=== PATIENT | male | born 1960 | race Caucasian/White ===

== ENCOUNTER → 2017-04-09 | Outpatient (CLI) | payer OTHER ==
[~2017-04-09] MED LIST: ALBU6.7H INH; ALBU8I INH; BUSP5TAB3 PO; LITH300 PO; LOMO PO; NEUR300C PO; PRED20 PO; VIST25CA PO; ZITH250T PO; ZOFR4TAB3 SL
[2017-04-09 10:02] LABS: BLOOD GAS BASE EXCESS -2.2 mmol/L (-2-2); BLOOD GAS CARBOXYHEMOGLOBIN 4.9 % (0-4); BLOOD GAS HCO3 22 mmol/L (22-26); BLOOD GAS METHEMOGLOBIN 1.2 % (0-2); BLOOD GAS O2 HGB SATURATION 93 % (90-100); BLOOD GAS OXYGEN CONTENT 15.2 Vol % (12.0-20.0); BLOOD GAS PCO2 37 mmHG (38-42); BLOOD GAS PO2 101 mmHG (61-120); BLOOD GAS TOTAL HGB 11.5 G/DL (12.0-16.0); CRITICAL VALUE NO; DRAW SITE RT RADIAL; FIO2 21 %; NUMBER OF ARTERIAL PUNCTURES 1; OXYGEN DEVICE ROOM AIR; STAT NO; TEMP CORR TO 98.6; ULNAR PULSE PRESENT
--- NOTE | 2017-04-10 08:35 | RSPPFT ---
DATE OF PROCEDURE: 04/09/17 COMMENTS: VOLUMES DYNAMIC: FVC and FEV1 normal. STATIC: FRC, RV and TLC normal. FLOWS: FEV1% normal; FEF 25-75 mildly reduced. DIFFUSION: Normal. FLOW VOLUME LOOP: Terminal airflow obstruction. IMPRESSION: Mild obstructive ventilatory defect with normal diffusion and no significant hyperinflation. Airways resistance is normal. There is minimal change post-bronchodilator.
== END ==
LOC: PHRSP 09:00
PROVIDERS: ATTEND Internal Medicine
DX: J44.9 Chronic obstructive pulmonary disease, unspecified (principal)
CPT/HCPCS: 36600; 82805; 94060; 94620; 94726; 94729

== ENCOUNTER 2018-01-11 18:49 | Inpatient (IN) | payer OTHER, MEDICARE ==
[~2018-01-11] VITALS: Ht 182.9 cm; Wt 77.0 kg
[2018-01-11 18:51] VITALS: BP 171/100; PULSE 61; RESP 20; TEMP 100; O2SAT 99
[2018-01-11] MEDS ORDERED: KETOROLAC TROMETHAMINE 30 MG/ML (IVP) VIAL IV PUSH ONE (19:30)
[2018-01-11] MEDS ORDERED: CLINDAMYCIN 600 MG/NS PREMIX 50 ML IV ONE (19:30)
[2018-01-11] MEDS ORDERED: SODIUM CHLOR 0.9% 1000 ML INJ 1,000 ML IV ONE ×2 (19:30→21:15)
[2018-01-11] MEDS ORDERED: PIPERACIL-TAZO 3.375 GM PREMIX 50 ML IV ONE (19:30)
[2018-01-11 19:44] LABS: AUTOMATED NEUTROPHIL # 16.8 TH/MM3 (1.8-7.7); BASOPHIL # 0.2 TH/MM3 (0-0.2); BASOPHIL % 0.8 % (0.0-2.0); EOSINOPHIL % 0.1 % (0.0-4.0); HEMATOCRIT 40.9 % (39.0-51.0); HEMOGLOBIN 13.8 GM/DL (13.0-17.0); LYMPH % 9.7 % (9.0-44.0); LYMPHOCYTE # 1.9 TH/MM3 (1.0-4.8); MEAN CELL VOLUME 103.3 FL (80.0-100.0); MEAN CORPUSCULAR HEMOGLOBIN 34.8 PG (27.0-34.0); MEAN CORPUSCULAR HGB CONC 33.7 % (32.0-36.0); MEAN PLATELET VOLUME 7.8 FL (7.0-11.0); MONO % 4.5 % (0.0-8.0); MONOCYTE # 0.9 TH/MM3 (0-0.9); NEUT % 84.9 % (16.0-70.0); PLATELET COUNT 197 TH/MM3 (150-450); RED BLOOD COUNT 3.96 MIL/MM3 (4.50-5.90); WHITE BLOOD COUNT 19.8 TH/MM3 (4.0-11.0)
[2018-01-11 19:52] LABS: CHLORIDE 103 MEQ/L (98-107); SODIUM (NA) 138 MEQ/L (136-145)
[2018-01-11 19:56] LABS: ALBUMIN 4.2 GM/DL (3.4-5.0); BICARBONATE 26.2 MEQ/L (21.0-32.0); BLOOD UREA NITROGEN 17 MG/DL (7-18); GLUCOSE,RANDOM 142 MG/DL (74-106)
[2018-01-11 19:59] LABS: ALT (GPT) 30 U/L (12-78); AST (GOT) 36 U/L (15-37); GLOMERULAR FILTRATION RATE 48 ML/MIN (>89)
[2018-01-11 20:00] LABS: TOTAL BILIRUBIN ADULT 2.4 MG/DL (0.2-1.0)
[2018-01-11 20:01] LABS: TOTAL PROTEIN 9.6 GM/DL (6.4-8.2)
[2018-01-11 20:02] LABS: ALKALINE PHOSPHATASE 174 U/L (45-117)
[2018-01-11 20:04] LABS: TROPONIN I LESS THAN 0.02 NG/ML (0.02-0.05)
[2018-01-11 20:10] VITALS: BP 160/88; PULSE 66; RESP 16; O2SAT 98
[2018-01-11 20:13] LABS: OVALOCYTES 1+ (NORMAL); TEARDROP RBCS 1+ (NORMAL)
--- NOTE | 2018-01-11 20:16 | RADRPT ---
EXAM DATE/TIME: 01/11/2018 19:41 [facility] COMPARISON: CHEST SINGLE AP, December 31, 2015, 12:25. INDICATIONS : Fever. MEDICAL HISTORY : Chronic obstructive pulmonary disease. SURGICAL HISTORY : None. ENCOUNTER: Initial ACUITY: 2 days PAIN SCORE: 9/10 LOCATION: Bilateral chest FINDINGS: A single view of the chest demonstrates the lungs to be symmetrically aerated without evidence of mas s, infiltrate or effusion. The cardiomediastinal contours are unremarkable. Osseous structures are intact. CONCLUSION: No evidence of acute cardiopulmonary disease. Edinson Esquivel MD on January 11, 2018 at 20:14 Board Certified Radiologist. This report was verified electronically.
--- NOTE | 2018-01-11 20:33 | RADRPT ---
EXAM DATE/TIME: 01/11/2018 19:50 [facility] COMPARISON: No previous studies available for comparison. INDICATIONS : Altered mental status. Nausea. Vomiting. RADIATION DOSE: 42.98 CTDIvol (mGy) MEDICAL HISTORY : Chronic obstructive pulmonary disease. Hypertension. Calcified brain bleed. SURGICAL HISTORY : None. ENCOUNTER: Initial ACUITY: 1 day PAIN SCALE: 3/10 LOCATION: cranial TECHNIQUE: Multiple contiguous axial images were obtained of the head. Using automated exposure control and adj ustment of the mA and/or kV according to patient size, radiation dose was kept as low as reasonably a chievable to obtain optimal diagnostic quality images. DICOM format image data is available electro nically for review and comparison. FINDINGS: CEREBRUM: The ventricles are normal for age. No evidence of midline shift, mass lesion, hemorrhage or acute in farction. No extra-axial fluid collections are seen. Atrophy again noted. POSTERIOR FOSSA: The cerebellum and brainstem are intact. 23 mm chronic calcification right cerebellar hemisphere unc hanged. The 4th ventricle is midline. The cerebellopontine angle is unremarkable. EXTRACRANIAL: The visualized portion of the orbits is intact. SKULL: The calvaria is intact. No evidence of skull fracture. CONCLUSION: No acute intracranial abnormality demonstrated. Atrophy and chronic cerebellar calcification. Edinson Esquivel MD on January 11, 2018 at 20:29 Board Certified Radiologist. This report was verified electronically.
[2018-01-11] MEDS ORDERED: ESCI10TA PO (21:04)
[2018-01-11] MEDS ORDERED: MIRT30TA PO (21:04)
[2018-01-11] MEDS ORDERED: BUSP15TA PO (21:04)
[2018-01-11] MEDS ORDERED: HYDR50CA PO (21:04)
[2018-01-11] MEDS ORDERED: TAMS0.4C4 PO (21:04)
[2018-01-11] MEDS ORDERED: FLUT1INH INH (21:04)
[2018-01-11] MEDS ORDERED: LEVO25TA4 PO (21:04)
[2018-01-11] MEDS ORDERED: LITH300C2 PO (21:04)
[2018-01-11] MEDS ORDERED: GABA600T PO (21:04)
[2018-01-11 21:45] VITALS: BP 154/87; PULSE 60; RESP 16; O2SAT 99
[2018-01-11 23:00] LABS: BILIRUBIN, URINE NEG (NEG); BLOOD, URINE NEG (NEG); GLUCOSE,URINE NEG (NEG); KETONE, URINE TRACE mg/dL (NEG); NITRITE,URINE NEG (NEG); PH, URINE 8.5 (5.0-8.5); URINE COLOR YELLOW (YELLW/STRAW); URINE LEUKOCYTE ESTERASE NEG (NEG)
[2018-01-11 23:03] LABS: RBC, URINE 0-3 /hpf (0-3)
[2018-01-11] MEDS ORDERED: LORazepam 2 MG/ML VIAL IV PUSH ONE (23:15)
[2018-01-11] MEDS ORDERED: MORPHINE SULFATE 2 MG/ML SYRINGE IV PUSH ONE (23:15)
[2018-01-11 23:55] VITALS: PULSE 51; RESP 16; O2SAT 96
[2018-01-12] VITALS (11 sets, daily range): BP systolic 143–178; BP diastolic 73–96; PULSE 51–80; RESP 14–38; TEMP 98.1–100.2; O2SAT 95–99
--- NOTE | 2018-01-12 00:38 | PD ---
HPI Chief Complaint: Altered Mental Status Time Seen by Provider: 19:15 Travel History International Travel<30 days: No Contact w/Intl Traveler<30days: No Traveled to known affect area: No History of Present Illness HPI Patient is a 57-year-old male who had 10 of his lower teeth extracted 2 days ago. Patient has a recent and sudden onset of confusion and altered mental status apparently his called him from work he started talking nonsense and then she arrived home and he was altered shaking lying in the bed confused low- grade temp. In the ER he is not making much sense he is not redirectable she has to consciously stay above him to keep him lying in the bed there is no obvious swelling in his throat airway but it is difficult to get a full exam because he is altered and not cooperating. says that once upon a time couple years back he had a bad flu and acted similar but not as altered PFSH Past Medical History Arthritis: Yes Anxiety: Yes Depression: Yes Cancer: No Cardiovascular Problems: Yes High Cholesterol: Yes COPD: Yes (diagnosed (2004)) Diminished Hearing: No Endocrine: No Gastrointestinal Disorders: Yes (ingunal hernia) Genitourinary: No Hypertension: Yes Immune Disorder: No Musculoskeletal: Yes (spinal stenosis) Neurologic: Yes (CALCIFIED BRAIN BLEED PER PT) Psychiatric: Yes Respiratory: Yes (copd) Immunizations Current: No Thyroid Disease: Yes (hypothyroidism) Tetanus Vaccination: Unknown Influenza Vaccination: Yes PNEUMOCCOCAL Vaccine (Year): 2 Past Surgical History AICD: No Appendectomy: Yes Oral Surgery: Yes (lower teeth pulled) Other Surgery: Yes (left hand sx (1999) appendectomy ()) Social History Alcohol Use: No (QUIT JUN, 2011) Tobacco Use: Yes (3.5 PPD) Substance Use: Yes (marijuana current use) Allergies-Medications (Allergen,Severity, Reaction): Coded Allergies: chlorpheniramine (Unverified Allergy, Severe, ANTIHISTAMINE???, 01/11/18) pseudoephedrine (Unverified Allergy, Severe, DECONGESTANTS???, 01/11/18) Reported Meds & Prescriptions Reported Meds & Active Scripts Active Reported Levothyroxine (Levothyroxine Sodium) 25 Mcg Tab 25 Mcg PO DAILY Buspirone (Buspirone HCl) 15 Mg Tab 15 Mg PO HS Breo Ellipta Inh (Fluticasone/Vilanterol) 100-25 Mcg/Act Inh 1 Puff INH DAILY Use daily at the same time. Escitalopram (Escitalopram Oxalate) 10 Mg Tab 10 Mg PO HS Tamsulosin (Tamsulosin HCl) 0.4 Mg Cap 0.4 Mg PO HS Hydroxyzine Pamoate 50 Mg Cap 150 Mg PO HS Mirtazapine 30 Mg Tab 30 Mg PO HS Gabapentin 600 Mg Tab 4 Tab PO HS [place] Carbonate 300 Mg Cap 900 Mg PO BID Review of Systems ROS Limitations: Altered Mental Status Physical Exam Narrative GENERAL: Patient is altered and somewhat delirious presentation SKIN: Warm and dry. face skin reddened HEAD: Atraumatic. Normocephalic. EYES: Pupils equal and round. No scleral icterus. No injection or drainage. ENT: No nasal bleeding or discharge. Mucous membranes pink and moist. all bottom teeth are out, no smell of abscess nor infection , top teeth normal , no sign of swelling to tongue no drooling no resp distress no crepitus to neck NECK: Trachea midline. No JVD. no erythema no signs of sub Q AIR NO CREPITUS C[place]di[place] slightly tachycardic sinus rhythm. RESPIRATORY: No accessory muscle use. Clear to auscultation. Breath sounds equal bilaterally. No RESP distress GASTROINTESTINAL: Abdomen soft, non-tender, nondistended. Hepatic and splenic margins not palpable. MUSCULOSKELETAL: Extremities without clubbing, cyanosis, or edema. No obvious deformities. NEUROLOGICAL: no focal deficit that is obvious but global confusion and dilirium like appearance to behavior PSYCH: ALTERED DELIRIUM PRESENTATION FLUCTUATING LEVEL OF CONSCIOUSNESS Data Data Last Documented VS Vital Signs Date Time Temp Pulse Resp B/P (MAP) Pulse Ox O2 Delivery O2 Flow Rate FiO2 01/12/18 01:00 16 98 Room Air 01/12/18 01:00 57 143/87 (105) 01/11/18 18:51 100.0 Orders Orders Complete Blood Count With Diff (01/11/18 19:) Comprehensive Metabolic Panel (01/11/18:) Ckmb (Isoenzyme) Profile (01/11/18:) Troponin I (01/11/18:) Lipase (01/11/18:) Urinalysis - C+S If Indicated (01/11/18:) Chest, Single Ap (01/11/18 19:27) Ct Brain W/O Iv Contrast(Rout) (01/11/18 19:27) Clindamycin 600 Mg/Ns Premix (Cleocin 60 (01/11/18 19:30) Piperacil-Tazo 3.375 Gm Premix (Zosyn 3. (01/11/18 19:30) Lactic Acid (01/11/18 19:29) Blood Culture (01/11/18 19:29) Sodium Chlor 0.9% 1000 Ml Inj (Ns 1000 M (01/11/18 19:30) Ketorolac Inj (Toradol Inj) (01/11/18 19:30) CKMB (01/11/18 19:05) CKMB% (01/11/18 19:05) Sodium Chlor 0.9% 1000 Ml Inj (Ns 1000 M (01/11/18 21:15) Lorazepam Inj (Ativan Inj) (01/11/18 23:15) Morphine Inj (Morphine Inj) (01/11/18 23:15) Soft Tissue Neck (01/12/18 ) Place In Observation (01/12/18 ) Vital Signs (Adult) Q4H (01/12/18 00:36) Activity Oob With Assistance (01/12/18 00:36) Diet Npo (01/12/18 Breakfast) Sodium Chlor 0.9% 1000 Ml Inj (Ns 1000 M (01/12/18 00:36) Sodium Chloride 0.9% Flush (Ns Flush) (01/12/18 00:45) Sodium Chloride 0.9% Flush (Ns Flush) (01/12/18 09:00) Acetaminophen (Tylenol) (01/12/18 00:45) Ondansetron Inj (Zofran Inj) (01/12/18 00:45) Basic Metabolic Panel (Bmp) (01/13/18 06:00) Complete Blood Count With Diff (01/13/18 06:00) Case Management Consult (01/12/18 00:36) Scd Bilateral/Knee High ROSALIE.BID (01/12/18 00:36) Naloxone Inj (Narcan Inj) (01/12/18 00:45) Docusate Sodium-Senna (Shari-Colace) (01/12/18 09:00) Magnesium Hydroxide Liq (Milk Of Magnesi (01/12/18 00:45) Sennosides (Senokot) (01/12/18 00:45) Bisacodyl Supp (Dulcolax Supp) (01/12/18 00:45) Lactulose Liq (Lactulose Liq) (01/12/18 00:45) Clindamycin 600 Mg/Ns Premix (Cleocin 60 (01/12/18 02:00) Admit Order (Ed Use Only) (01/12/18 01:11) Labs Laboratory Tests Test 01/11/18 19:05 01/11/18 20:15 01/11/18 22:40 White Blood Count 19.8 TH/MM3 Red Blood Count 3.96 MIL/MM3 Hemoglobin 13.8 GM/DL Hematocrit 40.9 % Mean Corpuscular Volume 103.3 FL Mean Corpuscular Hemoglobin 34.8 PG Mean Corpuscular Hemoglobin Concent 33.7 % Red Cell Distribution Width 14.0 % Platelet Count 197 TH/MM3 Mean Platelet Volume 7.8 FL Neutrophils (%) (Auto) 84.9 % Lymphocytes (%) (Auto) 9.7 % Monocytes (%) (Auto) 4.5 % Eosinophils (%) (Auto) 0.1 % Basophils (%) (Auto) 0.8 % Neutrophils # (Auto) 16.8 TH/MM3 Lymphocytes # (Auto) 1.9 TH/MM3 Monocytes # (Auto) 0.9 TH/MM3 Eosinophils # (Auto) 0.0 TH/MM3 Basophils # (Auto) 0.2 TH/MM3 CBC Comment AUTO DIFF Differential Comment AUTO DIFF CONFIRMED Tear Drop Cells 1+ Ovalocytes 1+ Blood Urea Nitrogen 17 MG/DL Creatinine 1.50 MG/DL Random Glucose 142 MG/DL Total Protein 9.6 GM/DL Albumin 4.2 GM/DL Calcium Level 10.0 MG/DL Alkaline Phosphatase 174 U/L Aspartate Amino Transf (AST/SGOT) 36 U/L Alanine Aminotransferase (ALT/SGPT) 30 U/L Total Bilirubin 2.4 MG/DL Sodium Level 138 MEQ/L Potassium Level 3.2 MEQ/L Chloride Level 103 MEQ/L Carbon Dioxide Level 26.2 MEQ/L Anion Gap 9 MEQ/L Estimat Glomerular Filtration Rate 48 ML/MIN Total Creatine Kinase 410 U/L Creatine Kinase MB 4.9 NG/ML Creatine Kinase MB % 1.2 % Troponin I LESS THAN 0.02 NG/ML Lipase 137 U/L Lactic Acid Level 3.9 mmol/L Urine Color YELLOW Urine Turbidity CLEAR Urine pH 8.5 Urine Specific [place] 1.015 Urine Protein 30 mg/dL Urine Glucose (UA) NEG mg/dL Urine Ketones TRACE mg/dL Urine Occult Blood NEG Urine Nitrite NEG Urine Bilirubin NEG Urine Urobilinogen 2.0 MG/DL Urine Leukocyte Esterase NEG Urine RBC 0-3 /hpf Urine WBC 6-8 /hpf Urine Squamous Epithelial Cells 6-8 /hpf Urine Bacteria NONE /hpf Microscopic Urinalysis Comment CULT NOT INDICATED MDM Medical Decision Making Medical Screen Exam Complete: Yes Emergency Medical Condition: Yes Differential Diagnosis pt may have AMS from sepsis , pt may have Airway compromise from [place] or trench mouth or abscess, of recent extractions teeth, drug overdose or etoh withdrawal . other cuases of AMS Hypoglycemia encepholopathy liver failure, other Narrative Course I immediately treat pt with Antibiotics emprically from WBC of 19 on serum and assume post extraction oral infection to sepsis , Zosyn clinda immediately in and NS Heaad CT ordered , but cervical soft tissue unable to do as per electrical and radio aircraft mechanic due to patient unable to lay still and repeatedly gets of table, Pt returns to Exam remove . after 1 and half Liters NS Pt seems more alert but still has to stand at foot of bed to keep him from getting up . He is alert eyes open but still not talking. All labs are within normal limits except WBC 19 with Lactic acid 3.9 and creatine 1.5 mildly elevated showing dehydration. I admit to inpatient service and pt was given Ativan 1 mg ivp to calm as well as reduce any etoh withdrawal that this could be presenting as. No definitive diagnosis for his AMS in ER , admitted in stable condition for further inpt eval. CT head negative . Treated for sepsis and dehydration in ER Uzair Guido MD Jan 12, 2018 00:38
[2018-01-12] MEDS ORDERED: MAGNESIUM HYDROXIDE SUSP 30 ML CUP PO PRN (00:45)
[2018-01-12] MEDS ORDERED: NALOXONE HCL 0.4 MG/ML AMP IV PUSH PRN (00:45)
[2018-01-12] MEDS ORDERED: LACTULOSE SYRUP 20 GM/30 ML CUP PO PRN (00:45)
[2018-01-12] MEDS ORDERED: BISACODYL 10 MG SUPP RECTAL PRN (00:45)
[2018-01-12] MEDS ORDERED: SODIUM CHLORIDE 0.9% FLUSH 10 ML FLUSH IV FLUSH PRN (00:45)
[2018-01-12] MEDS ORDERED: SENNOSIDES 8.6 MG TAB PO PRN (00:45)
--- NOTE | 2018-01-12 01:13 | RADRPT ---
EXAM DATE/TIME: 01/12/2018 00:21 [facility] COMPARISON: No previous studies available for comparison. INDICATIONS : Vomiting and pain. MEDICAL HISTORY : Chronic obstructive pulmonary disease. Hypertension. Calcified brain bleed SURGICAL HISTORY : None. ENCOUNTER: Initial ACUITY: 1 day PAIN SCORE: 8/10 LOCATION: Bilateral neck FINDINGS: Two view examination of the soft tissues of the neck demonstrates the hypopharyngeal airway to have a grossly normal configuration. The trachea is midline. No radiopaque foreign bodies are seen. Degen erative changes with uncovertebral ridging of the mid and lower cervical spine CONCLUSION: 1. Degenerative changes of the mid and lower cervical spine. 2. Otherwise negative. No radiopaque foreign body. Gulshan Lieberman MD on January 12, 2018 at 1:11 Board Certified Radiologist. This report was verified electronically.
[2018-01-12] MEDS: CLINDAMYCIN 600 MG/NS PREMIX 50 ML IV SCH ×2 (02:11→09:20)
[2018-01-12] MEDS: SODIUM CHLOR 0.9% 1000 ML INJ 1,000 ML IV SCH ×3 (02:11→23:29)
[2018-01-12 02:16] LABS: AUTOMATED NEUTROPHIL # 13.5 TH/MM3 (1.8-7.7); BASOPHIL # 0.1 TH/MM3 (0-0.2); BASOPHIL % 0.6 % (0.0-2.0); EOSINOPHIL % 0.1 % (0.0-4.0); HEMATOCRIT 36.4 % (39.0-51.0); HEMOGLOBIN 12.3 GM/DL (13.0-17.0); LYMPH % 10.1 % (9.0-44.0); LYMPHOCYTE # 1.6 TH/MM3 (1.0-4.8); MEAN CELL VOLUME 103.1 FL (80.0-100.0); MEAN CORPUSCULAR HEMOGLOBIN 34.8 PG (27.0-34.0); MEAN CORPUSCULAR HGB CONC 33.8 % (32.0-36.0); MEAN PLATELET VOLUME 7.6 FL (7.0-11.0); MONO % 4.8 % (0.0-8.0); MONOCYTE # 0.8 TH/MM3 (0-0.9); NEUT % 84.4 % (16.0-70.0); PLATELET COUNT 141 TH/MM3 (150-450); RED BLOOD COUNT 3.53 MIL/MM3 (4.50-5.90); RED CELL DISTRIBUTION WIDTH 14.3 % (11.6-17.2)
[2018-01-12] MEDS: ONDANSETRON HCL 4 MG/2 ML VIAL IVP PRN (02:51)
[2018-01-12] MEDS ORDERED: HALOPERIDOL LACTATE 5 MG/ML AMP IM ONE (04:00)
--- NOTE | 2018-01-12 08:40 | HHI.HP ---
HPI Service [facility] Primary Care Physician No Primary Care Physician Admission Diagnosis AMS and post operative dilirium Diagnoses: Chief Complaint: Altered mental status Travel History International Travel<30 Days: No Contact w/Intl Traveler <30 Da: No Traveled to Known Affected Are: No History of Present Illness This is a pleasant 57 y/o Male who had 10 of his lower teeth extracted 2 days before coming to ER, Patient has a recent and sudden onset of confusion and altered mental status apparently his called him from work he started talking nonsense and then she arrived home and he was altered shaking lying in the bed confused low-grade temp. as we know he has TA, Anxiety disorder, Depression, Hyperlipidemia, COPD, Hypertension, Spinal stenosis, Hypothyroidism, BPH He is been seen in his bedroom, discussed with his Mrs. Lechuga Layenrike the patient started with confusion on 01/10/18 and then yesterday 01/11/18 was brought in to ER, as per his he does not drink alcohol but continue abusing marijuana and tobacco dependence at lest 3.5 Packs daily. Review of Systems Constitutional: DENIES: Fever, Chills, Change in appetite Endocrine: DENIES: Heat/cold intolerance Eyes: DENIES: Blurred vision, Eye pain Psychiatric: COMPLAINS OF: Confusion Except as stated in HPI: all other systems reviewed are Neg Past Family Social History Past Medical History OA Anxiety disorder Depression Hyperlipidemia COPD Hypertension Spinal stenosis Hypothyroidism BPH Past Surgical History Appendectomy 1970 Oral surgery recently left hand surgery 1999 Reported Medications Reported Meds & Active Scripts Active Reported Levothyroxine (Levothyroxine Sodium) 25 Mcg Tab 25 Mcg PO DAILY Buspirone (Buspirone HCl) 15 Mg Tab 15 Mg PO HS Breo Ellipta Inh (Fluticasone/Vilanterol) 100-25 Mcg/Act Inh 1 Puff INH DAILY Use daily at the same time. Escitalopram (Escitalopram Oxalate) 10 Mg Tab 10 Mg PO HS Tamsulosin (Tamsulosin HCl) 0.4 Mg Cap 0.4 Mg PO HS Hydroxyzine Pamoate 50 Mg Cap 150 Mg PO HS Mirtazapine 30 Mg Tab 30 Mg PO HS Gabapentin 600 Mg Tab 4 Tab PO HS [place] Carbonate 300 Mg Cap 900 Mg PO HS Allergies: Coded Allergies: chlorpheniramine (Unverified Allergy, Severe, ANTIHISTAMINE???, 01/11/18) pseudoephedrine (Unverified Allergy, Severe, DECONGESTANTS???, 01/11/18) Active Ordered Medications Current Medications Medications (Trade) Dose Ordered Sig/[place] Route Start Time Stop Time Status Last Admin Sodium Chloride 1,000 ml @ 100 mls/hr Q10H IV 01/12/18 00:36 01/12/18 02:11 (NS Flush) 2 ml UNSCH PRN IV FLUSH 01/12/18 00:45 (NS Flush) 2 ml BID IV FLUSH 01/12/18 09:00 (Tylenol) 650 mg Q4H PRN PO 01/12/18 00:45 (Zofran Inj) 4 mg Q6H PRN IVP 01/12/18 00:45 01/12/18 02:51 (Narcan Inj) 0.4 mg UNSCH PRN IV PUSH 01/12/18 00:45 (Shari-Colace) 1 tab BID PO 01/12/18 09:00 (Milk Of Magnesia Liq) 30 ml Q12H PRN PO 01/12/18 00:45 (Senokot) 17.2 mg Q12H PRN PO 01/12/18 00:45 (Dulcolax Supp) 10 mg DAILY PRN RECTAL 01/12/18 00:45 (Lactulose Liq) 30 ml DAILY PRN PO 01/12/18 00:45 Clindamycin/ Sodium Chloride 50 ml @ 100 mls/hr Q6H IV 01/12/18 02:00 01/12/18 02:11 Family History Brother with Small cell cancer Mother with Lung cancer. Social History Tobacco dependence Marijuana abuse denies other toxic habits. Physical Exam Vital Signs Vital Signs Date Time Temp Pulse Resp B/P (MAP) Pulse Ox O2 Delivery O2 Flow Rate FiO2 01/12/18 02:45 99.5 51 20 159/96 (117) 97 01/12/18 02:17 100.2 53 20 154/91 (112) 95 01/12/18 01:00 16 98 Room Air 01/12/18 01:00 57 16 143/87 (105) 98 Room Air 3/16/18 23:55 51 16 96 Room Air 01/11/18 21:45 60 16 154/87 (109) 99 Room Air 01/11/18 21:40 16 01/11/18 20:10 66 16 160/88 (112) 98 Room Air 01/11/18 19:24 18 100 Room Air 01/11/18 18:51 100.0 61 20 171/100 (123) 99 Physical Exam GENERAL: Confused, Psychotic. SKIN: Warm and dry. HEAD: Atraumatic. Normocephalic. EYES: Pupils equal and round. No scleral icterus. No injection or drainage. ENT: No nasal bleeding or discharge. dry mucous membranes. NECK: Trachea midline. No JVD. CARDIOVASCULAR: Regular rate and rhythm. RESPIRATORY: No accessory muscle use. Clear to auscultation. Breath sounds equal bilaterally. GASTROINTESTINAL: Abdomen soft, non-tender, nondistended. Hepatic and splenic margins not palpable. MUSCULOSKELETAL: Extremities without clubbing, cyanosis, or edema. No obvious deformities. NEUROLOGICAL: Confused, Psychotic. wants to leave his bed. PSYCHIATRIC: Difficult to evaluate. Laboratory Laboratory Tests Test 01/11/18 19:05 01/11/18 20:15 01/11/18 22:40 01/12/18 02:05 White Blood Count 19.8 16.0 Red Blood Count 3.96 3.53 Hemoglobin 13.8 12.3 Hematocrit 40.9 36.4 Mean Corpuscular Volume 103.3 103.1 Mean Corpuscular Hemoglobin 34.8 34.8 Mean Corpuscular Hemoglobin Concent 33.7 33.8 Red Cell Distribution Width 14.0 14.3 Platelet Count 197 141 Mean Platelet Volume 7.8 7.6 Neutrophils (%) (Auto) 84.9 84.4 Lymphocytes (%) (Auto) 9.7 10.1 Monocytes (%) (Auto) 4.5 4.8 Eosinophils (%) (Auto) 0.1 0.1 Basophils (%) (Auto) 0.8 0.6 Neutrophils # (Auto) 16.8 13.5 Lymphocytes # (Auto) 1.9 1.6 Monocytes # (Auto) 0.9 0.8 Eosinophils # (Auto) 0.0 0.0 Basophils # (Auto) 0.2 0.1 CBC Comment AUTO DIFF DIFF FINAL Differential Comment AUTO DIFF CONFIRMED Tear Drop Cells 1+ Ovalocytes 1+ Blood Urea Nitrogen 17 Creatinine 1.50 Random Glucose 142 Total Protein 9.6 Albumin 4.2 Calcium Level 10.0 Alkaline Phosphatase 174 Aspartate Amino Transf (AST/SGOT) 36 Alanine Aminotransferase (ALT/SGPT) 30 Total Bilirubin 2.4 Sodium Level 138 Potassium Level 3.2 Chloride Level 103 Carbon Dioxide Level 26.2 Anion Gap 9 Estimat Glomerular Filtration Rate 48 Total Creatine Kinase 410 Creatine Kinase MB 4.9 Creatine Kinase MB % 1.2 Troponin I LESS THAN 0.02 Lipase 137 Lactic Acid Level 3.9 2.2 Urine Color YELLOW Urine Turbidity CLEAR Urine pH 8.5 Urine Specific [place] 1.015 Urine Protein 30 Urine Glucose (UA) NEG Urine Ketones TRACE Urine Occult Blood NEG Urine Nitrite NEG Urine Bilirubin NEG Urine Urobilinogen 2.0 Urine Leukocyte Esterase NEG Urine RBC 0-3 Urine WBC 6-8 Urine Squamous Epithelial Cells 6-8 Urine Bacteria NONE Microscopic Urinalysis Comment CULT NOT INDICATED Date/Time Source Procedure Growth Status 01/11/18 19:11 Blood Peripheral Aerobic Blood Culture Pending Received 01/11/18 19:11 Blood Peripheral Anaerobic Blood Culture Pending Received Result Diagram: 01/12/18 0205 01/11/18 1905 Imaging Last Impressions Soft Tissue Neck X-Ray 01/12/18 0000 Signed Impressions: Service Date/Time: Friday, January 12, 2018 00:21 - CONCLUSION: 1. Degenerative changes of the mid and lower cervical spine. 2. Otherwise negative. No radiopaque foreign body. Gulshan Lieberman MD Head CT [id number]/11/[id number] Signed Impressions: Service Date/Time: Thursday, January 11, 2018 19:50 - CONCLUSION: No acute intracranial abnormality demonstrated. Atrophy and chronic cerebellar calcification. Edinson Esquivel MD Chest X-Ray [id number]/11/[id number] Signed Impressions: Service Date/Time: Thursday, January 11, 2018 19:41 - CONCLUSION: No evidence of acute cardiopulmonary disease. Edinson Esquivel MD Capmichaeli VTE Risk Assessment [place] VTE Risk Assessment: Mod/High Risk (score >= 2) Caprini Risk Assessment Model Point Value = 1 Point Value = 2 Point Value = 3 Point Value = 5 Age 41-60 Minor surgery BMI > 25 kg/m2 Swollen legs Varicose veins or History of unexplained or recurrent spontaneous Oral contraceptives or hormone replacement Sepsis (< 1 month) Serious lung disease, including pneumonia (< 1 month) Abnormal pulmonary function Acute myocardial infarction Congestive heart failure (< 1 month) History of inflammatory bowel disease Medical patient at bed rest Age 61-74 Arthroscopic surgery Major open surgery (> 45 min) Laparoscopic surgery (> 45 min) Malignancy Confined to bed (> 72 hours) Immobilizing plaster cast Central venous access Age >= 75 History of VTE Family history of VTE Factor V Leiden Prothrombin [id number] Lupus anticoagulant Anticardiolipin antibodies Elevated serum homocysteine Heparin-induced thrombocytopenia Other congenital or acquired thrombophilia Stroke (< 1 month) Elective arthroplasty Hip, pelvis, or leg fracture Acute spinal cord injury (< 1 month) Prophylaxis Regimen Total Risk Factor Score Risk Level Prophylaxis Regimen 0-1 Low Early ambulation 2 Moderate Order ONE of the following: *Sequential Compression Device (SCD) *Heparin 5000 units SQ BID 3-4 Higher Order ONE of the following medications: *Heparin 5000 units SQ TID *Enoxaparin/Lovenox 40 mg SQ daily (WT < 150 kg, CrCl > 30 mL/min) *Enoxaparin/Lovenox 30 mg SQ daily (WT < 150 kg, CrCl > 10-29 mL/min) *Enoxaparin/Lovenox 30 mg SQ BID (WT < 150 kg, CrCl > 30 mL/min) AND/OR *Sequential Compression Device (SCD) 5 or more Highest Order ONE of the following medications: *Heparin 5000 units SQ TID (Preferred with Epidurals) *Enoxaparin/Lovenox 40 mg SQ daily (WT < 150 kg, CrCl > 30 mL/min) *Enoxaparin/Lovenox 30 mg SQ daily (WT < 150 kg, CrCl > 10-29 mL/min) *Enoxaparin/Lovenox 30 mg SQ BID (WT < 150 kg, CrCl > 30 mL/min) AND *Sequential Compression Device (SCD) Assessment and Plan Assessment and Plan 1. Acute Toxic metabolic encephalopathy not clear his condition, but has multiple factors like drug intoxication, Tobacco dependence Sepsis. unfortunately drug screen was not performed. No clear alcohol dependence as per his not drinking any more was started on CIWA Protocol and following. 2. Dehydration giving IV Normal Saline Bolus 1000 ml and will continue 125 ml per hour 3. Acute Kidney Injury receiving IV fluids, will need Graham cath at this time to better evaluate Is and Os at least for now. and following 4. Sepsis the patient came with low grade fever, Bradycardia, Leukocytosis, Hypertensive, Acute kidney Injury given Zosyn in Emergency room, following blood cultures, will switch antibiotics to Vancomycin and Zosyn, de Escalate depend of blood cultures. Lactic acid 3.9 came down to 2.2 5. Suspected also Drug withdrawal no clear which, will perform Drug screen, alcohol level, CIWA protocol, Ammonia level, complete laboratory Lipid panel, TSH, Free T4, Vitamin B12, Thiamine, Folate , Hemoglobin A1C, CT brain performed. atrophy and chronic Cerebellar calcification. lactulose will give one dose rectal at this time patient is NPO 6. Anxiety disorder/Depression. at this time unable to take his home medicines will follow 7. COPD secondary to severe Tobacco dependence on Bronchodilator, Mucolytic and Incentive spirometry. 8. Hypothyroidism to continue Hormonal replacement once is able to take by mouth 9. Tobacco dependence he uses 3.5 packs daily as per his , not able to debt and budget counselor the patient in this state. 10. marijuana abuse. DVT prophylaxis with Heparin 5000 units every 12 hours due to renal function Discussed with His Mrs. Lechuga and with nurse Miss Freire Code Status Full code. Discussed Condition With Mrs. Alexandrea Quijano and nurse Miss Freire Physician Certification 2 Midnight Certification Type: Admission for Inpatient Services Order for Inpatient Services The services are ordered in accordance with Medicare regulations or non- Medicare payer requirements, as applicable. In the case of services not specified as inpatient-only, they are appropriately provided as inpatient services in accordance with the 2-midnight benchmark. Estimated LOS (days): 3 days is the estimated time the patient will need to remain in the hospital, assuming treatment plan goals are met and no additional complications. Post-Hospital Plan: Not yet determined Nasir Caruso MD Jan 12, 2018 08:40
[2018-01-12] MEDS: DOCUSATE SODIUM 50 MG/SENNA 8.6 MG TAB PO SCH ×2 (09:00→19:53)
[2018-01-12] MEDS: SODIUM CHLORIDE 0.9% FLUSH 10 ML FLUSH IV FLUSH SCH ×2 (09:20→19:53)
[2018-01-12] MEDS ORDERED: SODIUM CHLOR 0.9% 1000 ML INJ 1,000 ML IV ONE (09:45)
[2018-01-12] MEDS ORDERED: FLUMAZENIL 0.5 MG/5 ML VIAL IV PUSH PRN (10:00)
[2018-01-12] MEDS ORDERED: cloNIDine HCL 0.1 MG TAB PO PRN (10:00)
[2018-01-12] MEDS ORDERED: LORazepam 1 MG TAB PO PRN (10:00)
[2018-01-12] MEDS ORDERED: LORazepam 2 MG TAB PO PRN (10:00)
[2018-01-12] MEDS ORDERED: LORazepam 2 MG/ML VIAL IV PUSH PRN ×3 (10:00)
[2018-01-12] MEDS ORDERED: Vancomycin Consult Pharmacy 1 EA OTHER SCH (10:15)
[2018-01-12 11:19] LABS: PHOSPHORUS 2.6 MG/DL (2.5-4.9)
[2018-01-12] MEDS: RESP: ALBUTEROL 2.5 MG/IPRATROPIUM 0.5 MG NEB (SCH) NEB ×4 (11:59→23:17)
[2018-01-12] MEDS ORDERED: LACTULOSE LIQ 300 ML in WATER STERILE FOR IRR BTL 700 ML RECTAL ONE (12:00)
[2018-01-12] MEDS: FAMOTIDINE 20 MG/2 ML VIAL IV PUSH SCH ×2 (12:44→22:19)
[2018-01-12] MEDS: POTASSIUM CHLOR 20 MEQ PREMIX 100 ML IV SCH ×2 (12:55→15:32)
[2018-01-12] MEDS: HEPARIN SODIUM - SQ 10,000 UNITS/ML VIAL SQ SCH ×2 (14:02→19:53)
[2018-01-12] MEDS: PIPERACIL-TAZO 3.375 GM PREMIX 50 ML IV SCH ×3 (14:03→23:27)
[2018-01-12 14:51] LABS: FOLATE 17.2 NG/ML (3.1-17.5); FREE T4 1.05 NG/DL (0.76-1.46)
[2018-01-12] MEDS: ZIPRASIDONE MESYLATE 20 MG VIAL IM PRN (15:11)
[2018-01-12] MEDS: MULTIVITAMIN INJ 10 ML, FOLIC ACID INJ 1 MG in SODIUM CHLORID 0.9% 500 ML INJ 500 ML IV SCH (15:46)
[2018-01-12] MEDS: VANCOMYCIN INJ 1,250 MG in SODIUM CHLOR 0.9% 250 ML INJ 250 ML IV SCH (15:46)
[2018-01-12] MEDS: THIAMINE INJ 100 MG in SODIUM CHLORIDE 0.9% INJ 100 ML IV SCH (17:25)
[2018-01-12] MEDS: guaiFENesin E.R. 600 MG TAB PO SCH (19:53)
[2018-01-12] MEDS: LORazepam 2 MG/ML VIAL IV PUSH PRN ×2 (19:59→22:19)
[2018-01-13] VITALS (16 sets, daily range): BP systolic 146–174; BP diastolic 81–99; PULSE 58–84; RESP 21–33; TEMP 98.4–99.6; O2SAT 95–98
[2018-01-13] MEDS: RESP: ALBUTEROL 2.5 MG/IPRATROPIUM 0.5 MG NEB (SCH) NEB ×3 (03:02→11:32)
[2018-01-13] MEDS: ZIPRASIDONE MESYLATE 20 MG VIAL IM PRN (03:25)
[2018-01-13] MEDS: PIPERACIL-TAZO 3.375 GM PREMIX 50 ML IV SCH ×3 (04:56→17:31)
[2018-01-13 05:27] LABS: AUTOMATED NEUTROPHIL # 8.4 TH/MM3 (1.8-7.7); BASOPHIL % 0.1 % (0.0-2.0); EOSINOPHIL % 0.1 % (0.0-4.0); HEMATOCRIT 36.3 % (39.0-51.0); HEMOGLOBIN 12.1 GM/DL (13.0-17.0); LYMPH % 14.5 % (9.0-44.0); LYMPHOCYTE # 1.5 TH/MM3 (1.0-4.8); MEAN CELL VOLUME 104.7 FL (80.0-100.0); MEAN CORPUSCULAR HGB CONC 33.4 % (32.0-36.0); MEAN PLATELET VOLUME 7.3 FL (7.0-11.0); MONO % 6.9 % (0.0-8.0); MONOCYTE # 0.7 TH/MM3 (0-0.9); NEUT % 78.4 % (16.0-70.0); PLATELET COUNT 96 TH/MM3 (150-450); RED BLOOD COUNT 3.47 MIL/MM3 (4.50-5.90); WHITE BLOOD COUNT 10.6 TH/MM3 (4.0-11.0)
[2018-01-13 05:41] LABS: BICARBONATE 24.4 MEQ/L (21.0-32.0); CALCIUM 8.8 MG/DL (8.5-10.1)
[2018-01-13 05:44] LABS: CREATININE 1.6 MG/DL (0.60-1.30)
[2018-01-13] MEDS: LORazepam 2 MG/ML VIAL IV PUSH PRN (05:56)
[2018-01-13] MEDS: VANCOMYCIN INJ 1,250 MG in SODIUM CHLOR 0.9% 250 ML INJ 250 ML IV SCH (05:58)
[2018-01-13] MEDS: DOCUSATE SODIUM 50 MG/SENNA 8.6 MG TAB PO SCH ×2 (09:00→19:48)
[2018-01-13] MEDS: guaiFENesin E.R. 600 MG TAB PO SCH (09:00)
[2018-01-13] MEDS: SODIUM CHLORIDE 0.9% FLUSH 10 ML FLUSH IV FLUSH SCH ×2 (09:24→19:49)
[2018-01-13] MEDS: HEPARIN SODIUM - SQ 10,000 UNITS/ML VIAL SQ SCH ×2 (09:24→19:48)
[2018-01-13 09:48] LABS: CALCIUM 9.2 MG/DL (8.5-10.1)
[2018-01-13 09:49] LABS: BICARBONATE 25.5 MEQ/L (21.0-32.0)
[2018-01-13 09:52] LABS: CREATININE 1.7 MG/DL (0.60-1.30)
[2018-01-13] MEDS ORDERED: SODIUM CHLOR 0.45% 1000 ML INJ 1,000 ML IV SCH (10:30)
[2018-01-13] MEDS ORDERED: LACT10SO PO (10:51)
[2018-01-13] MEDS: FAMOTIDINE 20 MG/2 ML VIAL IV PUSH SCH ×2 (11:03→21:08)
[2018-01-13] MEDS: THIAMINE INJ 100 MG in SODIUM CHLORIDE 0.9% INJ 100 ML IV SCH (12:02)
--- NOTE | 2018-01-13 12:56 | HHI.PR ---
Subjective Remarks Patient seen and examined today for follow-up on altered mental status, delirium. Patient still with significant altered mentation. Yesterday patient had be put in 4 Point restraints due to agitation, aggression. Appears to have some form of delirium. This morning patient was found to have significant hypernatremia with worsening renal functions which could be related to dehydration. Initial workup did not indicate any acute etiology for patient's altered mentation. Objective Vitals Vital Signs Date Time Temp Pulse Resp B/P (MAP) Pulse Ox O2 Delivery O2 Flow Rate FiO2 01/13/18 09:00 70 25 97 01/13/18 08:00 99.6 76 27 147/85 (105) 97 01/13/18 08:00 58 01/13/18 07:00 62 21 97 01/13/18 04:00 98.4 62 24 152/81 (104) 97 01/13/18 04:00 62 01/13/18 00:00 78 01/13/18 00:00 99.3 78 33 146/94 (111) 95 01/12/18 20:00 99.2 80 32 148/88 (108) 95 01/12/18 20:00 80 01/12/18 16:30 62 26 97 01/12/18 16:02 74 36 146/73 (97) 99 01/12/18 16:00 74 01/12/18 15:09 98.1 68 38 144/80 (101) 97 01/12/18 14:08 99.4 63 16 178/87 (117) 96 I/O 01/12/18 01/12/18 01/12/18 01/13/18 01/13/18 01/13/18 07:00 15:00 23:00 07:00 15:00 23:00 Intake Total 1000 ml 1223 ml 2350 ml Output Total 300 ml 1400 ml 3000 ml Balance 700 ml -177 ml -650 ml Intake Oral 0 ml 0 ml IV Total 1000 ml 1223 ml 2350 ml Output Urine Total 300 ml 1400 ml 3000 ml # Voids 1 # Bowel Movements 0 2 Result Diagram: 01/13/18 0505 01/13/18 1045 Objective Remarks GENERAL: Well-developed, well-nourished, in no acute distress. Altered mentation, lethargic difficult to arouse HEENT: Head is normocephalic without any lesions or masses noted. Facial features are symmetric. Eyes: Extraocular muscles are intact. Conjunctivae were clear. NECK: Supple without any masses. Trachea midline no deviation. No JVD, CARDIAC: Regular rhythm, regular rate. S1/S2 are heard. No murmurs gallops or rubs. LUNGS: Clear to auscultation bilaterally. No wheeze, rhonchi or rales. No use of accessory muscles on inspiration or expiration. ABDOMEN: Soft, nontender. Nondistended. Bowel sounds heard in all 4 quadrants. No organomegaly or masses. Negative rebound, negative guarding EXTREMITIES: No edema, pulses are equal bilaterally. No cyanosis or clubbing NEUROLOGY: Patient with altered mentation, deep tendon reflexes are intact. Patient is moving all extremities Urinary Catheter: Yes Assessment to: Continue Graham insert reason: Measure Accurate Output Vascular Central Line Catheter: No A/P Assessment and Plan Acute toxic metabolic encephalopathy Initial etiology unclear this time. Possibilities could be from drug intoxication, tobacco dependency, suspecting drugs/alcohol withdrawal CT of brain did not indicate any acute abnormality Alcohol level was less than 3 Urine drug screen was positive for cannabinoids Mild hyperbilirubinemia, however no elevation in liver enzymes, ammonia level was normal TSH, B12, folate were normal Continue thiamine and folic acid daily Continue CIWA monitoring Continue Geodon for agitation Obtaining MRI, EEG Neurology consultation Patient is maintaining airway at this time, however episodes of tachypnea Consulted mandrel cleaner assume medical management. Discussed the case with them personally. Hypernatremia Sodium has gone from 138-->160 overnight Unknown etiology at this time. Patient was on IV fluids. Possible dehydration, diabetes insipidus (central versus nephrogenic) Patient did have a 3000 mL's of urine output overnight Obtain osmolality studies, urine sodium, obtain antidiuretic hormone evaluation Start one half normal saline at 100 mL's an hour Monitor sodium every 6 hours Obtain MRI of the brain to evaluate for any abnormality secondary to acute hypernatremia Nephrology consult Systemic inflammatory response syndrome Patient originally presented with leukocytosis, lactic acidosis. No infectious source was identified Patient was started on vancomycin and Zosyn empirically Patient just had stenting of his lower teeth extracted 2 days prior to come in to the hospital Chest x-ray, urinalysis were unremarkable for any infection Blood cultures are negative for 2 days Acute renal failure superimposed on chronic kidney disease stage II Continue IV fluids Continue monitor renal function Chronic obstructive pulmonary disease continue O2 someone takes maintain O2 sats greater than 92% Duo nebs every 6 hours as needed Hypothyroidism TSH is normal Replacement therapy has been continued Anxiety/depression/questionable bipolar Unfortunately patient is unable to take his medications [place] level 0.3 resume medication when patient more alert DVT prevention Sequential compression devices Jr Guajardo Jan 13, 2018 12:56
[2018-01-13] MEDS ORDERED: RESP: ALBUTEROL 2.5 MG/IPRATROPIUM 0.5 MG NEB (PRN) NEB (13:00)
[2018-01-13] MEDS: MULTIVITAMIN INJ 10 ML, FOLIC ACID INJ 1 MG in SODIUM CHLORID 0.9% 500 ML INJ 500 ML IV SCH (13:12)
[2018-01-13 14:23] LABS: ALBUMIN 3.6 GM/DL (3.4-5.0)
[2018-01-13 14:51] LABS: DIRECT BILIRUBIN ADULT 0.5 MG/DL (0.0-0.2); INDIRECT BILIRUBIN 1.3 MG/DL (0.0-0.8); TOTAL BILIRUBIN ADULT 1.8 MG/DL (0.2-1.0); TOTAL PROTEIN 8.2 GM/DL (6.4-8.2)
[2018-01-13 15:56] LABS: SODIUM,RANDOM URINE 80 MEQ/L
[2018-01-13] MEDS ORDERED: ENALAPRILAT 1.25 MG/ML VIAL IV PUSH PRN (16:00)
[2018-01-13] MEDS ORDERED: hydrALAZINE HCL 20 MG/ML VIAL IV PUSH PRN (16:00)
--- NOTE | 2018-01-13 16:16 | HHI.HP ---
HPI Service Critical Care Medicine Primary Care Physician No Primary Care Physician Admission Diagnosis AMS and post operative dilirium Diagnosis: (1) Altered mental status Diagnosis: Principal (2) Toxic metabolic encephalopathy Diagnosis: Principal (3) Hypernatremia Diagnosis: Principal (4) Acute renal failure superimposed on stage 2 chronic kidney disease Diagnosis: Principal (5) Systemic inflammatory response syndrome Diagnosis: Principal (6) Chronic obstructive pulmonary disease Diagnosis: Principal (7) Hypothyroidism Diagnosis: Principal (8) Leukocytosis Diagnosis: Principal (9) Thrombocytopenia Diagnosis: Principal (10) Transaminitis Diagnosis: Principal (11) Hyperbilirubinemia Diagnosis: Principal (12) Macrocytic anemia Diagnosis: Principal (13) Hyperglycemia Diagnosis: Principal Chief Complaint: Altered mental status Travel History International Travel<30 Days: No Contact w/Intl Traveler <30 Da: No Traveled to Known Affected Are: No History of Present Illness Is a 57-year-old male with known history of hypertension, hyperlipidemia, COPD, tobacco abuse, marijuana abuse, spinal stenosis, hypothyroidism, benign prostatic hypertrophy, anxiety, depression,? Bipolar disorder who originally presented to hospital because of altered mentation, confusion. Patient did recently undergo extraction of 10 of his lower teeth 2 days prior to coming to the ER. Records indicate that his stated that the day before coming the patient started talking and nonsense and laying in bed confused with a low- grade fever. Patient was brought to emergency department and had workup performed which did not indicate any acute abnormality for the patient's encephalopathy. Patient did have CT scan done of the brain which did not indicate any acute abnormality. Further studies with alcohol level which was normal, urine drug screen did show positive cannabinoids, TSH was normal, ammonia level was normal. In light of the patient having hyper bilirubin, transaminitis, macrocytic anemia, thrombocytopenia one could consider the patient does have chronic alcohol related issues. Patient was started on thiamine and folic acid. Patient was started on CIWA protocol. Patient was admitted to the hospital for further management patient had signs of systemic inflammatory response syndrome without any sign of infection. He was started on empirical antibiotics to include vancomycin and Zosyn. Patient had workup done with chest x-ray which did not indicate any acute abnormality, urinalysis which is clear, blood cultures are negative for 2 days. No signs of infection at this time, however patient did just recently had 10 teeth extracted. Could have some underlying endocarditis. Patient did have signs of acute renal failure superimposed on chronic kidney disease stage II. Patient was started on IV fluids. Laboratory were followed and this morning patient found to have severe hypernatremia. Workup had been initiated with osmolality studies, urine sodium, ADH, MRI of brain which still awaiting results at this time. Patient was originally started on half-normal saline without any significant improvement. Subsequently changed to D5W at 75 ml/hr. Continue to monitor sodium level every 4 hours. Patient still with considerable altered mental status. Toxic metabolic encephalopathy. Presently the patient is maintaining his airway with good O2 saturations of 96% on room air, however there are episodes of tachypnea going upward 33 breaths per minute. Because of his intermittent respiratory distress and altered mental status is very concerning that the patient may require intubation for continued management and care if his symptoms does not improve. Hospitalist did discuss the case with critical care, because of the critical nature the patient and possible respiratory collapse is recommended patient be transferred to the main IMC under critical care management. Hence critical care was consulted. Review of Systems ROS Limitations: Clinical Condition, Altered Mental Status Past Family Social History Allergies: Coded Allergies: chlorpheniramine (Unverified Allergy, Severe, ANTIHISTAMINE???, 01/11/18) pseudoephedrine (Unverified Allergy, Severe, DECONGESTANTS???, 01/11/18) Past Medical History Unable to obtain information from the patient, information taken from medical records Hypertension Hyperlipidemia Chronic obstructive pulmonary disease Hypothyroidism Benign prostatic hypertrophy Anxiety disorder Depression History of spinal stenosis Osteoarthritis Past Surgical History Unable to obtain information patient, information taken from medical records Appendectomy Oral surgery Left hand surgery Reported Medications Reported Meds & Active Scripts Active Reported Lactulose Liq (Lactulose) 10 Gm/15 Ml Soln 30 Ml PO TID Levothyroxine (Levothyroxine Sodium) 25 Mcg Tab 25 Mcg PO DAILY Buspirone (Buspirone HCl) 15 Mg Tab 15 Mg PO HS Breo Ellipta Inh (Fluticasone/Vilanterol) 100-25 Mcg/Act Inh 1 Puff INH DAILY Use daily at the same time. Escitalopram (Escitalopram Oxalate) 10 Mg Tab 10 Mg PO HS Tamsulosin (Tamsulosin HCl) 0.4 Mg Cap 0.4 Mg PO HS Hydroxyzine Pamoate 50 Mg Cap 150 Mg PO HS Mirtazapine 30 Mg Tab 30 Mg PO HS Gabapentin 600 Mg Tab 4 Tab PO HS [place] Carbonate 300 Mg Cap 900 Mg PO BID Family History Information taken from medical records, Reviewed is significant for brother with small cell carcinoma, mother with lung cancer Social History Information taken from medical records Records indicate patient does smoke approximately 3-1/2 pack a cigarettes a day , records indicate that patient does not drink alcohol but does continue to abuse using marijuana Physical Exam Vital Signs Vital Signs Date Time Temp Pulse Resp B/P (MAP) Pulse Ox O2 Delivery O2 Flow Rate FiO2 01/13/18 12:00 84 01/13/18 12:00 99.4 84 30 165/99 (121) 96 01/13/18 09:00 70 25 97 01/13/18 08:00 99.6 76 27 147/85 (105) 97 01/13/18 08:00 58 01/13/18 07:00 62 21 97 01/13/18 04:00 98.4 62 24 152/81 (104) 97 01/13/18 04:00 62 01/13/18 00:00 78 01/13/18 00:00 99.3 78 33 146/94 (111) 95 01/12/18 20:00 99.2 80 32 148/88 (108) 95 01/12/18 20:00 80 01/12/18 16:30 62 26 97 01/12/18 16:02 74 36 146/73 (97) 99 01/12/18 16:00 74 Physical Exam GENERAL: Well-developed, well-nourished, in no acute distress. Patient does moan in response. Does withdrawal to painful stimuli. HEENT: Head is normocephalic without any lesions or masses noted. Facial features are symmetric. Eyes: Pupils equal round reactive to light. Extraocular muscles are intact. Conjunctivae were clear. NECK: Supple without any masses. Trachea midline no deviation. No JVD, no bruits are appreciated CARDIAC: Regular rhythm, regular rate. S1/S2 are heard. No murmurs gallops or rubs. LUNGS: Clear to auscultation bilaterally. No wheeze, rhonchi or rales. No use of accessory muscles on inspiration or expiration. ABDOMEN: Soft, nontender. Nondistended. Bowel sounds heard in all 4 quadrants. No organomegaly or masses. Negative rebound, negative guarding EXTREMITIES: No edema, pulses are equal bilaterally. No cyanosis or clubbing NEUROLOGY: Patient with diminished mental status. Deep tendon reflexes are 2+ in upper and lower chest x-ray bilaterally. Patient is moving all extremities Laboratory Laboratory Tests Test 01/12/18 19:40 01/13/18 05:05 01/13/18 08:40 01/13/18 10:45 Potassium Level 3.6 3.8 4.1 [place] Level 0.3 Ethyl Alcohol Level LESS THAN 3 White Blood Count 10.6 Red Blood Count 3.47 Hemoglobin 12.1 Hematocrit 36.3 Mean Corpuscular Volume 104.7 Mean Corpuscular Hemoglobin 35.0 Mean Corpuscular Hemoglobin Concent 33.4 Red Cell Distribution Width 15.0 Platelet Count 96 Mean Platelet Volume 7.3 Neutrophils (%) (Auto) 78.4 Lymphocytes (%) (Auto) 14.5 Monocytes (%) (Auto) 6.9 Eosinophils (%) (Auto) 0.1 Basophils (%) (Auto) 0.1 Neutrophils # (Auto) 8.4 Lymphocytes # (Auto) 1.5 Monocytes # (Auto) 0.7 Eosinophils # (Auto) 0.0 Basophils # (Auto) 0.0 CBC Comment DIFF FINAL Differential Comment Blood Urea Nitrogen 16 16 Creatinine 1.60 1.70 Random Glucose 131 133 Calcium Level 8.8 9.2 Sodium Level 160 164 165 Chloride Level 130 134 Carbon Dioxide Level 24.4 25.5 Anion Gap 6 5 Estimat Glomerular Filtration Rate 44 41 Test 01/13/18 13:15 01/13/18 13:50 Sodium Level 166 Lactic Acid Level 1.6 Total Bilirubin 1.8 Direct Bilirubin 0.5 Indirect Bilirubin 1.3 Aspartate Amino Transf (AST/SGOT) 72 Alanine Aminotransferase (ALT/SGPT) 46 Alkaline Phosphatase 125 Total Protein 8.2 Albumin 3.6 Date/Time Source Procedure Growth Status 01/11/18 19:11 Blood Peripheral Aerobic Blood Culture - Preliminary NO GROWTH IN 2 DAYS Resulted 01/11/18 19:11 Blood Peripheral Anaerobic Blood Culture - Preliminary NO GROWTH IN 2 DAYS Resulted Result Diagram: 01/13/18 0505 01/13/18 1350 Imaging Last Impressions Soft Tissue Neck X-Ray 01/12/18 0000 Signed Impressions: Service Date/Time: Friday, January 12, 2018 00:21 - CONCLUSION: 1. Degenerative changes of the mid and lower cervical spine. 2. Otherwise negative. No radiopaque foreign body. Gulshan Lieberman MD Head CT [id number]/11/[id number] Signed Impressions: Service Date/Time: Thursday, January 11, 2018 19:50 - CONCLUSION: No acute intracranial abnormality demonstrated. Atrophy and chronic cerebellar calcification. Edinson Esquivel MD Chest X-Ray [id number]/11/[id number] Signed Impressions: Service Date/Time: Thursday, January 11, 2018 19:41 - CONCLUSION: No evidence of acute cardiopulmonary disease. Edinson Esquivel MD Septic Shock Reassessment Septic shock perfusion: reassessment completed Caprini VTE Risk Assessment Caprini VTE Risk Assessment: Mod/High Risk (score >= 2) Caprini Risk Assessment Model Point Value = 1 Point Value = 2 Point Value = 3 Point Value = 5 Age 41-60 Minor surgery BMI > 25 kg/m2 Swollen legs Varicose veins or History of unexplained or recurrent spontaneous Oral contraceptives or hormone replacement Sepsis (< 1 month) Serious lung disease, including pneumonia (< 1 month) Abnormal pulmonary function Acute myocardial infarction Congestive heart failure (< 1 month) History of inflammatory bowel disease Medical patient at bed rest Age 61-74 Arthroscopic surgery Major open surgery (> 45 min) Laparoscopic surgery (> 45 min) Malignancy Confined to bed (> 72 hours) Immobilizing plaster cast Central venous access Age >= 75 History of VTE Family history of VTE Factor V Leiden Prothrombin [id number] Lupus anticoagulant Anticardiolipin antibodies Elevated serum homocysteine Heparin-induced thrombocytopenia Other congenital or acquired thrombophilia Stroke (< 1 month) Elective arthroplasty Hip, pelvis, or leg fracture Acute spinal cord injury (< 1 month) Prophylaxis Regimen Total Risk Factor Score Risk Level Prophylaxis Regimen 0-1 Low Early ambulation 2 Moderate Order ONE of the following: *Sequential Compression Device (SCD) *Heparin 5000 units SQ BID 3-4 Higher Order ONE of the following medications: *Heparin 5000 units SQ TID *Enoxaparin/Lovenox 40 mg SQ daily (WT < 150 kg, CrCl > 30 mL/min) *Enoxaparin/Lovenox 30 mg SQ daily (WT < 150 kg, CrCl > 10-29 mL/min) *Enoxaparin/Lovenox 30 mg SQ BID (WT < 150 kg, CrCl > 30 mL/min) AND/OR *Sequential Compression Device (SCD) 5 or more Highest Order ONE of the following medications: *Heparin 5000 units SQ TID (Preferred with Epidurals) *Enoxaparin/Lovenox 40 mg SQ daily (WT < 150 kg, CrCl > 30 mL/min) *Enoxaparin/Lovenox 30 mg SQ daily (WT < 150 kg, CrCl > 10-29 mL/min) *Enoxaparin/Lovenox 30 mg SQ BID (WT < 150 kg, CrCl > 30 mL/min) AND *Sequential Compression Device (SCD) Assessment and Plan Problem List: (1) Toxic metabolic encephalopathy ICD Code: G92 - Toxic encephalopathy (2) Altered mental status ICD Code: R41.82 - Altered mental status, unspecified (3) Hypernatremia ICD Code: E87.0 - Hyperosmolality and hypernatremia (4) Systemic inflammatory response syndrome ICD Code: R65.10 - Systemic inflammatory response syndrome (SIRS) of non- infectious origin without acute organ dysfunction (5) Acute renal failure superimposed on stage 2 chronic kidney disease ICD Code: N17.9 - Acute kidney failure, unspecified; N18.2 - Chronic kidney disease, stage 2 (mild) (6) Chronic obstructive pulmonary disease ICD Code: J44.9 - Chronic obstructive pulmonary disease, unspecified (7) Hypothyroidism ICD Code: E03.9 - Hypothyroidism, unspecified (8) Leukocytosis ICD Code: D72.829 - Elevated white blood cell count, unspecified (9) Macrocytic anemia ICD Code: D53.9 - Nutritional anemia, unspecified (10) Thrombocytopenia ICD Code: D69.6 - Thrombocytopenia, unspecified (11) Hyperbilirubinemia ICD Code: E80.6 - Other disorders of bilirubin metabolism (12) Transaminitis ICD Code: R74.0 - Nonspecific elevation of levels of transaminase and lactic acid dehydrogenase [LDH] (13) Hyperglycemia ICD Code: R73.9 - Hyperglycemia, unspecified Assessment and Plan NEUROLOGY Altered mental status Toxic metabolic encephalopathy Anxiety/depression,? Bipolar disorder Could be secondary to medication effect, post anesthesia delirium, hypernatremia , sepsis abuse CT scan of brain does not indicate any acute abnormality Urine drug screen was positive for cannabinoids Alcohol level was less than 3, TSH, B12, folate were normal [place] level 0.3 Continue neuro checks every one hour Continue thiamine and folic acid Continue CIWA monitoring Continue Geodon for agitation Resume psychotropic medications when the patient is more alert Obtain MRI, EEG Neurology consultation PULMONOLOGY Chronic obstructive pulmonary disease Chronic tobacco abuse Patient maintaining airway at this time Patient with good O2 saturations, continue O2 supplementation as needed Duo nebs every 6 hours as needed for shortness of breath or dyspnea CARDIOLOGY Hypertension Hyperlipidemia Vasotec, Apresoline as needed Continue monitor and maintain map greater than 65 GASTROENTEROLOGY Hyperbilirubinemia Transaminitis Obtain CT scan of the abdomen and pelvis Obtain viral hepatitis profile GI protection with Pepcid IV twice daily Patient not alert enough in order to receive oral nutrition Anticipate placing NG tube if patient does not improve to start tube feeding RENAL Acute renal failure superimposed on chronic kidney disease stage II Hypernatremia Sodium has gone from 138-->160 since 01/11/18 Unknown etiology at this time. Patient was on IV fluids. Possible dehydration , diabetes insipidus (central versus nephrogenic) Patient did have a 3000 mL's of urine output overnight Awaiting osmolality studies, urine sodium, antidiuretic hormone evaluation Started one half normal saline at 100 ml/hr, without any significant improvement , changed to D5W at 75 ml/hr Monitor sodium every 4 hours Obtain MRI of the brain to evaluate for any abnormality secondary to acute hypernatremia Nephrology consult INFECTIOUS DISEASE Systemic inflammatory response syndrome Leukocytosis Low-grade fever on presentation, afebrile now Patient has been started on empirical vancomycin and Zosyn Thus far no infectious source has been identified, chest x-rays clear, urinalysis was unremarkable Patient did just have removal of 10 of his lower teeth 2 days prior to coming the hospital Blood cultures negative for 2 days Obtain influenza testing Obtain echocardiogram to rule out possible endocarditis secondary to clinical symptoms, recent teeth extractions ENDOCRINOLOGY Hypothyroidism Hyperglycemia TSH 2.86 Will need to resume patient's replacement therapy once he is more alert, consider starting IV levothyroxine Monitor glucoses start sliding scale insulin if needed Obtain hemoglobin A1c HEMATOLOGY Macrocytic anemia Thrombocytopenia With patient's elevated liver enzymes, macrocytic anemia, thrombocytopenia one could consider that he does use alcohol on a regular basis or history of alcoholism Continue monitor hemoglobin and transfuse if hemoglobin below 7.0 Obtain hit antibody, continue monitor platelet count, transfuse if needed If continues to worsen may need to consult hematology PROPHYLAXIS DVT prevention with subcutaneous heparin, may need to discontinue due to thrombocytopenia GI protection with Pepcid IV LINES Peripheral IVs I have seen and examined the patient. I agree with assessment and plan as above. Critical Care: The total critical care time was 60 minutes. Time to perform other separately billable procedures was not included in the critical care time. Jr Guajardo Jan 13, 2018 4:16 pm Osmany Price MD Jan 14, 2018 5:57 am
[2018-01-13 16:23] LABS: OSMOLALITY,URINE 301 MOSM/KG (300-1300)
[2018-01-13] MEDS: DEXTROSE 5% IN WATE 1000ML INJ 1,000 ML IV SCH (17:34)
[2018-01-13] MEDS: DESMOPRESSIN ACETATE 4 MCG/ML VIAL IV PUSH SCH (21:08)
[2018-01-13] MEDS: aMILoride HCL 5 MG TAB PO SCH (21:26)
[2018-01-14] VITALS (7 sets, daily range): BP systolic 105–166; BP diastolic 63–83; PULSE 57–82; RESP 24–28; TEMP 98.2–98.6; O2SAT 97–100
[2018-01-14] MEDS ORDERED: DEXMEDETOMIDINE INJ 200 MCG in SODIUM CHLORIDE 0.9% INJ 50 ML IV PRN ×2
[2018-01-14] MEDS: VANCOMYCIN INJ 1,250 MG in SODIUM CHLOR 0.9% 250 ML INJ 250 ML IV SCH (00:29)
[2018-01-14] MEDS ORDERED: PHARMACY ORDERED LAB ONE (00:45)
[2018-01-14] MEDS ORDERED: DEXMEDETOMIDINE INJ 1,000 MCG in SODIUM CHLOR 0.9% 250 ML INJ 240 ML IV PRN (02:00)
[2018-01-14] MEDS ORDERED: CHLORHEXIDINE GLUCONATE 2 % 1 PACK (2 CLOTHS)(extra cloths) TOPICAL PRN (02:45)
[2018-01-14] MEDS: CHLORHEXIDINE GLUCONATE 2 % 1 PACK (2 CLOTHS)(taper/protocol) TOPICAL SCH (04:00)
[2018-01-14] MEDS: DEXTROSE 5% IN WATE 1000ML INJ 1,000 ML IV SCH ×3 (05:37→18:16)
[2018-01-14] MEDS: PIPERACIL-TAZO 3.375 GM PREMIX 50 ML IV SCH ×4 (05:37→23:57)
[2018-01-14 08:01] LABS: AUTOMATED NEUTROPHIL # 4.9 TH/MM3 (1.8-7.7); BASOPHIL % 0.5 % (0.0-2.0); EOSINOPHIL # 0.3 TH/MM3 (0-0.4); EOSINOPHIL % 3.5 % (0.0-4.0); HEMATOCRIT 33.3 % (39.0-51.0); HEMOGLOBIN 11.4 GM/DL (13.0-17.0); LYMPH % 24.5 % (9.0-44.0); LYMPHOCYTE # 1.8 TH/MM3 (1.0-4.8); MEAN CELL VOLUME 106.1 FL (80.0-100.0); MEAN CORPUSCULAR HEMOGLOBIN 36.2 PG (27.0-34.0); MEAN CORPUSCULAR HGB CONC 34.1 % (32.0-36.0); MEAN PLATELET VOLUME 7.9 FL (7.0-11.0); MONO % 5.7 % (0.0-8.0); MONOCYTE # 0.4 TH/MM3 (0-0.9); NEUT % 65.8 % (16.0-70.0); PLATELET COUNT 95 TH/MM3 (150-450); RED BLOOD COUNT 3.14 MIL/MM3 (4.50-5.90); RED CELL DISTRIBUTION WIDTH 15.8 % (11.6-17.2); WHITE BLOOD COUNT 7.4 TH/MM3 (4.0-11.0)
--- NOTE | 2018-01-14 08:13 | PD.CONS ---
History of Present Illness Service Neurology Consult Requested By [facility] Reason for Consult confusion Primary Care Physician No Primary Care Physician History of Present Illness 57 y/o m with hx of bipolar d/o admitted for confusion at [facility] [place] and tx'd to [facility] [place] evaluation. confusion after recent dental surgery. has developed arf , hypernatremia. initial ct brain negative. had fever at [facility] [place]. uds +mj. lithium level low. developed thrombocytopenia but plt count stabilized. limited hx from pt 2/2 mental status. medical chart reviewed. Review of Systems limited 2/2 pts mental status Past Family Social History Past Medical History OA Anxiety disorder Depression Hyperlipidemia COPD Hypertension Spinal stenosis Hypothyroidism BPH Past Surgical History Oral surgery recently Reported Medications Reported Meds & Active Scripts Active Reported Levothyroxine (Levothyroxine Sodium) 25 Mcg Tab 25 Mcg PO DAILY Buspirone (Buspirone HCl) 15 Mg Tab 15 Mg PO HS Breo Ellipta Inh (Fluticasone/Vilanterol) 100-25 Mcg/Act Inh 1 Puff INH DAILY Use daily at the same time. Escitalopram (Escitalopram Oxalate) 10 Mg Tab 10 Mg PO HS Tamsulosin (Tamsulosin HCl) 0.4 Mg Cap 0.4 Mg PO HS Hydroxyzine Pamoate 50 Mg Cap 150 Mg PO HS Mirtazapine 30 Mg Tab 30 Mg PO HS Gabapentin 600 Mg Tab 4 Tab PO HS [place] Carbonate 300 Mg Cap 900 Mg PO HS Allergies: Coded Allergies: chlorpheniramine (Unverified Allergy, Severe, ANTIHISTAMINE???, 01/11/18) pseudoephedrine (Unverified Allergy, Severe, DECONGESTANTS???, 01/11/18) Family History lung ca Social History Tobacco dependence Marijuana abuse denies other toxic habits. Review of Systems All other ROS: Unable to obtain Past Family Social History Allergies: Coded Allergies: chlorpheniramine (Unverified Allergy, Severe, ANTIHISTAMINE???, 01/11/18) pseudoephedrine (Unverified Allergy, Severe, DECONGESTANTS???, 01/11/18) Active Ordered Medications Current Medications Medications (Trade) Dose Ordered Sig/[place] Route Start Time Stop Time Status Last Admin (NS Flush) 2 ml UNSCH PRN IV FLUSH 01/12/18 00:45 (NS Flush) 2 ml BID IV FLUSH 01/12/18 09:00 01/13/18 19:49 (Tylenol) 650 mg Q4H PRN PO 01/12/18 00:45 (Zofran Inj) 4 mg Q6H PRN IVP 01/12/18 00:45 01/12/18 02:51 (Narcan Inj) 0.4 mg UNSCH PRN IV PUSH 01/12/18 00:45 (Shari-Colace) 1 tab BID PO 01/12/18 09:00 (Milk Of Magnesia Liq) 30 ml Q12H PRN PO 01/12/18 00:45 (Senokot) 17.2 mg Q12H PRN PO 01/12/18 00:45 (Dulcolax Supp) 10 mg DAILY PRN RECTAL 01/12/18 00:45 (Lactulose Liq) 30 ml DAILY PRN PO 01/12/18 00:45 Multivitamins 10 ml/Folic Acid 1 mg/Sodium Chloride 510.2 ml @ 125 mls/hr Q24H IV 01/12/18 12:00 01/17/18 11:59 01/13/18 13:12 Thiamine HCl 100 mg/Sodium Chloride 101 ml @ 100 mls/hr Q24H IV 01/12/18 12:00 01/15/18 11:59 01/13/18 12:02 (Catapres) 0.1 mg Q6H PRN PO 01/12/18 10:00 (Romazicon Inj) 0.2 mg Q1M PRN IV PUSH 01/12/18 10:00 (Ativan) 1 mg Q4H PRN PO 01/12/18 10:00 (Ativan Inj) 1 mg Q4H PRN IV PUSH 01/12/18 10:00 01/13/18 05:56 (Ativan) 2 mg Q2H PRN PO 01/12/18 10:00 Vancomycin HCl 1250 mg/Sodium Chloride 262.5 ml @ 262.5 mls/ hr Q18H IV 01/12/18 13:00 01/14/18 00:29 Pharmacy Profile Note 0 ml @ 0 mls/hr UNSCH OTHER 01/12/18 10:15 Piperacillin Sod/ Tazobactam Sod 50 ml @ 100 mls/hr Q6H IV 01/12/18 12:00 01/14/18 05:37 (Pepcid Inj) 20 mg Q12H IV PUSH 01/12/18 11:00 01/13/18 21:08 (Geodon Inj) 10 mg Q12H PRN IM 01/12/18 15:00 01/13/18 03:25 (Duoneb Neb) 1 ampule Q4HR NEB PRN NEB 01/13/18 13:00 Dextrose 1,000 ml @ 125 mls/hr Q8H IV 01/13/18 15:00 01/14/18 05:37 (Vasotec Inj) 1.25 mg Q6H PRN IV PUSH 01/13/18 16:00 (Apresoline Inj) 20 mg Q4H PRN IV PUSH 01/13/18 16:00 (Ddavp Inj) 2 mcg Q12HR IV PUSH 01/13/18 21:00 01/13/18 21:08 (Midamor) 10 mg DAILY PO 01/13/18 20:45 01/13/18 21:26 Dexmedetomidine HCl 1000 mcg/ Sodium Chloride 250 ml @ 3.98 mls/hr TITRATE PRN IV 01/14/18 02:00 01/14/18 02:17 Miscellaneous Information Patient in critical care unit? Ass... [id number] .XX 01/14/18 02:45 (Chlorhexidine 2% Cloth) 3 pack DAILY@04 TOPICAL 01/14/18 04:00 01/18/18 04:01 (Chlorhexidine 2% Cloth) 3 pack UNSCH PRN TOPICAL 01/14/18 02:45 01/19/18 02:43 Exam I&O / VS Vital Signs Date Time Temp Pulse Resp B/P (MAP) Pulse Ox O2 Delivery O2 Flow Rate FiO2 01/14/18 06:00 57 01/14/18 04:00 98.6 58 28 105/63 (77) 100 01/14/18 04:00 58 01/14/18 02:00 66 01/14/18 00:00 82 01/14/18 00:00 98.2 82 24 166/83 (110) 97 01/13/18 22:02 74 22 166/94 (118) 97 01/13/18 22:00 68 01/13/18 21:00 58 23 159/96 (117) 97 01/13/18 20:00 98.6 60 26 159/95 (116) 96 01/13/18 20:00 60 01/13/18 19:00 64 24 173/92 (119) 97 01/13/18 18:00 74 01/13/18 18:00 74 28 148/96 (113) 98 01/13/18 17:32 82 24 174/98 (123) 96 01/13/18 16:24 99.1 58 23 149/95 (113) 97 01/13/18 16:00 70 169/97 (121) 97 01/13/18 16:00 70 01/13/18 15:05 66 25 162/92 (115) 97 01/13/18 12:00 84 01/13/18 12:00 99.4 84 30 165/99 (121) 96 01/13/18 09:00 70 25 97 Exam Comments lethargic, not following, moans at times, grimaces, voluntary closes eyes on pupillary exam, no gross eye deviation, ue in restraints, reduced l>rt leg movement, 1-2 beat clonus Review/Management Diagnosis/Plan: (1) Toxic metabolic encephalopathy ICD Codes: G92 - Toxic encephalopathy Status: Acute Plan: etiology: hypernatremia, however had some symptoms prior r/o digital marketing associate infection/lesion, stroke, ttp? on iv thiamine recs eeg mri/mra brain iv acyclovir renal dosing, iv rocephin consider lp after imaging complete f/u labs follow exam (2) Acute renal failure superimposed on stage 2 chronic kidney disease ICD Codes: N17.9 - Acute kidney failure, unspecified; N18.2 - Chronic kidney disease, stage 2 (mild) Status: Acute Plan: seen by renal (3) Hypernatremia ICD Codes: E87.0 - Hyperosmolality and hypernatremia Status: Acute Plan: renal following (4) Thrombocytopenia ICD Codes: D69.6 - Thrombocytopenia, unspecified Status: Acute Plan: hep Wing Reyes MD Jan 14, 2018 08:13
[2018-01-14 08:46] LABS: ALBUMIN 3.2 GM/DL (3.4-5.0); ALKALINE PHOSPHATASE 110 U/L (45-117); ALT (GPT) 44 U/L (12-78); AST (GOT) 59 U/L (15-37); BICARBONATE 22.9 MEQ/L (21.0-32.0); BLOOD UREA NITROGEN 20 MG/DL (7-18); CALCIUM 8.7 MG/DL (8.5-10.1); CHLORIDE 135 MEQ/L (98-107); CREATININE 1.91 MG/DL (0.60-1.30); GLOMERULAR FILTRATION RATE 36 ML/MIN (>89); GLUCOSE,RANDOM 146 MG/DL (74-106); MAGNESIUM 2.9 MG/DL (1.5-2.5); PHOSPHORUS 1.5 MG/DL (2.5-4.9); TOTAL BILIRUBIN ADULT 1.2 MG/DL (0.2-1.0); TOTAL PROTEIN 7.4 GM/DL (6.4-8.2)
[2018-01-14 08:50] LABS: KERATOCYTES OCC (NORMAL); OVALOCYTES 2+ (NORMAL); SODIUM (NA) 166 MEQ/L (136-145)
[2018-01-14] MEDS: DOCUSATE SODIUM 50 MG/SENNA 8.6 MG TAB PO SCH ×2 (09:00→20:31)
--- NOTE | 2018-01-14 09:29 | MB ---
cc: Hang Millan MD DATE OF CONSULT: 01/13/2018 REASON FOR CONSULTATION: Hyponatremia. HISTORY OF PRESENT ILLNESS: This is a 57-year-old male with a history of apparent bipolar disorder. The patient has been on lithium in the past. It is unclear how long he has been on lithium. The patient was admitted on 01/12/2018, after he had a recent extensive dental extraction. The patient had apparent sudden acute onset of confusion and altered mental status. The patient was found at home lying shaking with confusion and a low-grade temperature. Here, the patient was seen in the emergency room. He was further evaluated and brought to the ICU when he had ongoing confusion and altered mental status. Drug screen showed positive cannabinoids. He was initially started on IV fluids with normal saline. He has subsequently developed acute significant hypernatremia. He had a serum sodium of 133 on presentation. He was started initially on normal saline and his sodium jumped up to a level of 160. Throughout the course of today, the patient's sodium has continued to rise from 160 up to 166 and then 165. He initially was on normal saline and then was given half normal saline and is now on D5W. The patient had ongoing confusion and altered mental status and was intubated after he had significant tachycardia and tachypnea. At this point, the patient is intubated and sedated and is receiving D5W for hypernatremia. Nephrology was consulted for further evaluation. REVIEW OF SYSTEMS: Unobtainable, as the patient is intubated and sedated. ALLERGIES: INCLUDE PSEUDOEPHEDRINE. PAST MEDICAL HISTORY: Reviewed from records includes hypertension, dyslipidemia, COPD, hypothyroidism, BPH, anxiety disorder, depression, spinal stenosis and osteoarthritis. PAST SURGICAL HISTORY: Includes oral surgery and left hand surgery, also apparent history of bipolar disorder. MEDICATIONS AT HOME INCLUDE: Lactulose, Synthroid, buspirone, escitalopram, tamsulosin, hydroxyzine, mirtazapine, gabapentin and lithium. FAMILY HISTORY: A parent, brother with small cell carcinoma. Mother with lung cancer. SOCIAL HISTORY: The patient is a smoker and smokes 3-1/2 packs of cigarettes per day. No alcohol use, however, does have cannabinoid use. PHYSICAL EXAMINATION: VITAL SIGNS: At the time of evaluation, temperature 98.6, pulse 60, respiratory rate 26, blood pressure 159/95, pulse oximetry 96%. GENERAL: Intubated. No apparent distress. Some ongoing confusion. NECK: Soft, supple. CARDIAC: Regular rate and rhythm. PULMONARY: Lungs are clear to auscultation. Decreased breath sounds at bases. ABDOMEN: Soft, nontender, nondistended. EXTREMITIES: No edema. LABORATORY DATA: Sodium 165, potassium 4.1, chloride 134, bicarbonate 25.5, BUN 16, creatinine 1.7, with glucose 133. The patient has a urinalysis with a pH of 8.5, urine protein 30, trace ketones, 60 WBCs 68 epithelial cells. Urine osmolality 301. Urine random sodium was 80, serum osmolality was 351. Antidiuretic hormone level is pending. ASSESSMENT AND PLAN: 1. Acute hypernatremia. The patient has presentation of significant acute hypernatremia, with apparent diabetes insipidus. CT of the brain was done with significant findings of chronic calcifications of the cerebellum. The patient does have a history of a previous cerebellar bleed. It is possible that there may be a central component for this diabetes insipidus secondary to this chronic calcifications of the cerebellum. There is also a possible nephrogenic component for diabetes insipidus given that the patient has had ongoing lithium use. It is unclear how long this has been going on as far as his lithium toxicity. At this point, the patient is having significant urine output with over 3 liters during the last nursing shift and 3 liters last night. His presentation here was an initial sodium of 138, just 2 days ago, and this rapidly increased to a level in the 160s. At this point, I suspect the patient may have some ongoing chronic diabetes insipidus which may be central or nephrogenic in etiology. He was administered normal saline and this excess solute load may have contributed to an increased urinary output and instigated some of this hypernatremia. He had initially been on normal saline and then half normal saline and now continues with D5W. At this point, an antidiuretic hormone level is pending. This will help us to further ascertain whether this is a central diabetes insipidus versus a nephrogenic diabetes insipidus, depending on the ADH level. Given presentation with apparent high volume urine output and hypernatremia, we will go ahead and treat with DDAVP. I will start with 2 milligrams intravenous every 12 hours and we will continue to follow up. Of note, followup the patient's serum and urine osmolarity levels, as well as ADH levels on repeat after DDAVP is given and this may to help us ascertain whether this is central versus nephrogenic DI. In addition, we will give amiloride as well. Amiloride can be helpful as it will compete with lithium at the tubules and help prevent further lithium toxicity. His serum sodium level was 133 in December 2015. Again, it is unclear how chronic this has been. At this point, continue with the D5W as ordered and will start with DDAVP and amiloride. Continue to follow serum and urine osmolarity levels. 2. Altered mental status. The patient presented with significant altered mental status with significant hypernatremia. Of note, these symptoms began prior to the acute rise in serum sodium. He does have a history of bipolar disorder. He did have a rapid change in his serum sodium level. CT imaging was otherwise negative. Continue to monitor at this point. The patient is intubated at this time. 3. Acute kidney injury. The patient had a creatinine of 1.5 initially at his admission here. This mu slightly to a level of 1.7. He has high volume urine output. Continue with D5W and continue to monitor closely. 4. History of chronic obstructive pulmonary disease. The patient is intubated at this time, has an active smoking history. Continue to monitor closely. 5. Hypothyroidism. The patient is on Synthroid. Continue to monitor. MD STEFANI Irwin/JACINTA , 08:34 PM , 09:53 PM SUSHILA
[2018-01-14] MEDS: SODIUM CHLORIDE 0.9% FLUSH 10 ML FLUSH IV FLUSH SCH ×2 (10:49→20:30)
[2018-01-14] MEDS: FAMOTIDINE 20 MG/2 ML VIAL IV PUSH SCH ×2 (11:00→23:48)
[2018-01-14] MEDS: MULTIVITAMIN INJ 10 ML, FOLIC ACID INJ 1 MG in SODIUM CHLORID 0.9% 500 ML INJ 500 ML IV SCH (12:00)
[2018-01-14] MEDS: THIAMINE INJ 100 MG in SODIUM CHLORIDE 0.9% INJ 100 ML IV SCH (12:00)
[2018-01-14] MEDS: DESMOPRESSIN ACETATE 4 MCG/ML VIAL IV PUSH SCH ×2 (12:28→20:31)
[2018-01-14] MEDS: aMILoride HCL 5 MG TAB PO SCH (12:29)
[2018-01-14] MEDS: cefTRIAXone INJ 1,000 MG in SODIUM CHLORIDE 0.9% INJ 100 ML IV SCH ×2 (13:00→23:47)
[2018-01-14 13:55] LABS: HEMOGLOBIN A1C 4.9 % (4.3-6.0)
--- NOTE | 2018-01-14 15:34 | HHI.NPPN ---
Subjective Complaints: Confused History of Present Illness This is a 57-year-old male with a history of apparent bipolar disorder. The patient has been on lithium in the past. It is unclear how long he has been on lithium. The patient was admitted on 01/12/2018, after he had a recent extensive dental extraction. The patient had apparent sudden acute onset of confusion and altered mental status. The patient was found at home lying shaking with confusion and a low-grade temperature. Here, the patient was seen in the emergency room. He was further evaluated and brought to the ICU when he had ongoing confusion and altered mental status. Drug screen showed positive cannabinoids. He was initially started on IV fluids with normal saline. He has subsequently developed acute significant hypernatremia. He had a serum sodium of 133 on presentation. He was started initially on normal saline and his sodium jumped up to a level of 160. Throughout the course of today, the patient 's sodium has continued to rise from 160 up to 166 and then 165. He initially was on normal saline and then was given half normal saline and is now on D5W. The patient had ongoing confusion and altered mental status and was intubated after he had significant tachycardia and tachypnea. At this point, the patient is intubated and sedated and is receiving D5W for hypernatremia. Nephrology was consulted for further evaluation. Additional Remarks Patient is sedated on the way to MRI of brain. (Zamzam Valentino) Review of Systems General General Remarks sedated unable to do ROS (Zamzam Valentino) Objective Data Data Vital Signs Date Time Temp Pulse Resp B/P (MAP) Pulse Ox O2 Delivery O2 Flow Rate FiO2 01/14/18 06:00 57 01/14/18 04:00 98.6 58 28 105/63 (77) 100 01/14/18 04:00 58 01/14/18 02:00 66 01/14/18 00:00 82 01/14/18 00:00 98.2 82 24 166/83 (110) 97 01/13/18 22:02 74 22 166/94 (118) 97 01/13/18 22:00 68 01/13/18 21:00 58 23 159/96 (117) 97 01/13/18 20:00 98.6 60 26 159/95 (116) 96 01/13/18 20:00 60 01/13/18 19:00 64 24 173/92 (119) 97 01/13/18 18:00 74 01/13/18 18:00 74 28 148/96 (113) 98 01/13/18 17:32 82 24 174/98 (123) 96 01/13/18 16:24 99.1 58 23 149/95 (113) 97 01/13/18 16:00 70 169/97 (121) 97 01/13/18 16:00 70 (Zamzam Valentino) -: 01/14/18 0619 01/14/18 1334 Microbiology 01/13/18 Influenza Types A,B Antigen (DIMITRIS) - Final, Complete NEGATIVE FOR FLU A AND B ANTIGEN.... Imaging Last Impressions Soft Tissue Neck X-Ray 01/12/18 0000 Signed Impressions: Service Date/Time: Friday, January 12, 2018 00:21 - CONCLUSION: 1. Degenerative changes of the mid and lower cervical spine. 2. Otherwise negative. No radiopaque foreign body. Gulshan Lieberman MD Head CT 01/11/181926 Signed Impressions: Service Date/Time: Thursday, January 11, 2018 19:50 - CONCLUSION: No acute intracranial abnormality demonstrated. Atrophy and chronic cerebellar calcification. Edinson Esquivel MD Chest X-Ray 01/11/181926 Signed Impressions: Service Date/Time: Thursday, January 11, 2018 19:41 - CONCLUSION: No evidence of acute cardiopulmonary disease. Edinson Esquivel MD (Zamzam Valentino) Physical Exam General Appearance: No Acute Distress, Comfortable (Zamzam Valentino) Pulmonary Resp Exam: Clear Bilaterally, Breath Sounds Equal, No Distress (Zamzam Valentino) Cardiology CV Exam: Regular (Zamzam Valentino) Gastrointestinal/Abdomen GI Exam: Soft, Non-Tender, Bowel Sounds Present (Zamzam Valentino) Genitourinary Exam: Flank Non-Tender (Zamzam Valentino) Integumentary Skin Exam: Clear, Warm, Dry (Zamzam Valentino) Extremeties Extremities Exam: No Edema (Zamzam Valentino) Neurologic Neuro Exam: Sedated (Zamzam Valentino) Assessment/Plan Electrolyte Assessment: Hypernatremia Problem List: (1) Hypernatremia ICD Codes: E87.0 - Hyperosmolality and hypernatremia Status: Acute Plan: Acute hypernatremia sodium level on admission at 138 to now at 164. Possible diabetes insipidus possible secondary to chronic calcifications. Also possible nephrogenic component for diabetes insipidus given that the patient has had ongoing lithium use on as far as his lithium toxicity. Plan Continue D5W at 125 ml/hr Continue to monitor sodium levels every 6 hours. Sodium levels starting to lower at 164 from 166 Continue amiloride Continue DDAVP ADH level is pending. Continue to follow serum and urine osmolarity levels. (2) Acute renal failure superimposed on stage 2 chronic kidney disease ICD Codes: N17.9 - Acute kidney failure, unspecified; N18.2 - Chronic kidney disease, stage 2 (mild) Status: Acute Plan: Acute kidney injury possible related to high volume UOP. Creatinine at 1.91 today from 1.70 Continue D5W Will monitor UOP and BMP Renal US ordered Avoid nephrotoxins. (Zamzam Valentino) Problem List: (1) Hypernatremia ICD Codes: E87.0 - Hyperosmolality and hypernatremia Status: Acute Plan: Acute hypernatremia sodium level on admission at 138 to now at 164. Possible diabetes insipidus possible secondary to chronic calcifications. Also possible nephrogenic component for diabetes insipidus given that the patient has had ongoing lithium use on as far as his lithium toxicity. Plan Continue D5W at 125 ml/hr Continue to monitor sodium levels every 6 hours. Sodium levels starting to lower at 164 from 166 Continue amiloride Continue DDAVP ADH level is pending. Continue to follow serum and urine osmolarity levels. (2) Acute renal failure superimposed on stage 2 chronic kidney disease ICD Codes: N17.9 - Acute kidney failure, unspecified; N18.2 - Chronic kidney disease, stage 2 (mild) Status: Acute Plan: Acute kidney injury possible related to high volume UOP. Creatinine at 1.91 today from 1.70 Continue D5W Will monitor UOP and BMP Renal US ordered Avoid nephrotoxins. Patient seen and examined, agree with above. Urine osmolality is above 300, unlikely DI. Continue Hypotonic fluid. (John Gutierrez MD) Zamzam Valentino Jan 14, 2018 15:34 John Gutierrez MD Jan 14, 2018 19:12
--- NOTE | 2018-01-14 15:49 | HHI.CCPN ---
Subjective Remarks/Hospital Course Is a 57-year-old male with known history of hypertension, hyperlipidemia, COPD, tobacco abuse, marijuana abuse, spinal stenosis, hypothyroidism, benign prostatic hypertrophy, anxiety, depression,? Bipolar disorder who originally presented to hospital because of altered mentation, confusion. Patient did recently undergo extraction of 10 of his lower teeth 2 days prior to coming to the ER. Records indicate that his stated that the day before coming the patient started talking and nonsense and laying in bed confused with a low- grade fever. Patient was brought to emergency department and had workup performed which did not indicate any acute abnormality for the patient's encephalopathy. Patient did have CT scan done of the brain which did not indicate any acute abnormality. Further studies with alcohol level which was normal, urine drug screen did show positive cannabinoids, TSH was normal, ammonia level was normal. In light of the patient having hyper bilirubin, transaminitis, macrocytic anemia, thrombocytopenia one could consider the patient does have chronic alcohol related issues. Patient was started on thiamine and folic acid. Patient was started on CIWA protocol. Patient was admitted to the hospital for further management patient had signs of systemic inflammatory response syndrome without any sign of infection. He was started on empirical antibiotics to include vancomycin and Zosyn. Patient had workup done with chest x-ray which did not indicate any acute abnormality, urinalysis which is clear, blood cultures are negative for 2 days. No signs of infection at this time, however patient did just recently had 10 teeth extracted. Could have some underlying endocarditis. Patient did have signs of acute renal failure superimposed on chronic kidney disease stage II. Patient was started on IV fluids. Laboratory were followed and this morning patient found to have severe hypernatremia. Workup had been initiated with osmolality studies, urine sodium, ADH, MRI of brain which still awaiting results at this time. Patient was originally started on half-normal saline without any significant improvement. Subsequently changed to D5W at 75 ml/hr. Continue to monitor sodium level every 4 hours. Patient still with considerable altered mental status. Toxic metabolic encephalopathy. Presently the patient is maintaining his airway with good O2 saturations of 96% on room air, however there are episodes of tachypnea going upward 33 breaths per minute. Because of his intermittent respiratory distress and altered mental status is very concerning that the patient may require intubation for continued management and care if his symptoms does not improve. Hospitalist did discuss the case with critical care, because of the critical nature the patient and possible respiratory collapse is recommended patient be transferred to the main IMC under critical care management. Hence critical care was consulted. Subjective: 01/14: Afebrile. Patient easily arousable, and continues to be confused. MRI pending. Patient was maintained on Precedex infusion during the night Precedex infusion off. Patient protecting airway, dyspnea noted at this time. Continued serum sodium level monitoring. Initial ADH level pending. Patient continues on DDAVP, and Amilioride. Objective Vital Signs Date Time Temp Pulse Resp B/P (MAP) Pulse Ox O2 Delivery O2 Flow Rate FiO2 01/14/18 06:00 57 01/14/18 04:00 98.6 28 105/63 (77) 100 01/12/18 01:00 Room Air Intake and Output 01/14/18 01/14/18 01/15/18 08:00 16:00 00:00 Intake Total 350 ml Output Total 550 ml Balance -200 ml Result Diagram: 01/14/18 0619 01/14/18 1334 Other Results Microbiology Date/Time Source Procedure Growth Status 01/13/18 17:40 Nasal Aspirate Influenza Types A,B Antigen (DIMITRIS) - Final NEGATIVE FOR FLU A AND B ANTIGEN.... Complete Imaging Last Impressions Soft Tissue Neck X-Ray 01/12/18 0000 Signed Impressions: Service Date/Time: Friday, January 12, 2018 00:21 - CONCLUSION: 1. Degenerative changes of the mid and lower cervical spine. 2. Otherwise negative. No radiopaque foreign body. Gulshan Lieberman MD Head CT 01/11/181926 Signed Impressions: Service Date/Time: Thursday, January 11, 2018 19:50 - CONCLUSION: No acute intracranial abnormality demonstrated. Atrophy and chronic cerebellar calcification. Edinson Esquivel MD Chest X-Ray 01/11/181926 Signed Impressions: Service Date/Time: Thursday, January 11, 2018 19:41 - CONCLUSION: No evidence of acute cardiopulmonary disease. Edinson Esquivel MD Objective Remarks GENERAL: Well-developed, well-nourished, in no acute distress. Arousable to touch and sound, incomprehensible wording HEENT: Head is normocephalic without any lesions or masses noted. Facial features are symmetric. Eyes: Pupils equal round reactive to light. Extraocular muscles are intact. Conjunctivae were clear. NECK: Supple without any masses. Trachea midline no deviation. No JVD, no bruits are appreciated CARDIAC: Regular rhythm, regular rate. S1/S2 are heard. No murmurs gallops or rubs. LUNGS: Clear to auscultation bilaterally. No wheeze, rhonchi or rales. No use of accessory muscles on inspiration or expiration. ABDOMEN: Soft, nontender. Nondistended. Bowel sounds heard in all 4 quadrants. No organomegaly or masses. Negative rebound, negative guarding EXTREMITIES: No edema, pulses are equal bilaterally. No cyanosis or clubbing NEUROLOGY: RASS -1. Deep tendon reflexes are 2+ in upper and lower chest x-ray bilaterally. Patient is moving all extremities A/P Problem List: (1) Toxic metabolic encephalopathy ICD Code: G92 - Toxic encephalopathy Status: Acute (2) Altered mental status ICD Code: R41.82 - Altered mental status, unspecified (3) Hypernatremia ICD Code: E87.0 - Hyperosmolality and hypernatremia Status: Acute (4) Systemic inflammatory response syndrome ICD Code: R65.10 - Systemic inflammatory response syndrome (SIRS) of non- infectious origin without acute organ dysfunction (5) Acute renal failure superimposed on stage 2 chronic kidney disease ICD Code: N17.9 - Acute kidney failure, unspecified; N18.2 - Chronic kidney disease, stage 2 (mild) Status: Acute (6) Chronic obstructive pulmonary disease ICD Code: J44.9 - Chronic obstructive pulmonary disease, unspecified (7) Hypothyroidism ICD Code: E03.9 - Hypothyroidism, unspecified (8) Leukocytosis ICD Code: D72.829 - Elevated white blood cell count, unspecified (9) Macrocytic anemia ICD Code: D53.9 - Nutritional anemia, unspecified (10) Thrombocytopenia ICD Code: D69.6 - Thrombocytopenia, unspecified Status: Acute (11) Hyperbilirubinemia ICD Code: E80.6 - Other disorders of bilirubin metabolism (12) Transaminitis ICD Code: R74.0 - Nonspecific elevation of levels of transaminase and lactic acid dehydrogenase [LDH] (13) Hyperglycemia ICD Code: R73.9 - Hyperglycemia, unspecified Assessment and Plan NEUROLOGY Altered mental status Toxic metabolic encephalopathy Anxiety/depression,? Bipolar disorder THC use Possible central diabetes insipidus Could be secondary to medication effect, post anesthesia delirium, hypernatremia , sepsis abuse 01/12 CT scan of brain does not indicate any acute abnormality Urine drug screen was positive for cannabinoids Alcohol level was less than 3, TSH, B12, folate were normal [place]ink level 0.3 Continue DDAVP q 12 hrs 01/13 Obtain ADH level follow-up results 01/15 Repeat ADH level- post DDAVP dosing Continue neuro checks every one hour Continue thiamine and folic acid/ daily Continue CIWA monitoring Seizure precaution Discontinue Geodon for agitation Precedex infusion Resume psychotropic medications when the patient is more alert F/U MRI, EEG Neurology following - F/U MRI Empiric antibiotics-acyclovir, and Rocephin PULMONOLOGY Chronic obstructive pulmonary disease Chronic tobacco abuse Patient maintaining airway at this time Obtain head of bed 30 Maintain O2 saturation greater than 92%, On room air, O2 sat 98% Duo nebs every 6 hours as needed for shortness of breath or dyspnea CARDIOLOGY Hypertension Hyperlipidemia Vasotec, Apresoline as needed Continue monitor and maintain MAP greater than 65 GASTROENTEROLOGY Hyperbilirubinemia Transaminitis Hepatitis C Obtain CT scan of the abdomen and pelvis Hep C viral hepatitis antibody positive GI prophylaxis Pepcid IV twice daily Patient not alert enough in order to receive oral nutrition Anticipate placing NG tube if patient does not improve to start tube feeding RENAL Acute renal failure superimposed on chronic kidney disease stage II Hypernatremia 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 Patient was on IV fluids. Possible dehydration , diabetes insipidus (central versus nephrogenic) Patient did have a 3000 mL's of urine output overnight Awaiting osmolality studies, urine sodium, antidiuretic hormone evaluation D5W at 125 ml/hr Monitor sodium every 4 hours Obtain MRI of the brain to evaluate for any abnormality secondary to acute hypernatremia Nephrology consult INFECTIOUS DISEASE Systemic inflammatory response syndrome Leukocytosis Low-grade fever on presentation, afebrile now Patient has been started on empirical vancomycin and Zosyn Thus far no infectious source has been identified, chest x-rays clear, urinalysis was unremarkable Patient did just have removal of 10 of his lower teeth 2 days prior to coming the hospital Blood cultures negative for 2 days Obtain influenza testing Obtain echocardiogram to rule out possible endocarditis secondary to clinical symptoms, recent teeth extractions ENDOCRINOLOGY Hypothyroidism Hyperglycemia TSH 2.86 Will need to resume patient's replacement therapy once he is more alert, consider starting IV levothyroxine Monitor glucoses start sliding scale insulin if needed Obtain hemoglobin A1c HEMATOLOGY Macrocytic anemia Thrombocytopenia With patient's elevated liver enzymes, macrocytic anemia, thrombocytopenia one could consider that he does use alcohol on a regular basis or history of alcoholism Continue monitor hemoglobin and transfuse if hemoglobin below 7.0 Obtain hit antibody, continue monitor platelet count, transfuse if needed If continues to worsen may need to consult hematology PROPHYLAXIS DVT prevention with subcutaneous heparin, may need to discontinue due to thrombocytopenia GI protection with Pepcid IV LINES Peripheral IVs my billing statement This patient remains critically ill with one or more organ systems which are or may become a threat to life. I have spent in excess of 30 minutes discontinuously in the care and management of this patient. This time is exclusive of procedures, and includes, but is not limited to, evaluation of the patient, review of the medical record, discussions with family, consultants, nursing staff, or respiratory therapy, and documentation in the medical record. Physician Heidy Gary MD Jan 14, 2018 15:49
--- NOTE | 2018-01-14 16:27 | RADRPT ---
EXAM DATE/TIME: 01/14/2018 15:24 [facility] COMPARISON: SOFT TISSUE NECK, January 12, 2018, 0:21. CT BRAIN W/O CONTRAST, January 11 8, 19:50. MRI BRAIN W & W/O CONTRAST, November 28, 2011, 19:37. MRI BRAIN W/O CONTRAST, January 14 018, 15:24. INDICATIONS : CVA. MEDICAL HISTORY : Chronic obstructive pulmonary disease. SURGICAL HISTORY : Knee sx, Hand sx. ENCOUNTER: Initial ACUITY: 4-6 days PAIN SCORE: Nonresponsive. LOCATION: Bilateral cranial Please note a normal MRA of the brain does not entirely exclude the possibility of a small aneurysm, nor the possibility of distal intracranial vessel disease. TECHNIQUE: 3D time of flight MRA was performed. Source images, multiplanar STS MIP, and 3D volum e MIP reconstructions were reviewed. FINDINGS: Anterior circulation: Distal intracranial internal carotid arteries are patent with flow extending to the middle and anterior cerebral arteries. There is no evidence for aneurysm, vessel truncation or s tenosis, and no evidence for vascular malformation. Posterior circulation: The left vertebral is suboptimally visualized due to motion artifact particula rly near the vertebrobasilar junction. Right vertebral artery appears patent with flow extending into the basilar artery. origin of the right [employer]. There is no evidence for aneurysm, vessel truncat ion or stenosis, and no evidence for vascular malformation. CONCLUSION: 1. Suboptimal visualization of the left vertebral artery due to motion artifact particularly at the v ertebrobasilar junction. Can not exclude a focal flow-limiting stenosis at this level. 2. Otherwise, unremarkable MRA examination of the [place]. No aneurysm or large vessel cereb ral artery occlusion Dyllan Luque MD on January 14, 2018 at 16:17 Board Certified Radiologist. This report was verified electronically.
--- NOTE | 2018-01-14 16:31 | RADRPT ---
EXAM DATE/TIME: 01/14/2018 15:24 [facility] COMPARISON: MRI BRAIN W & W/O CONTRAST, November 28, 2011, 19:37. CT BRAIN W/O CONTRAST, January 11, 2018, 19:50. INDICATIONS : CVA. MEDICAL HISTORY : Chronic obstructive pulmonary disease. SURGICAL HISTORY : Knee sx, Hand sx. ENCOUNTER: Initial ACUITY: 4-6 days PAIN SCORE: Nonresponsive. LOCATION: Bilateral cranial TECHNIQUE: Multiplanar, multisequence MRI of the brain was performed without contrast. FINDINGS: CEREBRUM: Mild to moderate diffuse cerebral atrophy. The ventricles are normal for degree of atrophy. No evide nce of midline shift, mass lesion, hemorrhage or acute infarction. No extraaxial fluid collections a re seen. The pituitary gland and suprasellar cistern are normal in configuration. WHITE MATTER: No significant signal abnormalities are seen in the white matter. POSTERIOR FOSSA: Redemonstration of signal abnormality corresponding to chronic calcifications in the right cerebellum and cerebellar peduncle similar to previous exams. The cerebellum and brainstem are otherwise intact . The 4th ventricle is midline. The cerebellopontine angle is unremarkable. The cerebellar tonsils are normal in position. DIFFUSION IMAGING: No focal areas of restricted diffusion are seen. No evidence of acute infarction. EXTRACRANIAL: The visualized portions of the orbits and paranasal sinuses are unremarkable. CONCLUSION: 1. Redemonstration of chronic cerebellar calcifications. 2. Senescent changes without acute abnormality. Specifically, no evidence for acute infarction. Dyllan Luque MD on January 14, 2018 at 16:25 Board Certified Radiologist. This report was verified electronically.
--- NOTE | 2018-01-14 16:33 | RADRPT ---
EXAM DATE/TIME: 01/14/2018 16:12 [facility] COMPARISON: No previous studies available for comparison. INDICATIONS : Elevated liver enzymes. ORAL CONTRAST: No oral contrast ingested. RADIATION DOSE: 15.19 CTDIvol (mGy) MEDICAL HISTORY : Chronic obstructive pulmonary disease. Hernia, inguinal. Hypothyroidism.Hypertension. SURGICAL HISTORY : Appendectomy. ENCOUNTER: Initial ACUITY: 2 days PAIN SCALE: 0/10 LOCATION: pelvis abdomen TECHNIQUE: Volumetric scanning of the abdomen and pelvis was performed. Using automated exposure control and ad justment of the mA and/or kV according to patient size, radiation dose was kept as low as reasonably achievable to obtain optimal diagnostic quality images. DICOM format image data is available electro nically for review and comparison. FINDINGS: LOWER LUNGS: Mild lung base atelectasis LIVER: Markedly cirrhotic liver appearance with right lobe atrophy, prominent nodularity of surface contours and prominent enlargement of the left lobe and caudate. No evidence of discrete mass or biliary duct al dilatation SPLEEN: Enlarged without focal mass. Small splenule in the inferior splenic hilum PANCREAS: Within normal limits. KIDNEYS: Normal in size and shape. There is no mass, stone, or hydronephrosis. ADRENAL GLANDS: Within normal limits. VASCULAR: There is no aortic aneurysm. BOWEL/MESENTERY: The stomach, small bowel, and colon demonstrate no acute abnormality. There is no free intraperitone al air or fluid. ABDOMINAL WALL: Tiny umbilical hernia. RETROPERITONEUM: There is no lymphadenopathy. BLADDER: Decompressed with Graham catheter REPRODUCTIVE: Within normal limits. INGUINAL: There is no lymphadenopathy or hernia. MUSCULOSKELETAL: Within normal limits for patient age. CONCLUSION: Markedly cirrhotic liver appearance. Splenomegaly. Edinson Urbano MD on January 14, 2018 at 16:26 Board Certified Radiologist. This report was verified electronically.
[2018-01-14] MEDS: SODIUM CHLORIDE 0.9% IV SCH ×2 (18:19→23:57)
[2018-01-14] MEDS: ACYCLOVIR IV SCH ×2 (18:19→23:57)
--- NOTE | 2018-01-14 18:32 | MG ---
cc: Martina Woodward MD DATE OF STUDY: 01/14/2018. REQUESTING PHYSICIAN: Dr. Knutson INDICATION: An EEG was obtained on this 57-year-old patient being evaluated for confusion. MEDICATIONS: Precedex, Midamor, Geodon, etc. DESCRIPTION: The patient is described as sedated. Initially, there are sleep features including beta rhythms, some theta and delta activity, which appeard to be fairly symmetrical. There is a sleep recording persisting for most of the recording. Later on, there is photic stimulation, which shows some minor background reactivity and some artifact. INTERPRETATION: Abnormal EEG because of some slowing bilaterally, mostly representing sleep, but even when there is some awakening towards the end of the study, there continues to be some theta and delta activity and a lack of alpha rhythms. The findings suggest a mild to moderate diffuse disturbance of cerebral function. No epileptiform features are present. Martina Woodward MD [facility]/ , 05:08 PM , 05:50 PM
--- NOTE | 2018-01-14 19:38 | ECHRPT ---
Indication: ALTERED MENTAL STATUS CONCLUSIONS The left ventricular systolic function is normal with an estimated ejection fraction in the range of 55-60%. Normal left ventricular size. Wall thickness is normal. No regional wall motion abnormalities are present. There is trace tricuspid valve regurgitation. The estimated pulmonary arterial pressure is 28 mmHg. BP: 105 / 63 HR: 58 Rhythm: MEASUREMENTS (Male / Female) Normal Values Technical Quality:Fair 2D ECHO LV Diastolic Diameter PLAX 4.8 cm 4.2 - 5.9 / 3.9 - 5.3 cm LV Systolic Diameter PLAX 3.6 cm IVS Diastolic Thickness 1.1 cm 0.6 - 1.0 / 0.6 - 0.9 cm LVPW Diastolic Thickness 1.1 cm 0.6 - 1.0 / 0.6 - 0.9 cm LV Relative Wall Thickness 0.4 RV Internal Dim ED PLAX 2.4 cm LVOT Diameter 1.9 cm LV Ejection Fraction MOD 4C 61.0 % LV Cardiac Index MOD 4C 1905.4 cm/minm LV Ejection Fraction 4C AL 62.5 % LV Cardiac Index 4C AL 2021.8 cm/minm M-MODE Aortic Root Diameter MM 2.8 cm AV Cusp Separation MM 2.0 cm DOPPLER AV Peak Velocity 125.5 cm/s AV Peak Gradient 6.3 mmHg LVOT Peak Velocity 101.8 cm/s LVOT Peak Gradient 4.1 mmHg AV Area Cont Eq pk 2.3 cm MV Area PHT 4.4 cm Mitral E Point Velocity 72.6 cm/s Mitral A Point Velocity 56.3 cm/s Mitral E to A Ratio 1.3 LV E' Lateral Velocity 6.1 cm/s Mitral E to LV E' Lateral Ratio 11.8 LV E' Septal Velocity 7.1 cm/s Mitral E to LV E' Septal Ratio 10.2 TR Peak Velocity 212.0 cm/s TR Peak Gradient 18.0 mmHg Right Atrial Pressure 10.0 mmHg Pulmonary Artery Systolic Pressu 28.0 mmHg Right Ventricular Systolic Press 28.0 mmHg PV Peak Velocity 81.4 cm/s PV Peak Gradient 2.7 mmHg FINDINGS LEFT VENTRICLE The left ventricular systolic function is normal with an estimated ejection fraction in the range of 55-60%. Normal left ventricular size. Wall thickness is normal. No regional wall motion abnormalities are present. RIGHT VENTRICLE Normal right ventricular size and systolic function. LEFT ATRIUM The left atrial size is normal. RIGHT ATRIUM The right atrial size is normal. ATRIAL SEPTUM Normal atrial septal thickness without atrial level shunting by limited color doppler interrogation. AORTA The aortic root and proximal ascending aorta are normal in size on limited imaging. MITRAL VALVE Structurally normal mitral valve. No mitral valve stenosis or regurgitation. AORTIC VALVE Trileaflet aortic valve. No aortic valve stenosis or regurgitation. TRICUSPID VALVE Structurally normal tricuspid valve. There is trace tricuspid valve regurgitation. The estimated pulmonary arterial pressure is 28 mmHg. PULMONARY VALVE No pulmonary valve regurgitation or stenosis. VESSELS The inferior vena cava is normal in size. PERICARDIUM No pericardial effusion. Evelyn Trammell MD, FACC (Electronically Signed) Final Date:14 January 2018 19:37
[2018-01-14] MEDS: LORazepam 2 MG/ML VIAL IV PUSH PRN (20:35)
--- NOTE | 2018-01-14 21:04 | RADRPT ---
EXAM DATE/TIME: 01/14/2018 17:02 [facility] COMPARISON: No previous studies available for comparison. INDICATIONS : Elevated labs. MEDICAL HISTORY : Hypothyroidism. Hypercholesterolemia. Hypertension. COPD. Arthritis. Inguinal hernia. Bipolar disorde r. SURGICAL HISTORY : Appendectomy. Left hand. Left knee. ENCOUNTER: Initial ACUITY: 1 day PAIN SCORE: Nonresponsive. LOCATION: Bilateral flank MEASUREMENTS: RIGHT KIDNEY: 10.2 x 4.9 x 5.9 cm LEFT KIDNEY: 11.2 x 4.8 x 5.3 cm FINDINGS: Possible right renal calculus measuring up to 5 mm in diameter. No hydronephrosis. Kidneys mildly ech ogenic. Bladder decompressed by Graham. CONCLUSION: 1. Mild medical renal disease. Probable nonobstructing right renal calculus. Graham catheter in [facility] r. Jonny Arciniega MD on January 14, 2018 at 21:01 Board Certified Radiologist. This report was verified electronically.
[2018-01-15] VITALS (19 sets, daily range): BP systolic 107–136; BP diastolic 66–86; PULSE 46–77; RESP 11–26; TEMP 97.5–99.5; O2SAT 95–100
[2018-01-15] MEDS: LORazepam 2 MG/ML VIAL IV PUSH PRN ×4 (01:28→20:15)
[2018-01-15] MEDS: chlordiazePOXIDE 25 MG CAP PO SCH ×4 (01:47→15:15)
[2018-01-15] MEDS: DEXTROSE 5% IN WATE 1000ML INJ 1,000 ML IV SCH ×2 (01:49→13:31)
[2018-01-15] MEDS: DEXMEDETOMIDINE INJ 200 MCG in SODIUM CHLORIDE 0.9% INJ 50 ML IV PRN ×4 (02:10→13:30)
[2018-01-15] MEDS: CHLORHEXIDINE GLUCONATE 2 % 1 PACK (2 CLOTHS)(taper/protocol) TOPICAL SCH (03:50)
[2018-01-15 04:50] LABS: AUTOMATED NEUTROPHIL # 4.3 TH/MM3 (1.8-7.7); BASOPHIL % 0.4 % (0.0-2.0); EOSINOPHIL # 0.4 TH/MM3 (0-0.4); HEMATOCRIT 26.7 % (39.0-51.0); HEMOGLOBIN 9.1 GM/DL (13.0-17.0); LYMPH % 24.8 % (9.0-44.0); LYMPHOCYTE # 1.7 TH/MM3 (1.0-4.8); MEAN CELL VOLUME 107.5 FL (80.0-100.0); MEAN CORPUSCULAR HEMOGLOBIN 36.7 PG (27.0-34.0); MEAN CORPUSCULAR HGB CONC 34.2 % (32.0-36.0); MEAN PLATELET VOLUME 8.7 FL (7.0-11.0); MONOCYTE # 0.3 TH/MM3 (0-0.9); NEUT % 63.8 % (16.0-70.0); PLATELET COUNT 65 TH/MM3 (150-450); RED BLOOD COUNT 2.48 MIL/MM3 (4.50-5.90); RED CELL DISTRIBUTION WIDTH 15.6 % (11.6-17.2); WHITE BLOOD COUNT 6.7 TH/MM3 (4.0-11.0)
[2018-01-15 05:15] LABS: ALBUMIN 2.9 GM/DL (3.4-5.0); ALKALINE PHOSPHATASE 104 U/L (45-117); ALT (GPT) 54 U/L (12-78); AST (GOT) 71 U/L (15-37); BICARBONATE 21.8 MEQ/L (21.0-32.0); BLOOD UREA NITROGEN 30 MG/DL (7-18); CALCIUM 8.1 MG/DL (8.5-10.1); CHLORIDE 127 MEQ/L (98-107); CREATININE 2.77 MG/DL (0.60-1.30); GLOMERULAR FILTRATION RATE 24 ML/MIN (>89); GLUCOSE,RANDOM 126 MG/DL (74-106); RANDOM VANCOMYCIN 13.1 COMMENT; TOTAL BILIRUBIN ADULT 0.9 MG/DL (0.2-1.0); TOTAL PROTEIN 6.8 GM/DL (6.4-8.2)
[2018-01-15 05:32] LABS: SODIUM (NA) 158 MEQ/L (136-145)
[2018-01-15 05:44] LABS: OVALOCYTES 1+ (NORMAL)
[2018-01-15] MEDS: PIPERACIL-TAZO 3.375 GM PREMIX 50 ML IV SCH ×2 (06:03→10:45)
[2018-01-15] MEDS ORDERED: THIAMINE HCL 100 MG TAB PO SCH (09:00)
[2018-01-15] MEDS: FAMOTIDINE 20 MG/2 ML VIAL IV PUSH SCH ×2 (10:43→23:57)
[2018-01-15] MEDS: cefTRIAXone INJ 1,000 MG in SODIUM CHLORIDE 0.9% INJ 100 ML IV SCH ×2 (10:44→23:57)
[2018-01-15] MEDS: DESMOPRESSIN ACETATE 4 MCG/ML VIAL IV PUSH SCH ×2 (10:45→20:15)
[2018-01-15] MEDS: aMILoride HCL 5 MG TAB PO SCH (10:45)
[2018-01-15] MEDS: DOCUSATE SODIUM 50 MG/SENNA 8.6 MG TAB PO SCH ×2 (10:45→20:15)
[2018-01-15] MEDS: SODIUM CHLORIDE 0.9% FLUSH 10 ML FLUSH IV FLUSH SCH ×2 (10:46→20:15)
[2018-01-15] MEDS ORDERED: VANCOMYCIN INJ 1,250 MG in SODIUM CHLOR 0.9% 250 ML INJ 250 ML IV ONE (12:00)
[2018-01-15] MEDS: ACYCLOVIR IV SCH (13:31)
[2018-01-15] MEDS: SODIUM CHLORIDE 0.9% IV SCH (13:31)
--- NOTE | 2018-01-15 14:43 | HHI.NPPN ---
Subjective Complaints: Confused History of Present Illness This is a 57-year-old male with a history of apparent bipolar disorder. The patient has been on lithium in the past. It is unclear how long he has been on lithium. The patient was admitted on 01/12/2018, after he had a recent extensive dental extraction. The patient had apparent sudden acute onset of confusion and altered mental status. The patient was found at home lying shaking with confusion and a low-grade temperature. Here, the patient was seen in the emergency room. He was further evaluated and brought to the ICU when he had ongoing confusion and altered mental status. Drug screen showed positive cannabinoids. He was initially started on IV fluids with normal saline. He has subsequently developed acute significant hypernatremia. He had a serum sodium of 133 on presentation. He was started initially on normal saline and his sodium jumped up to a level of 160. Throughout the course of today, the patient 's sodium has continued to rise from 160 up to 166 and then 165. He initially was on normal saline and then was given half normal saline and is now on D5W. The patient had ongoing confusion and altered mental status and was intubated after he had significant tachycardia and tachypnea. At this point, the patient is intubated and sedated and is receiving D5W for hypernatremia. Nephrology was consulted for further evaluation. Additional Remarks Patient is lethargic minimally responding. (Zamzam Valentino) Objective Data Data Vital Signs Date Time Temp Pulse Resp B/P (MAP) Pulse Ox O2 Delivery O2 Flow Rate FiO2 01/15/18 07:36 97.5 01/15/18 07:00 54 12 107/70 (82) 96 01/15/18 06:00 46 01/15/18 04:00 51 01/15/18 04:00 98.8 51 24 108/66 (80) 96 01/15/18 02:00 76 01/15/18 00:00 68 01/15/18 00:00 98.9 68 18 126/86 (99) 100 01/14/18 22:00 65 01/14/18 20:00 98.4 57 27 109/67 (81) 97 01/14/18 20:00 57 01/14/18 18:41 98.5 (Zamzam Valentino) -: 01/15/18 0430 01/15/18 0430 Imaging Last Impressions Renal Ultrasound 01/14/18 0000 Signed Impressions: Service Date/Time: Sunday, January 14, 2018 17:02 - CONCLUSION: 1. Mild medical renal disease. Probable nonobstructing right renal calculus. Grhaam catheter in bladder. Jonny Arciniega MD Head Magnetic Resonance Angiography 01/14/18 0000 Signed Impressions: Service Date/Time: Sunday, January 14, 2018 15:24 - CONCLUSION: 1. Suboptimal visualization of the left vertebral artery due to motion artifact particularly at the vertebrobasilar junction. Can not exclude a focal flow-limiting stenosis at this level. 2. Otherwise, unremarkable MRA examination of the [place]. No aneurysm or large vessel cerebral artery occlusion Dyllan Luque MD Brain MRI 01/14/18 0000 Signed Impressions: Service Date/Time: Sunday, January 14, 2018 15:24 - CONCLUSION: 1. Redemonstration of chronic cerebellar calcifications. 2. Senescent changes without acute abnormality. Specifically, no evidence for acute infarction. Dyllan Luque MD Abdomen/Pelvis CT 01/13/18 0000 Signed Impressions: Service Date/Time: Sunday, January 14, 2018 16:12 - CONCLUSION: Markedly cirrhotic liver appearance. Splenomegaly. Edinson Urbano MD Soft Tissue Neck X-Ray 01/12/18 0000 Signed Impressions: Service Date/Time: Friday, January 12, 2018 00:21 - CONCLUSION: 1. Degenerative changes of the mid and lower cervical spine. 2. Otherwise negative. No radiopaque foreign body. Gulshan Lieberman MD Head CT 01/11/181926 Signed Impressions: Service Date/Time: Thursday, January 11, 2018 19:50 - CONCLUSION: No acute intracranial abnormality demonstrated. Atrophy and chronic cerebellar calcification. Edinson Esquivel MD Chest X-Ray 01/11/181926 Signed Impressions: Service Date/Time: Thursday, January 11, 2018 19:41 - CONCLUSION: No evidence of acute cardiopulmonary disease. Edinson Esquivel MD (Zamzam Valentino) Physical Exam General Appearance: No Acute Distress, Comfortable (Zamzam Valentino) Pulmonary Resp Exam: Clear Bilaterally, Breath Sounds Equal, No Distress (Zamzam Valentino) Cardiology CV Exam: Regular (Zamzam Valentino) Gastrointestinal/Abdomen GI Exam: Soft, Non-Tender, Bowel Sounds Present (Zamzam Valentino) Genitourinary Exam: Flank Non-Tender (Zamzam Valentino) Integumentary Skin Exam: Clear, Warm, Dry (Zamzam Valentino) Extremeties Extremities Exam: No Edema (Zamzam Valentino) Neurologic Neuro Exam: Sedated (Zamzam Valentino) Assessment/Plan Electrolyte Assessment: Hypernatremia Problem List: (1) Hypernatremia ICD Codes: E87.0 - Hyperosmolality and hypernatremia Status: Acute Plan: Acute hypernatremia sodium level on admission at 138 to now at 164. Possible diabetes insipidus possible secondary to chronic calcifications. Also possible nephrogenic component for diabetes insipidus given that the patient has had ongoing lithium use on as far as his lithium toxicity. Plan Continue D5W at 125 ml/hr Continue to monitor sodium levels Sodium levels starting to lower at 158 from 164 Continue amiloride Continue DDAVP ADH level is pending. Continue to follow serum and urine osmolarity levels. Urine osmolality is above 300, unlikely DI. (2) Acute renal failure superimposed on stage 2 chronic kidney disease ICD Codes: N17.9 - Acute kidney failure, unspecified; N18.2 - Chronic kidney disease, stage 2 (mild) Status: Acute Plan: Acute kidney injury possible related to high volume UOP. Creatinine rising 2.77 from 1.91 Renal US: . Mild medical renal disease. Probable nonobstructing right renal calculus. Graham catheter in bladder Continue IVF Will monitor UOP and BMP Avoid nephrotoxins. . (Zamzam Valentino) Problem List: (1) Hypernatremia ICD Codes: E87.0 - Hyperosmolality and hypernatremia Status: Acute Plan: Acute hypernatremia sodium level on admission at 138 to now at 164. Possible diabetes insipidus possible secondary to chronic calcifications. Also possible nephrogenic component for diabetes insipidus given that the patient has had ongoing lithium use on as far as his lithium toxicity. Plan Continue D5W at 125 ml/hr Continue to monitor sodium levels Sodium levels starting to lower at 158 from 164 Continue amiloride Continue DDAVP ADH level is pending. Continue to follow serum and urine osmolarity levels. Urine osmolality is above 300, unlikely DI. Patient seen and examined, agree with above. Sodium is improving. (2) Acute renal failure superimposed on stage 2 chronic kidney disease ICD Codes: N17.9 - Acute kidney failure, unspecified; N18.2 - Chronic kidney disease, stage 2 (mild) Status: Acute Plan: Acute kidney injury possible related to high volume UOP. Creatinine rising 2.77 from 1.91 Renal US: . Mild medical renal disease. Probable nonobstructing right renal calculus. Graham catheter in bladder Continue IVF Will monitor UOP and BMP Avoid nephrotoxins. . (John Gutierrez MD) Zamzam Valentino Jan 15, 2018 14:43 John Gutierrez MD Jan 15, 2018 18:18
[2018-01-15 15:38] LABS: HEPARIN INDUCED PLATELET AB NEGATIVE (NEGATIVE)
--- NOTE | 2018-01-15 17:19 | HHI.CCPN ---
Subjective Remarks/Hospital Course Is a 57-year-old male with known history of hypertension, hyperlipidemia, COPD, tobacco abuse, marijuana abuse, spinal stenosis, hypothyroidism, benign prostatic hypertrophy, anxiety, depression,? Bipolar disorder who originally presented to hospital because of altered mentation, confusion. Patient did recently undergo extraction of 10 of his lower teeth 2 days prior to coming to the ER. Records indicate that his stated that the day before coming the patient started talking and nonsense and laying in bed confused with a low- grade fever. Patient was brought to emergency department and had workup performed which did not indicate any acute abnormality for the patient's encephalopathy. Patient did have CT scan done of the brain which did not indicate any acute abnormality. Further studies with alcohol level which was normal, urine drug screen did show positive cannabinoids, TSH was normal, ammonia level was normal. In light of the patient having hyper bilirubin, transaminitis, macrocytic anemia, thrombocytopenia one could consider the patient does have chronic alcohol related issues. Patient was started on thiamine and folic acid. Patient was started on CIWA protocol. Patient was admitted to the hospital for further management patient had signs of systemic inflammatory response syndrome without any sign of infection. He was started on empirical antibiotics to include vancomycin and Zosyn. Patient had workup done with chest x-ray which did not indicate any acute abnormality, urinalysis which is clear, blood cultures are negative for 2 days. No signs of infection at this time, however patient did just recently had 10 teeth extracted. Could have some underlying endocarditis. Patient did have signs of acute renal failure superimposed on chronic kidney disease stage II. Patient was started on IV fluids. Laboratory were followed and this morning patient found to have severe hypernatremia. Workup had been initiated with osmolality studies, urine sodium, ADH, MRI of brain which still awaiting results at this time. Patient was originally started on half-normal saline without any significant improvement. Subsequently changed to D5W at 75 ml/hr. Continue to monitor sodium level every 4 hours. Patient still with considerable altered mental status. Toxic metabolic encephalopathy. Presently the patient is maintaining his airway with good O2 saturations of 96% on room air, however there are episodes of tachypnea going upward 33 breaths per minute. Because of his intermittent respiratory distress and altered mental status is very concerning that the patient may require intubation for continued management and care if his symptoms does not improve. Hospitalist did discuss the case with critical care, because of the critical nature the patient and possible respiratory collapse is recommended patient be transferred to the main IMC under critical care management. Hence critical care was consulted. Subjective: 01/14: Afebrile. Patient easily arousable, and continues to be confused. MRI pending. Patient was maintained on Precedex infusion during the night Precedex infusion off. Patient protecting airway, dyspnea noted at this time. Continued serum sodium level monitoring. Initial ADH level pending. Patient continues on DDAVP, and Amilioride. 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 Upon my evaluation patient was on Precedex per report the patient became agitated during the night and Precedex infusion was increased, patient was placed in 4point restraints for patient safety. Brain imaging studies negative. EEG shows slowing but under the influence of Precedex infusion. Objective Vital Signs Date Time Temp Pulse Resp B/P (MAP) Pulse Ox O2 Delivery O2 Flow Rate FiO2 01/15/18 07:36 97.5 01/15/18 07:00 54 12 107/70 (82) 96 01/12/18 01:00 Room Air Intake and Output 01/15/18 01/15/18 01/16/18 08:00 16:00 00:00 Intake Total 1404 ml 132 ml Output Total 450 ml 700 ml Balance 954 ml -568 ml Result Diagram: 01/15/18 0430 01/15/18 0430 Other Results Microbiology Date/Time Source Procedure Growth Status 01/13/18 17:40 Nasal Aspirate Influenza Types A,B Antigen (DIMITRIS) - Final NEGATIVE FOR FLU A AND B ANTIGEN.... Complete Imaging Last Impressions Soft Tissue Neck X-Ray 01/12/18 0000 Signed Impressions: Service Date/Time: Friday, January 12, 2018 00:21 - CONCLUSION: 1. Degenerative changes of the mid and lower cervical spine. 2. Otherwise negative. No radiopaque foreign body. Gulshan Lieberman MD Head CT 01/11/181926 Signed Impressions: Service Date/Time: Thursday, January 11, 2018 19:50 - CONCLUSION: No acute intracranial abnormality demonstrated. Atrophy and chronic cerebellar calcification. Edinson Esquivel MD Chest X-Ray 01/11/181926 Signed Impressions: Service Date/Time: Thursday, January 11, 2018 19:41 - CONCLUSION: No evidence of acute cardiopulmonary disease. Edinson Esquivel MD Objective Remarks GENERAL: Well-developed, well-nourished, in no acute distress. More alert, ineffective communication but articulation of words improved HEENT: Head is normocephalic without any lesions or masses noted. Facial features are symmetric. Eyes: Pupils equal round reactive to light. Extraocular muscles are intact. Conjunctivae were clear. NECK: Supple without any masses. Trachea midline no deviation. No JVD, no bruits are appreciated CARDIAC: Regular rhythm, regular rate. S1/S2 are heard. No murmurs gallops or rubs. LUNGS: Clear to auscultation bilaterally. No wheeze, rhonchi or rales. No use of accessory muscles on inspiration or expiration. ABDOMEN: Soft, nontender. Nondistended. Bowel sounds heard in all 4 quadrants. No organomegaly or masses. Negative rebound, negative guarding EXTREMITIES: No edema, pulses are equal bilaterally. No cyanosis or clubbing NEUROLOGY: RASS -1. Deep tendon reflexes are 2+ in upper and lower extremities bilaterally. Patient is moving all extremities A/P Problem List: (1) Toxic metabolic encephalopathy ICD Code: G92 - Toxic encephalopathy Status: Acute (2) Altered mental status ICD Code: R41.82 - Altered mental status, unspecified (3) Hypernatremia ICD Code: E87.0 - Hyperosmolality and hypernatremia Status: Acute (4) Systemic inflammatory response syndrome ICD Code: R65.10 - Systemic inflammatory response syndrome (SIRS) of non- infectious origin without acute organ dysfunction (5) Acute renal failure superimposed on stage 2 chronic kidney disease ICD Code: N17.9 - Acute kidney failure, unspecified; N18.2 - Chronic kidney disease, stage 2 (mild) Status: Acute (6) Chronic obstructive pulmonary disease ICD Code: J44.9 - Chronic obstructive pulmonary disease, unspecified (7) Hypothyroidism ICD Code: E03.9 - Hypothyroidism, unspecified (8) Leukocytosis ICD Code: D72.829 - Elevated white blood cell count, unspecified (9) Macrocytic anemia ICD Code: D53.9 - Nutritional anemia, unspecified (10) Thrombocytopenia ICD Code: D69.6 - Thrombocytopenia, unspecified Status: Acute (11) Hyperbilirubinemia ICD Code: E80.6 - Other disorders of bilirubin metabolism (12) Transaminitis ICD Code: R74.0 - Nonspecific elevation of levels of transaminase and lactic acid dehydrogenase [LDH] (13) Hyperglycemia ICD Code: R73.9 - Hyperglycemia, unspecified Assessment and Plan NEUROLOGY Altered mental status Toxic metabolic encephalopathy Anxiety/depression,? Bipolar disorder THC use Possible central diabetes insipidus Could be secondary to medication effect, post anesthesia delirium, hypernatremia , sepsis abuse 01/12 CT scan of brain does not indicate any acute abnormality Urine drug screen was positive for cannabinoids Alcohol level was less than 3, TSH, B12, folate were normal [place] level 0.3 Continue DDAVP q 12 hrs 01/13 Obtain ADH level follow-up results 01/15 Repeat ADH level- post DDAVP dosing Continue neuro checks every one hour Continue thiamine and folic acid/ daily Continue CIWA monitoring Seizure precaution Discontinue Geodon for agitation Precedex infusion Resume psychotropic medications when the patient is more alert 01/14 EEG-no epileptiform features mild to moderate diffuse disturbance in cerebral function Neurology following 01/14- MRI-no acute infarction 01/14- MRA- unremarkable exam of the [place] Empiric antibiotics-acyclovir, and Rocephin PULMONOLOGY Chronic obstructive pulmonary disease Chronic tobacco abuse Patient maintaining airway at this time Obtain head of bed 30 Maintain O2 saturation greater than 92%, On room air, O2 sat 98% Duo nebs every 6 hours as needed for shortness of breath or dyspnea CARDIOLOGY Hypertension Hyperlipidemia Vasotec, Apresoline as needed Continue monitor and maintain MAP greater than 65 ECHO - no vegetation GASTROENTEROLOGY Hyperbilirubinemia Transaminitis Hepatitis C Obtain CT scan of the abdomen and pelvis Hep C viral hepatitis antibody positive GI prophylaxis Pepcid IV twice daily Patient not alert enough in order to receive oral nutrition Anticipate placing NG tube if patient does not improve to start tube feeding RENAL Acute renal failure superimposed on chronic kidney disease stage II Hypernatremia Evaluate Na Levels every 12 hours downtrending Continue Amilioride Unknown etiology at this time. Patient was on IV fluids. Possible dehydration , diabetes insipidus (central versus nephrogenic) Patient did have a 3000 mL's of urine output overnight Awaiting ADH level, DI not likely secondary to initial urine osmole D5W at 125 ml/hr Nephrology consult INFECTIOUS DISEASE Systemic inflammatory response syndrome Leukocytosis Low-grade fever on presentation, afebrile now Patient has been started on empirical vancomycin and Zosyn Thus far no infectious source has been identified, chest x-rays clear, urinalysis was unremarkable Patient did just have removal of 10 of his lower teeth 2 days prior to coming the hospital Blood cultures negative for 2 days Obtain influenza testing Obtain echocardiogram to rule out possible endocarditis secondary to clinical symptoms, recent teeth extractions ENDOCRINOLOGY Hypothyroidism Hyperglycemia TSH 2.86 Will need to resume patient's replacement therapy once he is more alert, consider starting IV levothyroxine Monitor glucoses start sliding scale insulin if needed Obtain hemoglobin A1c HEMATOLOGY Macrocytic anemia Thrombocytopenia With patient's elevated liver enzymes, macrocytic anemia, thrombocytopenia one could consider that he does use alcohol on a regular basis or history of alcoholism Continue monitor hemoglobin and transfuse if hemoglobin below 7.0 Obtain hit antibody, continue monitor platelet count, transfuse if needed If continues to worsen may need to consult hematology PROPHYLAXIS DVT prevention with subcutaneous heparin, may need to discontinue due to thrombocytopenia GI protection with Pepcid IV LINES Peripheral IVs Level 3 follow up Physician Heidy Gary MD Jan 15, 2018 17:19
[2018-01-15] MEDS: MULTIVITAMIN IV SCH ×3 (17:21)
[2018-01-15] MEDS: FOLIC ACID IV SCH ×3 (17:21)
[2018-01-15] MEDS: WATE IV SCH ×3 (17:21)
[2018-01-15] MEDS: DEXTROSE 5% IV SCH ×3 (17:21)
[2018-01-15] MEDS: PIPERACIL-TAZO 2.25 GM PREMIX 50 ML IV SCH (18:14)
[2018-01-16] VITALS (19 sets, daily range): BP systolic 129–167; BP diastolic 80–110; PULSE 76–100; RESP 20–32; TEMP 97.9–98.7; O2SAT 95–99
[2018-01-16] MEDS: PIPERACIL-TAZO 2.25 GM PREMIX 50 ML IV SCH ×4 (00:34→17:33)
[2018-01-16] MEDS: LORazepam 2 MG/ML VIAL IV PUSH PRN ×2 (00:34→04:55)
[2018-01-16] MEDS: SODIUM CHLORIDE 0.9% IV SCH ×2 (01:49→10:54)
[2018-01-16] MEDS: chlordiazePOXIDE 25 MG CAP PO SCH (01:49)
[2018-01-16] MEDS: ACYCLOVIR IV SCH ×2 (01:49→10:54)
[2018-01-16] MEDS: CHLORHEXIDINE GLUCONATE 2 % 1 PACK (2 CLOTHS)(taper/protocol) TOPICAL SCH (03:27)
[2018-01-16] MEDS: DEXTROSE 5% IN WATE 1000ML INJ 1,000 ML IV SCH ×3 (04:55→16:53)
--- NOTE | 2018-01-16 07:16 | HHI.PR ---
Review/Management Diagnosis/Plan: (1) Toxic metabolic encephalopathy ICD Codes: G92 - Toxic encephalopathy Status: Acute Plan: etiology: hypernatremia, however had some symptoms prior r/o equipment manager infection/lesion, stroke, ttp? on iv thiamine recs lethargic; on scheduled ativan and librium. consider dc'ing, changing to prn. limited mental status exam consider lp if plt count high enough add dvt anticoagulant after lp eeg- slowing mri/mra brain- no acute infarct plts low iv acyclovir renal dosing, iv rocephin d/w rn (2) Acute renal failure superimposed on stage 2 chronic kidney disease ICD Codes: N17.9 - Acute kidney failure, unspecified; N18.2 - Chronic kidney disease, stage 2 (mild) Status: Acute Plan: seen by renal (3) Hypernatremia ICD Codes: E87.0 - Hyperosmolality and hypernatremia Status: Acute Plan: renal following (4) Thrombocytopenia ICD Codes: D69.6 - Thrombocytopenia, unspecified Status: Acute Plan: hep held Subjective Subjective Comments No acute events reported Active Medications Current Medications Medications (Trade) Dose Ordered Sig/[place] Route Start Time Stop Time Status Last Admin (NS Flush) 2 ml UNSCH PRN IV FLUSH 01/12/18 00:45 (NS Flush) 2 ml BID IV FLUSH 01/12/18 09:00 01/15/18 20:15 (Tylenol) 650 mg Q4H PRN PO 01/12/18 00:45 (Zofran Inj) 4 mg Q6H PRN IVP 01/12/18 00:45 01/12/18 02:51 (Narcan Inj) 0.4 mg UNSCH PRN IV PUSH 01/12/18 00:45 (Shari-Colace) 1 tab BID PO 01/12/18 09:00 01/15/18 20:15 (Milk Of Magnesia Liq) 30 ml Q12H PRN PO 01/12/18 00:45 (Senokot) 17.2 mg Q12H PRN PO 01/12/18 00:45 (Dulcolax Supp) 10 mg DAILY PRN RECTAL 01/12/18 00:45 (Lactulose Liq) 30 ml DAILY PRN PO 01/12/18 00:45 (Catapres) 0.1 mg Q6H PRN PO 01/12/18 10:00 (Romazicon Inj) 0.2 mg Q1M PRN IV PUSH 01/12/18 10:00 (Ativan) 1 mg Q4H PRN PO 01/12/18 10:00 (Ativan Inj) 1 mg Q4H PRN IV PUSH 01/12/18 10:00 01/16/18 04:55 (Ativan) 2 mg Q2H PRN PO 01/12/18 10:00 Pharmacy Profile Note 0 ml @ 0 mls/hr UNSCH OTHER 01/12/18 10:15 (Pepcid Inj) 20 mg Q12H IV PUSH 01/12/18 11:00 01/15/18 23:57 (Duoneb Neb) 1 ampule Q4HR NEB PRN NEB 01/13/18 13:00 Dextrose 1,000 ml @ 125 mls/hr Q8H IV 01/13/18 15:00 01/16/18 04:55 (Vasotec Inj) 1.25 mg Q6H PRN IV PUSH 01/13/18 16:00 (Apresoline Inj) 20 mg Q4H PRN IV PUSH 01/13/18 16:00 (Ddavp Inj) 2 mcg Q12HR IV PUSH 01/13/18 21:00 01/15/18 20:15 (Midamor) 10 mg DAILY PO 01/13/18 20:45 01/15/18 10:45 Miscellaneous Information Patient in critical care unit? Ass... [id number] .XX 01/14/18 02:45 (Chlorhexidine 2% Cloth) 3 pack DAILY@04 TOPICAL 01/14/18 04:00 01/18/18 04:01 01/16/18 03:27 (Chlorhexidine 2% Cloth) 3 pack UNSCH PRN TOPICAL 01/14/18 02:45 01/19/18 02:43 Acyclovir Sodium 750 mg/Sodium Chloride 100 ml @ 100 mls/hr Q12H IV 01/14/18 12:00 01/16/18 01:49 Ceftriaxone Sodium 1000 mg/ Sodium Chloride 100 ml @ 200 mls/hr Q12H IV 01/14/18 11:00 01/15/18 23:57 (Librium) 50 mg Taper Q6H PO 3/20/18 02:00 01/23/18 01:59 01/16/18 01:49 Piperacillin Sod/ Tazobactam Sod 50 ml @ 100 mls/hr Q6H IV 01/15/18 18:00 01/16/18 04:55 Multivitamins 10 ml/Folic Acid 1 mg/Dextrose 510.2 ml @ 125 mls/hr Q24H IV 01/15/18 14:00 01/17/18 13:59 01/15/18 17:21 Allergies Allergies Coded Allergies chlorpheniramine (Unverified Allergy, Severe, ANTIHISTAMINE???, 01/11/18) pseudoephedrine (Unverified Allergy, Severe, DECONGESTANTS???, 01/11/18) Review of Systems All other ROS: Unable to obtain Exam I&O / VS Vital Signs Date Time Temp Pulse Resp B/P (MAP) Pulse Ox O2 Delivery O2 Flow Rate FiO2 01/16/18 06:00 86 01/16/18 04:00 90 01/16/18 04:00 98.7 90 27 138/87 (104) 97 01/16/18 02:00 88 01/16/18 00:00 98.1 76 24 129/80 (96) 97 01/16/18 00:00 76 01/15/18 22:00 75 01/15/18 20:00 72 01/15/18 20:00 99.5 72 20 126/80 (95) 98 01/15/18 18:00 77 01/15/18 17:00 76 26 136/82 (100) 99 01/15/18 16:00 71 01/15/18 16:00 98.2 71 24 121/76 (91) 98 01/15/18 15:00 65 26 117/77 (90) 98 01/15/18 14:00 60 25 111/76 (88) 96 01/15/18 14:00 60 01/15/18 13:00 56 21 126/79 (95) 97 01/15/18 12:00 98.1 50 23 116/70 (85) 96 01/15/18 12:00 50 01/15/18 11:00 51 11 121/73 (89) 95 01/15/18 10:00 52 19 125/75 (92) 97 01/15/18 10:00 52 01/15/18 09:00 51 13 112/71 (85) 97 01/15/18 08:00 51 15 118/75 (89) 97 01/15/18 08:00 51 01/15/18 07:36 97.5 Exam Comments lethargic, not following, moans at times, grimaces, voluntary closes eyes on pupillary exam, no gross eye deviation, ue in restraints, reduced l>rt leg movement, Objective Micro and Labs Date/Time Source Procedure Growth Status 01/11/18 19:11 Blood Peripheral Aerobic Blood Culture - Preliminary NO GROWTH IN 4 DAYS Resulted 01/11/18 19:11 Blood Peripheral Anaerobic Blood Culture - Preliminary NO GROWTH IN 4 DAYS Resulted 01/13/18 17:40 Nasal Aspirate Influenza Types A,B Antigen (DIMITRIS) - Final NEGATIVE FOR FLU A AND B ANTIGEN.... Complete Wing Nur MD Jan 16, 2018 07:16
--- NOTE | 2018-01-16 08:58 | HHI.CCPN ---
Subjective Remarks/Hospital Course Is a 57-year-old male with known history of hypertension, hyperlipidemia, COPD, tobacco abuse, marijuana abuse, spinal stenosis, hypothyroidism, benign prostatic hypertrophy, anxiety, depression,? Bipolar disorder who originally presented to hospital because of altered mentation, confusion. Patient did recently undergo extraction of 10 of his lower teeth 2 days prior to coming to the ER. Records indicate that his stated that the day before coming the patient started talking and nonsense and laying in bed confused with a low- grade fever. Patient was brought to emergency department and had workup performed which did not indicate any acute abnormality for the patient's encephalopathy. Patient did have CT scan done of the brain which did not indicate any acute abnormality. Further studies with alcohol level which was normal, urine drug screen did show positive cannabinoids, TSH was normal, ammonia level was normal. In light of the patient having hyper bilirubin, transaminitis, macrocytic anemia, thrombocytopenia one could consider the patient does have chronic alcohol related issues. Patient was started on thiamine and folic acid. Patient was started on CIWA protocol. Patient was admitted to the hospital for further management patient had signs of systemic inflammatory response syndrome without any sign of infection. He was started on empirical antibiotics to include vancomycin and Zosyn. Patient had workup done with chest x-ray which did not indicate any acute abnormality, urinalysis which is clear, blood cultures are negative for 2 days. No signs of infection at this time, however patient did just recently had 10 teeth extracted. Could have some underlying endocarditis. Patient did have signs of acute renal failure superimposed on chronic kidney disease stage II. Patient was started on IV fluids. Laboratory were followed and this morning patient found to have severe hypernatremia. Workup had been initiated with osmolality studies, urine sodium, ADH, MRI of brain which still awaiting results at this time. Patient was originally started on half-normal saline without any significant improvement. Subsequently changed to D5W at 75 ml/hr. Continue to monitor sodium level every 4 hours. Patient still with considerable altered mental status. Toxic metabolic encephalopathy. Presently the patient is maintaining his airway with good O2 saturations of 96% on room air, however there are episodes of tachypnea going upward 33 breaths per minute. Because of his intermittent respiratory distress and altered mental status is very concerning that the patient may require intubation for continued management and care if his symptoms does not improve. Hospitalist did discuss the case with critical care, because of the critical nature the patient and possible respiratory collapse is recommended patient be transferred to the main [facility]MC under critical care management. Hence critical care was consulted. Subjective: 01/14: Afebrile. Patient easily arousable, and continues to be confused. MRI pending. Patient was maintained on Precedex infusion during the night Precedex infusion off. Patient protecting airway, dyspnea noted at this time. Continued serum sodium level monitoring. Initial ADH level pending. Patient continues on DDAVP, and Amilioride. 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 Upon my evaluation patient was on Precedex per report the patient became agitated during the night and Precedex infusion was increased, patient was placed in 4point restraints for patient safety. Brain imaging studies negative. EEG shows slowing but under the influence of Precedex infusion. 01/16: Overnight the patient received multiple doses of Ativan, and continued on Librium. This a.m. patient more confused than yesterday. Ativan and Librium discontinued, Precedex was discontinued yesterday. Platelet count noted to be low, HIT panel ordered . In anticipation of lumbar puncture, repeat platelet count this afternoon possible transfusion of platelets. INR pending. Discussed plan with Dr. Nur. Objective Vital Signs Date Time Temp Pulse Resp B/P (MAP) Pulse Ox O2 Delivery O2 Flow Rate FiO2 01/16/18 06:00 86 01/16/18 04:00 98.7 27 138/87 (104) 97 Intake and Output 01/16/18 01/16/18 01/17/18 08:00 16:00 00:00 Intake Total 300 ml Output Total 2025 ml Balance -1725 ml Result Diagram: 01/15/18 0430 01/16/18 0628 Other Results Microbiology Date/Time Source Procedure Growth Status 01/13/18 17:40 Nasal Aspirate Influenza Types A,B Antigen (DIMITRIS) - Final NEGATIVE FOR FLU A AND B ANTIGEN.... Complete Imaging Last Impressions Soft Tissue Neck X-Ray 01/12/18 0000 Signed Impressions: Service Date/Time: Friday, January 12, 2018 00:21 - CONCLUSION: 1. Degenerative changes of the mid and lower cervical spine. 2. Otherwise negative. No radiopaque foreign body. Gulshan Lieberman MD Head CT 01/11/181926 Signed Impressions: Service Date/Time: Thursday, January 11, 2018 19:50 - CONCLUSION: No acute intracranial abnormality demonstrated. Atrophy and chronic cerebellar calcification. Edinson Esquivel MD Chest X-Ray 01/11/181926 Signed Impressions: Service Date/Time: Thursday, January 11, 2018 19:41 - CONCLUSION: No evidence of acute cardiopulmonary disease. Edinson Esquivel MD Objective Remarks GENERAL: Well-developed, well-nourished, in no acute distress. Very lethargic this a.m. ( patient received multiple doses of Ativan overnight) HEENT: Head is normocephalic without any lesions or masses noted. Facial features are symmetric. Eyes: Pupils equal round reactive to light. Extraocular muscles are intact. Conjunctivae were clear. NECK: Supple without any masses. Trachea midline no deviation. No JVD, no bruits are appreciated CARDIAC: Regular rhythm, regular rate. S1/S2 are heard. No murmurs gallops or rubs. LUNGS: Clear to auscultation bilaterally. No wheeze, rhonchi or rales. No use of accessory muscles on inspiration or expiration. ABDOMEN: Soft, nontender. Nondistended. Bowel sounds heard in all 4 quadrants. No organomegaly or masses. Negative rebound, negative guarding EXTREMITIES: No edema, pulses are equal bilaterally. No cyanosis or clubbing NEUROLOGY:Confused. RASS -1. Deep tendon reflexes are 2+ in upper and lower extremities bilaterally. Patient is moving all extremities A/P Problem List: (1) Toxic metabolic encephalopathy ICD Code: G92 - Toxic encephalopathy Status: Acute (2) Altered mental status ICD Code: R41.82 - Altered mental status, unspecified (3) Hypernatremia ICD Code: E87.0 - Hyperosmolality and hypernatremia Status: Acute (4) Systemic inflammatory response syndrome ICD Code: R65.10 - Systemic inflammatory response syndrome (SIRS) of non- infectious origin without acute organ dysfunction (5) Acute renal failure superimposed on stage 2 chronic kidney disease ICD Code: N17.9 - Acute kidney failure, unspecified; N18.2 - Chronic kidney disease, stage 2 (mild) Status: Acute (6) Chronic obstructive pulmonary disease ICD Code: J44.9 - Chronic obstructive pulmonary disease, unspecified (7) Hypothyroidism ICD Code: E03.9 - Hypothyroidism, unspecified (8) Leukocytosis ICD Code: D72.829 - Elevated white blood cell count, unspecified (9) Macrocytic anemia ICD Code: D53.9 - Nutritional anemia, unspecified (10) Thrombocytopenia ICD Code: D69.6 - Thrombocytopenia, unspecified Status: Acute (11) Hyperbilirubinemia ICD Code: E80.6 - Other disorders of bilirubin metabolism (12) Transaminitis ICD Code: R74.0 - Nonspecific elevation of levels of transaminase and lactic acid dehydrogenase [LDH] (13) Hyperglycemia ICD Code: R73.9 - Hyperglycemia, unspecified Assessment and Plan NEUROLOGY Altered mental status Toxic metabolic encephalopathy Anxiety/depression,? Bipolar disorder THC use Possible central diabetes insipidus Could be secondary to medication effect, post anesthesia delirium, hypernatremia , sepsis abuse 01/12 CT scan of brain does not indicate any acute abnormality Urine drug screen was positive for cannabinoids Alcohol level was less than 3, TSH, B12, folate were normal [place] level 0.3 Continue DDAVP q 12 hrs 01/13 Obtain ADH level follow-up results 01/15 Repeat ADH level- post DDAVP dosing Continue neuro checks every one hour Continue thiamine and folic acid/ daily Continue CIWA monitoring Seizure precaution Discontinue Geodon for agitation-01/14 Precedex infusion discontinued 01/15 Resume psychotropic medications when the patient is more alert 01/14 EEG-no epileptiform features mild to moderate diffuse disturbance in cerebral function Neurology following 01/14- MRI-no acute infarction 01/14- MRA- unremarkable exam of the [place] Empiric antibiotics-acyclovir, and Rocephin Librium discontinued 01/15 Avoid all sedative type medications Plan for lumbar puncture in a.m. PULMONOLOGY Chronic obstructive pulmonary disease Chronic tobacco abuse Patient maintaining airway at this time Obtain head of bed 30 Maintain O2 saturation greater than 92%, On room air, O2 sat 98% Duo nebs every 6 hours as needed for shortness of breath or dyspnea CARDIOLOGY Hypertension Hyperlipidemia Vasotec, Apresoline as needed Continue monitor and maintain MAP greater than 65 ECHO - no vegetation GASTROENTEROLOGY Hyperbilirubinemia Transaminitis Hepatitis C Obtain CT scan of the abdomen and pelvis Hep C viral hepatitis antibody positive GI prophylaxis Pepcid IV twice daily Patient not alert enough in order to receive oral nutrition Anticipate placing NG tube if patient does not improve to start tube feeding RENAL Acute renal failure superimposed on chronic kidney disease stage II Hypernatremia Evaluate Na Levels every 12 hours downtrending Continue Amilioride Unknown etiology at this time. Patient was on IV fluids. Possible dehydration , diabetes insipidus (central versus nephrogenic) Patient did have a 3000 mL's of urine output overnight Awaiting ADH level, DI not likely secondary to initial urine osmole D5W at 125 ml/hr Nephrology followed INFECTIOUS DISEASE Systemic inflammatory response syndrome Leukocytosis Low-grade fever on presentation, afebrile now Patient has been started on empirical vancomycin and Zosyn Thus far no infectious source has been identified, chest x-rays clear, urinalysis was unremarkable Patient did just have removal of 10 of his lower teeth 2 days prior to coming the hospital Blood cultures negative for 2 days Obtain influenza testing Obtain echocardiogram to rule out possible endocarditis secondary to clinical symptoms, recent teeth extractions ENDOCRINOLOGY Hypothyroidism Hyperglycemia TSH 2.86 Will need to resume patient's replacement therapy once he is more alert, consider starting IV levothyroxine Monitor glucoses start sliding scale insulin if needed Hemoglobin A1c- 4.7 HEMATOLOGY Macrocytic anemia Thrombocytopenia With patient's elevated liver enzymes, macrocytic anemia, thrombocytopenia one could consider that he does use alcohol on a regular basis or history of alcoholism Continue monitor hemoglobin and transfuse if hemoglobin below 7.0 Obtain hit antibody, continue monitor platelet count, transfuse if needed If continues to worsen may need to consult hematology Plt 65 F/U plt count PROPHYLAXIS DVT- SCD's No chemical DVT prophylaxis due to thrombocytopenia GI protection with Pepcid IV LINES Peripheral IVs Level 3 follow up Discussed with Dr. Nur , plan for correction of thrombocytopenia, and LP plan for a.m.. Discussed with COMMERCIAL REAL ESTATE ASSISTANT at bedside. Physician Heidy Gary MD Jan 16, 2018 08:58
[2018-01-16] MEDS: SODIUM CHLORIDE 0.9% FLUSH 10 ML FLUSH IV FLUSH SCH ×2 (09:00→22:43)
[2018-01-16] MEDS: aMILoride HCL 5 MG TAB PO SCH (09:07)
[2018-01-16] MEDS: DOCUSATE SODIUM 50 MG/SENNA 8.6 MG TAB PO SCH ×2 (09:07→21:00)
[2018-01-16] MEDS: DESMOPRESSIN ACETATE 4 MCG/ML VIAL IV PUSH SCH ×2 (09:08→21:00)
--- NOTE | 2018-01-16 09:13 | HHI.NPPN ---
Subjective Complaints: Confused History of Present Illness This is a 57-year-old male with a history of apparent bipolar disorder. The patient has been on lithium in the past. It is unclear how long he has been on lithium. The patient was admitted on 01/12/2018, after he had a recent extensive dental extraction. The patient had apparent sudden acute onset of confusion and altered mental status. The patient was found at home lying shaking with confusion and a low-grade temperature. Here, the patient was seen in the emergency room. He was further evaluated and brought to the ICU when he had ongoing confusion and altered mental status. Drug screen showed positive cannabinoids. He was initially started on IV fluids with normal saline. He has subsequently developed acute significant hypernatremia. He had a serum sodium of 133 on presentation. He was started initially on normal saline and his sodium jumped up to a level of 160. Throughout the course of today, the patient 's sodium has continued to rise from 160 up to 166 and then 165. He initially was on normal saline and then was given half normal saline and is now on D5W. The patient had ongoing confusion and altered mental status and was intubated after he had significant tachycardia and tachypnea. At this point, the patient is intubated and sedated and is receiving D5W for hypernatremia. Nephrology was consulted for further evaluation. Additional Remarks Patient continues to be lethargic minimally responding. Sedation has been discontinued. Sodium level remains elevated at 158 today. Lumbar puncture planned. (Zamzam Valentino) Review of Systems General General Remarks Unable to do ROS (Zamzam Valentino) Objective Data Data Vital Signs Date Time Temp Pulse Resp B/P (MAP) Pulse Ox O2 Delivery O2 Flow Rate FiO2 01/16/18 06:00 86 01/16/18 04:00 90 01/16/18 04:00 98.7 90 27 138/87 (104) 97 01/16/18 02:00 88 01/16/18 00:00 98.1 76 24 129/80 (96) 97 01/16/18 00:00 76 01/15/18 22:00 75 01/15/18 20:00 72 01/15/18 20:00 99.5 72 20 126/80 (95) 98 01/15/18 18:00 77 01/15/18 17:00 76 26 136/82 (100) 99 01/15/18 16:00 71 01/15/18 16:00 98.2 71 24 121/76 (91) 98 01/15/18 15:00 65 26 117/77 (90) 98 01/15/18 14:00 60 25 111/76 (88) 96 01/15/18 14:00 60 01/15/18 13:00 56 21 126/79 (95) 97 01/15/18 12:00 98.1 50 23 116/70 (85) 96 01/15/18 12:00 50 01/15/18 11:00 51 11 121/73 (89) 95 01/15/18 10:00 52 19 125/75 (92) 97 01/15/18 10:00 52 (Zamzam Valentino) -: 01/15/18 0430 01/16/18 0628 Physical Exam General Appearance: No Acute Distress, Sleeping (Zamzam Valentino) Pulmonary Resp Exam: Clear Bilaterally, Breath Sounds Equal, No Distress (Zamzam Valentino) Cardiology CV Exam: Regular (Zamzam Valentino) Gastrointestinal/Abdomen GI Exam: Soft, Non-Tender, Bowel Sounds Present (Zamzam Valentino) Genitourinary Exam: Flank Non-Tender (Zamzam Valentino) Integumentary Skin Exam: Clear, Warm, Dry (Zamzam Valentino) Extremeties Extremities Exam: No Edema (Zamzam Valentino) Neurologic Neuro Exam: Sedated Neuro Remarks minimally responsive (Zamzam Valentino) Assessment/Plan Electrolyte Assessment: Hypernatremia Problem List: (1) Hypernatremia ICD Codes: E87.0 - Hyperosmolality and hypernatremia Status: Acute Plan: Acute hypernatremia sodium level on admission at 138 to now at 164. Possible diabetes insipidus possible secondary to chronic calcifications. Also possible nephrogenic component for diabetes insipidus given that the patient has had ongoing lithium use on as far as his lithium toxicity. Plan Increase D5W at 150 ml/hr Continue to monitor sodium levels Sodium level unchanged at 158 this morning. ADH level is pending. Continue to follow serum levels. Urine osmolality is above 300, unlikely DI. (2) Acute renal failure superimposed on stage 2 chronic kidney disease ICD Codes: N17.9 - Acute kidney failure, unspecified; N18.2 - Chronic kidney disease, stage 2 (mild) Status: Acute Plan: Acute kidney injury possible related to high volume UOP. Creatinine rising 2.77 from 1.91 Renal US: . Mild medical renal disease. Probable nonobstructing right renal calculus. Graham catheter in bladder Continue IVF Will monitor UOP and BMP Avoid nephrotoxins. Labs pending this morning. . (3) Toxic metabolic encephalopathy ICD Codes: G92 - Toxic encephalopathy Status: Acute Plan: Continue antibiotics renal dosing. Lumbar puncture planned for am (Zamzam Valentino) Problem List: (1) Hypernatremia ICD Codes: E87.0 - Hyperosmolality and hypernatremia Status: Acute Plan: Acute hypernatremia sodium level on admission at 138 to now at 164. Possible diabetes insipidus possible secondary to chronic calcifications. Also possible nephrogenic component for diabetes insipidus given that the patient has had ongoing lithium use on as far as his lithium toxicity. Plan Increase D5W at 150 ml/hr Continue to monitor sodium levels Sodium level unchanged at 158 this morning. ADH level is pending. Continue to follow serum levels. Urine osmolality is above 300, unlikely DI. Patient seen and examined, agree with above. IVF increased, if Na. is not better, will add Diuril. (2) Acute renal failure superimposed on stage 2 chronic kidney disease ICD Codes: N17.9 - Acute kidney failure, unspecified; N18.2 - Chronic kidney disease, stage 2 (mild) Status: Acute Plan: Acute kidney injury possible related to high volume UOP. Creatinine rising 2.77 from 1.91 Renal US: . Mild medical renal disease. Probable nonobstructing right renal calculus. Graham catheter in bladder Continue IVF Will monitor UOP and BMP Avoid nephrotoxins. Labs pending this morning. . (3) Toxic metabolic encephalopathy ICD Codes: G92 - Toxic encephalopathy Status: Acute Plan: Continue antibiotics renal dosing. Lumbar puncture planned for am (John Gutierrez MD) Zamzam Valentino Jan 16, 2018 09:13 John Gutierrez MD Jan 16, 2018 22:47
[2018-01-16] MEDS: FAMOTIDINE 20 MG/2 ML VIAL IV PUSH SCH ×2 (10:54→22:44)
[2018-01-16] MEDS: cefTRIAXone INJ 1,000 MG in SODIUM CHLORIDE 0.9% INJ 100 ML IV SCH ×2 (10:54→22:43)
[2018-01-16 12:10] LABS: AUTOMATED NEUTROPHIL # 6.3 TH/MM3 (1.8-7.7); BASOPHIL % 0.3 % (0.0-2.0); EOSINOPHIL # 0.6 TH/MM3 (0-0.4); EOSINOPHIL % 6.6 % (0.0-4.0); HEMATOCRIT 30.2 % (39.0-51.0); HEMOGLOBIN 10.4 GM/DL (13.0-17.0); LYMPH % 17.4 % (9.0-44.0); LYMPHOCYTE # 1.6 TH/MM3 (1.0-4.8); MEAN CELL VOLUME 105.1 FL (80.0-100.0); MEAN CORPUSCULAR HEMOGLOBIN 36.2 PG (27.0-34.0); MEAN CORPUSCULAR HGB CONC 34.4 % (32.0-36.0); MEAN PLATELET VOLUME 8.3 FL (7.0-11.0); MONO % 6.3 % (0.0-8.0); MONOCYTE # 0.6 TH/MM3 (0-0.9); NEUT % 69.4 % (16.0-70.0); PLATELET COUNT 92 TH/MM3 (150-450); RED BLOOD COUNT 2.88 MIL/MM3 (4.50-5.90); RED CELL DISTRIBUTION WIDTH 15.3 % (11.6-17.2); WHITE BLOOD COUNT 9.1 TH/MM3 (4.0-11.0)
[2018-01-16 12:58] LABS: KERATOCYTES OCC (NORMAL)
[2018-01-16 12:59] LABS: OVALOCYTES 1+ (NORMAL)
[2018-01-16] MEDS: FOLIC ACID IV SCH ×3 (14:39)
[2018-01-16] MEDS: WATE IV SCH ×3 (14:39)
[2018-01-16] MEDS: MULTIVITAMIN IV SCH ×3 (14:39)
[2018-01-16] MEDS: DEXTROSE 5% IV SCH ×3 (14:39)
[2018-01-16 20:13] LABS: BICARBONATE 19.3 MEQ/L (21.0-32.0); CALCIUM 8.6 MG/DL (8.5-10.1); CREATININE 3.48 MG/DL (0.60-1.30)
[2018-01-17] VITALS (22 sets, daily range): BP systolic 124–198; BP diastolic 79–108; PULSE 78–102; RESP 10–36; TEMP 98–99.4; O2SAT 83–100
[2018-01-17] MEDS: PIPERACIL-TAZO 2.25 GM PREMIX 50 ML IV SCH ×2 (00:45→06:29)
[2018-01-17] MEDS: ACYCLOVIR IV SCH ×2 (02:05→12:00)
[2018-01-17] MEDS: SODIUM CHLORIDE 0.9% IV SCH ×2 (02:05→12:00)
[2018-01-17] MEDS: CHLORHEXIDINE GLUCONATE 2 % 1 PACK (2 CLOTHS)(taper/protocol) TOPICAL SCH (04:00)
[2018-01-17 05:12] LABS: AUTOMATED NEUTROPHIL # 6.9 TH/MM3 (1.8-7.7); BASOPHIL # 0.1 TH/MM3 (0-0.2); BASOPHIL % 0.5 % (0.0-2.0); EOSINOPHIL # 0.6 TH/MM3 (0-0.4); EOSINOPHIL % 6.1 % (0.0-4.0); HEMATOCRIT 31.3 % (39.0-51.0); HEMOGLOBIN 10.8 GM/DL (13.0-17.0); LYMPH % 15.9 % (9.0-44.0); LYMPHOCYTE # 1.5 TH/MM3 (1.0-4.8); MEAN CELL VOLUME 104.3 FL (80.0-100.0); MEAN CORPUSCULAR HGB CONC 34.6 % (32.0-36.0); MEAN PLATELET VOLUME 8.7 FL (7.0-11.0); MONO % 5.8 % (0.0-8.0); MONOCYTE # 0.6 TH/MM3 (0-0.9); NEUT % 71.7 % (16.0-70.0); PLATELET COUNT 91 TH/MM3 (150-450); RED CELL DISTRIBUTION WIDTH 14.8 % (11.6-17.2); WHITE BLOOD COUNT 9.7 TH/MM3 (4.0-11.0)
[2018-01-17 05:40] LABS: BICARBONATE 20.9 MEQ/L (21.0-32.0); CALCIUM 8.9 MG/DL (8.5-10.1); CREATININE 3.49 MG/DL (0.60-1.30); MAGNESIUM 2.7 MG/DL (1.5-2.5); PHOSPHORUS 3.9 MG/DL (2.5-4.9); RANDOM VANCOMYCIN 12.6 COMMENT
[2018-01-17] MEDS: DEXTROSE 5% IN WATE 1000ML INJ 1,000 ML IV SCH ×4 (05:59→21:00)
[2018-01-17] MEDS: DOCUSATE SODIUM 50 MG/SENNA 8.6 MG TAB PO SCH ×2 (09:00→20:01)
[2018-01-17] MEDS: DESMOPRESSIN ACETATE 4 MCG/ML VIAL IV PUSH SCH ×2 (09:00→20:08)
[2018-01-17 09:27] LABS: OVALOCYTES 1+ (NORMAL)
[2018-01-17] MEDS: FAMOTIDINE 20 MG/2 ML VIAL IV PUSH SCH ×2 (10:01→23:21)
[2018-01-17] MEDS: SODIUM CHLORIDE 0.9% FLUSH 10 ML FLUSH IV FLUSH SCH ×2 (10:02→20:10)
[2018-01-17] MEDS: aMILoride HCL 5 MG TAB PO SCH (10:02)
--- NOTE | 2018-01-17 10:56 | HHI.CCPN ---
Subjective Remarks/Hospital Course Is a 57-year-old male with known history of hypertension, hyperlipidemia, COPD, tobacco abuse, marijuana abuse, spinal stenosis, hypothyroidism, benign prostatic hypertrophy, anxiety, depression,? Bipolar disorder who originally presented to hospital because of altered mentation, confusion. Patient did recently undergo extraction of 10 of his lower teeth 2 days prior to coming to the ER. Records indicate that his stated that the day before coming the patient started talking and nonsense and laying in bed confused with a low- grade fever. Patient was brought to emergency department and had workup performed which did not indicate any acute abnormality for the patient's encephalopathy. Patient did have CT scan done of the brain which did not indicate any acute abnormality. Further studies with alcohol level which was normal, urine drug screen did show positive cannabinoids, TSH was normal, ammonia level was normal. In light of the patient having hyper bilirubin, transaminitis, macrocytic anemia, thrombocytopenia one could consider the patient does have chronic alcohol related issues. Patient was started on thiamine and folic acid. Patient was started on CIWA protocol. Patient was admitted to the hospital for further management patient had signs of systemic inflammatory response syndrome without any sign of infection. He was started on empirical antibiotics to include vancomycin and Zosyn. Patient had workup done with chest x-ray which did not indicate any acute abnormality, urinalysis which is clear, blood cultures are negative for 2 days. No signs of infection at this time, however patient did just recently had 10 teeth extracted. Could have some underlying endocarditis. Patient did have signs of acute renal failure superimposed on chronic kidney disease stage II. Patient was started on IV fluids. Laboratory were followed and this morning patient found to have severe hypernatremia. Workup had been initiated with osmolality studies, urine sodium, ADH, MRI of brain which still awaiting results at this time. Patient was originally started on half-normal saline without any significant improvement. Subsequently changed to D5W at 75 ml/hr. Continue to monitor sodium level every 4 hours. Patient still with considerable altered mental status. Toxic metabolic encephalopathy. Presently the patient is maintaining his airway with good O2 saturations of 96% on room air, however there are episodes of tachypnea going upward 33 breaths per minute. Because of his intermittent respiratory distress and altered mental status is very concerning that the patient may require intubation for continued management and care if his symptoms does not improve. Hospitalist did discuss the case with critical care, because of the critical nature the patient and possible respiratory collapse is recommended patient be transferred to the main IMC under critical care management. Hence critical care was consulted. Subjective: 01/14: Afebrile. Patient easily arousable, and continues to be confused. MRI pending. Patient was maintained on Precedex infusion during the night Precedex infusion off. Patient protecting airway, dyspnea noted at this time. Continued serum sodium level monitoring. Initial ADH level pending. Patient continues on DDAVP, and Amilioride. 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 Upon my evaluation patient was on Precedex per report the patient became agitated during the night and Precedex infusion was increased, patient was placed in 4point restraints for patient safety. Brain imaging studies negative. EEG shows slowing but under the influence of Precedex infusion. 01/16: Overnight the patient received multiple doses of Ativan, and continued on Librium. This a.m. patient more confused than yesterday. Ativan and Librium discontinued, Precedex was discontinued yesterday. Platelet count noted to be low, HIT panel ordered . In anticipation of lumbar puncture, repeat platelet count this afternoon possible transfusion of platelets. INR pending. Discussed plan with Dr. Nur. 01/17 Patient is lying in bed in NAD. Afebrile. remains confused. For possible LP today Objective Vital Signs Date Time Temp Pulse Resp B/P (MAP) Pulse Ox O2 Delivery O2 Flow Rate FiO2 01/17/18 06:00 98 01/17/18 04:00 98.0 18 142/85 (104) 98 Intake and Output 01/17/18 01/17/18 01/17/18 07:59 15:59 23:59 Intake Total 1150 ml Output Total 1900 ml Balance -750 ml Result Diagram: 01/17/18 0400 01/17/18 0400 Other Results Laboratory Tests Test 01/16/18 11:45 01/16/18 19:33 01/17/18 04:00 White Blood Count 9.1 TH/MM3 9.7 TH/MM3 Red Blood Count 2.88 MIL/MM3 3.00 MIL/MM3 Hemoglobin 10.4 GM/DL 10.8 GM/DL Hematocrit 30.2 % 31.3 % Mean Corpuscular Volume 105.1 FL 104.3 FL Mean Corpuscular Hemoglobin 36.2 PG 36.0 PG Mean Corpuscular Hemoglobin Concent 34.4 % 34.6 % Red Cell Distribution Width 15.3 % 14.8 % Platelet Count 92 TH/MM3 91 TH/MM3 Mean Platelet Volume 8.3 FL 8.7 FL Neutrophils (%) (Auto) 69.4 % 71.7 % Lymphocytes (%) (Auto) 17.4 % 15.9 % Monocytes (%) (Auto) 6.3 % 5.8 % Eosinophils (%) (Auto) 6.6 % 6.1 % Basophils (%) (Auto) 0.3 % 0.5 % Neutrophils # (Auto) 6.3 TH/MM3 6.9 TH/MM3 Lymphocytes # (Auto) 1.6 TH/MM3 1.5 TH/MM3 Monocytes # (Auto) 0.6 TH/MM3 0.6 TH/MM3 Eosinophils # (Auto) 0.6 TH/MM3 0.6 TH/MM3 Basophils # (Auto) 0.0 TH/MM3 0.1 TH/MM3 CBC Comment AUTO DIFF AUTO DIFF Differential Comment AUTO DIFF CONFIRMED AUTO DIFF CONFIRMED Platelet Estimate LOW LOW Platelet Morphology Comment NORMAL NORMAL Ovalocytes 1+ 1+ Keratocytes OCC Blood Urea Nitrogen 30 MG/DL 28 MG/DL Creatinine 3.48 MG/DL 3.49 MG/DL Random Glucose 145 MG/DL 122 MG/DL Calcium Level 8.6 MG/DL 8.9 MG/DL Sodium Level 155 MEQ/L 156 MEQ/L Potassium Level 3.0 MEQ/L 3.1 MEQ/L Chloride Level 126 MEQ/L 126 MEQ/L Carbon Dioxide Level 19.3 MEQ/L 20.9 MEQ/L Anion Gap 10 MEQ/L 9 MEQ/L Estimat Glomerular Filtration Rate 18 ML/MIN 18 ML/MIN Phosphorus Level 3.9 MG/DL Magnesium Level 2.7 MG/DL Random Vancomycin Level 12.6 COMMENT Imaging Last Impressions Renal Ultrasound 01/14/18 0000 Signed Impressions: Service Date/Time: Sunday, January 14, 2018 17:02 - CONCLUSION: 1. Mild medical renal disease. Probable nonobstructing right renal calculus. Graham catheter in bladder. Jonny Arciniega MD Head Magnetic Resonance Angiography 01/14/18 0000 Signed Impressions: Service Date/Time: Sunday, January 14, 2018 15:24 - CONCLUSION: 1. Suboptimal visualization of the left vertebral artery due to motion artifact particularly at the vertebrobasilar junction. Can not exclude a focal flow-limiting stenosis at this level. 2. Otherwise, unremarkable MRA examination of the [place]. No aneurysm or large vessel cerebral artery occlusion Dyllan Luque MD Brain MRI 01/14/18 0000 Signed Impressions: Service Date/Time: Sunday, January 14, 2018 15:24 - CONCLUSION: 1. Redemonstration of chronic cerebellar calcifications. 2. Senescent changes without acute abnormality. Specifically, no evidence for acute infarction. Dyllan Luque MD Abdomen/Pelvis CT 01/13/18 0000 Signed Impressions: Service Date/Time: Sunday, January 14, 2018 16:12 - CONCLUSION: Markedly cirrhotic liver appearance. Splenomegaly. Edinson Urbano MD Soft Tissue Neck X-Ray 01/12/18 0000 Signed Impressions: Service Date/Time: Friday, January 12, 2018 00:21 - CONCLUSION: 1. Degenerative changes of the mid and lower cervical spine. 2. Otherwise negative. No radiopaque foreign body. Gulshan Lieberman MD Head CT [id number] Signed Impressions: Service Date/Time: Thursday, January 11, 2018 19:50 - CONCLUSION: No acute intracranial abnormality demonstrated. Atrophy and chronic cerebellar calcification. Edinson Esquivel MD Chest X-Ray [id number] Signed Impressions: Service Date/Time: Thursday, January 11, 2018 19:41 - CONCLUSION: No evidence of acute cardiopulmonary disease. Edinson Esquivel MD Objective Remarks GENERAL: Well-developed, well-nourished, in no acute distress. Confused HEENT: Head is normocephalic without any lesions or masses noted. Facial features are symmetric. Eyes: Pupils equal round reactive to light. Extraocular muscles are intact. Conjunctivae were clear. NECK: Supple without any masses. Trachea midline no deviation. No JVD, no bruits are appreciated CARDIAC: Regular rhythm, regular rate. S1/S2 are heard. No murmurs gallops or rubs. LUNGS: Clear to auscultation bilaterally. No wheeze, rhonchi or rales. No use of accessory muscles on inspiration or expiration. ABDOMEN: Soft, nontender. Nondistended. Bowel sounds heard in all 4 quadrants. No organomegaly or masses. Negative rebound, negative guarding EXTREMITIES: No edema, pulses are equal bilaterally. No cyanosis or clubbing NEUROLOGY:Confused. RASS -1. Deep tendon reflexes are 2+ in upper and lower extremities bilaterally. Patient is moving all extremities A/P Problem List: (1) Toxic metabolic encephalopathy ICD Code: G92 - Toxic encephalopathy Status: Acute (2) Altered mental status ICD Code: R41.82 - Altered mental status, unspecified (3) Hypernatremia ICD Code: E87.0 - Hyperosmolality and hypernatremia Status: Acute (4) Systemic inflammatory response syndrome ICD Code: R65.10 - Systemic inflammatory response syndrome (SIRS) of non- infectious origin without acute organ dysfunction (5) Acute renal failure superimposed on stage 2 chronic kidney disease ICD Code: N17.9 - Acute kidney failure, unspecified; N18.2 - Chronic kidney disease, stage 2 (mild) Status: Acute (6) Chronic obstructive pulmonary disease ICD Code: J44.9 - Chronic obstructive pulmonary disease, unspecified (7) Hypothyroidism ICD Code: E03.9 - Hypothyroidism, unspecified (8) Leukocytosis ICD Code: D72.829 - Elevated white blood cell count, unspecified (9) Macrocytic anemia ICD Code: D53.9 - Nutritional anemia, unspecified (10) Thrombocytopenia ICD Code: D69.6 - Thrombocytopenia, unspecified Status: Acute (11) Hyperbilirubinemia ICD Code: E80.6 - Other disorders of bilirubin metabolism (12) Transaminitis ICD Code: R74.0 - Nonspecific elevation of levels of transaminase and lactic acid dehydrogenase [LDH] (13) Hyperglycemia ICD Code: R73.9 - Hyperglycemia, unspecified Assessment and Plan NEUROLOGY Altered mental status Toxic metabolic encephalopathy Anxiety/depression,? Bipolar disorder THC use Possible central diabetes insipidus 01/12 CT scan of brain does not indicate any acute abnormality Urine drug screen was positive for cannabinoids Alcohol level was less than 3, TSH, B12, folate were normal [place] level 0.3 Continue neuro checks every one hour Add thiamine, continue folic acid/ MVI daily Continue CIWA monitoring Seizure precaution 01/14 EEG-no epileptiform features mild to moderate diffuse disturbance in cerebral function Neurology following 01/14- MRI-no acute infarction 01/14- MRA- unremarkable exam of the [place] Empiric antibiotics-acyclovir, and Rocephin Plan for lumbar puncture today PULMONOLOGY Chronic obstructive pulmonary disease Chronic tobacco abuse Oxygen PRN keep sats >92% head of bed 30 Maintain O2 saturation greater than 92%, On room air, O2 sat 98% Duo nebs every 6 hours as needed for shortness of breath or dyspnea CARDIOLOGY Hypertension Hyperlipidemia Place on Lopressor 50mg [id number] and maintain MAP greater than 65 ECHO showed EF 55-60% GASTROENTEROLOGY Hyperbilirubinemia Transaminitis Hepatitis C CT abd/pelvis: Markedly cirrhotic liver appearance. Splenomegaly. Hep C viral hepatitis antibody positive GI prophylaxis Pepcid IV twice daily Place NGT and start tube feeds- Nepro with goal rate 40ml/hr RENAL Acute renal failure superimposed on chronic kidney disease stage II Hypernatremia: Possible dehydration, diabetes insipidus (central versus nephrogenic) Evaluate Na Levels every 12 hours downtrending Continue Amiloride 10mg daily D5W at 150 ml/hr, start free water 250ml Q8, monitor sodium level. On DDAVP 2mcg Q12 Nephrology is following Cr: 3.48, UOP:4500ml in 24 hrs INFECTIOUS DISEASE Continue with abx ( Vanco, Rocephin, Acyclovir) monitor for signs of infections ( Fever, WBC) d/c Zosyn BC 01/11 NGTD, influenza screening negative 01/13 ENDOCRINOLOGY Hypothyroidism Hyperglycemia TSH 2.86 SSI for glycemic control HEMATOLOGY Macrocytic anemia Thrombocytopenia- could be related to liver disease Monitor CBC, Hep PLT ab is negative Monitor coags, PROPHYLAXIS DVT- SCD's No chemical DVT prophylaxis due to thrombocytopenia GI protection with Pepcid IV LINES Peripheral IVs Level 2 follow up Mariella Ware MD Jan 17, 2018 10:56
[2018-01-17] MEDS ORDERED: DEXTROSE 50% IN WATER 50 ML VIAL(D50) IV PUSH PRN (11:00)
[2018-01-17] MEDS: cefTRIAXone INJ 1,000 MG in SODIUM CHLORIDE 0.9% INJ 100 ML IV SCH ×2 (11:00→23:21)
[2018-01-17] MEDS ORDERED: GLUCAGON 1 MG/ML VIAL OTHER PRN (11:00)
[2018-01-17] MEDS ORDERED: INSULIN NovoLIN REGULAR SUPPLEMENTAL SCALE SQ SCH (11:00)
[2018-01-17] MEDS: INSULIN NovoLIN REGULAR SUPPLEMENTAL SCALE SQ SCH ×3 (12:00→23:28)
[2018-01-17] MEDS: FREE WATER G-TUBE SCH ×3 (12:00→23:22)
[2018-01-17] MEDS: FOLIC ACID 1 MG TAB PO SCH (12:20)
[2018-01-17] MEDS: MULTIVITAMIN TAB PO SCH (12:20)
[2018-01-17] MEDS: THIAMINE HCL 100 MG TAB PO SCH (12:20)
[2018-01-17] MEDS ORDERED: VANCOMYCIN INJ 1,250 MG in SODIUM CHLOR 0.9% 250 ML INJ 250 ML IV ONE (13:00)
[2018-01-17] MEDS ORDERED: HALOPERIDOL LACTATE 5 MG/ML AMP IV PUSH ONE (14:00)
--- NOTE | 2018-01-17 14:04 | HHI.NPPN ---
Subjective Complaints: Confused History of Present Illness This is a 57-year-old male with a history of apparent bipolar disorder. The patient has been on lithium in the past. It is unclear how long he has been on lithium. The patient was admitted on 01/12/2018, after he had a recent extensive dental extraction. The patient had apparent sudden acute onset of confusion and altered mental status. The patient was found at home lying shaking with confusion and a low-grade temperature. Here, the patient was seen in the emergency room. He was further evaluated and brought to the ICU when he had ongoing confusion and altered mental status. Drug screen showed positive cannabinoids. He was initially started on IV fluids with normal saline. He has subsequently developed acute significant hypernatremia. He had a serum sodium of 133 on presentation. He was started initially on normal saline and his sodium jumped up to a level of 160. Throughout the course of today, the patient 's sodium has continued to rise from 160 up to 166 and then 165. He initially was on normal saline and then was given half normal saline and is now on D5W. The patient had ongoing confusion and altered mental status and was intubated after he had significant tachycardia and tachypnea. At this point, the patient is intubated and sedated and is receiving D5W for hypernatremia. Nephrology was consulted for further evaluation. Additional Remarks Seen in AM. Patient is agitated in restraints. (Zamzam Valentino) Review of Systems General General Remarks Unable to do ROS (Zamzam Valentino) Objective Data Data Vital Signs Date Time Temp Pulse Resp B/P (MAP) Pulse Ox O2 Delivery O2 Flow Rate FiO2 01/17/18 06:00 98 01/17/18 04:00 98.0 93 18 142/85 (104) 98 01/17/18 04:00 93 01/17/18 02:00 78 01/17/18 00:00 99.0 88 13 198/87 (124) 100 01/17/18 00:00 88 01/16/18 22:00 79 01/16/18 20:00 82 01/16/18 20:00 97.9 82 29 153/89 (110) 98 01/16/18 18:00 79 01/16/18 16:00 83 29 150/85 (106) 97 01/16/18 16:00 83 01/16/18 15:00 84 01/16/18 14:00 87 (Zamzam Valentino) -: 01/17/18 0400 01/17/18 0400 Physical Exam General Appearance: No Acute Distress, Anxious (Zamzam Valentino) Pulmonary Resp Exam: Clear Bilaterally, Breath Sounds Equal, No Distress (Zamzam Valentino) Cardiology CV Exam: Regular (Zamzam Valentino) Gastrointestinal/Abdomen GI Exam: Soft, Non-Tender, Bowel Sounds Present (Zamzam Valentino) Genitourinary Exam: Flank Non-Tender (Zamzam Valentino) Integumentary Skin Exam: Clear, Warm, Dry (Zamzam Valentino) Extremeties Extremities Exam: No Edema (Zamzam Valentino) Neurologic Neuro Exam: Combative (Zamzam Valentino) Assessment/Plan Electrolyte Assessment: Hypernatremia Problem List: (1) Hypernatremia ICD Codes: E87.0 - Hyperosmolality and hypernatremia Status: Acute Plan: Acute hypernatremia sodium level on admission at 138 to now at 164. Possible diabetes insipidus possible secondary to chronic calcifications. Also possible nephrogenic component for diabetes insipidus given that the patient has had ongoing lithium use on as far as his lithium toxicity. 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 On DDAVP 2mcg Q12 Continue to monitor sodium levels Sodium level at 156 this morning. ADH level is pending. Continue to follow serum levels. (2) Acute renal failure superimposed on stage 2 chronic kidney disease ICD Codes: N17.9 - Acute kidney failure, unspecified; N18.2 - Chronic kidney disease, stage 2 (mild) Status: Acute Plan: Acute kidney injury possible prerenal or ATN Creatinine at 3.49 Renal US: . Mild medical renal disease. Probable nonobstructing right renal calculus. Graham catheter in bladder Continue IVF Creatinine essential unchanged at 3.49 Will monitor UOP and BMP Avoid nephrotoxins. (3) Toxic metabolic encephalopathy ICD Codes: G92 - Toxic encephalopathy Status: Acute Plan: Continue antibiotics renal dosing. Lumbar puncture planned for am (Zamzam Valentino) Problem List: (1) Hypernatremia ICD Codes: E87.0 - Hyperosmolality and hypernatremia Status: Acute Plan: Acute hypernatremia sodium level on admission at 138 to now at 164. Possible diabetes insipidus possible secondary to chronic calcifications. Also possible nephrogenic component for diabetes insipidus given that the patient has had ongoing lithium use on as far as his lithium toxicity. 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 On DDAVP 2mcg Q12 Continue to monitor sodium levels Sodium level at 156 this morning. ADH level is pending. Continue to follow serum levels. Patient seen and examined, agree with above. Started on Free water via GT. (2) Acute renal failure superimposed on stage 2 chronic kidney disease ICD Codes: N17.9 - Acute kidney failure, unspecified; N18.2 - Chronic kidney disease, stage 2 (mild) Status: Acute Plan: Acute kidney injury possible prerenal or ATN Creatinine at 3.49 Renal US: . Mild medical renal disease. Probable nonobstructing right renal calculus. Graham catheter in bladder Continue IVF Creatinine essential unchanged at 3.49 Will monitor UOP and BMP Avoid nephrotoxins. (3) Toxic metabolic encephalopathy ICD Codes: G92 - Toxic encephalopathy Status: Acute Plan: Continue antibiotics renal dosing. Lumbar puncture planned for am (John Gutierrez MD) Zamzam Valentino Jan 17, 2018 14:04 John Gutierrez MD Jan 17, 2018 21:50
[2018-01-17 18:35] LABS: INTERNATIONAL NORMALIZED RATIO 1.2 RATIO; PROTHROMBIN TIME - PATIENT 11.9 SEC (9.8-11.6)
[2018-01-17] MEDS: LORazepam 2 MG/ML VIAL IV PRN (20:44)
[2018-01-18] VITALS (13 sets, daily range): BP systolic 139–167; BP diastolic 85–106; PULSE 63–90; RESP 20–34; TEMP 97.9–99.3; O2SAT 93–100
[2018-01-18] MEDS: ACYCLOVIR IV SCH (00:32)
[2018-01-18] MEDS: SODIUM CHLORIDE 0.9% IV SCH (00:32)
[2018-01-18] MEDS: LORazepam 2 MG/ML VIAL IV PRN ×3 (00:44→20:02)
[2018-01-18 03:34] LABS: CREATININE, RANDOM URINE 56.7 MG/DL
[2018-01-18] MEDS: DEXTROSE 5% IN WATE 1000ML INJ 1,000 ML IV SCH ×2 (03:41→18:40)
[2018-01-18] MEDS: CHLORHEXIDINE GLUCONATE 2 % 1 PACK (2 CLOTHS)(taper/protocol) TOPICAL SCH (04:00)
[2018-01-18] MEDS: FREE WATER G-TUBE SCH ×4 (04:29→20:00)
[2018-01-18] MEDS: INSULIN NovoLIN REGULAR SUPPLEMENTAL SCALE SQ SCH ×3 (04:57→18:00)
[2018-01-18 06:16] LABS: AUTOMATED NEUTROPHIL # 5.6 TH/MM3 (1.8-7.7); BASOPHIL % 0.6 % (0.0-2.0); EOSINOPHIL # 0.6 TH/MM3 (0-0.4); EOSINOPHIL % 7.2 % (0.0-4.0); HEMATOCRIT 30.6 % (39.0-51.0); HEMOGLOBIN 10.5 GM/DL (13.0-17.0); LYMPH % 18.7 % (9.0-44.0); LYMPHOCYTE # 1.6 TH/MM3 (1.0-4.8); MEAN CELL VOLUME 104.3 FL (80.0-100.0); MEAN CORPUSCULAR HEMOGLOBIN 35.9 PG (27.0-34.0); MEAN CORPUSCULAR HGB CONC 34.4 % (32.0-36.0); MEAN PLATELET VOLUME 9.4 FL (7.0-11.0); MONO % 7.8 % (0.0-8.0); MONOCYTE # 0.7 TH/MM3 (0-0.9); NEUT % 65.7 % (16.0-70.0); PLATELET COUNT 88 TH/MM3 (150-450); RED BLOOD COUNT 2.94 MIL/MM3 (4.50-5.90); RED CELL DISTRIBUTION WIDTH 14.9 % (11.6-17.2); WHITE BLOOD COUNT 8.6 TH/MM3 (4.0-11.0)
[2018-01-18 06:49] LABS: ALBUMIN 3.1 GM/DL (3.4-5.0); ALT (GPT) 90 U/L (12-78); AST (GOT) 134 U/L (15-37); BLOOD UREA NITROGEN 25 MG/DL (7-18); CALCIUM 8.8 MG/DL (8.5-10.1); CHLORIDE 124 MEQ/L (98-107); CREATININE 3.01 MG/DL (0.60-1.30); GLOMERULAR FILTRATION RATE 21 ML/MIN (>89); GLUCOSE,RANDOM 130 MG/DL (74-106); SODIUM (NA) 154 MEQ/L (136-145)
[2018-01-18 06:50] LABS: ALKALINE PHOSPHATASE 133 U/L (45-117); TOTAL BILIRUBIN ADULT 0.7 MG/DL (0.2-1.0); TOTAL PROTEIN 7.8 GM/DL (6.4-8.2)
[2018-01-18] MEDS: DOCUSATE SODIUM 50 MG/SENNA 8.6 MG TAB PO SCH ×2 (09:00→20:06)
[2018-01-18] MEDS: DESMOPRESSIN ACETATE 4 MCG/ML VIAL IV PUSH SCH ×2 (09:00→20:08)
[2018-01-18 09:05] LABS: OVALOCYTES 1+ (NORMAL)
[2018-01-18 09:06] LABS: ACANTHOCYTES OCC (NORMAL); ROULEAUX PRESENT (NORMAL)
--- NOTE | 2018-01-18 09:11 | HHI.PR ---
Review/Management Diagnosis/Plan: (1) Toxic metabolic encephalopathy ICD Codes: G92 - Toxic encephalopathy Status: Acute Plan: etiology: hypernatremia, however had some symptoms prior r/o trimmer loader infection/lesion, ttp? on iv thiamine mri/mra brain- no acute infarct eeg- slowing elevated lft's, nh3 recs mental status unchanged lp renal following add dvt dose anticoagulant after lp iv acyclovir renal dosing-qdaily, iv rocephin (2) Acute renal failure superimposed on stage 2 chronic kidney disease ICD Codes: N17.9 - Acute kidney failure, unspecified; N18.2 - Chronic kidney disease, stage 2 (mild) Status: Acute Plan: seen by renal (3) Hypernatremia ICD Codes: E87.0 - Hyperosmolality and hypernatremia Status: Acute Plan: renal following (4) Thrombocytopenia ICD Codes: D69.6 - Thrombocytopenia, unspecified Status: Acute Plan: hep held Subjective Subjective Comments No acute events reported got ativan at midnight Active Medications Current Medications Medications (Trade) Dose Ordered Sig/[place] Route Start Time Stop Time Status Last Admin (NS Flush) 2 ml UNSCH PRN IV FLUSH 01/12/18 00:45 (NS Flush) 2 ml BID IV FLUSH 01/12/18 09:00 01/17/18 20:10 (Tylenol) 650 mg Q4H PRN PO 01/12/18 00:45 (Zofran Inj) 4 mg Q6H PRN IVP 01/12/18 00:45 01/12/18 02:51 (Narcan Inj) 0.4 mg UNSCH PRN IV PUSH 01/12/18 00:45 (Shari-Colace) 1 tab BID PO 01/12/18 09:00 01/16/18 09:07 (Milk Of Magnesia Liq) 30 ml Q12H PRN PO 01/12/18 00:45 (Senokot) 17.2 mg Q12H PRN PO 01/12/18 00:45 (Dulcolax Supp) 10 mg DAILY PRN RECTAL 01/12/18 00:45 (Lactulose Liq) 30 ml DAILY PRN PO 01/12/18 00:45 (Catapres) 0.1 mg Q6H PRN PO 01/12/18 10:00 (Romazicon Inj) 0.2 mg Q1M PRN IV PUSH 01/12/18 10:00 Pharmacy Profile Note 0 ml @ 0 mls/hr UNSCH OTHER 01/12/18 10:15 (Pepcid Inj) 20 mg Q12H IV PUSH 01/12/18 11:00 01/17/18 23:21 (Duoneb Neb) 1 ampule Q4HR NEB PRN NEB 01/13/18 13:00 Dextrose 1,000 ml @ 150 mls/hr Q6H40M IV 01/13/18 15:00 01/18/18 03:41 (Vasotec Inj) 1.25 mg Q6H PRN IV PUSH 01/13/18 16:00 (Apresoline Inj) 20 mg Q4H PRN IV PUSH 01/13/18 16:00 (Ddavp Inj) 2 mcg Q12HR IV PUSH 01/13/18 21:00 01/17/18 20:08 (Midamor) 10 mg DAILY PO 01/13/18 20:45 01/17/18 10:02 Miscellaneous Information Patient in critical care unit? Ass... Q361D .XX 01/14/18 02:45 (Chlorhexidine 2% Cloth) 3 pack UNSCH PRN TOPICAL 01/14/18 02:45 01/19/18 02:43 Acyclovir Sodium 750 mg/Sodium Chloride 100 ml @ 100 mls/hr Q12H IV 01/14/18 12:00 01/18/18 00:32 Ceftriaxone Sodium 1000 mg/ Sodium Chloride 100 ml @ 200 mls/hr Q12H IV 01/14/18 11:00 01/17/18 23:21 (Free Water) 250 ml Q6HR G-TUBE 01/17/18 12:00 01/18/18 04:29 (Vitamin B1) 100 mg DAILY PO 01/17/18 11:00 01/17/18 12:20 (Folate) 1 mg DAILY PO 01/17/18 11:00 01/17/18 12:20 (Theragran) 1 tab DAILY PO 01/17/18 11:00 01/17/18 12:20 (D50w (Vial) Inj) 50 ml UNSCH PRN IV PUSH 01/17/18 11:00 (Glucagon Inj) 1 mg UNSCH PRN OTHER 01/17/18 11:00 (NovoLIN R SUPPLEMENTAL SCALE) 1 Q6HR SQ 01/17/18 12:00 (Ativan Inj) 1 mg Q4H PRN IV 01/17/18 19:45 01/18/18 00:44 Allergies Allergies Coded Allergies chlorpheniramine (Unverified Allergy, Severe, ANTIHISTAMINE???, 01/11/18) pseudoephedrine (Unverified Allergy, Severe, DECONGESTANTS???, 01/11/18) Review of Systems All other ROS: Unable to obtain Exam I&O / VS Vital Signs Date Time Temp Pulse Resp B/P (MAP) Pulse Ox O2 Delivery O2 Flow Rate FiO2 01/18/18 06:00 78 01/18/18 04:00 88 01/18/18 04:00 99.1 88 33 151/106 (121) 93 01/18/18 02:00 90 01/18/18 00:00 98.7 81 34 167/98 (121) 100 01/18/18 00:00 81 01/17/18 22:00 83 01/17/18 20:00 83 01/17/18 20:00 99.4 83 25 157/84 (108) 100 01/17/18 18:00 79 01/17/18 18:00 79 27 100 01/17/18 16:00 90 01/17/18 16:00 90 31 100 01/17/18 14:01 102 01/17/18 14:01 102 169/79 (109) 01/17/18 14:00 98 01/17/18 14:00 98 01/17/18 13:00 87 155/89 (111) 01/17/18 13:00 87 01/17/18 12:52 90 181/82 (115) 83 01/17/18 12:52 90 01/17/18 12:39 100 195/88 (123) 01/17/18 12:39 100 01/17/18 12:00 97 01/17/18 12:00 97 84 01/17/18 11:01 95 168/98 (121) 01/17/18 11:01 95 01/17/18 10:47 94 192/98 (129) 88 01/17/18 10:47 94 01/17/18 10:00 86 10 182/85 (117) 94 01/17/18 10:00 86 01/17/18 09:38 89 33 159/81 (107) 01/17/18 09:38 89 01/17/18 09:36 93 01/17/18 09:36 93 27 165/105 (125) Exam Comments lethargic, not following, not verbal, grimaces, ou 4-3mm, reduced blink to threat, no gross eye deviation, ue in restraints, reduced l>rt leg movement, Objective Micro and Labs Laboratory Tests Test 01/17/18 17:52 01/17/18 23:41 01/18/18 05:30 Prothrombin Time 11.9 Prothromb Time International Ratio 1.2 Ammonia 49 Urine Osmolality 328 Urine Random Creatinine 56.7 Urine Random Sodium 87 White Blood Count 8.6 Red Blood Count 2.94 Hemoglobin 10.5 Hematocrit 30.6 Mean Corpuscular Volume 104.3 Mean Corpuscular Hemoglobin 35.9 Mean Corpuscular Hemoglobin Concent 34.4 Red Cell Distribution Width 14.9 Platelet Count 88 Mean Platelet Volume 9.4 Neutrophils (%) (Auto) 65.7 Lymphocytes (%) (Auto) 18.7 Monocytes (%) (Auto) 7.8 Eosinophils (%) (Auto) 7.2 Basophils (%) (Auto) 0.6 Neutrophils # (Auto) 5.6 Lymphocytes # (Auto) 1.6 Monocytes # (Auto) 0.7 Eosinophils # (Auto) 0.6 Basophils # (Auto) 0.0 CBC Comment AUTO DIFF Blood Urea Nitrogen 25 Creatinine 3.01 Random Glucose 130 Total Protein 7.8 Albumin 3.1 Calcium Level 8.8 Alkaline Phosphatase 133 Aspartate Amino Transf (AST/SGOT) 134 Alanine Aminotransferase (ALT/SGPT) 90 Total Bilirubin 0.7 Sodium Level 154 Potassium Level 3.1 Chloride Level 124 Carbon Dioxide Level 22.0 Anion Gap 8 Estimat Glomerular Filtration Rate 21 HIV (1&2) Ab and P24 Ag, 4th Gener NONREACTIVE Date/Time Source Procedure Growth Status 01/11/18 19:11 Blood Peripheral Aerobic Blood Culture - Final NO GROWTH IN 5 DAYS Complete 01/11/18 19:11 Blood Peripheral Anaerobic Blood Culture - Final NO GROWTH IN 5 DAYS Complete 01/13/18 17:40 Nasal Aspirate Influenza Types A,B Antigen (DIMITRIS) - Final NEGATIVE FOR FLU A AND B ANTIGEN.... Complete Wing Nur MD Jan 18, 2018 09:11
--- NOTE | 2018-01-18 09:15 | HHI.CCPN ---
Subjective Remarks/Hospital Course Is a 57-year-old male with known history of hypertension, hyperlipidemia, COPD, tobacco abuse, marijuana abuse, spinal stenosis, hypothyroidism, benign prostatic hypertrophy, anxiety, depression,? Bipolar disorder who originally presented to hospital because of altered mentation, confusion. Patient did recently undergo extraction of 10 of his lower teeth 2 days prior to coming to the ER. Records indicate that his stated that the day before coming the patient started talking and nonsense and laying in bed confused with a low- grade fever. Patient was brought to emergency department and had workup performed which did not indicate any acute abnormality for the patient's encephalopathy. Patient did have CT scan done of the brain which did not indicate any acute abnormality. Further studies with alcohol level which was normal, urine drug screen did show positive cannabinoids, TSH was normal, ammonia level was normal. In light of the patient having hyper bilirubin, transaminitis, macrocytic anemia, thrombocytopenia one could consider the patient does have chronic alcohol related issues. Patient was started on thiamine and folic acid. Patient was started on CIWA protocol. Patient was admitted to the hospital for further management patient had signs of systemic inflammatory response syndrome without any sign of infection. He was started on empirical antibiotics to include vancomycin and Zosyn. Patient had workup done with chest x-ray which did not indicate any acute abnormality, urinalysis which is clear, blood cultures are negative for 2 days. No signs of infection at this time, however patient did just recently had 10 teeth extracted. Could have some underlying endocarditis. Patient did have signs of acute renal failure superimposed on chronic kidney disease stage II. Patient was started on IV fluids. Laboratory were followed and this morning patient found to have severe hypernatremia. Workup had been initiated with osmolality studies, urine sodium, ADH, MRI of brain which still awaiting results at this time. Patient was originally started on half-normal saline without any significant improvement. Subsequently changed to D5W at 75 ml/hr. Continue to monitor sodium level every 4 hours. Patient still with considerable altered mental status. Toxic metabolic encephalopathy. Presently the patient is maintaining his airway with good O2 saturations of 96% on room air, however there are episodes of tachypnea going upward 33 breaths per minute. Because of his intermittent respiratory distress and altered mental status is very concerning that the patient may require intubation for continued management and care if his symptoms does not improve. Hospitalist did discuss the case with critical care, because of the critical nature the patient and possible respiratory collapse is recommended patient be transferred to the main IMC under critical care management. Hence critical care was consulted. Subjective: 01/14: Afebrile. Patient easily arousable, and continues to be confused. MRI pending. Patient was maintained on Precedex infusion during the night Precedex infusion off. Patient protecting airway, dyspnea noted at this time. Continued serum sodium level monitoring. Initial ADH level pending. Patient continues on DDAVP, and Amilioride. 01/15: Report of and [employer], patient's recognition of family members, patient articulating words him what clearer. Upon my evaluation patient was on Precedex per report the patient became agitated during the night and Precedex infusion was increased, patient was placed in 4point restraints for patient safety. Brain imaging studies negative. EEG shows slowing but under the influence of Precedex infusion. 01/16: Overnight the patient received multiple doses of Ativan, and continued on Librium. This a.m. patient more confused than yesterday. Ativan and Librium discontinued, Precedex was discontinued yesterday. Platelet count noted to be low, HIT panel ordered . In anticipation of lumbar puncture, repeat platelet count this afternoon possible transfusion of platelets. INR pending. Discussed plan with Dr. Nur. 01/17 Patient is lying in bed in NAD. Afebrile. remains confused. For possible LP today 01/18 Patient was given Ativan twice overnight. Renal function is improving with Cr: 3.01 from 3.49 Objective Vital Signs Date Time Temp Pulse Resp B/P (MAP) Pulse Ox O2 Delivery O2 Flow Rate FiO2 01/18/18 06:00 78 01/18/18 04:00 99.1 33 151/106 (121) 93 Intake and Output 01/18/18 01/18/18 01/19/18 08:00 16:00 00:00 Intake Total 1420 ml Output Total 1450 ml Balance -30 ml Result Diagram: 01/18/18 0530 01/18/18 0530 Other Results Laboratory Tests Test 01/17/18 17:52 01/17/18 23:41 01/18/18 05:30 Prothrombin Time 11.9 SEC Prothromb Time International Ratio 1.2 RATIO Ammonia 49 MCMOL/L Urine Osmolality 328 MOSM/KG Urine Random Creatinine 56.7 MG/DL Urine Random Sodium 87 MEQ/L White Blood Count 8.6 TH/MM3 Red Blood Count 2.94 MIL/MM3 Hemoglobin 10.5 GM/DL Hematocrit 30.6 % Mean Corpuscular Volume 104.3 FL Mean Corpuscular Hemoglobin 35.9 PG Mean Corpuscular Hemoglobin Concent 34.4 % Red Cell Distribution Width 14.9 % Platelet Count 88 TH/MM3 Mean Platelet Volume 9.4 FL Neutrophils (%) (Auto) 65.7 % Lymphocytes (%) (Auto) 18.7 % Monocytes (%) (Auto) 7.8 % Eosinophils (%) (Auto) 7.2 % Basophils (%) (Auto) 0.6 % Neutrophils # (Auto) 5.6 TH/MM3 Lymphocytes # (Auto) 1.6 TH/MM3 Monocytes # (Auto) 0.7 TH/MM3 Eosinophils # (Auto) 0.6 TH/MM3 Basophils # (Auto) 0.0 TH/MM3 CBC Comment AUTO DIFF Blood Urea Nitrogen 25 MG/DL Creatinine 3.01 MG/DL Random Glucose 130 MG/DL Total Protein 7.8 GM/DL Albumin 3.1 GM/DL Calcium Level 8.8 MG/DL Alkaline Phosphatase 133 U/L Aspartate Amino Transf (AST/SGOT) 134 U/L Alanine Aminotransferase (ALT/SGPT) 90 U/L Total Bilirubin 0.7 MG/DL Sodium Level 154 MEQ/L Potassium Level 3.1 MEQ/L Chloride Level 124 MEQ/L Carbon Dioxide Level 22.0 MEQ/L Anion Gap 8 MEQ/L Estimat Glomerular Filtration Rate 21 ML/MIN HIV (1&2) Ab and P24 Ag, 4th Gener NONREACTIVE Imaging L Last Impressions Renal Ultrasound 01/14/18 0000 Signed Impressions: Service Date/Time: Sunday, January 14, 2018 17:02 - CONCLUSION: 1. Mild medical renal disease. Probable nonobstructing right renal calculus. Graham catheter in bladder. Jonny Arciniega MD Head Magnetic Resonance Angiography 01/14/18 0000 Signed Impressions: Service Date/Time: Sunday, January 14, 2018 15:24 - CONCLUSION: 1. Suboptimal visualization of the left vertebral artery due to motion artifact particularly at the vertebrobasilar junction. Can not exclude a focal flow-limiting stenosis at this level. 2. Otherwise, unremarkable MRA examination of the [place]. No aneurysm or large vessel cerebral artery occlusion Dyllan Luque MD Brain MRI 01/14/18 0000 Signed Impressions: Service Date/Time: Sunday, January 14, 2018 15:24 - CONCLUSION: 1. Redemonstration of chronic cerebellar calcifications. 2. Senescent changes without acute abnormality. Specifically, no evidence for acute infarction. Dyllan Luque MD Abdomen/Pelvis CT 01/13/18 0000 Signed Impressions: Service Date/Time: Sunday, January 14, 2018 16:12 - CONCLUSION: Markedly cirrhotic liver appearance. Splenomegaly. Edinson Urbano MD Soft Tissue Neck X-Ray 01/12/18 0000 Signed Impressions: Service Date/Time: Friday, January 12, 2018 00:21 - CONCLUSION: 1. Degenerative changes of the mid and lower cervical spine. 2. Otherwise negative. No radiopaque foreign body. Gulshan Lieberman MD Head CT 01/11/181926 Signed Impressions: Service Date/Time: Thursday, January 11, 2018 19:50 - CONCLUSION: No acute intracranial abnormality demonstrated. Atrophy and chronic cerebellar calcification. Edinson Esquivel MD Chest X-Ray 01/11/181926 Signed Impressions: Service Date/Time: Thursday, January 11, 2018 19:41 - CONCLUSION: No evidence of acute cardiopulmonary disease. Edinson Esquivel MD Objective Remarks GENERAL: Well-developed, well-nourished, in no acute distress. Confused HEENT: Head is normocephalic without any lesions or masses noted. Facial features are symmetric. Eyes: Pupils equal round reactive to light. Extraocular muscles are intact. Conjunctivae were clear. NECK: Supple without any masses. Trachea midline no deviation. No JVD, no bruits are appreciated CARDIAC: Regular rhythm, regular rate. S1/S2 are heard. No murmurs gallops or rubs. LUNGS: Clear to auscultation bilaterally. No wheeze, rhonchi or rales. No use of accessory muscles on inspiration or expiration. ABDOMEN: Soft, nontender. Nondistended. Bowel sounds heard in all 4 quadrants. No organomegaly or masses. Negative rebound, negative guarding EXTREMITIES: No edema, pulses are equal bilaterally. No cyanosis or clubbing NEUROLOGY:Confused. RASS -1. Deep tendon reflexes are 2+ in upper and lower extremities bilaterally. Patient is moving all extremities A/P Problem List: (1) Toxic metabolic encephalopathy ICD Code: G92 - Toxic encephalopathy Status: Acute (2) Altered mental status ICD Code: R41.82 - Altered mental status, unspecified (3) Hypernatremia ICD Code: E87.0 - Hyperosmolality and hypernatremia Status: Acute (4) Systemic inflammatory response syndrome ICD Code: R65.10 - Systemic inflammatory response syndrome (SIRS) of non- infectious origin without acute organ dysfunction (5) Acute renal failure superimposed on stage 2 chronic kidney disease ICD Code: N17.9 - Acute kidney failure, unspecified; N18.2 - Chronic kidney disease, stage 2 (mild) Status: Acute (6) Chronic obstructive pulmonary disease ICD Code: J44.9 - Chronic obstructive pulmonary disease, unspecified (7) Hypothyroidism ICD Code: E03.9 - Hypothyroidism, unspecified (8) Leukocytosis ICD Code: D72.829 - Elevated white blood cell count, unspecified (9) Macrocytic anemia ICD Code: D53.9 - Nutritional anemia, unspecified (10) Thrombocytopenia ICD Code: D69.6 - Thrombocytopenia, unspecified Status: Acute (11) Hyperbilirubinemia ICD Code: E80.6 - Other disorders of bilirubin metabolism (12) Transaminitis ICD Code: R74.0 - Nonspecific elevation of levels of transaminase and lactic acid dehydrogenase [LDH] (13) Hyperglycemia ICD Code: R73.9 - Hyperglycemia, unspecified Assessment and Plan NEUROLOGY Altered mental status Toxic metabolic encephalopathy Anxiety/depression,? Bipolar disorder THC use Possible central diabetes insipidus 01/12 CT scan of brain does not indicate any acute abnormality Urine drug screen was positive for cannabinoids Alcohol level was less than 3, TSH, B12, folate were normal [place] level 0.3 Continue neuro checks every one hour On thiamine, continue folic acid/ MVI daily Seizure precaution 01/14 EEG-no epileptiform features mild to moderate diffuse disturbance in cerebral function Neurology following 01/14- MRI-no acute infarction 01/14- MRA- unremarkable exam of the [place] Empiric antibiotics-acyclovir, and Rocephin PULMONOLOGY Chronic obstructive pulmonary disease Chronic tobacco abuse Oxygen PRN keep sats >92% head of bed 30 Maintain O2 saturation greater than 92%, On room air, O2 sat 98% Duo nebs every 6 hours as needed for shortness of breath or dyspnea CARDIOLOGY Hypertension Hyperlipidemia Place On Lopressor 50mg [id number] and maintain MAP greater than 65 ECHO showed EF 55-60% GASTROENTEROLOGY Hyperbilirubinemia Transaminitis Hepatitis C Cirrhosis of Liver CT abd/pelvis: Markedly cirrhotic liver appearance. Splenomegaly. Hep C viral hepatitis antibody positive GI prophylaxis Pepcid IV twice daily Start tube feeds via NGT- Nepro with goal rate 40ml/hr Add Lactulose 30ml TID monitor Ammonia level. RENAL Acute renal failure superimposed on chronic kidney disease stage II Hypernatremia: Possible dehydration, diabetes insipidus (central versus nephrogenic) Continue Amiloride 10mg daily D5W at 150 ml/hr, change free water 300ml Q4, monitor sodium level. On DDAVP 2mcg Q12 Nephrology is following Renal function is improving with Cr:12/27 from 3.49, give KCL 40meq IV for K 3.1 INFECTIOUS DISEASE Continue with abx ( Vanco, Rocephin, Acyclovir) monitor for signs of infections ( Fever, WBC) BC 01/11 NGTD, influenza screening negative 01/13 ENDOCRINOLOGY Hypothyroidism Hyperglycemia TSH 2.86 SSI for glycemic control HEMATOLOGY Macrocytic anemia Thrombocytopenia- could be related to liver disease Monitor CBC, Hep PLT ab is negative Monitor coags, PROPHYLAXIS DVT- SCD's No chemical DVT prophylaxis due to thrombocytopenia GI protection with Pepcid IV LINES Peripheral IVs Level 2 follow up Mariella Ware MD Jan 18, 2018 09:15
[2018-01-18 10:11] LABS: RPR SCREEN FOR REFLEX NON-REACTIVE (NON-REACTVE)
[2018-01-18] MEDS: aMILoride HCL 5 MG TAB PO SCH (10:47)
[2018-01-18] MEDS: SODIUM CHLORIDE 0.9% FLUSH 10 ML FLUSH IV FLUSH SCH ×2 (10:47→20:02)
[2018-01-18] MEDS: THIAMINE HCL 100 MG TAB PO SCH (10:48)
[2018-01-18] MEDS: FOLIC ACID 1 MG TAB PO SCH (10:48)
[2018-01-18] MEDS: MULTIVITAMIN TAB PO SCH (10:48)
--- NOTE | 2018-01-18 11:15 | HHI.NPPN ---
Subjective Complaints: Confused History of Present Illness This is a 57-year-old male with a history of apparent bipolar disorder. The patient has been on lithium in the past. It is unclear how long he has been on lithium. The patient was admitted on 01/12/2018, after he had a recent extensive dental extraction. The patient had apparent sudden acute onset of confusion and altered mental status. The patient was found at home lying shaking with confusion and a low-grade temperature. Here, the patient was seen in the emergency room. He was further evaluated and brought to the ICU when he had ongoing confusion and altered mental status. Drug screen showed positive cannabinoids. He was initially started on IV fluids with normal saline. He has subsequently developed acute significant hypernatremia. He had a serum sodium of 133 on presentation. He was started initially on normal saline and his sodium jumped up to a level of 160. Throughout the course of today, the patient 's sodium has continued to rise from 160 up to 166 and then 165. He initially was on normal saline and then was given half normal saline and is now on D5W. The patient had ongoing confusion and altered mental status and was intubated after he had significant tachycardia and tachypnea. At this point, the patient is intubated and sedated and is receiving D5W for hypernatremia. Nephrology was consulted for further evaluation. Additional Remarks Minimally responsive this morning. In restraints. (Zamzam Valentino) Review of Systems General General Remarks Unable to do ROS (Zamzam Valentino) Objective Data Data Vital Signs Date Time Temp Pulse Resp B/P (MAP) Pulse Ox O2 Delivery O2 Flow Rate FiO2 01/18/18 06:00 78 01/18/18 04:00 88 01/18/18 04:00 99.1 88 33 151/106 (121) 93 01/18/18 02:00 90 01/18/18 00:00 98.7 81 34 167/98 (121) 100 01/18/18 00:00 81 01/17/18 22:00 83 01/17/18 20:00 83 01/17/18 20:00 99.4 83 25 157/84 (108) 100 01/17/18 18:00 79 01/17/18 18:00 79 27 100 01/17/18 16:00 90 01/17/18 16:00 90 31 100 01/17/18 14:01 102 01/17/18 14:01 102 169/79 (109) 01/17/18 14:00 98 01/17/18 14:00 98 01/17/18 13:00 87 155/89 (111) 01/17/18 13:00 87 01/17/18 12:52 90 181/82 (115) 83 01/17/18 12:52 90 01/17/18 12:39 100 195/88 (123) 01/17/18 12:39 100 01/17/18 12:00 97 01/17/18 12:00 97 84 (Zamzam Valentino) -: 01/18/18 0530 01/18/18 0530 Imaging Last Impressions Renal Ultrasound 01/14/18 0000 Signed Impressions: Service Date/Time: Sunday, January 14, 2018 17:02 - CONCLUSION: 1. Mild medical renal disease. Probable nonobstructing right renal calculus. Graham catheter in bladder. Jonny Arciniega MD Head Magnetic Resonance Angiography 01/14/18 0000 Signed Impressions: Service Date/Time: Sunday, January 14, 2018 15:24 - CONCLUSION: 1. Suboptimal visualization of the left vertebral artery due to motion artifact particularly at the vertebrobasilar junction. Can not exclude a focal flow-limiting stenosis at this level. 2. Otherwise, unremarkable MRA examination of the [place]. No aneurysm or large vessel cerebral artery occlusion Dyllan Luque MD Brain MRI 01/14/18 0000 Signed Impressions: Service Date/Time: Sunday, January 14, 2018 15:24 - CONCLUSION: 1. Redemonstration of chronic cerebellar calcifications. 2. Senescent changes without acute abnormality. Specifically, no evidence for acute infarction. Dyllan Luque MD Abdomen/Pelvis CT 01/13/18 0000 Signed Impressions: Service Date/Time: Sunday, January 14, 2018 16:12 - CONCLUSION: Markedly cirrhotic liver appearance. Splenomegaly. Edinson Urbano MD Soft Tissue Neck X-Ray 01/12/18 0000 Signed Impressions: Service Date/Time: Friday, January 12, 2018 00:21 - CONCLUSION: 1. Degenerative changes of the mid and lower cervical spine. 2. Otherwise negative. No radiopaque foreign body. Gulshan Lieberman MD Head CT 01/11/181926 Signed Impressions: Service Date/Time: Thursday, January 11, 2018 19:50 - CONCLUSION: No acute intracranial abnormality demonstrated. Atrophy and chronic cerebellar calcification. Edinson Esquivel MD Chest X-Ray 01/11/181926 Signed Impressions: Service Date/Time: Thursday, January 11, 2018 19:41 - CONCLUSION: No evidence of acute cardiopulmonary disease. Edinson Esquivel MD (GellermannZamzam M. HISTORY DEPARTMENT CHAIR) Physical Exam General Appearance: No Acute Distress, Sleeping (GellermannCaraZamzam M. HISTORY DEPARTMENT CHAIR) Pulmonary Resp Exam: Clear Bilaterally, Breath Sounds Equal, No Distress (GellermannZamzam M. HISTORY DEPARTMENT CHAIR) Cardiology CV Exam: Regular (GellermannZamzam M. HISTORY DEPARTMENT CHAIR) Gastrointestinal/Abdomen GI Exam: Soft, Non-Tender, Bowel Sounds Present (GellermannZamzam M. HISTORY DEPARTMENT CHAIR) Genitourinary Exam: Flank Non-Tender (GellermannCaraZamzam M. HISTORY DEPARTMENT CHAIR) Integumentary Skin Exam: Clear, Warm, Dry (GellermannZamzam M. HISTORY DEPARTMENT CHAIR) Extremeties Extremities Exam: No Edema (GellermannZamzam M. HISTORY DEPARTMENT CHAIR) Neurologic Neuro Exam: Sedated (GellermannZamzam M. HISTORY DEPARTMENT CHAIR) Assessment/Plan Electrolyte Assessment: Hypernatremia Problem List: (1) Hypernatremia ICD Codes: E87.0 - Hyperosmolality and hypernatremia Status: Acute Plan: Acute hypernatremia sodium level on admission at 138 to now at 164. Possible diabetes insipidus possible secondary to chronic calcifications. Also possible nephrogenic component for diabetes insipidus given that the patient has had ongoing lithium use on as far as his lithium toxicity. Plan Continue D5W at 150 ml/hr Continue Amiloride 10mg daily Continue Free water increased to 300 ml Q4 improvement in sodium levels at 154 today. On DDAVP Continue to monitor sodium levels ADH level is pending. (2) Acute renal failure superimposed on stage 2 chronic kidney disease ICD Codes: N17.9 - Acute kidney failure, unspecified; N18.2 - Chronic kidney disease, stage 2 (mild) Status: Acute Plan: Acute kidney injury possible ATN Creatinine at 3.01 Renal US: . Mild medical renal disease. Probable nonobstructing right renal calculus. Graham catheter in bladder Plan Hypokalemia noted replacement ordered. Continue IVF Creatinine improving at 3.01 Will monitor UOP and BMP Avoid nephrotoxins. (3) Toxic metabolic encephalopathy ICD Codes: G92 - Toxic encephalopathy Status: Acute Plan: Continue antibiotics renal dosing. Lumbar puncture planned for am (Zamzam Valentino) Problem List: (1) Hypernatremia ICD Codes: E87.0 - Hyperosmolality and hypernatremia Status: Acute Plan: Acute hypernatremia sodium level on admission at 138 to now at 164. Possible diabetes insipidus possible secondary to chronic calcifications. Also possible nephrogenic component for diabetes insipidus given that the patient has had ongoing lithium use on as far as his lithium toxicity. Plan Continue D5W at 150 ml/hr Continue Amiloride 10mg daily Continue Free water increased to 300 ml Q4 improvement in sodium levels at 154 today. On DDAVP Continue to monitor sodium levels ADH level is pending. Patient seen and examined, agree with above. Continue IVF and Free water via GT. (2) Acute renal failure superimposed on stage 2 chronic kidney disease ICD Codes: N17.9 - Acute kidney failure, unspecified; N18.2 - Chronic kidney disease, stage 2 (mild) Status: Acute Plan: Acute kidney injury possible ATN Creatinine at 3.01 Renal US: . Mild medical renal disease. Probable nonobstructing right renal calculus. Graham catheter in bladder Plan Hypokalemia noted replacement ordered. Continue IVF Creatinine improving at 3.01 Will monitor UOP and BMP Avoid nephrotoxins. (3) Toxic metabolic encephalopathy ICD Codes: G92 - Toxic encephalopathy Status: Acute Plan: Continue antibiotics renal dosing. Lumbar puncture planned for am (John Gutierrez MD) Zamzam Valentino Jan 18, 2018 11:15 John Gutierrez MD Jan 21, 2018 19:24
[2018-01-18] MEDS: METOPROLOL TARTRATE 50 MG TAB PO SCH ×2 (11:47→19:59)
[2018-01-18] MEDS: cefTRIAXone INJ 1,000 MG in SODIUM CHLORIDE 0.9% INJ 100 ML IV SCH ×2 (11:47→22:23)
[2018-01-18] MEDS: FAMOTIDINE 20 MG/2 ML VIAL IV PUSH SCH ×2 (11:48→18:40)
[2018-01-18] MEDS: POTASSIUM CHLOR 10 MEQ PREMIX 100 ML IV SCH ×4 (11:48→21:21)
--- NOTE | 2018-01-18 13:35 | PD.RAD ---
Post Procedure Progress Note Pre Procedure Diagnosis: (1) Altered mental status Post Procedure Diagnosis: (1) Altered mental status Procedure Date: Jan 18, 2018 Supervising Radiologist: Moses Chavez JR Proceduralist/Assist: Cyrus Clifton, RT(R), Janak Williamson RT(R) Anesthesia: Local Plan of Activity Patient to Unit: Nursing Unit Patient Condition: Good See PACS Report for procedural detail/treatment Spinal Procedure Lumbar Puncture L3-L4 Fluid Removal (CCs): 10 Fluid Description: Clear Puncture Time: 13:17 Findings: LP under fluoro. Clear CSF. Samples to lab. Jr. Scott,Moses Hylton MD Jan 18, 2018 13:35
--- NOTE | 2018-01-18 13:51 | RADRPT ---
EXAM DATE/TIME: 01/18/2018 13:09 [facility] COMPARISON: No previous studies available for comparison. INDICATIONS : Patient with a history of altered mental status. Patient is somewhat combative. MEDICAL HISTORY : HTN Hyperlipidemia COPD Hypothyroidism Benign prostatic hypertrophy Anxiety Depression Spinal stenosis Osteoarthritis SURGICAL HISTORY : Appendectomy Oral surgery Left hand surgery ENCOUNTER: Initial ACUITY: 2 days PAIN SCORE: Nonresponsive. LUMBAR PUNCTURE TIME: 1317 hours 0.7 minutes IMAGE SERIES: 0 ACCESS LEVEL: L3-4 FLUID: 9.5 cc of clear CSF was collected and sent to the laboratory for analysis. PROCEDURE : 1. Fluoroscopic guided lumbar puncture. The risks, benefits and alternatives to the procedure were explained to the patient's family via tele phone and verbal consent was obtained. The patient was given intravenous Ativan secondary to his comb ative state. The site was prepped in sterile fashion. Full sterile technique was used, including cap , mask, sterile gloves and gown and a large sterile sheet. Hand hygiene and 2% chlorhexidine and/or betadine/alcohol prep was utilized per protocol for cutaneous antisepsis. The skin and subcutaneous tissues were infiltrated with local anesthetic solution. With fluoroscopic guidance the lumbar thecal sac was punctured at the level above. The fluid describ ed above was removed without difficulty. The patient tolerated the procedure well and there were no complications. CONCLUSION: Uncomplicated fluoroscopically guided lumbar puncture. Moses Chavez Jr., MD on January 18, 2018 at 13:47 Board Certified Radiologist. This report was verified electronically.
[2018-01-18 14:17] LABS: TOTAL PROTEIN,CSF 45.5 MG/DL (15.0-45.0)
[2018-01-18 16:10] LABS: CSF LYMPHOCYTES 50 %; CSF MONOCYTES 50 %; SUPERNATE COLOR TUBE #1 CLEAR (CLEAR)
[2018-01-18 16:12] LABS: RBC TUBE #4 8 /MM3; WBC TUBE #4 5 /MM3 (0-10)
[2018-01-18 16:45] LABS: ANA SCREEN NEG (NEG)
[2018-01-18] MEDS: LACTULOSE SYRUP 20 GM/30 ML CUP PO SCH (18:00)
[2018-01-19] VITALS (14 sets, daily range): BP systolic 126–185; BP diastolic 80–110; PULSE 63–80; RESP 23–32; TEMP 98.3–99.7; O2SAT 95–99
[2018-01-19] MEDS: LORazepam 2 MG/ML VIAL IV PRN ×4 (00:02→22:03)
[2018-01-19] MEDS: FAMOTIDINE 20 MG/2 ML VIAL IV PUSH SCH ×2 (01:27→13:50)
[2018-01-19] MEDS: FREE WATER G-TUBE SCH ×7 (04:00→23:53)
[2018-01-19] MEDS: DEXTROSE 5% IN WATE 1000ML INJ 1,000 ML IV SCH ×4 (04:04→23:53)
[2018-01-19 04:41] LABS: AUTOMATED NEUTROPHIL # 5.9 TH/MM3 (1.8-7.7); BASOPHIL # 0.1 TH/MM3 (0-0.2); BASOPHIL % 0.7 % (0.0-2.0); EOSINOPHIL # 0.7 TH/MM3 (0-0.4); EOSINOPHIL % 7.6 % (0.0-4.0); HEMATOCRIT 34.6 % (39.0-51.0); LYMPH % 21.4 % (9.0-44.0); LYMPHOCYTE # 2.1 TH/MM3 (1.0-4.8); MEAN CELL VOLUME 104.9 FL (80.0-100.0); MEAN CORPUSCULAR HEMOGLOBIN 36.3 PG (27.0-34.0); MEAN CORPUSCULAR HGB CONC 34.6 % (32.0-36.0); MEAN PLATELET VOLUME 8.7 FL (7.0-11.0); NEUT % 60.3 % (16.0-70.0); PLATELET COUNT 105 TH/MM3 (150-450); WHITE BLOOD COUNT 9.8 TH/MM3 (4.0-11.0)
[2018-01-19 05:05] LABS: ALBUMIN 3.4 GM/DL (3.4-5.0); AST (GOT) 130 U/L (15-37); BICARBONATE 19.7 MEQ/L (21.0-32.0); BLOOD UREA NITROGEN 27 MG/DL (7-18); CALCIUM 9.3 MG/DL (8.5-10.1); CHLORIDE 122 MEQ/L (98-107); CREATININE 2.72 MG/DL (0.60-1.30); GLOMERULAR FILTRATION RATE 24 ML/MIN (>89); GLUCOSE,RANDOM 134 MG/DL (74-106); SODIUM (NA) 151 MEQ/L (136-145)
[2018-01-19 05:07] LABS: ALT (GPT) 115 U/L (12-78)
[2018-01-19 05:09] LABS: ALKALINE PHOSPHATASE 154 U/L (45-117); RANDOM VANCOMYCIN 12.3 COMMENT; TOTAL BILIRUBIN ADULT 0.6 MG/DL (0.2-1.0); TOTAL PROTEIN 8.3 GM/DL (6.4-8.2)
[2018-01-19] MEDS: INSULIN NovoLIN REGULAR SUPPLEMENTAL SCALE SQ SCH ×5 (05:54→23:53)
--- NOTE | 2018-01-19 07:58 | HHI.CCPN ---
Subjective Remarks/Hospital Course Is a 57-year-old male with known history of hypertension, hyperlipidemia, COPD, tobacco abuse, marijuana abuse, spinal stenosis, hypothyroidism, benign prostatic hypertrophy, anxiety, depression,? Bipolar disorder who originally presented to hospital because of altered mentation, confusion. Patient did recently undergo extraction of 10 of his lower teeth 2 days prior to coming to the ER. Records indicate that his stated that the day before coming the patient started talking and nonsense and laying in bed confused with a low- grade fever. Patient was brought to emergency department and had workup performed which did not indicate any acute abnormality for the patient's encephalopathy. Patient did have CT scan done of the brain which did not indicate any acute abnormality. Further studies with alcohol level which was normal, urine drug screen did show positive cannabinoids, TSH was normal, ammonia level was normal. In light of the patient having hyper bilirubin, transaminitis, macrocytic anemia, thrombocytopenia one could consider the patient does have chronic alcohol related issues. Patient was started on thiamine and folic acid. Patient was started on CIWA protocol. Patient was admitted to the hospital for further management patient had signs of systemic inflammatory response syndrome without any sign of infection. He was started on empirical antibiotics to include vancomycin and Zosyn. Patient had workup done with chest x-ray which did not indicate any acute abnormality, urinalysis which is clear, blood cultures are negative for 2 days. No signs of infection at this time, however patient did just recently had 10 teeth extracted. Could have some underlying endocarditis. Patient did have signs of acute renal failure superimposed on chronic kidney disease stage II. Patient was started on IV fluids. Laboratory were followed and this morning patient found to have severe hypernatremia. Workup had been initiated with osmolality studies, urine sodium, ADH, MRI of brain which still awaiting results at this time. Patient was originally started on half-normal saline without any significant improvement. Subsequently changed to D5W at 75 ml/hr. Continue to monitor sodium level every 4 hours. Patient still with considerable altered mental status. Toxic metabolic encephalopathy. Presently the patient is maintaining his airway with good O2 saturations of 96% on room air, however there are episodes of tachypnea going upward 33 breaths per minute. Because of his intermittent respiratory distress and altered mental status is very concerning that the patient may require intubation for continued management and care if his symptoms does not improve. Hospitalist did discuss the case with critical care, because of the critical nature the patient and possible respiratory collapse is recommended patient be transferred to the main IMC under critical care management. Hence critical care was consulted. Subjective: 01/14: Afebrile. Patient easily arousable, and continues to be confused. MRI pending. Patient was maintained on Precedex infusion during the night Precedex infusion off. Patient protecting airway, dyspnea noted at this time. Continued serum sodium level monitoring. Initial ADH level pending. Patient continues on DDAVP, and Amilioride. 01/15: Report of and [employer], patient's recognition of family members, patient articulating words him what clearer. Upon my evaluation patient was on Precedex per report the patient became agitated during the night and Precedex infusion was increased, patient was placed in 4point restraints for patient safety. Brain imaging studies negative. EEG shows slowing but under the influence of Precedex infusion. 01/16: Overnight the patient received multiple doses of Ativan, and continued on Librium. This a.m. patient more confused than yesterday. Ativan and Librium discontinued, Precedex was discontinued yesterday. Platelet count noted to be low, HIT panel ordered . In anticipation of lumbar puncture, repeat platelet count this afternoon possible transfusion of platelets. INR pending. Discussed plan with Dr. Nur. 01/17 Patient is lying in bed in NAD. Afebrile. remains confused. For possible LP today 01/18 Patient was given Ativan twice overnight. Renal function is improving with Cr: 3.01 from 3.49 01/19 No events overnight. s/p LP yesterday showed clear CSF 5 wbc, nl gic, TP: 45.5 Objective Vital Signs Date Time Temp Pulse Resp B/P (MAP) Pulse Ox O2 Delivery O2 Flow Rate FiO2 01/19/18 06:00 68 01/19/18 04:00 98.8 23 149/94 (112) 98 Intake and Output 01/19/18 01/19/18 01/20/18 08:00 16:00 00:00 Intake Total 1203 ml Output Total 950 ml Balance 253 ml Result Diagram: 01/19/18 0423 01/19/18 0423 Other Results Laboratory Tests Test 01/18/18 13:17 01/19/18 04:23 CSF Volume (Tube 1) 2.0 ML CSF Supernatant Color (tube 1) CLEAR CSF Gross Blood (Tube 1) 0 CSF Volume (Tube 2) 2.0 ML CSF Supernatant Color (tube 2) CLEAR CSF Gross Blood (Tube 2) 0 CSF Volume (Tube 3) 2.2 ML CSF Supernatant Color (tube 3) CLEAR CSF Gross Blood (Tube 3) 0 CSF Volume (Tube 4) 3.0 ML CSF Supernatant Color (tube 4) CLEAR CSF Gross Blood (Tube 4) 0 CSF WBC (Tube 4) 5 /MM3 CSF RBC (Tube 4) 8 /MM3 CSF Neutrophils % CSF Lymphocytes 50 % CSF Monocytes 50 % CSF Glucose 80 MG/DL CSF Total Protein 45.5 MG/DL White Blood Count 9.8 TH/MM3 Red Blood Count 3.30 MIL/MM3 Hemoglobin 12.0 GM/DL Hematocrit 34.6 % Mean Corpuscular Volume 104.9 FL Mean Corpuscular Hemoglobin 36.3 PG Mean Corpuscular Hemoglobin Concent 34.6 % Red Cell Distribution Width 15.0 % Platelet Count 105 TH/MM3 Mean Platelet Volume 8.7 FL Neutrophils (%) (Auto) 60.3 % Lymphocytes (%) (Auto) 21.4 % Monocytes (%) (Auto) 10.0 % Eosinophils (%) (Auto) 7.6 % Basophils (%) (Auto) 0.7 % Neutrophils # (Auto) 5.9 TH/MM3 Lymphocytes # (Auto) 2.1 TH/MM3 Monocytes # (Auto) 1.0 TH/MM3 Eosinophils # (Auto) 0.7 TH/MM3 Basophils # (Auto) 0.1 TH/MM3 CBC Comment DIFF FINAL Differential Comment Blood Urea Nitrogen 27 MG/DL Creatinine 2.72 MG/DL Random Glucose 134 MG/DL Total Protein 8.3 GM/DL Albumin 3.4 GM/DL Calcium Level 9.3 MG/DL Alkaline Phosphatase 154 U/L Aspartate Amino Transf (AST/SGOT) 130 U/L Alanine Aminotransferase (ALT/SGPT) 115 U/L Total Bilirubin 0.6 MG/DL Sodium Level 151 MEQ/L Potassium Level 3.6 MEQ/L Chloride Level 122 MEQ/L Carbon Dioxide Level 19.7 MEQ/L Anion Gap 9 MEQ/L Estimat Glomerular Filtration Rate 24 ML/MIN Ammonia 40 MCMOL/L Random Vancomycin Level 12.3 COMMENT Imaging Last Impressions Lumbar Puncture Fluoroscopy 01/18/18 0000 Signed Impressions: Service Date/Time: Thursday, January 18, 2018 13:09 - CONCLUSION: Uncomplicated fluoroscopically guided lumbar puncture. Moses Chavez Jr., MD Renal Ultrasound 01/14/18 0000 Signed Impressions: Service Date/Time: Sunday, January 14, 2018 17:02 - CONCLUSION: 1. Mild medical renal disease. Probable nonobstructing right renal calculus. Graham catheter in bladder. Jonny Arciniega MD Head Magnetic Resonance Angiography 01/14/18 0000 Signed Impressions: Service Date/Time: Sunday, January 14, 2018 15:24 - CONCLUSION: 1. Suboptimal visualization of the left vertebral artery due to motion artifact particularly at the vertebrobasilar junction. Can not exclude a focal flow-limiting stenosis at this level. 2. Otherwise, unremarkable MRA examination of the jena of [place]. No aneurysm or large vessel cerebral artery occlusion Dyllan Luque MD Brain MRI 01/14/18 0000 Signed Impressions: Service Date/Time: Sunday, January 14, 2018 15:24 - CONCLUSION: 1. Redemonstration of chronic cerebellar calcifications. 2. Senescent changes without acute abnormality. Specifically, no evidence for acute infarction. Dyllan Luque MD Abdomen/Pelvis CT 01/13/18 0000 Signed Impressions: Service Date/Time: Sunday, January 14, 2018 16:12 - CONCLUSION: Markedly cirrhotic liver appearance. Splenomegaly. Edinson Urbano MD Soft Tissue Neck X-Ray 01/12/18 0000 Signed Impressions: Service Date/Time: Friday, January 12, 2018 00:21 - CONCLUSION: 1. Degenerative changes of the mid and lower cervical spine. 2. Otherwise negative. No radiopaque foreign body. Gulshan Lieberman MD Head CT [id number]/11/[id number] Signed Impressions: Service Date/Time: Thursday, January 11, 2018 19:50 - CONCLUSION: No acute intracranial abnormality demonstrated. Atrophy and chronic cerebellar calcification. Edinson Esquivel MD Chest X-Ray [id number]/11/[id number] Signed Impressions: Service Date/Time: Thursday, January 11, 2018 19:41 - CONCLUSION: No evidence of acute cardiopulmonary disease. Edinson Esquivel MD Objective Remarks GENERAL: Well-developed, well-nourished, in no acute distress. Confused HEENT: Head is normocephalic without any lesions or masses noted. Facial features are symmetric. Eyes: Pupils equal round reactive to light. Extraocular muscles are intact. Conjunctivae were clear. NECK: Supple without any masses. Trachea midline no deviation. No JVD, no bruits are appreciated CARDIAC: Regular rhythm, regular rate. S1/S2 are heard. No murmurs gallops or rubs. LUNGS: Clear to auscultation bilaterally. No wheeze, rhonchi or rales. No use of accessory muscles on inspiration or expiration. ABDOMEN: Soft, nontender. Nondistended. Bowel sounds heard in all 4 quadrants. No organomegaly or masses. Negative rebound, negative guarding EXTREMITIES: No edema, pulses are equal bilaterally. No cyanosis or clubbing NEUROLOGY:Confused. RASS -1. Deep tendon reflexes are 2+ in upper and lower extremities bilaterally. Patient is moving all extremities A/P Problem List: (1) Toxic metabolic encephalopathy ICD Code: G92 - Toxic encephalopathy Status: Acute (2) Altered mental status ICD Code: R41.82 - Altered mental status, unspecified (3) Hypernatremia ICD Code: E87.0 - Hyperosmolality and hypernatremia Status: Acute (4) Systemic inflammatory response syndrome ICD Code: R65.10 - Systemic inflammatory response syndrome (SIRS) of non- infectious origin without acute organ dysfunction (5) Acute renal failure superimposed on stage 2 chronic kidney disease ICD Code: N17.9 - Acute kidney failure, unspecified; N18.2 - Chronic kidney disease, stage 2 (mild) Status: Acute (6) Chronic obstructive pulmonary disease ICD Code: J44.9 - Chronic obstructive pulmonary disease, unspecified (7) Hypothyroidism ICD Code: E03.9 - Hypothyroidism, unspecified (8) Leukocytosis ICD Code: D72.829 - Elevated white blood cell count, unspecified (9) Macrocytic anemia ICD Code: D53.9 - Nutritional anemia, unspecified (10) Thrombocytopenia ICD Code: D69.6 - Thrombocytopenia, unspecified Status: Acute (11) Hyperbilirubinemia ICD Code: E80.6 - Other disorders of bilirubin metabolism (12) Transaminitis ICD Code: R74.0 - Nonspecific elevation of levels of transaminase and lactic acid dehydrogenase [LDH] (13) Hyperglycemia ICD Code: R73.9 - Hyperglycemia, unspecified Assessment and Plan NEUROLOGY Altered mental status Toxic metabolic encephalopathy Anxiety/depression,? Bipolar disorder THC use Possible central diabetes insipidus 01/18 s/p LP : clear CSF, 5 WBC, nl goc, TP:45.5 01/12 CT scan of brain does not indicate any acute abnormality Urine drug screen was positive for cannabinoids Alcohol level was less than 3, TSH, B12, folate were normal Webster level 0.3 Continue neuro checks every one hour On thiamine, continue folic acid/ MVI daily Seizure precaution 01/14 EEG-no epileptiform features mild to moderate diffuse disturbance in cerebral function Neurology following 01/14- MRI-no acute infarction 01/14- MRA- unremarkable exam of the jena of [place] Empiric antibiotics-acyclovir, and Rocephin PULMONOLOGY Chronic obstructive pulmonary disease Chronic tobacco abuse Oxygen PRN keep sats >92% head of bed 30 Maintain O2 saturation greater than 92%, On room air, O2 sat 98% Duo nebs every 6 hours as needed for shortness of breath or dyspnea CARDIOLOGY Hypertension Hyperlipidemia On Lopressor 50mg Q12, add Hydralazine 50mg Q8-monitor and maintain MAP greater than 65 ECHO showed EF 55-60% GASTROENTEROLOGY Hyperbilirubinemia Transaminitis Hepatitis C Cirrhosis of Liver CT abd/pelvis: Markedly cirrhotic liver appearance. Splenomegaly. Hep C viral hepatitis antibody positive GI prophylaxis Pepcid IV twice daily On tube feeds via NGT- Nepro with goal rate 40ml/hr Lactulose 30ml TID monitor Ammonia level( 40 today from 49) RENAL Acute renal failure superimposed on chronic kidney disease stage II Hypernatremia: Possible dehydration, diabetes insipidus (central versus nephrogenic) Continue Amiloride 10mg daily D5W at 150 ml/hr, free water 300ml Q4, monitor sodium level. On DDAVP 2mcg Q12 Nephrology is following Renal function is improving with Cr:2.72 from 3. INFECTIOUS DISEASE Continue with abx ( Vanco, Rocephin, Acyclovir) monitor for signs of infections ( Fever, WBC) BC 01/11 NGTD, influenza screening negative 01/13 s/p LP 01/18: clear CSF, 5 WBC, nl goc, TP:45.5. Follow up on HSV PCR ENDOCRINOLOGY Hypothyroidism Hyperglycemia TSH 2.86 SSI for glycemic control HEMATOLOGY Macrocytic anemia Thrombocytopenia- could be related to liver disease Monitor CBC, Hep PLT ab is negative Monitor coags, PROPHYLAXIS DVT- SCD's No chemical DVT prophylaxis due to thrombocytopenia GI protection with Pepcid IV LINES Peripheral IVs Level 2 follow up Mariella Ware MD Jan 19, 2018 07:58
[2018-01-19] MEDS: THIAMINE HCL 100 MG TAB PO SCH (07:59)
[2018-01-19] MEDS: LACTULOSE SYRUP 20 GM/30 ML CUP PO SCH ×3 (08:00→17:51)
[2018-01-19] MEDS: hydrALAZINE HCL 50 MG TAB PO SCH ×3 (08:00→22:03)
[2018-01-19] MEDS: FOLIC ACID 1 MG TAB PO SCH (08:00)
[2018-01-19] MEDS: MULTIVITAMIN TAB PO SCH (08:00)
[2018-01-19] MEDS: aMILoride HCL 5 MG TAB PO SCH (08:00)
[2018-01-19] MEDS: METOPROLOL TARTRATE 50 MG TAB PO SCH ×2 (08:00→20:40)
[2018-01-19] MEDS: SODIUM CHLORIDE 0.9% FLUSH 10 ML FLUSH IV FLUSH SCH ×2 (08:01→20:42)
[2018-01-19] MEDS: DESMOPRESSIN ACETATE 4 MCG/ML VIAL IV PUSH SCH ×2 (08:01→20:40)
[2018-01-19] MEDS: SODIUM CHLORIDE 0.9% IV SCH (08:08)
[2018-01-19] MEDS: ACYCLOVIR IV SCH (08:08)
[2018-01-19] MEDS: DOCUSATE SODIUM 50 MG/SENNA 8.6 MG TAB PO SCH ×2 (08:10→20:42)
[2018-01-19] MEDS ORDERED: VANCOMYCIN INJ 1,250 MG in SODIUM CHLOR 0.9% 250 ML INJ 250 ML IV ONE (10:00)
[2018-01-19] MEDS: cefTRIAXone INJ 1,000 MG in SODIUM CHLORIDE 0.9% INJ 100 ML IV SCH ×2 (11:45→22:03)
[2018-01-19 11:58] LABS: HSV 1,PCR Negative (Negative)
--- NOTE | 2018-01-19 12:42 | HHI.NPPN ---
Subjective Complaints: Confused History of Present Illness This is a 57-year-old male with a history of apparent bipolar disorder. The patient has been on lithium in the past. It is unclear how long he has been on lithium. The patient was admitted on 01/12/2018, after he had a recent extensive dental extraction. The patient had apparent sudden acute onset of confusion and altered mental status. The patient was found at home lying shaking with confusion and a low-grade temperature. Here, the patient was seen in the emergency room. He was further evaluated and brought to the ICU when he had ongoing confusion and altered mental status. Drug screen showed positive cannabinoids. He was initially started on IV fluids with normal saline. He has subsequently developed acute significant hypernatremia. He had a serum sodium of 133 on presentation. He was started initially on normal saline and his sodium jumped up to a level of 160. Throughout the course of today, the patient 's sodium has continued to rise from 160 up to 166 and then 165. He initially was on normal saline and then was given half normal saline and is now on D5W. The patient had ongoing confusion and altered mental status and was intubated after he had significant tachycardia and tachypnea. At this point, the patient is intubated and sedated and is receiving D5W for hypernatremia. Nephrology was consulted for further evaluation. Additional Remarks In restraints. Review of Systems General General Remarks Unable to do ROS Objective Data Data Vital Signs Date Time Temp Pulse Resp B/P (MAP) Pulse Ox O2 Delivery O2 Flow Rate FiO2 01/19/18 08:00 69 01/19/18 08:00 98.8 69 27 147/110 (122) 98 01/19/18 06:00 68 01/19/18 04:00 98.8 66 23 149/94 (112) 98 01/19/18 04:00 66 01/19/18 02:00 63 01/19/18 00:00 69 01/19/18 00:00 99.7 69 32 185/110 (135) 98 01/18/18 22:00 70 01/18/18 22:00 70 23 152/90 (110) 98 01/18/18 21:00 72 20 153/85 (107) 01/18/18 20:00 74 01/18/18 20:00 98.9 74 25 148/91 (110) 01/18/18 18:00 66 01/18/18 16:00 97.9 65 25 165/85 (111) 100 01/18/18 16:00 65 01/18/18 14:00 63 -: 01/19/18 0423 01/19/18 0423 Microbiology 01/18/18 Gram Stain - Final, Resulted 01/18/18 CSF Culture - Preliminary, Resulted NO GROWTH IN 24 HOURS. Physical Exam General Appearance: No Acute Distress, Sleeping Pulmonary Resp Exam: Clear Bilaterally, Breath Sounds Equal, No Distress Cardiology CV Exam: Regular Gastrointestinal/Abdomen GI Exam: Soft, Non-Tender, Bowel Sounds Present Genitourinary Exam: Flank Non-Tender Integumentary Skin Exam: Clear, Warm, Dry Extremeties Extremities Exam: No Edema Neurologic Neuro Exam: Sedated Assessment/Plan Electrolyte Assessment: Hypernatremia Problem List: (1) Hypernatremia ICD Codes: E87.0 - Hyperosmolality and hypernatremia Status: Acute Plan: Acute hypernatremia sodium level on admission 164. --->151 Possible diabetes insipidus possible secondary to chronic calcifications. Also possible nephrogenic component for diabetes insipidus given that the patient has had ongoing lithium use on as far as his lithium toxicity. Plan Continue D5W at 150 ml/hr Continue Amiloride 10mg daily Continue Free water increased to 300 ml Q4 improvement in sodium levels at 151 today. On DDAVP Continue to monitor sodium levels ADH level is pending. Cr 2.7 declined (2) Acute renal failure superimposed on stage 2 chronic kidney disease ICD Codes: N17.9 - Acute kidney failure, unspecified; N18.2 - Chronic kidney disease, stage 2 (mild) Status: Acute Plan: Acute kidney injury possible ATN Creatinine Renal US: . Mild medical renal disease. Probable nonobstructing right renal calculus. Graham catheter in bladder Plan Hypokalemia noted replacement ordered. Continue IVF Creatinine improvinG Will monitor UOP and BMP Avoid nephrotoxins. (3) Toxic metabolic encephalopathy ICD Codes: G92 - Toxic encephalopathy Status: Acute Plan: Continue antibiotics renal dosing. Lumbar puncture planned for Denton Cuevas MD Jan 19, 2018 12:42
[2018-01-19 23:32] LABS: ENTEROVIRUS PCR RESULT Negative (Negative); ENTEROVIRUS PCR SPEC SOURCE CSF
[2018-01-20] VITALS (15 sets, daily range): BP systolic 111–147; BP diastolic 70–98; PULSE 78–96; RESP 20–46; TEMP 98.7–100.4; O2SAT 90–99
[2018-01-20] MEDS: LORazepam 2 MG/ML VIAL IV PRN ×4 (02:28→22:58)
[2018-01-20] MEDS: FAMOTIDINE 20 MG/2 ML VIAL IV PUSH SCH ×2 (02:29→17:53)
[2018-01-20] MEDS: FREE WATER G-TUBE SCH ×5 (04:00→20:00)
[2018-01-20] MEDS: hydrALAZINE HCL 50 MG TAB PO SCH ×3 (05:18→20:46)
[2018-01-20] MEDS: ACETAMINOPHEN 325 MG TAB PO PRN (05:18)
[2018-01-20] MEDS: INSULIN NovoLIN REGULAR SUPPLEMENTAL SCALE SQ SCH ×3 (05:20→17:53)
[2018-01-20] MEDS: DEXTROSE 5% IN WATE 1000ML INJ 1,000 ML IV SCH ×2 (06:20→18:02)
[2018-01-20 06:48] LABS: AUTOMATED NEUTROPHIL # 9.2 TH/MM3 (1.8-7.7); BASOPHIL # 0.1 TH/MM3 (0-0.2); BASOPHIL % 0.5 % (0.0-2.0); EOSINOPHIL # 0.5 TH/MM3 (0-0.4); EOSINOPHIL % 3.6 % (0.0-4.0); HEMATOCRIT 35.8 % (39.0-51.0); HEMOGLOBIN 12.3 GM/DL (13.0-17.0); LYMPH % 15.7 % (9.0-44.0); MEAN CELL VOLUME 103.1 FL (80.0-100.0); MEAN CORPUSCULAR HEMOGLOBIN 35.5 PG (27.0-34.0); MEAN CORPUSCULAR HGB CONC 34.4 % (32.0-36.0); MEAN PLATELET VOLUME 9.8 FL (7.0-11.0); MONO % 7.8 % (0.0-8.0); NEUT % 72.4 % (16.0-70.0); PLATELET COUNT 118 TH/MM3 (150-450); RED BLOOD COUNT 3.48 MIL/MM3 (4.50-5.90); RED CELL DISTRIBUTION WIDTH 14.8 % (11.6-17.2); WHITE BLOOD COUNT 12.6 TH/MM3 (4.0-11.0)
[2018-01-20 07:07] LABS: ALBUMIN 3.2 GM/DL (3.4-5.0); AST (GOT) 101 U/L (15-37); BICARBONATE 20.1 MEQ/L (21.0-32.0); BLOOD UREA NITROGEN 25 MG/DL (7-18); CALCIUM 8.8 MG/DL (8.5-10.1); CHLORIDE 116 MEQ/L (98-107); CREATININE 2.34 MG/DL (0.60-1.30); GLOMERULAR FILTRATION RATE 29 ML/MIN (>89); GLUCOSE,RANDOM 134 MG/DL (74-106); MAGNESIUM 2.6 MG/DL (1.5-2.5); SODIUM (NA) 147 MEQ/L (136-145)
[2018-01-20 07:16] LABS: ALKALINE PHOSPHATASE 174 U/L (45-117); ALT (GPT) 121 U/L (12-78); PHOSPHORUS 2.8 MG/DL (2.5-4.9); TOTAL BILIRUBIN ADULT 0.6 MG/DL (0.2-1.0)
[2018-01-20] MEDS: FOLIC ACID 1 MG TAB PO SCH (08:16)
[2018-01-20] MEDS: MULTIVITAMIN TAB PO SCH (08:16)
[2018-01-20] MEDS: THIAMINE HCL 100 MG TAB PO SCH (08:16)
[2018-01-20] MEDS: SODIUM CHLORIDE 0.9% FLUSH 10 ML FLUSH IV FLUSH SCH ×2 (08:17→20:46)
[2018-01-20] MEDS: LACTULOSE SYRUP 20 GM/30 ML CUP PO SCH ×3 (08:18→17:48)
[2018-01-20] MEDS: METOPROLOL TARTRATE 50 MG TAB PO SCH ×2 (08:18→20:46)
[2018-01-20] MEDS: ACYCLOVIR IV SCH (08:19)
[2018-01-20] MEDS: SODIUM CHLORIDE 0.9% IV SCH (08:19)
[2018-01-20] MEDS: DOCUSATE SODIUM 50 MG/SENNA 8.6 MG TAB PO SCH ×2 (09:00→20:46)
[2018-01-20] MEDS: aMILoride HCL 5 MG TAB PO SCH (09:00)
--- NOTE | 2018-01-20 09:16 | HHI.CCPN ---
Subjective Remarks/Hospital Course Is a 57-year-old male with known history of hypertension, hyperlipidemia, COPD, tobacco abuse, marijuana abuse, spinal stenosis, hypothyroidism, benign prostatic hypertrophy, anxiety, depression,? Bipolar disorder who originally presented to hospital because of altered mentation, confusion. Patient did recently undergo extraction of 10 of his lower teeth 2 days prior to coming to the ER. Records indicate that his stated that the day before coming the patient started talking and nonsense and laying in bed confused with a low- grade fever. Patient was brought to emergency department and had workup performed which did not indicate any acute abnormality for the patient's encephalopathy. Patient did have CT scan done of the brain which did not indicate any acute abnormality. Further studies with alcohol level which was normal, urine drug screen did show positive cannabinoids, TSH was normal, ammonia level was normal. In light of the patient having hyper bilirubin, transaminitis, macrocytic anemia, thrombocytopenia one could consider the patient does have chronic alcohol related issues. Patient was started on thiamine and folic acid. Patient was started on CIWA protocol. Patient was admitted to the hospital for further management patient had signs of systemic inflammatory response syndrome without any sign of infection. He was started on empirical antibiotics to include vancomycin and Zosyn. Patient had workup done with chest x-ray which did not indicate any acute abnormality, urinalysis which is clear, blood cultures are negative for 2 days. No signs of infection at this time, however patient did just recently had 10 teeth extracted. Could have some underlying endocarditis. Patient did have signs of acute renal failure superimposed on chronic kidney disease stage II. Patient was started on IV fluids. Laboratory were followed and this morning patient found to have severe hypernatremia. Workup had been initiated with osmolality studies, urine sodium, ADH, MRI of brain which still awaiting results at this time. Patient was originally started on half-normal saline without any significant improvement. Subsequently changed to D5W at 75 ml/hr. Continue to monitor sodium level every 4 hours. Patient still with considerable altered mental status. Toxic metabolic encephalopathy. Presently the patient is maintaining his airway with good O2 saturations of 96% on room air, however there are episodes of tachypnea going upward 33 breaths per minute. Because of his intermittent respiratory distress and altered mental status is very concerning that the patient may require intubation for continued management and care if his symptoms does not improve. Hospitalist did discuss the case with critical care, because of the critical nature the patient and possible respiratory collapse is recommended patient be transferred to the main IMC under critical care management. Hence critical care was consulted. Subjective: 01/14: Afebrile. Patient easily arousable, and continues to be confused. MRI pending. Patient was maintained on Precedex infusion during the night Precedex infusion off. Patient protecting airway, dyspnea noted at this time. Continued serum sodium level monitoring. Initial ADH level pending. Patient continues on DDAVP, and Amilioride. 01/15: Report of and ONLINE CONTENT COORDINATOR, patient's recognition of family members, patient articulating words him what clearer. Upon my evaluation patient was on Precedex per report the patient became agitated during the night and Precedex infusion was increased, patient was placed in 4point restraints for patient safety. Brain imaging studies negative. EEG shows slowing but under the influence of Precedex infusion. 01/16: Overnight the patient received multiple doses of Ativan, and continued on Librium. This a.m. patient more confused than yesterday. Ativan and Librium discontinued, Precedex was discontinued yesterday. Platelet count noted to be low, HIT panel ordered . In anticipation of lumbar puncture, repeat platelet count this afternoon possible transfusion of platelets. INR pending. Discussed plan with Dr. Nur. 01/17 Patient is lying in bed in NAD. Afebrile. remains confused. For possible LP today 01/18 Patient was given Ativan twice overnight. Renal function is improving with Cr: 3.01 from 3.49 01/19 No events overnight. s/p LP yesterday showed clear CSF 5 wbc, nl gic, TP: 45.5 01/20 No events overnight. T:100.4, renal function is improving Cr:2.34 from 2.72 Objective Vital Signs Date Time Temp Pulse Resp B/P (MAP) Pulse Ox O2 Delivery O2 Flow Rate FiO2 01/20/18 08:00 98.9 80 20 132/87 (102) 99 Intake and Output 01/20/18 01/20/18 01/21/18 08:00 16:00 00:00 Intake Total 862 ml Output Total 1250 ml Balance -388 ml Result Diagram: 01/20/18 0442 01/20/18 0442 Other Results Laboratory Tests Test 01/20/18 04:42 White Blood Count 12.6 TH/MM3 Red Blood Count 3.48 MIL/MM3 Hemoglobin 12.3 GM/DL Hematocrit 35.8 % Mean Corpuscular Volume 103.1 FL Mean Corpuscular Hemoglobin 35.5 PG Mean Corpuscular Hemoglobin Concent 34.4 % Red Cell Distribution Width 14.8 % Platelet Count 118 TH/MM3 Mean Platelet Volume 9.8 FL Neutrophils (%) (Auto) 72.4 % Lymphocytes (%) (Auto) 15.7 % Monocytes (%) (Auto) 7.8 % Eosinophils (%) (Auto) 3.6 % Basophils (%) (Auto) 0.5 % Neutrophils # (Auto) 9.2 TH/MM3 Lymphocytes # (Auto) 2.0 TH/MM3 Monocytes # (Auto) 1.0 TH/MM3 Eosinophils # (Auto) 0.5 TH/MM3 Basophils # (Auto) 0.1 TH/MM3 CBC Comment DIFF FINAL Differential Comment Blood Urea Nitrogen 25 MG/DL Creatinine 2.34 MG/DL Random Glucose 134 MG/DL Total Protein 8.0 GM/DL Albumin 3.2 GM/DL Calcium Level 8.8 MG/DL Phosphorus Level 2.8 MG/DL Magnesium Level 2.6 MG/DL Alkaline Phosphatase 174 U/L Aspartate Amino Transf (AST/SGOT) 101 U/L Alanine Aminotransferase (ALT/SGPT) 121 U/L Total Bilirubin 0.6 MG/DL Sodium Level 147 MEQ/L Potassium Level 3.1 MEQ/L Chloride Level 116 MEQ/L Carbon Dioxide Level 20.1 MEQ/L Anion Gap 11 MEQ/L Estimat Glomerular Filtration Rate 29 ML/MIN Random Vancomycin Level 18.0 COMMENT Imaging Last Impressions Lumbar Puncture Fluoroscopy 01/18/18 0000 Signed Impressions: Service Date/Time: Thursday, January 18, 2018 13:09 - CONCLUSION: Uncomplicated fluoroscopically guided lumbar puncture. Moses Chavez Jr., MD Renal Ultrasound 01/14/18 0000 Signed Impressions: Service Date/Time: Sunday, January 14, 2018 17:02 - CONCLUSION: 1. Mild medical renal disease. Probable nonobstructing right renal calculus. Graham catheter in bladder. Jonny Arciniega MD Head Magnetic Resonance Angiography 01/14/18 0000 Signed Impressions: Service Date/Time: Sunday, January 14, 2018 15:24 - CONCLUSION: 1. Suboptimal visualization of the left vertebral artery due to motion artifact particularly at the vertebrobasilar junction. Can not exclude a focal flow-limiting stenosis at this level. 2. Otherwise, unremarkable MRA examination of the [place]. No aneurysm or large vessel cerebral artery occlusion Dyllan Luque MD Brain MRI 01/14/18 0000 Signed Impressions: Service Date/Time: Sunday, January 14, 2018 15:24 - CONCLUSION: 1. Redemonstration of chronic cerebellar calcifications. 2. Senescent changes without acute abnormality. Specifically, no evidence for acute infarction. Dyllan Luque MD Abdomen/Pelvis CT 01/13/18 0000 Signed Impressions: Service Date/Time: Sunday, January 14, 2018 16:12 - CONCLUSION: Markedly cirrhotic liver appearance. Splenomegaly. Edinson Urbano MD Soft Tissue Neck X-Ray 01/12/18 Signed Impressions: Service Date/Time: Friday, January 12, 2018 00:21 - CONCLUSION: 1. Degenerative changes of the mid and lower cervical spine. 2. Otherwise negative. No radiopaque foreign body. Gulshan Lieberman MD Head CT [id number]/11/[id number] Signed Impressions: Service Date/Time: Thursday, January 11, 2018 19:50 - CONCLUSION: No acute intracranial abnormality demonstrated. Atrophy and chronic cerebellar calcification. Edinson Esquivel MD Chest X-Ray [id number]/11/[id number] Signed Impressions: Service Date/Time: Thursday, January 11, 2018 19:41 - CONCLUSION: No evidence of acute cardiopulmonary disease. Edinson Esquivel MD Objective Remarks GENERAL: Well-developed, well-nourished, in no acute distress. Confused HEENT: Head is normocephalic without any lesions or masses noted. Facial features are symmetric. Eyes: Pupils equal round reactive to light. Extraocular muscles are intact. Conjunctivae were clear. NECK: Supple without any masses. Trachea midline no deviation. No JVD, no bruits are appreciated CARDIAC: Regular rhythm, regular rate. S1/S2 are heard. No murmurs gallops or rubs. LUNGS: Clear to auscultation bilaterally. No wheeze, rhonchi or rales. No use of accessory muscles on inspiration or expiration. ABDOMEN: Soft, nontender. Nondistended. Bowel sounds heard in all 4 quadrants. No organomegaly or masses. Negative rebound, negative guarding EXTREMITIES: No edema, pulses are equal bilaterally. No cyanosis or clubbing NEUROLOGY:Confused. RASS -1. Deep tendon reflexes are 2+ in upper and lower extremities bilaterally. Patient is moving all extremities A/P Problem List: (1) Toxic metabolic encephalopathy ICD Code: G92 - Toxic encephalopathy Status: Acute (2) Altered mental status ICD Code: R41.82 - Altered mental status, unspecified (3) Hypernatremia ICD Code: E87.0 - Hyperosmolality and hypernatremia Status: Acute (4) Systemic inflammatory response syndrome ICD Code: R65.10 - Systemic inflammatory response syndrome (SIRS) of non- infectious origin without acute organ dysfunction (5) Acute renal failure superimposed on stage 2 chronic kidney disease ICD Code: N17.9 - Acute kidney failure, unspecified; N18.2 - Chronic kidney disease, stage 2 (mild) Status: Acute (6) Chronic obstructive pulmonary disease ICD Code: J44.9 - Chronic obstructive pulmonary disease, unspecified (7) Hypothyroidism ICD Code: E03.9 - Hypothyroidism, unspecified (8) Leukocytosis ICD Code: D72.829 - Elevated white blood cell count, unspecified (9) Macrocytic anemia ICD Code: D53.9 - Nutritional anemia, unspecified (10) Thrombocytopenia ICD Code: D69.6 - Thrombocytopenia, unspecified Status: Acute (11) Hyperbilirubinemia ICD Code: E80.6 - Other disorders of bilirubin metabolism (12) Transaminitis ICD Code: R74.0 - Nonspecific elevation of levels of transaminase and lactic acid dehydrogenase [LDH] (13) Hyperglycemia ICD Code: R73.9 - Hyperglycemia, unspecified Assessment and Plan NEUROLOGY Altered mental status Toxic metabolic encephalopathy Anxiety/depression,? Bipolar disorder THC use Possible central diabetes insipidus 01/18 s/p LP : clear CSF, 5 WBC, nl goc, TP:45.5 01/12 CT scan of brain does not indicate any acute abnormality Urine drug screen was positive for cannabinoids Alcohol level was less than 3, TSH, B12, folate were normal [place] level 0.3 Continue neuro checks every one hour On thiamine, continue folic acid/ MVI daily Seizure precaution 01/14 EEG-no epileptiform features mild to moderate diffuse disturbance in cerebral function Neurology following 01/14- MRI-no acute infarction 01/14- MRA- unremarkable exam of the [place] PULMONOLOGY Chronic obstructive pulmonary disease Chronic tobacco abuse Oxygen PRN keep sats >92% head of bed 30 Maintain O2 saturation greater than 92%, On room air, O2 sat 98% Duo nebs every 6 hours as needed for shortness of breath or dyspnea CARDIOLOGY Hypertension Hyperlipidemia On Lopressor 50mg Q12, Hydralazine 50mg Q8-monitor and maintain MAP greater than 65 ECHO showed EF 55-60% GASTROENTEROLOGY Hyperbilirubinemia Transaminitis Hepatitis C Cirrhosis of Liver CT abd/pelvis: Markedly cirrhotic liver appearance. Splenomegaly. Hep C viral hepatitis antibody positive GI prophylaxis Pepcid IV twice daily On tube feeds via NGT- Nepro with goal rate 40ml/hr Lactulose 30ml TID monitor Ammonia level( 40) RENAL Acute renal failure superimposed on chronic kidney disease stage II Hypernatremia: Possible dehydration, diabetes insipidus (central versus nephrogenic) Continue Amiloride 10mg daily D5W at 150 ml/hr, free water 300ml Q4, monitor sodium level. On DDAVP 2mcg Q12 Nephrology is following Renal function is improving with Cr:2.34 from 2.72 INFECTIOUS DISEASE Continue abx ( Vanco, Rocephin, Acyclovir) monitor for signs of infections ( Fever, WBC) BC 01/11 NGTD, influenza screening negative 01/13 s/p LP 01/18: clear CSF, 5 WBC, nl glc, TP:45.5. HSV PCR negative d/c Acyclovir ENDOCRINOLOGY Hypothyroidism Hyperglycemia TSH 2.86 SSI for glycemic control HEMATOLOGY Macrocytic anemia Thrombocytopenia- could be related to liver disease Monitor CBC, Hep PLT ab is negative Monitor coags, PROPHYLAXIS DVT- SCD's No chemical DVT prophylaxis due to thrombocytopenia GI protection with Pepcid IV LINES Peripheral IVs Level 2 follow up Mariella Ware MD Jan 20, 2018 09:16
[2018-01-20] MEDS: cefTRIAXone INJ 1,000 MG in SODIUM CHLORIDE 0.9% INJ 100 ML IV SCH ×2 (10:13→22:58)
[2018-01-20] MEDS: DESMOPRESSIN ACETATE 4 MCG/ML VIAL IV PUSH SCH ×2 (10:19→20:46)
[2018-01-20] MEDS ORDERED: VANCOMYCIN INJ 1,250 MG in SODIUM CHLOR 0.9% 250 ML INJ 250 ML IV ONE (11:00)
[2018-01-20] MEDS: POTASSIUM CHLOR 20 MEQ PREMIX 100 ML IV SCH ×2 (11:34→12:55)
--- NOTE | 2018-01-20 11:50 | HHI.NPPN ---
Subjective Complaints: Confused History of Present Illness This is a 57-year-old male with a history of apparent bipolar disorder. The patient has been on lithium in the past. It is unclear how long he has been on lithium. The patient was admitted on 01/12/2018, after he had a recent extensive dental extraction. The patient had apparent sudden acute onset of confusion and altered mental status. The patient was found at home lying shaking with confusion and a low-grade temperature. Here, the patient was seen in the emergency room. He was further evaluated and brought to the ICU when he had ongoing confusion and altered mental status. Drug screen showed positive cannabinoids. He was initially started on IV fluids with normal saline. He has subsequently developed acute significant hypernatremia. He had a serum sodium of 133 on presentation. He was started initially on normal saline and his sodium jumped up to a level of 160. Throughout the course of today, the patient 's sodium has continued to rise from 160 up to 166 and then 165. He initially was on normal saline and then was given half normal saline and is now on D5W. The patient had ongoing confusion and altered mental status and was intubated after he had significant tachycardia and tachypnea. At this point, the patient is intubated and sedated and is receiving D5W for hypernatremia. Nephrology was consulted for further evaluation. Additional Remarks In restraints. Review of Systems General General Remarks Unable to do ROS Objective Data Data Vital Signs Date Time Temp Pulse Resp B/P (MAP) Pulse Ox O2 Delivery O2 Flow Rate FiO2 01/20/18 08:00 98.9 80 20 132/87 (102) 99 01/20/18 08:00 78 01/20/18 06:00 87 01/20/18 06:00 87 31 126/85 (99) 94 01/20/18 05:00 90 31 125/87 (100) 94 01/20/18 04:00 90 01/20/18 04:00 100.4 90 29 117/73 (88) 93 01/20/18 03:00 85 37 130/79 (96) 94 01/20/18 02:00 92 01/20/18 02:00 92 25 139/98 (112) 95 01/20/18 01:00 89 24 134/89 (104) 96 01/20/18 00:00 84 01/20/18 00:00 99.1 84 30 147/93 (111) 97 01/19/18 22:00 80 01/19/18 21:00 74 27 154/89 (110) 96 01/19/18 20:00 99.1 73 31 148/91 (110) 99 01/19/18 20:00 73 01/19/18 19:00 71 25 151/97 (115) 97 01/19/18 18:00 69 01/19/18 16:00 98.7 69 29 140/80 (100) 95 01/19/18 16:00 69 01/19/18 14:00 67 01/19/18 12:00 77 01/19/18 12:00 98.3 77 26 126/86 (99) 96 -: 01/20/18 0442 01/20/18 0442 Physical Exam General Appearance: No Acute Distress, Sleeping Pulmonary Resp Exam: Clear Bilaterally, Breath Sounds Equal, No Distress Cardiology CV Exam: Regular Gastrointestinal/Abdomen GI Exam: Soft, Non-Tender, Bowel Sounds Present Genitourinary Exam: Flank Non-Tender Integumentary Skin Exam: Clear, Warm, Dry Extremeties Extremities Exam: No Edema Neurologic Neuro Exam: Sedated Assessment/Plan Electrolyte Assessment: Hypernatremia Problem List: (1) Hypernatremia ICD Codes: E87.0 - Hyperosmolality and hypernatremia Status: Acute Plan: Acute hypernatremia sodium level on admission 164. --->151 -->147 Possible diabetes insipidus possible secondary to chronic calcifications. Also possible nephrogenic component for diabetes insipidus given that the patient has had ongoing lithium use on as far as his lithium toxicity. Plan Continue D5W at 100 ml/hr Continue Amiloride 10mg daily Continue Free water increased to 300 ml Q4 improvement in sodium levels at 151 today. On DDAVP Continue to monitor sodium levels ADH level is pending. Cr 2.3 declined Na [address] Gutierrez to follow (2) Acute renal failure superimposed on stage 2 chronic kidney disease ICD Codes: N17.9 - Acute kidney failure, unspecified; N18.2 - Chronic kidney disease, stage 2 (mild) Status: Acute Plan: Acute kidney injury possible ATN Creatinine Renal US: . Mild medical renal disease. Probable nonobstructing right renal calculus. Graham catheter in bladder Plan Hypokalemia noted replacement ordered. Continue IVF Creatinine improvinG Will monitor UOP and BMP Avoid nephrotoxins. (3) Toxic metabolic encephalopathy ICD Codes: G92 - Toxic encephalopathy Status: Acute Plan: Continue antibiotics renal dosing. Lumbar puncture planned for Denton Cuevas MD Jan 20, 2018 11:50
[2018-01-20 17:52] LABS: THYROID PEROX AB (MICROSOMAL) LESS THAN 1 IU/mL (<9)
[2018-01-20 19:43] LABS: BACTERIA, URINE FEW /hpf; BILIRUBIN, URINE NEG (NEG); BLOOD, URINE SMALL (NEG); GLUCOSE,URINE NEG (NEG); HYALINE CAST, URINE 1 /lpf (RARE); KETONE, URINE NEG (NEG); MUCUS URINE FEW /lpf (OCC); NITRITE,URINE NEG (NEG); SQUAMOUS EPITHELIAL CELL URINE <1 /hpf (0-5); URINE COLOR YELLOW (YELLW/STRAW); URINE LEUKOCYTE ESTERASE MOD (NEG)
[2018-01-21] VITALS (12 sets, daily range): BP systolic 123–149; BP diastolic 66–89; PULSE 93–118; RESP 24–42; TEMP 98.6–100; O2SAT 92–99
[2018-01-21] MEDS ORDERED: POTASSIUM CHLOR 20 MEQ PREMIX 100 ML IV ONE (00:15)
[2018-01-21] MEDS: DEXTROSE 5% IN WATE 1000ML INJ 1,000 ML IV SCH ×3 (00:39→16:36)
[2018-01-21] MEDS: FAMOTIDINE 20 MG/2 ML VIAL IV PUSH SCH ×2 (02:34→15:08)
[2018-01-21] MEDS: NYSTATIN 100,000 U/GM PWD 15 GM BTL TOPICAL PRN (02:35)
[2018-01-21] MEDS: LORazepam 2 MG/ML VIAL IV PRN (02:50)
[2018-01-21] MEDS: FREE WATER G-TUBE SCH ×4 (04:00→21:00)
[2018-01-21 04:01] LABS: AUTOMATED NEUTROPHIL # 16.6 TH/MM3 (1.8-7.7); BASOPHIL # 0.1 TH/MM3 (0-0.2); BASOPHIL % 0.4 % (0.0-2.0); EOSINOPHIL # 0.4 TH/MM3 (0-0.4); HEMATOCRIT 33.5 % (39.0-51.0); HEMOGLOBIN 11.4 GM/DL (13.0-17.0); LYMPH % 11.7 % (9.0-44.0); LYMPHOCYTE # 2.5 TH/MM3 (1.0-4.8); MEAN CELL VOLUME 104.3 FL (80.0-100.0); MEAN CORPUSCULAR HEMOGLOBIN 35.6 PG (27.0-34.0); MEAN CORPUSCULAR HGB CONC 34.1 % (32.0-36.0); MEAN PLATELET VOLUME 9.3 FL (7.0-11.0); MONO % 6.3 % (0.0-8.0); MONOCYTE # 1.3 TH/MM3 (0-0.9); NEUT % 79.6 % (16.0-70.0); PLATELET COUNT 113 TH/MM3 (150-450); RED BLOOD COUNT 3.21 MIL/MM3 (4.50-5.90); RED CELL DISTRIBUTION WIDTH 14.7 % (11.6-17.2); WHITE BLOOD COUNT 20.9 TH/MM3 (4.0-11.0)
[2018-01-21 04:23] LABS: ALBUMIN 2.8 GM/DL (3.4-5.0); ALT (GPT) 99 U/L (12-78); AST (GOT) 59 U/L (15-37); BICARBONATE 19.3 MEQ/L (21.0-32.0); BLOOD UREA NITROGEN 26 MG/DL (7-18); CALCIUM 8.4 MG/DL (8.5-10.1); CHLORIDE 115 MEQ/L (98-107); CREATININE 2.18 MG/DL (0.60-1.30); GLOMERULAR FILTRATION RATE 31 ML/MIN (>89); GLUCOSE,RANDOM 134 MG/DL (74-106); SODIUM (NA) 144 MEQ/L (136-145)
[2018-01-21 04:24] LABS: ALKALINE PHOSPHATASE 159 U/L (45-117); RANDOM VANCOMYCIN 20.7 COMMENT; TOTAL BILIRUBIN ADULT 0.7 MG/DL (0.2-1.0); TOTAL PROTEIN 7.5 GM/DL (6.4-8.2)
[2018-01-21] MEDS: INSULIN NovoLIN REGULAR SUPPLEMENTAL SCALE SQ SCH ×3 (06:00→12:00)
[2018-01-21] MEDS: hydrALAZINE HCL 50 MG TAB PO SCH ×3 (06:29→21:25)
--- NOTE | 2018-01-21 08:27 | HHI.CCPN ---
Subjective Remarks/Hospital Course Is a 57-year-old male with known history of hypertension, hyperlipidemia, COPD, tobacco abuse, marijuana abuse, spinal stenosis, hypothyroidism, benign prostatic hypertrophy, anxiety, depression,? Bipolar disorder who originally presented to hospital because of altered mentation, confusion. Patient did recently undergo extraction of 10 of his lower teeth 2 days prior to coming to the ER. Records indicate that his stated that the day before coming the patient started talking and nonsense and laying in bed confused with a low- grade fever. Patient was brought to emergency department and had workup performed which did not indicate any acute abnormality for the patient's encephalopathy. Patient did have CT scan done of the brain which did not indicate any acute abnormality. Further studies with alcohol level which was normal, urine drug screen did show positive cannabinoids, TSH was normal, ammonia level was normal. In light of the patient having hyper bilirubin, transaminitis, macrocytic anemia, thrombocytopenia one could consider the patient does have chronic alcohol related issues. Patient was started on thiamine and folic acid. Patient was started on CIWA protocol. Patient was admitted to the hospital for further management patient had signs of systemic inflammatory response syndrome without any sign of infection. He was started on empirical antibiotics to include vancomycin and Zosyn. Patient had workup done with chest x-ray which did not indicate any acute abnormality, urinalysis which is clear, blood cultures are negative for 2 days. No signs of infection at this time, however patient did just recently had 10 teeth extracted. Could have some underlying endocarditis. Patient did have signs of acute renal failure superimposed on chronic kidney disease stage II. Patient was started on IV fluids. Laboratory were followed and this morning patient found to have severe hypernatremia. Workup had been initiated with osmolality studies, urine sodium, ADH, MRI of brain which still awaiting results at this time. Patient was originally started on half-normal saline without any significant improvement. Subsequently changed to D5W at 75 ml/hr. Continue to monitor sodium level every 4 hours. Patient still with considerable altered mental status. Toxic metabolic encephalopathy. Presently the patient is maintaining his airway with good O2 saturations of 96% on room air, however there are episodes of tachypnea going upward 33 breaths per minute. Because of his intermittent respiratory distress and altered mental status is very concerning that the patient may require intubation for continued management and care if his symptoms does not improve. Hospitalist did discuss the case with critical care, because of the critical nature the patient and possible respiratory collapse is recommended patient be transferred to the main IMC under critical care management. Hence critical care was consulted. Subjective: 01/14: Afebrile. Patient easily arousable, and continues to be confused. MRI pending. Patient was maintained on Precedex infusion during the night Precedex infusion off. Patient protecting airway, dyspnea noted at this time. Continued serum sodium level monitoring. Initial ADH level pending. Patient continues on DDAVP, and Amilioride. 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 Upon my evaluation patient was on Precedex per report the patient became agitated during the night and Precedex infusion was increased, patient was placed in 4point restraints for patient safety. Brain imaging studies negative. EEG shows slowing but under the influence of Precedex infusion. 01/16: Overnight the patient received multiple doses of Ativan, and continued on Librium. This a.m. patient more confused than yesterday. Ativan and Librium discontinued, Precedex was discontinued yesterday. Platelet count noted to be low, HIT panel ordered . In anticipation of lumbar puncture, repeat platelet count this afternoon possible transfusion of platelets. INR pending. Discussed plan with Dr. Nur. 01/17 Patient is lying in bed in NAD. Afebrile. remains confused. For possible LP today 01/18 Patient was given Ativan twice overnight. Renal function is improving with Cr: 3.01 from 3.49 01/19 No events overnight. s/p LP yesterday showed clear CSF 5 wbc, nl gic, TP: 45.5 01/20 No events overnight. T:100.4, renal function is improving Cr:2.34 from 2.72 01/21 Patient had T: 100.1 last night, had 1175ml gastric output from NGT. Objective Vital Signs Date Time Temp Pulse Resp B/P (MAP) Pulse Ox O2 Delivery O2 Flow Rate FiO2 01/21/18 06:00 104 01/21/18 04:00 99.7 42 136/89 (105) 99 Intake and Output 01/21/18 01/21/18 01/22/18 08:00 16:00 00:00 Intake Total 1100 ml Output Total 2250 ml Balance -1150 ml Result Diagram: 01/21/18 0345 01/21/18 0345 Other Results Laboratory Tests Test 01/20/18 18:00 01/20/18 20:20 01/21/18 03:45 Urine Color YELLOW Urine Turbidity CLEAR Urine pH 6.0 Urine Specific [place] 1.013 Urine Protein TRACE mg/dL Urine Glucose (UA) NEG mg/dL Urine Ketones NEG mg/dL Urine Occult Blood SMALL Urine Nitrite NEG Urine Bilirubin NEG Urine Urobilinogen LESS THAN 2.0 MG/DL Urine Leukocyte Esterase MOD Urine RBC 4 /hpf Urine WBC 14 /hpf Urine Squamous Epithelial Cells <1 /hpf Urine Bacteria FEW /hpf Urine Hyaline Casts 1 /lpf Urine Mucus FEW /lpf Microscopic Urinalysis Comment CATH-CULTURE IND Potassium Level 3.4 MEQ/L 3.5 MEQ/L White Blood Count 20.9 TH/MM3 Red Blood Count 3.21 MIL/MM3 Hemoglobin 11.4 GM/DL Hematocrit 33.5 % Mean Corpuscular Volume 104.3 FL Mean Corpuscular Hemoglobin 35.6 PG Mean Corpuscular Hemoglobin Concent 34.1 % Red Cell Distribution Width 14.7 % Platelet Count 113 TH/MM3 Mean Platelet Volume 9.3 FL Neutrophils (%) (Auto) 79.6 % Lymphocytes (%) (Auto) 11.7 % Monocytes (%) (Auto) 6.3 % Eosinophils (%) (Auto) 2.0 % Basophils (%) (Auto) 0.4 % Neutrophils # (Auto) 16.6 TH/MM3 Lymphocytes # (Auto) 2.5 TH/MM3 Monocytes # (Auto) 1.3 TH/MM3 Eosinophils # (Auto) 0.4 TH/MM3 Basophils # (Auto) 0.1 TH/MM3 CBC Comment DIFF FINAL Differential Comment Blood Urea Nitrogen 26 MG/DL Creatinine 2.18 MG/DL Random Glucose 134 MG/DL Total Protein 7.5 GM/DL Albumin 2.8 GM/DL Calcium Level 8.4 MG/DL Alkaline Phosphatase 159 U/L Aspartate Amino Transf (AST/SGOT) 59 U/L Alanine Aminotransferase (ALT/SGPT) 99 U/L Total Bilirubin 0.7 MG/DL Sodium Level 144 MEQ/L Chloride Level 115 MEQ/L Carbon Dioxide Level 19.3 MEQ/L Anion Gap 10 MEQ/L Estimat Glomerular Filtration Rate 31 ML/MIN Ammonia 22 MCMOL/L Random Vancomycin Level 20.7 COMMENT Imaging Last Impressions Lumbar Puncture Fluoroscopy 01/18/18 0000 Signed Impressions: Service Date/Time: Thursday, January 18, 2018 13:09 - CONCLUSION: Uncomplicated fluoroscopically guided lumbar puncture. Moses Chavez Jr., MD Renal Ultrasound 01/14/18 0000 Signed Impressions: Service Date/Time: Sunday, January 14, 2018 17:02 - CONCLUSION: 1. Mild medical renal disease. Probable nonobstructing right renal calculus. Graham catheter in bladder. Jonny Arciniega MD Head Magnetic Resonance Angiography 01/14/18 0000 Signed Impressions: Service Date/Time: Sunday, January 14, 2018 15:24 - CONCLUSION: 1. Suboptimal visualization of the left vertebral artery due to motion artifact particularly at the vertebrobasilar junction. Can not exclude a focal flow-limiting stenosis at this level. 2. Otherwise, unremarkable MRA examination of the tetlin of [place]. No aneurysm or large vessel cerebral artery occlusion Dyllan Luque MD Brain MRI 01/14/18 0000 Signed Impressions: Service Date/Time: Sunday, January 14, 2018 15:24 - CONCLUSION: 1. Redemonstration of chronic cerebellar calcifications. 2. Senescent changes without acute abnormality. Specifically, no evidence for acute infarction. Dyllan Luque MD Abdomen/Pelvis CT 01/13/18 0000 Signed Impressions: Service Date/Time: Sunday, January 14, 2018 16:12 - CONCLUSION: Markedly cirrhotic liver appearance. Splenomegaly. Edinson Urbano MD Soft Tissue Neck X-Ray 01/12/18 0000 Signed Impressions: Service Date/Time: Friday, January 12, 2018 00:21 - CONCLUSION: 1. Degenerative changes of the mid and lower cervical spine. 2. Otherwise negative. No radiopaque foreign body. Gulshan Lieberman MD Head CT [id number]/11/[id number] Signed Impressions: Service Date/Time: Thursday, January 11, 2018 19:50 - CONCLUSION: No acute intracranial abnormality demonstrated. Atrophy and chronic cerebellar calcification. Edinson Esquivel MD Chest X-Ray [id number] Signed Impressions: Service Date/Time: Thursday, January 11, 2018 19:41 - CONCLUSION: No evidence of acute cardiopulmonary disease. Edinson Esquivel MD Objective Remarks GENERAL: Well-developed, well-nourished, in no acute distress. Confused HEENT: Head is normocephalic without any lesions or masses noted. Facial features are symmetric. Eyes: Pupils equal round reactive to light. Extraocular muscles are intact. Conjunctivae were clear. NECK: Supple without any masses. Trachea midline no deviation. No JVD, no bruits are appreciated CARDIAC: Regular rhythm, regular rate. S1/S2 are heard. No murmurs gallops or rubs. LUNGS: Clear to auscultation bilaterally. No wheeze, rhonchi or rales. No use of accessory muscles on inspiration or expiration. ABDOMEN: Soft, nontender. Nondistended. Bowel sounds heard in all 4 quadrants. No organomegaly or masses. Negative rebound, negative guarding EXTREMITIES: No edema, pulses are equal bilaterally. No cyanosis or clubbing NEUROLOGY:Confused. RASS -1. Deep tendon reflexes are 2+ in upper and lower extremities bilaterally. Patient is moving all extremities A/P Problem List: (1) Toxic metabolic encephalopathy ICD Code: G92 - Toxic encephalopathy Status: Acute (2) Altered mental status ICD Code: R41.82 - Altered mental status, unspecified (3) Hypernatremia ICD Code: E87.0 - Hyperosmolality and hypernatremia Status: Acute (4) Systemic inflammatory response syndrome ICD Code: R65.10 - Systemic inflammatory response syndrome (SIRS) of non- infectious origin without acute organ dysfunction (5) Acute renal failure superimposed on stage 2 chronic kidney disease ICD Code: N17.9 - Acute kidney failure, unspecified; N18.2 - Chronic kidney disease, stage 2 (mild) Status: Acute (6) Chronic obstructive pulmonary disease ICD Code: J44.9 - Chronic obstructive pulmonary disease, unspecified (7) Hypothyroidism ICD Code: E03.9 - Hypothyroidism, unspecified (8) Leukocytosis ICD Code: D72.829 - Elevated white blood cell count, unspecified (9) Macrocytic anemia ICD Code: D53.9 - Nutritional anemia, unspecified (10) Thrombocytopenia ICD Code: D69.6 - Thrombocytopenia, unspecified Status: Acute (11) Hyperbilirubinemia ICD Code: E80.6 - Other disorders of bilirubin metabolism (12) Transaminitis ICD Code: R74.0 - Nonspecific elevation of levels of transaminase and lactic acid dehydrogenase [LDH] (13) Hyperglycemia ICD Code: R73.9 - Hyperglycemia, unspecified Assessment and Plan NEUROLOGY Altered mental status Toxic metabolic encephalopathy Anxiety/depression,? Bipolar disorder THC use Possible central diabetes insipidus 01/18 s/p LP : clear CSF, 5 WBC, nl goc, TP:45.5 01/12 CT scan of brain does not indicate any acute abnormality Urine drug screen was positive for cannabinoids Alcohol level was less than 3, TSH, B12, folate were normal [place] level 0.3 Continue neuro checks every one hour On thiamine, continue folic acid/ MVI daily Seizure precaution 01/14 EEG-no epileptiform features mild to moderate diffuse disturbance in cerebral function Neurology following 01/14- MRI-no acute infarction 01/14- MRA- unremarkable exam of the tetlin of [place] PULMONOLOGY Chronic obstructive pulmonary disease Chronic tobacco abuse Oxygen PRN keep sats >92% head of bed 30, check CXR, ABG Maintain O2 saturation greater than 92%, On room air, O2 sat 98% Duo nebs every 6 hours as needed for shortness of breath or dyspnea CARDIOLOGY Hypertension Hyperlipidemia On Lopressor 50mg Q12, Hydralazine 50mg Q8-monitor and maintain MAP greater than 65 ECHO showed EF 55-60% GASTROENTEROLOGY Hyperbilirubinemia Transaminitis Hepatitis C Cirrhosis of Liver Check KUB abd r/o ileus Tube feeds placed on hold ( Nepro) monitor gastric output CT abd/pelvis: Markedly cirrhotic liver appearance. Splenomegaly. Hep C viral hepatitis antibody positive GI prophylaxis Pepcid IV twice daily Lactulose 30ml TID monitor Ammonia level( 40) RENAL Acute renal failure superimposed on chronic kidney disease stage II Hypernatremia: Possible dehydration, diabetes insipidus (central versus nephrogenic) Continue Amiloride 10mg daily D5W at 150 ml/hr, free water 250ml Q12, monitor sodium level. On DDAVP 2mcg Q12 Nephrology is following Renal function is improving with Cr: 2.18 from 2.34 INFECTIOUS DISEASE Continue abx ( Vanco, chnage Rocephin to Cefepime,) monitor for signs of infections ( Fever, WBC) Check BC x 2 sets, follow up on urine cx BC 01/11 NGTD, influenza screening negative 01/13 s/p LP 01/18: clear CSF, 5 WBC, nl glc, TP:45.5. HSV PCR negative, CSF cx: No growth ENDOCRINOLOGY Hypothyroidism Hyperglycemia TSH 2.86 SSI for glycemic control HEMATOLOGY Macrocytic anemia Thrombocytopenia- could be related to liver disease Monitor CBC, Hep PLT ab is negative Monitor coags, PROPHYLAXIS DVT- SCD's No chemical DVT prophylaxis due to thrombocytopenia GI protection with Pepcid IV LINES Peripheral IVs Level 3 follow up Mariella Ware MD Jan 21, 2018 08:27
[2018-01-21] MEDS: LACTULOSE SYRUP 20 GM/30 ML CUP PO SCH ×3 (09:00→18:00)
[2018-01-21] MEDS: DOCUSATE SODIUM 50 MG/SENNA 8.6 MG TAB PO SCH ×2 (09:00→21:00)
--- NOTE | 2018-01-21 09:29 | HHI.NPPN ---
Subjective Complaints: Confused History of Present Illness This is a 57-year-old male with a history of apparent bipolar disorder. The patient has been on lithium in the past. It is unclear how long he has been on lithium. The patient was admitted on 01/12/2018, after he had a recent extensive dental extraction. The patient had apparent sudden acute onset of confusion and altered mental status. The patient was found at home lying shaking with confusion and a low-grade temperature. Here, the patient was seen in the emergency room. He was further evaluated and brought to the ICU when he had ongoing confusion and altered mental status. Drug screen showed positive cannabinoids. He was initially started on IV fluids with normal saline. He has subsequently developed acute significant hypernatremia. He had a serum sodium of 133 on presentation. He was started initially on normal saline and his sodium jumped up to a level of 160. Throughout the course of today, the patient 's sodium has continued to rise from 160 up to 166 and then 165. He initially was on normal saline and then was given half normal saline and is now on D5W. The patient had ongoing confusion and altered mental status and was intubated after he had significant tachycardia and tachypnea. At this point, the patient is intubated and sedated and is receiving D5W for hypernatremia. Nephrology was consulted for further evaluation. Additional Remarks Continues to be very confused in restraints (Zamzam Valentino) Review of Systems General General Remarks Unable to do ROS (Zamzam Valentino) Objective Data Data Vital Signs Date Time Temp Pulse Resp B/P (MAP) Pulse Ox O2 Delivery O2 Flow Rate FiO2 01/21/18 06:00 104 01/21/18 04:00 99.7 104 42 136/89 (105) 99 01/21/18 04:00 104 01/21/18 02:00 102 01/21/18 00:00 99.6 99 32 149/82 (104) 99 01/21/18 00:00 99 01/20/18 22:00 96 01/20/18 20:00 96 01/20/18 20:00 100.1 96 30 131/84 (100) 90 01/20/18 18:00 91 01/20/18 16:00 90 01/20/18 16:00 98.9 90 33 111/70 (84) 92 01/20/18 14:00 91 01/20/18 12:00 83 01/20/18 12:00 98.7 83 46 134/92 (106) 93 01/20/18 10:00 86 (Zamzam Valentino) -: 01/21/18 0345 01/21/18 0345 Microbiology 01/20/18 Urine Culture, Received Pending (Zamzam Valentino) Physical Exam General Appearance: No Acute Distress, Anxious (Zamzam Valentino) Pulmonary Resp Exam: Breath Sounds Equal, No Distress, Rhonchi (Zamzam Valentino) Cardiology CV Exam: Regular (Zamzam Valentino) Gastrointestinal/Abdomen GI Exam: Soft, Non-Tender, Bowel Sounds Present (Zamzam Valentino) Genitourinary Exam: Flank Non-Tender (Zamzam Valentino) Integumentary Skin Exam: Warm, Dry Skin Remarks Rash on buttocks (Zamzam Valentino) Extremeties Extremities Exam: No Edema (Zamzam Valentino) Neurologic Neuro Exam: Unresponsive (Zamzam Valentino) Assessment/Plan Electrolyte Assessment: Hypernatremia Problem List: (1) Hypernatremia ICD Codes: E87.0 - Hyperosmolality and hypernatremia Status: Acute Plan: Acute hypernatremia sodium level on admission 164. --->151 -->147 and now 144 Possible diabetes insipidus possible secondary to chronic calcifications. Also possible nephrogenic component for diabetes insipidus given that the patient has had ongoing lithium use on as far as his lithium toxicity. Plan Continue D5W at 100 ml/hr Continue Amiloride 10mg daily Continue Free water decreased to 250 ml Q12 H mprovement in sodium levels at 144. On DDAVP Continue to monitor sodium levels ADH level is pending. Leukocytosis today at 20.9 (2) Acute renal failure superimposed on stage 2 chronic kidney disease ICD Codes: N17.9 - Acute kidney failure, unspecified; N18.2 - Chronic kidney disease, stage 2 (mild) Status: Acute Plan: Acute kidney injury possible ATN Creatinine Renal US: . Mild medical renal disease. Probable nonobstructing right renal calculus. Graham catheter in bladder Plan Hypokalemia noted replacement given Continue IVF Creatinine improving at 2.18 Will monitor UOP and BMP Avoid nephrotoxins. (3) Toxic metabolic encephalopathy ICD Codes: G92 - Toxic encephalopathy Status: Acute Plan: Continue antibiotics renal dosing. (Zamzam Valentino) Problem List: (1) Hypernatremia ICD Codes: E87.0 - Hyperosmolality and hypernatremia Status: Acute Plan: Acute hypernatremia sodium level on admission 164. --->151 -->147 and now 144 Possible diabetes insipidus possible secondary to chronic calcifications. Also possible nephrogenic component for diabetes insipidus given that the patient has had ongoing lithium use on as far as his lithium toxicity. Plan Continue D5W at 100 ml/hr Continue Amiloride 10mg daily Continue Free water decreased to 250 ml Q12 H improvement in sodium levels at 144. On DDAVP Continue to monitor sodium levels ADH level is pending. Leukocytosis today at 20.9 Patient seen and examined, agree with above. Continue IVF, weaning as tolerated. (2) Acute renal failure superimposed on stage 2 chronic kidney disease ICD Codes: N17.9 - Acute kidney failure, unspecified; N18.2 - Chronic kidney disease, stage 2 (mild) Status: Acute Plan: Acute kidney injury possible ATN Creatinine Renal US: . Mild medical renal disease. Probable nonobstructing right renal calculus. Graham catheter in bladder Plan Hypokalemia noted replacement given Continue IVF Creatinine improving at 2.18 Will monitor UOP and BMP Avoid nephrotoxins. Patient seen and examined, agree with above. Creatinine is stable, Na. is normalized. (3) Toxic metabolic encephalopathy ICD Codes: G92 - Toxic encephalopathy Status: Acute Plan: Continue antibiotics renal dosing. (John Gutierrez MD) Zamzam Valentino Jan 21, 2018 09:29 John Gutierrez MD Jan 22, 2018 19:41
--- NOTE | 2018-01-21 09:45 | RADRPT ---
EXAM DATE/TIME: 01/21/2018 08:52 [facility] COMPARISON: CHEST SINGLE AP, January 11, 2018, 19:41. INDICATIONS : Leukocytosis. MEDICAL HISTORY : Chronic obstructive pulmonary disease. Hypothyroidism. Hypertension. Hernia, inguinal. SURGICAL HISTORY : Appendectomy. ENCOUNTER: Subsequent ACUITY: 3 weeks PAIN SCORE: Non-responsive. LOCATION: Bilateral chest FINDINGS: A single view of the chest demonstrates the lungs to be symmetrically aerated without evidence of mas s, infiltrate or effusion. The cardiomediastinal contours are unremarkable. Osseous structures are intact. There are multiple overlying electrocardiographic leads and tubing. There has been apparent p lacement of a nasogastric tube with the tip projected over the mid to distal esophagus. CONCLUSION: 1. No acute cardiac pulmonary disease. 2. Apparent placement of a nasogastric tube with the tip projected over the mid to distal esophagus. Shubham Patricio MD on January 21, 2018 at 9:41 Board Certified Radiologist. This report was verified electronically.
--- NOTE | 2018-01-21 09:46 | RADRPT ---
EXAM DATE/TIME: 01/21/2018 08:43 [facility] COMPARISON: No previous studies available for comparison. INDICATIONS : Ileus. MEDICAL HISTORY : Chronic obstructive pulmonary disease. Hypertension Hypothyroidism. Hernia, inguinal. SURGICAL HISTORY : Appendectomy. ENCOUNTER: Initial ACUITY: 1 day PAIN SCORE: Non-responsive. LOCATION: Bilateral abdomen FINDINGS: Supine view of the abdomen was performed. The abdominal bowel gas pattern is normal. No abnormal ma sses, calcifications, or organomegaly is seen. A nasogastric tube is present with the tip in the pro ximal stomach. The distal side port is projected over the region of the distal esophagus. The osseous structures are unremarkable. CONCLUSION: 1. Unremarkable bowel gas pattern. 2. Nasogastric tube with the tip in the proximal stomach. Shubham Patricio MD on January 21, 2018 at 9:42 Board Certified Radiologist. This report was verified electronically.
[2018-01-21] MEDS: SODIUM CHLORIDE 0.9% FLUSH 10 ML FLUSH IV FLUSH SCH ×2 (10:31→21:24)
[2018-01-21] MEDS: MULTIVITAMIN TAB PO SCH (10:31)
[2018-01-21] MEDS: DESMOPRESSIN ACETATE 4 MCG/ML VIAL IV PUSH SCH ×2 (10:31→21:24)
[2018-01-21] MEDS: CEFEPIME INJ 1,000 MG in SODIUM CHLORIDE 0.9% INJ 100 ML IV SCH ×2 (10:31→16:35)
[2018-01-21] MEDS: THIAMINE HCL 100 MG TAB PO SCH (10:32)
[2018-01-21] MEDS: METOPROLOL TARTRATE 50 MG TAB PO SCH ×2 (10:32→21:25)
[2018-01-21] MEDS: FOLIC ACID 1 MG TAB PO SCH (10:32)
[2018-01-21] MEDS: aMILoride HCL 5 MG TAB PO SCH (10:32)
--- NOTE | 2018-01-21 11:34 | PD.ID.CON ---
History of Present Illness Service ID Consult Requested By Reason for Consult Evaluation and Mment of persistent fevers and leucocytosis. Primary Care Physician No Primary Care Physician Diagnoses: History of Present Illness Most of the history was obtained by review of medical records. is a 57-year-old male with past medical history significant for hypertension, hyperlipidemia, COPD, tobacco abuse. Patient's past medical history reportedly is also significant for marijuana use, spinal stenosis unsure if he had any instrumentation. Patient also has a history of hypothyroidism. Patient's psychiatric history is also significant for anxiety, depression possibly history of bipolar disorder who is on multiple medications such as buspirone, citalopram, mirtazapine, gabapentin, hydroxyzine as well as lithium. With this background patient presents to the hospital with a history of altered mental status and confusion prior to admission. Per records patient's noticed that patient was starting to speak nonsensical language and was laying in bed with a low-grade fever. Reportedly patient also had an extraction about 10 of his lower teeth 2 days prior to coming to the emergency department. Sepsis workup as well as a neurological workup was initiated on admission. Blood cultures on admission and negative so far. CSF studies done on admission show 5 wbc, normal glucose total protein 45.5, CSF HSV 1 and 2 are negative. CSF VDRL is pending at the present time. An MRI of the brain did not show any acute infarcts or any infectious etiology. Evaluation was started on empiric vancomycin IV and Zosyn. Infectious disease is consulted for evaluation and management of persistent fevers and leukocytosis. At the time of my evaluation patient is in the ICU currently on room air not on any pressors. Review of Systems ROS Limitations: Altered Mental Status Past Family Social History Allergies: Coded Allergies: chlorpheniramine (Unverified Allergy, Severe, ANTIHISTAMINE???, 01/11/18) pseudoephedrine (Unverified Allergy, Severe, DECONGESTANTS???, 01/11/18) Past Medical History Unable to obtain information from the patient, information taken from medical records Hypertension Hyperlipidemia Chronic obstructive pulmonary disease Hypothyroidism Benign prostatic hypertrophy Anxiety disorder Depression History of spinal stenosis Osteoarthritis Past Surgical History Unable to obtain information patient, information taken from medical records Appendectomy Oral surgery Left hand surgery Reported Medications Reported Meds & Active Scripts Active Reported Lactulose Liq (Lactulose) 10 Gm/15 Ml Soln 30 Ml PO TID Levothyroxine (Levothyroxine Sodium) 25 Mcg Tab 25 Mcg PO DAILY Buspirone (Buspirone HCl) 15 Mg Tab 15 Mg PO HS Breo Ellipta Inh (Fluticasone/Vilanterol) 100-25 Mcg/Act Inh 1 Puff INH DAILY Use daily at the same time. Escitalopram (Escitalopram Oxalate) 10 Mg Tab 10 Mg PO HS Tamsulosin (Tamsulosin HCl) 0.4 Mg Cap 0.4 Mg PO HS Hydroxyzine Pamoate 50 Mg Cap 150 Mg PO HS Mirtazapine 30 Mg Tab 30 Mg PO HS Gabapentin 600 Mg Tab 4 Tab PO HS [place] Carbonate 300 Mg Cap 900 Mg PO BID Active Ordered Medications Current Medications Medications (Trade) Dose Ordered Sig/[place] Route Start Time Stop Time Status Last Admin (NS Flush) 2 ml UNSCH PRN IV FLUSH 01/12/18 00:45 (NS Flush) 2 ml BID IV FLUSH 01/12/18 09:00 01/21/18 10:31 (Tylenol) 650 mg Q4H PRN PO 01/12/18 00:45 01/20/18 05:18 (Zofran Inj) 4 mg Q6H PRN IVP 01/12/18 00:45 01/12/18 02:51 (Narcan Inj) 0.4 mg UNSCH PRN IV PUSH 01/12/18 00:45 (Shari-Colace) 1 tab BID PO 01/12/18 09:00 01/16/18 09:07 (Milk Of Magnesia Liq) 30 ml Q12H PRN PO 01/12/18 00:45 (Senokot) 17.2 mg Q12H PRN PO 01/12/18 00:45 (Dulcolax Supp) 10 mg DAILY PRN RECTAL 01/12/18 00:45 (Lactulose Liq) 30 ml DAILY PRN PO 01/12/18 00:45 (Catapres) 0.1 mg Q6H PRN PO 01/12/18 10:00 (Romazicon Inj) 0.2 mg Q1M PRN IV PUSH 01/12/18 10:00 Pharmacy Profile Note 0 ml @ 0 mls/hr UNSCH OTHER 01/12/18 10:15 (Duoneb Neb) 1 ampule Q4HR NEB PRN NEB 01/13/18 13:00 Dextrose 1,000 ml @ 100 mls/hr Q10H IV 01/13/18 15:00 01/21/18 10:33 (Vasotec Inj) 1.25 mg Q6H PRN IV PUSH 01/13/18 16:00 (Apresoline Inj) 20 mg Q4H PRN IV PUSH 01/13/18 16:00 (Ddavp Inj) 2 mcg Q12HR IV PUSH 01/13/18 21:00 01/21/18 10:31 (Midamor) 10 mg DAILY PO 01/13/18 20:45 01/21/18 10:32 Miscellaneous Information Patient in critical care unit? Ass... [id number] .XX 01/14/18 02:45 (Vitamin B1) 100 mg DAILY PO 01/17/18 11:00 01/21/18 10:32 (Folate) 1 mg DAILY PO 01/17/18 11:00 01/21/18 10:32 (Theragran) 1 tab DAILY PO 01/17/18 11:00 01/21/18 10:31 (D50w (Vial) Inj) 50 ml UNSCH PRN IV PUSH 01/17/18 11:00 (Glucagon Inj) 1 mg UNSCH PRN OTHER 01/17/18 11:00 (NovoLIN R SUPPLEMENTAL SCALE) 1 Q6HR SQ 01/17/18 12:00 01/19/18 23:53 (Ativan Inj) 1 mg Q4H PRN IV 01/17/18 19:45 01/21/18 02:50 (Lopressor) 50 mg Q12HR PO 01/18/18 09:15 01/21/18 10:32 (Lactulose Liq) 30 ml TID PO 01/18/18 13:00 01/20/18 17:48 (Mycostatin Powder) 1 applic Q12HR PRN TOPICAL 01/18/18 12:30 01/21/18 02:35 (Pepcid Inj) 10 mg Q12H IV PUSH 01/18/18 14:30 01/21/18 02:34 (Apresoline) 50 mg Q8HR PO 01/19/18 08:00 01/21/18 06:29 Cefepime HCl 1000 mg/Sodium Chloride 100 ml @ 200 mls/hr Q8H IV 01/21/18 09:00 01/21/18 10:31 (Free Water) 250 ml Q12HR G-TUBE 01/21/18 09:00 (Mycostatin Cream) 1 applic Q6HR TOPICAL 01/21/18 12:00 Family History Information taken from medical records, Reviewed is significant for brother with small cell carcinoma, mother with lung cancer. Social History Information taken from medical records Records indicate patient does smoke approximately 3-1/2 pack a cigarettes a day , records indicate that patient does not drink alcohol but does continue to abuse using marijuana Physical Exam Vital Signs Vital Signs Date Time Temp Pulse Resp B/P (MAP) Pulse Ox O2 Delivery O2 Flow Rate FiO2 01/21/18 06:00 104 01/21/18 04:00 99.7 104 42 136/89 (105) 99 01/21/18 04:00 104 01/21/18 02:00 102 01/21/18 00:00 99.6 99 32 149/82 (104) 99 01/21/18 00:00 99 01/20/18 22:00 96 01/20/18 20:00 96 01/20/18 20:00 100.1 96 30 131/84 (100) 90 01/20/18 18:00 91 01/20/18 16:00 90 01/20/18 16:00 98.9 90 33 111/70 (84) 92 01/20/18 14:00 91 01/20/18 12:00 83 01/20/18 12:00 98.7 83 46 134/92 (106) 93 Physical Exam GENERAL: This is a well-nourished, well-developed patient, in no apparent distress. SKIN: No rashes, ecchymoses or lesions. Cool and dry. HEAD: Atraumatic. Normocephalic. No temporal or scalp tenderness. EYES: Pupils equal round and reactive. Extraocular motions intact. No scleral icterus. No injection or drainage. ENT: Nose without bleeding, purulent drainage or septal hematoma. Throat without erythema, tonsillar hypertrophy or exudate. Uvula midline. Airway patent. NECK: Trachea midline. Supple, nontender, no meningeal signs. CARDIOVASCULAR: Regular rate and rhythm without murmurs. RESPIRATORY: Clear to auscultation. Breath sounds equal bilaterally. No wheezes , rales, or rhonchi. GASTROINTESTINAL: Abdomen soft, non-tender, nondistended. MUSCULOSKELETAL: Extremities without clubbing, cyanosis, or edema. No joint tenderness, effusion, or edema noted. No calf tenderness. Negative Homans sign bilaterally. NEUROLOGICAL: Not oriented. Did not follow commands Psych difficult to assess, calm. IV line sites with no evidence of infection. Laboratory Laboratory Tests Test 01/20/18 18:00 01/20/18 20:20 01/21/18 03:45 01/21/18 08:35 Urine Color YELLOW Urine Turbidity CLEAR Urine pH 6.0 Urine Specific [place] 1.013 Urine Protein TRACE Urine Glucose (UA) NEG Urine Ketones NEG Urine Occult Blood SMALL Urine Nitrite NEG Urine Bilirubin NEG Urine Urobilinogen LESS THAN 2.0 Urine Leukocyte Esterase MOD Urine RBC 4 Urine WBC 14 Urine Squamous Epithelial Cells <1 Urine Bacteria FEW Urine Hyaline Casts 1 Urine Mucus FEW Microscopic Urinalysis Comment CATH-CULTURE IND Potassium Level 3.4 3.5 White Blood Count 20.9 Red Blood Count 3.21 Hemoglobin 11.4 Hematocrit 33.5 Mean Corpuscular Volume 104.3 Mean Corpuscular Hemoglobin 35.6 Mean Corpuscular Hemoglobin Concent 34.1 Red Cell Distribution Width 14.7 Platelet Count 113 Mean Platelet Volume 9.3 Neutrophils (%) (Auto) 79.6 Lymphocytes (%) (Auto) 11.7 Monocytes (%) (Auto) 6.3 Eosinophils (%) (Auto) 2.0 Basophils (%) (Auto) 0.4 Neutrophils # (Auto) 16.6 Lymphocytes # (Auto) 2.5 Monocytes # (Auto) 1.3 Eosinophils # (Auto) 0.4 Basophils # (Auto) 0.1 CBC Comment DIFF FINAL Differential Comment Blood Urea Nitrogen 26 Creatinine 2.18 Random Glucose 134 Total Protein 7.5 Albumin 2.8 Calcium Level 8.4 Alkaline Phosphatase 159 Aspartate Amino Transf (AST/SGOT) 59 Alanine Aminotransferase (ALT/SGPT) 99 Total Bilirubin 0.7 Sodium Level 144 Chloride Level 115 Carbon Dioxide Level 19.3 Anion Gap 10 Estimat Glomerular Filtration Rate 31 Ammonia 22 Random Vancomycin Level 20.7 Blood Gas Puncture Site LT RADIAL Blood Gas Patient Temperature 98.6 Blood Gas HCO3 19 Blood Gas Base Excess -4.8 Blood Gas Oxygen Saturation 95 Arterial Blood pH 7.44 Arterial Blood Partial Pressure CO2 28 Arterial Blood Partial Pressure O2 86 Arterial Blood Oxygen Content 14.8 Arterial Blood Carboxyhemoglobin 0.9 Arterial Blood Methemoglobin 1.2 Blood Gas Hemoglobin 11.0 Blood Gas Inspired Oxygen 21 Date/Time Source Procedure Growth Status 01/11/18 19:11 Blood Peripheral Aerobic Blood Culture - Final NO GROWTH IN 5 DAYS Complete 01/11/18 19:11 Blood Peripheral Anaerobic Blood Culture - Final NO GROWTH IN 5 DAYS Complete 01/18/18 13:17 Cerebral Spinal Fluid Lumbar Puncture Gram Stain - Final Complete 01/18/18 13:17 Cerebral Spinal Fluid Lumbar Puncture CSF Culture - Final NO GROWTH IN 72 HOURS Complete 01/13/18 17:40 Nasal Aspirate Influenza Types A,B Antigen (DIMITRIS) - Final NEGATIVE FOR FLU A AND B ANTIGEN.... Complete 01/20/18 18:00 Urine Clean Catch Urine Culture Pending Received Result Diagram: 01/21/18 0345 01/21/18 0345 Imaging Last Impressions Lumbar Puncture Fluoroscopy 01/18/18 0000 Signed Impressions: Service Date/Time: Thursday, January 18, 2018 13:09 - CONCLUSION: Uncomplicated fluoroscopically guided lumbar puncture. Moses Chavez Jr., MD Renal Ultrasound 01/14/18 0000 Signed Impressions: Service Date/Time: Sunday, January 14, 2018 17:02 - CONCLUSION: 1. Mild medical renal disease. Probable nonobstructing right renal calculus. Graham catheter in bladder. Jonny Arciniega MD Head Magnetic Resonance Angiography 01/14/18 0000 Signed Impressions: Service Date/Time: Sunday, January 14, 2018 15:24 - CONCLUSION: 1. Suboptimal visualization of the left vertebral artery due to motion artifact particularly at the vertebrobasilar junction. Can not exclude a focal flow-limiting stenosis at this level. 2. Otherwise, unremarkable MRA examination of the [place]. No aneurysm or large vessel cerebral artery occlusion Dyllan Luque MD Brain MRI 01/14/18 0000 Signed Impressions: Service Date/Time: Sunday, January 14, 2018 15:24 - CONCLUSION: 1. Redemonstration of chronic cerebellar calcifications. 2. Senescent changes without acute abnormality. Specifically, no evidence for acute infarction. Dyllan Luque MD Abdomen/Pelvis CT 01/13/18 0000 Signed Impressions: Service Date/Time: Sunday, January 14, 2018 16:12 - CONCLUSION: Markedly cirrhotic liver appearance. Splenomegaly. Edinson Urbano MD Soft Tissue Neck X-Ray 01/12/18 0000 Signed Impressions: Service Date/Time: Friday, January 12, 2018 00:21 - CONCLUSION: 1. Degenerative changes of the mid and lower cervical spine. 2. Otherwise negative. No radiopaque foreign body. Gulshan Lieberman MD Head CT [id number] Signed Impressions: Service Date/Time: Thursday, January 11, 2018 19:50 - CONCLUSION: No acute intracranial abnormality demonstrated. Atrophy and chronic cerebellar calcification. Edinson Esquivel MD Chest X-Ray [id number] Signed Impressions: Service Date/Time: Thursday, January 11, 2018 19:41 - CONCLUSION: No evidence of acute cardiopulmonary disease. Edinson Esquivel MD Assessment and Plan Assessment and Plan SIRS possible Sepsis (fever, WBC elevated) ? aspiration pneumonitis related WBC elevation. R/o DVT Acute metabolic encephalopathy: acute hypernatremia, DI present on admission. ? infection. R.o Meningoencephalitis. Diabetes Insipidus, hypernatremia Recs Continue Cefepime IV for now. Doppler LE bilaterally r/o DVT. Follow Procalcitonin. Follow repeat flores cultures. Follow cultures Follow clinically. dw . Kate Gracia MD Jan 21, 2018 11:34
[2018-01-21 13:40] LABS: CSF CRYPTOCOCCUS AG CONF ND (NOT DETECTD)
[2018-01-21] MEDS: NYSTATIN 100,000 UNIT/GM CREAM 15 GM TOPICAL SCH ×2 (16:35→19:15)
[2018-01-21] MEDS: FAMOTIDINE 20 MG TAB PO SCH (21:25)
[2018-01-21 23:53] LABS: THYROGLOB ABS LESS THAN 1 IU/mL (< OR = 1)
[2018-01-22] VITALS (24 sets, daily range): BP systolic 108–126; BP diastolic 56–77; PULSE 80–112; RESP 20–29; TEMP 98.1–99.1; O2SAT 91–97
[2018-01-22] MEDS: CEFEPIME INJ 1,000 MG in SODIUM CHLORIDE 0.9% INJ 100 ML IV SCH ×3 (00:12→18:05)
[2018-01-22] MEDS: NYSTATIN 100,000 UNIT/GM CREAM 15 GM TOPICAL SCH ×4 (00:12→18:04)
[2018-01-22] MEDS: DEXTROSE 5% IN WATE 1000ML INJ 1,000 ML IV SCH ×2 (02:41→18:04)
[2018-01-22 03:59] LABS: BASOPHIL # 0.1 TH/MM3 (0-0.2); BASOPHIL % 0.6 % (0.0-2.0); EOSINOPHIL # 0.2 TH/MM3 (0-0.4); EOSINOPHIL % 0.9 % (0.0-4.0); HEMATOCRIT 32.9 % (39.0-51.0); HEMOGLOBIN 11.3 GM/DL (13.0-17.0); LYMPH % 10.2 % (9.0-44.0); LYMPHOCYTE # 2.1 TH/MM3 (1.0-4.8); MEAN CELL VOLUME 103.1 FL (80.0-100.0); MEAN CORPUSCULAR HEMOGLOBIN 35.4 PG (27.0-34.0); MEAN CORPUSCULAR HGB CONC 34.4 % (32.0-36.0); MEAN PLATELET VOLUME 9.6 FL (7.0-11.0); MONO % 4.6 % (0.0-8.0); MONOCYTE # 0.9 TH/MM3 (0-0.9); NEUT % 83.7 % (16.0-70.0); PLATELET COUNT 120 TH/MM3 (150-450); RED BLOOD COUNT 3.19 MIL/MM3 (4.50-5.90); RED CELL DISTRIBUTION WIDTH 14.9 % (11.6-17.2); WHITE BLOOD COUNT 20.3 TH/MM3 (4.0-11.0)
[2018-01-22 04:25] LABS: ALBUMIN 2.6 GM/DL (3.4-5.0); AST (GOT) 63 U/L (15-37); BLOOD UREA NITROGEN 24 MG/DL (7-18); CALCIUM 8.7 MG/DL (8.5-10.1); CHLORIDE 108 MEQ/L (98-107); CREATININE 2.14 MG/DL (0.60-1.30); GLOMERULAR FILTRATION RATE 32 ML/MIN (>89); GLUCOSE,RANDOM 129 MG/DL (74-106); SODIUM (NA) 140 MEQ/L (136-145)
[2018-01-22 04:28] LABS: ALKALINE PHOSPHATASE 146 U/L (45-117); ALT (GPT) 96 U/L (12-78); BICARBONATE 19.3 MEQ/L (21.0-32.0); TOTAL BILIRUBIN ADULT 0.7 MG/DL (0.2-1.0); TOTAL PROTEIN 7.1 GM/DL (6.4-8.2)
[2018-01-22] MEDS: INSULIN NovoLIN REGULAR SUPPLEMENTAL SCALE SQ SCH ×4 (06:00→18:00)
[2018-01-22] MEDS: hydrALAZINE HCL 50 MG TAB PO SCH ×3 (06:05→22:18)
--- NOTE | 2018-01-22 08:06 | HHI.CCPN ---
Subjective Remarks/Hospital Course Is a 57-year-old male with known history of hypertension, hyperlipidemia, COPD, tobacco abuse, marijuana abuse, spinal stenosis, hypothyroidism, benign prostatic hypertrophy, anxiety, depression,? Bipolar disorder who originally presented to hospital because of altered mentation, confusion. Patient did recently undergo extraction of 10 of his lower teeth 2 days prior to coming to the ER. Records indicate that his stated that the day before coming the patient started talking and nonsense and laying in bed confused with a low- grade fever. Patient was brought to emergency department and had workup performed which did not indicate any acute abnormality for the patient's encephalopathy. Patient did have CT scan done of the brain which did not indicate any acute abnormality. Further studies with alcohol level which was normal, urine drug screen did show positive cannabinoids, TSH was normal, ammonia level was normal. In light of the patient having hyper bilirubin, transaminitis, macrocytic anemia, thrombocytopenia one could consider the patient does have chronic alcohol related issues. Patient was started on thiamine and folic acid. Patient was started on CIWA protocol. Patient was admitted to the hospital for further management patient had signs of systemic inflammatory response syndrome without any sign of infection. He was started on empirical antibiotics to include vancomycin and Zosyn. Patient had workup done with chest x-ray which did not indicate any acute abnormality, urinalysis which is clear, blood cultures are negative for 2 days. No signs of infection at this time, however patient did just recently had 10 teeth extracted. Could have some underlying endocarditis. Patient did have signs of acute renal failure superimposed on chronic kidney disease stage II. Patient was started on IV fluids. Laboratory were followed and this morning patient found to have severe hypernatremia. Workup had been initiated with osmolality studies, urine sodium, ADH, MRI of brain which still awaiting results at this time. Patient was originally started on half-normal saline without any significant improvement. Subsequently changed to D5W at 75 ml/hr. Continue to monitor sodium level every 4 hours. Patient still with considerable altered mental status. Toxic metabolic encephalopathy. Presently the patient is maintaining his airway with good O2 saturations of 96% on room air, however there are episodes of tachypnea going upward 33 breaths per minute. Because of his intermittent respiratory distress and altered mental status is very concerning that the patient may require intubation for continued management and care if his symptoms does not improve. Hospitalist did discuss the case with critical care, because of the critical nature the patient and possible respiratory collapse is recommended patient be transferred to the main IMC under critical care management. Hence critical care was consulted. Subjective: 01/14: Afebrile. Patient easily arousable, and continues to be confused. MRI pending. Patient was maintained on Precedex infusion during the night Precedex infusion off. Patient protecting airway, dyspnea noted at this time. Continued serum sodium level monitoring. Initial ADH level pending. Patient continues on DDAVP, and Amilioride. 01/15: Report of and RE ETCHER, patient's recognition of family members, patient articulating words him what clearer. Upon my evaluation patient was on Precedex per report the patient became agitated during the night and Precedex infusion was increased, patient was placed in 4point restraints for patient safety. Brain imaging studies negative. EEG shows slowing but under the influence of Precedex infusion. 01/16: Overnight the patient received multiple doses of Ativan, and continued on Librium. This a.m. patient more confused than yesterday. Ativan and Librium discontinued, Precedex was discontinued yesterday. Platelet count noted to be low, HIT panel ordered . In anticipation of lumbar puncture, repeat platelet count this afternoon possible transfusion of platelets. INR pending. Discussed plan with Dr. Nur. 01/17 Patient is lying in bed in NAD. Afebrile. remains confused. For possible LP today 01/18 Patient was given Ativan twice overnight. Renal function is improving with Cr: 3.01 from 3.49 01/19 No events overnight. s/p LP yesterday showed clear CSF 5 wbc, nl gic, TP: 45.5 01/20 No events overnight. T:100.4, renal function is improving Cr:2.34 from 2.72 01/21 Patient had T: 100.1 last night, had 1175ml gastric output from NGT. 01/22 Patient is lying in bed in NAD. T:100.0 last night Objective Vital Signs Date Time Temp Pulse Resp B/P (MAP) Pulse Ox O2 Delivery O2 Flow Rate FiO2 01/22/18 06:00 103 01/22/18 04:00 99.0 24 124/70 (88) 97 Intake and Output 01/22/18 01/22/18 01/23/18 08:00 16:00 00:00 Intake Total 1350 ml Output Total 900 ml Balance 450 ml Result Diagram: 01/22/18 0335 01/22/18 0335 Other Results Laboratory Tests Test 01/21/18 08:35 01/21/18 16:15 01/22/18 03:35 Blood Gas Puncture Site LT RADIAL Blood Gas Patient Temperature 98.6 Blood Gas HCO3 19 mmol/L Blood Gas Base Excess -4.8 mmol/L Blood Gas Oxygen Saturation 95 % Arterial Blood pH 7.44 Arterial Blood Partial Pressure CO2 28 mmHg Arterial Blood Partial Pressure O2 86 mmHg Arterial Blood Oxygen Content 14.8 Vol % Arterial Blood Carboxyhemoglobin 0.9 % Arterial Blood Methemoglobin 1.2 % Blood Gas Hemoglobin 11.0 G/DL Blood Gas Inspired Oxygen 21 % Stool C. difficile Toxin (PCR) NEGATIVE Stl C. difficile Toxin Epiderm 027 PRESUMPTIVE NEGATIVE White Blood Count 20.3 TH/MM3 Red Blood Count 3.19 MIL/MM3 Hemoglobin 11.3 GM/DL Hematocrit 32.9 % Mean Corpuscular Volume 103.1 FL Mean Corpuscular Hemoglobin 35.4 PG Mean Corpuscular Hemoglobin Concent 34.4 % Red Cell Distribution Width 14.9 % Platelet Count 120 TH/MM3 Mean Platelet Volume 9.6 FL Neutrophils (%) (Auto) 83.7 % Lymphocytes (%) (Auto) 10.2 % Monocytes (%) (Auto) 4.6 % Eosinophils (%) (Auto) 0.9 % Basophils (%) (Auto) 0.6 % Neutrophils # (Auto) 17.0 TH/MM3 Lymphocytes # (Auto) 2.1 TH/MM3 Monocytes # (Auto) 0.9 TH/MM3 Eosinophils # (Auto) 0.2 TH/MM3 Basophils # (Auto) 0.1 TH/MM3 CBC Comment DIFF FINAL Differential Comment Blood Urea Nitrogen 24 MG/DL Creatinine 2.14 MG/DL Random Glucose 129 MG/DL Total Protein 7.1 GM/DL Albumin 2.6 GM/DL Calcium Level 8.7 MG/DL Alkaline Phosphatase 146 U/L Aspartate Amino Transf (AST/SGOT) 63 U/L Alanine Aminotransferase (ALT/SGPT) 96 U/L Total Bilirubin 0.7 MG/DL Sodium Level 140 MEQ/L Potassium Level 3.3 MEQ/L Chloride Level 108 MEQ/L Carbon Dioxide Level 19.3 MEQ/L Anion Gap 13 MEQ/L Estimat Glomerular Filtration Rate 32 ML/MIN Imaging Last Impressions Chest X-Ray 3/26/18 0000 Signed Impressions: Service Date/Time: Sunday, January 21, 2018 08:52 - CONCLUSION: 1. No acute cardiac pulmonary disease. 2. Apparent placement of a nasogastric tube with the tip projected over the mid to distal esophagus. Shubham Patricio MD Abdomen X-Ray 01/21/18 0000 Signed Impressions: Service Date/Time: Sunday, January 21, 2018 08:43 - CONCLUSION: 1. Unremarkable bowel gas pattern. 2. Nasogastric tube with the tip in the proximal stomach. Shubham Patricio MD Lumbar Puncture Fluoroscopy 01/18/18 0000 Signed Impressions: Service Date/Time: Thursday, January 18, 2018 13:09 - CONCLUSION: Uncomplicated fluoroscopically guided lumbar puncture. Moses Chavze Jr., MD Renal Ultrasound 01/14/18 0000 Signed Impressions: Service Date/Time: Sunday, January 14, 2018 17:02 - CONCLUSION: 1. Mild medical renal disease. Probable nonobstructing right renal calculus. Graham catheter in bladder. Jonny Arciniega MD Head Magnetic Resonance Angiography 01/14/18 0000 Signed Impressions: Service Date/Time: Sunday, January 14, 2018 15:24 - CONCLUSION: 1. Suboptimal visualization of the left vertebral artery due to motion artifact particularly at the vertebrobasilar junction. Can not exclude a focal flow-limiting stenosis at this level. 2. Otherwise, unremarkable MRA examination of the [place]. No aneurysm or large vessel cerebral artery occlusion Dyllan Luque MD Brain MRI 01/14/18 0000 Signed Impressions: Service Date/Time: Sunday, January 14, 2018 15:24 - CONCLUSION: 1. Redemonstration of chronic cerebellar calcifications. 2. Senescent changes without acute abnormality. Specifically, no evidence for acute infarction. Dyllan Luque MD Abdomen/Pelvis CT 01/13/18 0000 Signed Impressions: Service Date/Time: Sunday, January 14, 2018 16:12 - CONCLUSION: Markedly cirrhotic liver appearance. Splenomegaly. Edinson Urbano MD Soft Tissue Neck X-Ray 01/12/18 0000 Signed Impressions: Service Date/Time: Friday, January 12, 2018 00:21 - CONCLUSION: 1. Degenerative changes of the mid and lower cervical spine. 2. Otherwise negative. No radiopaque foreign body. Gulshan Lieberman MD Head CT 01/11/[id number] Signed Impressions: Service Date/Time: Thursday, January 11, 2018 19:50 - CONCLUSION: No acute intracranial abnormality demonstrated. Atrophy and chronic cerebellar calcification. Edinson Esquivel MD Objective Remarks GENERAL: Well-developed, well-nourished, in no acute distress. Confused HEENT: Head is normocephalic without any lesions or masses noted. Facial features are symmetric. Eyes: Pupils equal round reactive to light. Extraocular muscles are intact. Conjunctivae were clear. NECK: Supple without any masses. Trachea midline no deviation. No JVD, no bruits are appreciated CARDIAC: Tachycardic S1/S2 are heard. No murmurs gallops or rubs. LUNGS: Clear to auscultation bilaterally. No wheeze, rhonchi or rales. No use of accessory muscles on inspiration or expiration. ABDOMEN: Soft, nontender. Nondistended. Bowel sounds heard in all 4 quadrants. No organomegaly or masses. Negative rebound, negative guarding EXTREMITIES: No edema, pulses are equal bilaterally. No cyanosis or clubbing NEUROLOGY:Confused. A/P Problem List: (1) Toxic metabolic encephalopathy ICD Code: G92 - Toxic encephalopathy Status: Acute (2) Altered mental status ICD Code: R41.82 - Altered mental status, unspecified (3) Hypernatremia ICD Code: E87.0 - Hyperosmolality and hypernatremia Status: Acute (4) Systemic inflammatory response syndrome ICD Code: R65.10 - Systemic inflammatory response syndrome (SIRS) of non- infectious origin without acute organ dysfunction (5) Acute renal failure superimposed on stage 2 chronic kidney disease ICD Code: N17.9 - Acute kidney failure, unspecified; N18.2 - Chronic kidney disease, stage 2 (mild) Status: Acute (6) Chronic obstructive pulmonary disease ICD Code: J44.9 - Chronic obstructive pulmonary disease, unspecified (7) Hypothyroidism ICD Code: E03.9 - Hypothyroidism, unspecified (8) Leukocytosis ICD Code: D72.829 - Elevated white blood cell count, unspecified (9) Macrocytic anemia ICD Code: D53.9 - Nutritional anemia, unspecified (10) Thrombocytopenia ICD Code: D69.6 - Thrombocytopenia, unspecified Status: Acute (11) Hyperbilirubinemia ICD Code: E80.6 - Other disorders of bilirubin metabolism (12) Transaminitis ICD Code: R74.0 - Nonspecific elevation of levels of transaminase and lactic acid dehydrogenase [LDH] (13) Hyperglycemia ICD Code: R73.9 - Hyperglycemia, unspecified Assessment and Plan NEUROLOGY Altered mental status Toxic metabolic encephalopathy Anxiety/depression,? Bipolar disorder THC use Possible central diabetes insipidus 01/18 s/p LP : clear CSF, 5 WBC, nl goc, TP:45.5 01/12 CT scan of brain does not indicate any acute abnormality Urine drug screen was positive for cannabinoids Alcohol level was less than 3, TSH, B12, folate were normal [facility] level 0.3 Continue neuro checks every one hour On thiamine, continue folic acid/ MVI daily Seizure precaution 01/14 EEG-no epileptiform features mild to moderate diffuse disturbance in cerebral function Neurology following 01/14- MRI-no acute infarction 01/14- MRA- unremarkable exam of the [place] PULMONOLOGY Chronic obstructive pulmonary disease Chronic tobacco abuse Continue with oxygen keep sats >92% head of bed 30, Duo nebs every 6 hours as needed for shortness of breath or dyspnea CXR yesterday > No acute disease CARDIOLOGY Hypertension Hyperlipidemia On Lopressor 50mg Q12, Hydralazine 50mg Q8-monitor and maintain MAP greater than 65 ECHO showed EF 55-60% GASTROENTEROLOGY Hyperbilirubinemia Transaminitis Hepatitis C Cirrhosis of Liver KUB abdomen 01/21: Unremarkable bowel gas pattern Tube feeds placed on hold ( Nepro) monitor gastric output CT abd/pelvis: Markedly cirrhotic liver appearance. Splenomegaly. Hep C viral hepatitis antibody positive GI prophylaxis Pepcid IV twice daily Lactulose 30ml TID monitor Ammonia level( 40) RENAL Acute renal failure superimposed on chronic kidney disease stage II Hypernatremia: Possible dehydration, diabetes insipidus (central versus nephrogenic) Continue Amiloride 10mg daily D5W at 100 ml/hr, free water 250ml Q12, monitor sodium level. On DDAVP 2mcg Q12 Nephrology is following Renal function is improving with Cr: 2.14, UOP: 1450ml in 25 hrs INFECTIOUS DISEASE Continue abx (Cefepime,) monitor for signs of infections ( Fever, WBC) ID is following Follow up on blood cultures from 01/21, Urine cx 01/20: No growth BC 01/11 NGTD, influenza screening negative 01/13 s/p LP 01/18: clear CSF, 5 WBC, nl glc, TP:45.5. HSV PCR negative, CSF cx: No growth ENDOCRINOLOGY Hypothyroidism Hyperglycemia TSH 2.86 SSI for glycemic control HEMATOLOGY Macrocytic anemia Thrombocytopenia- could be related to liver disease Monitor CBC, Hep PLT ab is negative Monitor coags, PROPHYLAXIS DVT- SCD's resume Heparin SQ( H/H stable, PLT is recovering) GI protection with Pepcid IV LINES Peripheral IVs Level 2 Mariella Ware MD Jan 22, 2018 08:06
[2018-01-22] MEDS: THIAMINE HCL 100 MG TAB PO SCH (08:39)
[2018-01-22] MEDS: METOPROLOL TARTRATE 50 MG TAB PO SCH ×2 (08:39→20:25)
[2018-01-22] MEDS: aMILoride HCL 5 MG TAB PO SCH (08:39)
[2018-01-22] MEDS: FOLIC ACID 1 MG TAB PO SCH (08:39)
[2018-01-22] MEDS: FAMOTIDINE 20 MG TAB PO SCH ×2 (08:39→20:25)
[2018-01-22] MEDS: MULTIVITAMIN TAB PO SCH (08:39)
[2018-01-22] MEDS: DOCUSATE SODIUM 50 MG/SENNA 8.6 MG TAB PO SCH ×2 (08:40→20:25)
[2018-01-22] MEDS: DESMOPRESSIN ACETATE 4 MCG/ML VIAL IV PUSH SCH ×2 (08:40→21:04)
[2018-01-22] MEDS: FREE WATER G-TUBE SCH ×2 (08:40→20:25)
[2018-01-22] MEDS: SODIUM CHLORIDE 0.9% FLUSH 10 ML FLUSH IV FLUSH SCH ×2 (08:40→20:25)
[2018-01-22] MEDS: LACTULOSE SYRUP 20 GM/30 ML CUP PO SCH ×3 (09:00→18:00)
[2018-01-22] MEDS ORDERED: POTASSIUM CHLOR 20 MEQ PREMIX 100 ML IV ONE (09:00)
--- NOTE | 2018-01-22 10:19 | HHI.PR ---
Review/Management Diagnosis/Plan: (1) Toxic metabolic encephalopathy ICD Codes: G92 - Toxic encephalopathy Status: Acute Plan: etiology: multifactorial. 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/lesion mri/mra brain- no acute infarct eeg- slowing elevated lft's, nh3 recs mental status appears grossly unchanged getting lactulose lp done, many results still pending ID following renal following (2) Acute renal failure superimposed on stage 2 chronic kidney disease ICD Codes: N17.9 - Acute kidney failure, unspecified; N18.2 - Chronic kidney disease, stage 2 (mild) Status: Acute Plan: seen by renal (3) Hypernatremia ICD Codes: E87.0 - Hyperosmolality and hypernatremia Status: Acute Plan: renal following (4) Thrombocytopenia ICD Codes: D69.6 - Thrombocytopenia, unspecified Status: Acute Plan: monitor for bleeding (Darell Tsai) Diagnosis/Plan: (1) Toxic metabolic encephalopathy ICD Codes: G92 - Toxic encephalopathy Status: Acute Plan: etiology: multifactorial. 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 d/w PA. doing better on my visit. following some simple requests; states name. sodium and renal function improved (Wing Nur MD) Subjective Subjective Comments No acute events reported, pt still nonverbal. Active Medications Current Medications Medications (Trade) Dose Ordered Sig/[place] Route Start Time Stop Time Status Last Admin (NS Flush) 2 ml UNSCH PRN IV FLUSH 01/12/18 00:45 (NS Flush) 2 ml BID IV FLUSH 01/12/18 09:00 01/22/18 08:40 (Tylenol) 650 mg Q4H PRN PO 01/12/18 00:45 01/20/18 05:18 (Zofran Inj) 4 mg Q6H PRN IVP 01/12/18 00:45 01/12/18 02:51 (Narcan Inj) 0.4 mg UNSCH PRN IV PUSH 01/12/18 00:45 (Shari-Colace) 1 tab BID PO 01/12/18 09:00 01/16/18 09:07 (Milk Of Magnesia Liq) 30 ml Q12H PRN PO 01/12/18 00:45 (Senokot) 17.2 mg Q12H PRN PO 01/12/18 00:45 (Dulcolax Supp) 10 mg DAILY PRN RECTAL 01/12/18 00:45 (Lactulose Liq) 30 ml DAILY PRN PO 01/12/18 00:45 (Catapres) 0.1 mg Q6H PRN PO 01/12/18 10:00 (Romazicon Inj) 0.2 mg Q1M PRN IV PUSH 01/12/18 10:00 (Duoneb Neb) 1 ampule Q4HR NEB PRN NEB 01/13/18 13:00 Dextrose 1,000 ml @ 100 mls/hr Q10H IV 01/13/18 15:00 01/22/18 02:41 (Vasotec Inj) 1.25 mg Q6H PRN IV PUSH 01/13/18 16:00 (Apresoline Inj) 20 mg Q4H PRN IV PUSH 01/13/18 16:00 (Ddavp Inj) 2 mcg Q12HR IV PUSH 01/13/18 21:00 01/22/18 08:40 (Midamor) 10 mg DAILY PO 01/13/18 20:45 01/22/18 08:39 Miscellaneous Information Patient in critical care unit? Ass... Q361D .XX 01/14/18 02:45 (Vitamin B1) 100 mg DAILY PO 01/17/18 11:00 01/22/18 08:39 (Folate) 1 mg DAILY PO 01/17/18 11:00 01/22/18 08:39 (Theragran) 1 tab DAILY PO 01/17/18 11:00 01/22/18 08:39 (D50w (Vial) Inj) 50 ml UNSCH PRN IV PUSH 01/17/18 11:00 (Glucagon Inj) 1 mg UNSCH PRN OTHER 01/17/18 11:00 (NovoLIN R SUPPLEMENTAL SCALE) 1 Q6HR SQ 01/17/18 12:00 01/19/18 23:53 (Ativan Inj) 1 mg Q4H PRN IV 01/17/18 19:45 01/21/18 02:50 (Lopressor) 50 mg Q12HR PO 01/18/18 09:15 01/22/18 08:39 (Lactulose Liq) 30 ml TID PO 01/18/18 13:00 01/20/18 17:48 (Mycostatin Powder) 1 applic Q12HR PRN TOPICAL 01/18/18 12:30 01/21/18 02:35 (Apresoline) 50 mg Q8HR PO 01/19/18 08:00 01/22/18 06:05 Cefepime HCl 1000 mg/Sodium Chloride 100 ml @ 200 mls/hr Q8H IV 01/21/18 09:00 01/22/18 08:39 (Free Water) 250 ml Q12HR G-TUBE 01/21/18 09:00 01/22/18 08:40 (Mycostatin Cream) 1 applic Q6HR TOPICAL 01/21/18 12:00 01/22/18 06:05 (Pepcid) 10 mg BID PO 01/21/18 21:00 01/22/18 08:39 Potassium Chloride 100 ml @ 50 mls/hr BOLUS ONCE IV 01/22/18 09:00 01/22/18 10:59 (Heparin Inj) 5,000 units Q12HR SQ 01/22/18 09:00 Allergies Allergies Coded Allergies chlorpheniramine (Unverified Allergy, Severe, ANTIHISTAMINE???, 01/11/18) pseudoephedrine (Unverified Allergy, Severe, DECONGESTANTS???, 01/11/18) (Darell Tsai) Review of Systems All other ROS: Unable to obtain (Darell Tsai) Exam I&O / VS Vital Signs Date Time Temp Pulse Resp B/P (MAP) Pulse Ox O2 Delivery O2 Flow Rate FiO2 01/22/18 06:00 103 01/22/18 04:00 109 01/22/18 04:00 99.0 109 24 124/70 (88) 97 01/22/18 02:00 109 01/22/18 00:00 112 01/22/18 00:00 99.1 112 24 125/69 (87) 92 01/21/18 22:00 114 01/21/18 20:00 118 01/21/18 20:00 100.0 118 28 129/82 (98) 92 01/21/18 18:00 104 01/21/18 16:00 101 01/21/18 16:00 99.1 101 26 131/83 (99) 96 01/21/18 14:00 96 01/21/18 12:00 98.6 93 24 123/66 (85) 94 01/21/18 12:00 103 General: No acute distress Respiratory: Non-labored respirations, Symmetrical expansion Cardiology: Normal rate Neurologic: Alert, Normal DTR's Exam Comments not following, not necessarily verbal but mutters, grimaces, follows examiner with eyes intermittently, ou 4-3mm, reduced blink to threat, no gross eye deviation, ue in restraints, moves all 4 independently but not to command (Darell Tsai) Objective Micro and Labs Laboratory Tests Test 01/21/18 16:15 01/22/18 03:35 Stool C. difficile Toxin (PCR) NEGATIVE Stl C. difficile Toxin Epiderm 027 PRESUMPTIVE NEGATIVE White Blood Count 20.3 Red Blood Count 3.19 Hemoglobin 11.3 Hematocrit 32.9 Mean Corpuscular Volume 103.1 Mean Corpuscular Hemoglobin 35.4 Mean Corpuscular Hemoglobin Concent 34.4 Red Cell Distribution Width 14.9 Platelet Count 120 Mean Platelet Volume 9.6 Neutrophils (%) (Auto) 83.7 Lymphocytes (%) (Auto) 10.2 Monocytes (%) (Auto) 4.6 Eosinophils (%) (Auto) 0.9 Basophils (%) (Auto) 0.6 Neutrophils # (Auto) 17.0 Lymphocytes # (Auto) 2.1 Monocytes # (Auto) 0.9 Eosinophils # (Auto) 0.2 Basophils # (Auto) 0.1 CBC Comment DIFF FINAL Differential Comment Blood Urea Nitrogen 24 Creatinine 2.14 Random Glucose 129 Total Protein 7.1 Albumin 2.6 Calcium Level 8.7 Alkaline Phosphatase 146 Aspartate Amino Transf (AST/SGOT) 63 Alanine Aminotransferase (ALT/SGPT) 96 Total Bilirubin 0.7 Sodium Level 140 Potassium Level 3.3 Chloride Level 108 Carbon Dioxide Level 19.3 Anion Gap 13 Estimat Glomerular Filtration Rate 32 Date/Time Source Procedure Growth Status 01/21/18 12:20 Blood Peripheral Aerobic Blood Culture Pending Received 01/21/18 12:20 Blood Peripheral Anaerobic Blood Culture Pending Received 01/18/18 13:17 Cerebral Spinal Fluid Lumbar Puncture Gram Stain - Final Complete 01/18/18 13:17 Cerebral Spinal Fluid Lumbar Puncture CSF Culture - Final NO GROWTH IN 72 HOURS Complete 01/13/18 17:40 Nasal Aspirate Influenza Types A,B Antigen (DIMITRIS) - Final NEGATIVE FOR FLU A AND B ANTIGEN.... Complete 01/20/18 18:00 Urine Clean Catch Urine Culture - Preliminary NO GROWTH IN 24 HOURS. Resulted (Darell Tsai) Darell Tsai Jan 22, 2018 10:19 Wing Nur MD Jan 22, 2018 16:21
--- NOTE | 2018-01-22 11:14 | RADRPT ---
EXAM DATE/TIME: 01/22/2018 10:36 [facility] COMPARISON: No previous studies available for comparison. INDICATIONS : Bilateral leg swelling. MEDICAL HISTORY : Hypothyroidism. Hypercholesterolemia. Emphysema. Calcified brain bleed. CVA. Confusion. HTN. COPD. In guinal hernia. Arthritis. Spinal stenosis. Tobacco use. Depression. Bipolar disorder. Anxiety. SURGICAL HISTORY : Pacemaker.Appendectomy. Lower teeth pulled. Plate to left arm. Left hand surgery x2. Left knee surger y. ENCOUNTER: Initial ACUITY: 1 day PAIN SCORE: 0/10 LOCATION: Bilateral leg. TECHNIQUE: Venous ultrasound of the left and right leg was performed from the inguinal ligament to the proximal calf. Real-time, color Doppler and spectral tracing, compression and augmentation techniques were us ed. FINDINGS: RIGHT LEG: There is normal compressibility of the deep venous system from the inguinal region to the proximal ca lf. No echogenic clot is seen in the lumen of the common femoral, femoral, popliteal, and posterior tibial veins. There is a normal response of the venous system to proximal and distal augmentation an d respiration. LEFT LEG: There is normal compressibility of the deep venous system from the inguinal region to the proximal ca lf. No echogenic clot is seen in the lumen of the common femoral, femoral, popliteal, and posterior tibial veins. There is a normal response of the venous system to proximal and distal augmentation an d respiration. CONCLUSION: Normal examination. Jonny Arciniega MD on January 22, 2018 at 11:11 Board Certified Radiologist. This report was verified electronically.
--- NOTE | 2018-01-22 11:31 | HHI.IDPN ---
Subjective Subjective Remarks is a 57-year-old male with past medical history significant for hypertension, hyperlipidemia, COPD, tobacco abuse. Patient's past medical history reportedly is also significant for marijuana use, spinal stenosis unsure if he had any instrumentation. Patient also has a history of hypothyroidism. Patient's psychiatric history is also significant for anxiety, depression possibly history of bipolar disorder who is on multiple medications such as buspirone, citalopram, mirtazapine, gabapentin, hydroxyzine as well as lithium. With this background patient presents to the hospital with a history of altered mental status and confusion prior to admission. Per records patient's noticed that patient was starting to speak nonsensical language and was laying in bed with a low-grade fever. Reportedly patient also had an extraction about 10 of his lower teeth 2 days prior to coming to the emergency department. Sepsis workup as well as a neurological workup was initiated on admission. Blood cultures on admission and negative so far. CSF studies done on admission show 5 wbc, normal glucose total protein 45.5, CSF HSV 1 and 2 are negative. CSF VDRL is pending at the present time. An MRI of the brain did not show any acute infarcts or any infectious etiology. Evaluation was started on empiric vancomycin IV and Zosyn. Infectious disease is consulted for evaluation and management of persistent fevers and leukocytosis. At the time of my evaluation patient is in the ICU currently on room air not on any pressors. Overnight events reviewed No fevers No rash No diarrhea Opens eyes per . Did not follow commands or open eyes for me. Reviewed PMHx: patient has h/o bipolar disorder, h/o institutionalization possibly in past. H/o overdose in the past. At baseline: not reliable with finances but cooks, cleans and manages things around house. Does not work. But independent of ADL. Antibiotics Cefepime IV Lines Line sites with no e.o infection. Past Medical History reviewed. Allergies: Coded Allergies: chlorpheniramine (Unverified Allergy, Severe, ANTIHISTAMINE???, 01/11/18) pseudoephedrine (Unverified Allergy, Severe, DECONGESTANTS???, 01/11/18) Objective . Vital Signs Date Time Temp Pulse Resp B/P (MAP) Pulse Ox O2 Delivery O2 Flow Rate FiO2 01/22/18 06:00 103 01/22/18 04:00 109 01/22/18 04:00 99.0 109 24 124/70 (88) 97 01/22/18 02:00 109 01/22/18 00:00 112 01/22/18 00:00 99.1 112 24 125/69 (87) 92 01/21/18 22:00 114 01/21/18 20:00 118 01/21/18 20:00 100.0 118 28 129/82 (98) 92 01/21/18 18:00 104 01/21/18 16:00 101 01/21/18 16:00 99.1 101 26 131/83 (99) 96 01/21/18 14:00 96 01/21/18 12:00 98.6 93 24 123/66 (85) 94 01/21/18 12:00 103 . Laboratory Tests Test 01/21/18 03:45 01/22/18 03:35 White Blood Count 20.9 TH/MM3 20.3 TH/MM3 Red Blood Count 3.21 MIL/MM3 3.19 MIL/MM3 Hemoglobin 11.4 GM/DL 11.3 GM/DL Hematocrit 33.5 % 32.9 % Mean Corpuscular Volume 104.3 FL 103.1 FL Mean Corpuscular Hemoglobin 35.6 PG 35.4 PG Mean Corpuscular Hemoglobin Concent 34.1 % 34.4 % Red Cell Distribution Width 14.7 % 14.9 % Platelet Count 113 TH/MM3 120 TH/MM3 Mean Platelet Volume 9.3 FL 9.6 FL Neutrophils (%) (Auto) 79.6 % 83.7 % Lymphocytes (%) (Auto) 11.7 % 10.2 % Monocytes (%) (Auto) 6.3 % 4.6 % Eosinophils (%) (Auto) 2.0 % 0.9 % Basophils (%) (Auto) 0.4 % 0.6 % Neutrophils # (Auto) 16.6 TH/MM3 17.0 TH/MM3 Lymphocytes # (Auto) 2.5 TH/MM3 2.1 TH/MM3 Monocytes # (Auto) 1.3 TH/MM3 0.9 TH/MM3 Eosinophils # (Auto) 0.4 TH/MM3 0.2 TH/MM3 Basophils # (Auto) 0.1 TH/MM3 0.1 TH/MM3 CBC Comment DIFF FINAL DIFF FINAL Differential Comment Laboratory Tests Test 01/20/18 20:20 01/21/18 03:45 01/22/18 03:35 Potassium Level 3.4 MEQ/L 3.5 MEQ/L 3.3 MEQ/L Blood Urea Nitrogen 26 MG/DL 24 MG/DL Creatinine 2.18 MG/DL 2.14 MG/DL Random Glucose 134 MG/DL 129 MG/DL Total Protein 7.5 GM/DL 7.1 GM/DL Albumin 2.8 GM/DL 2.6 GM/DL Calcium Level 8.4 MG/DL 8.7 MG/DL Alkaline Phosphatase 159 U/L 146 U/L Aspartate Amino Transf (AST/SGOT) 59 U/L 63 U/L Alanine Aminotransferase (ALT/SGPT) 99 U/L 96 U/L Total Bilirubin 0.7 MG/DL 0.7 MG/DL Sodium Level 144 MEQ/L 140 MEQ/L Chloride Level 115 MEQ/L 108 MEQ/L Carbon Dioxide Level 19.3 MEQ/L 19.3 MEQ/L Anion Gap 10 MEQ/L 13 MEQ/L Estimat Glomerular Filtration Rate 31 ML/MIN 32 ML/MIN Ammonia 22 MCMOL/L Microbiology Date/Time Source Procedure Growth Status 01/21/18 12:20 Blood Peripheral Aerobic Blood Culture - Preliminary NO GROWTH IN 1 DAY Resulted 01/21/18 12:20 Blood Peripheral Anaerobic Blood Culture - Preliminary NO GROWTH IN 1 DAY Resulted 01/21/18 12:10 Blood Peripheral Aerobic Blood Culture - Preliminary NO GROWTH IN 1 DAY Resulted 01/21/18 12:10 Blood Peripheral Anaerobic Blood Culture - Preliminary NO GROWTH IN 1 DAY Resulted 01/20/18 18:00 Urine Clean Catch Urine Culture - Final NO GROWTH IN 48 HOURS. Complete Imaging Last Impressions Chest X-Ray 01/21/18 0000 Signed Impressions: Service Date/Time: Sunday, January 21, 2018 08:52 - CONCLUSION: 1. No acute cardiac pulmonary disease. 2. Apparent placement of a nasogastric tube with the tip projected over the mid to distal esophagus. Shubham Patricio MD Abdomen X-Ray 01/21/18 0000 Signed Impressions: Service Date/Time: Sunday, January 21, 2018 08:43 - CONCLUSION: 1. Unremarkable bowel gas pattern. 2. Nasogastric tube with the tip in the proximal stomach. Shubham Patricio MD Lumbar Puncture Fluoroscopy 01/18/18 0000 Signed Impressions: Service Date/Time: Thursday, January 18, 2018 13:09 - CONCLUSION: Uncomplicated fluoroscopically guided lumbar puncture. Moses Chavez Jr., MD Renal Ultrasound 01/14/18 0000 Signed Impressions: Service Date/Time: Sunday, January 14, 2018 17:02 - CONCLUSION: 1. Mild medical renal disease. Probable nonobstructing right renal calculus. Graham catheter in bladder. Jonny Arciniega MD Head Magnetic Resonance Angiography 01/14/18 0000 Signed Impressions: Service Date/Time: Sunday, January 14, 2018 15:24 - CONCLUSION: 1. Suboptimal visualization of the left vertebral artery due to motion artifact particularly at the vertebrobasilar junction. Can not exclude a focal flow-limiting stenosis at this level. 2. Otherwise, unremarkable MRA examination of the [place]. No aneurysm or large vessel cerebral artery occlusion Dyllan Luque MD Brain MRI 01/14/18 0000 Signed Impressions: Service Date/Time: Sunday, January 14, 2018 15:24 - CONCLUSION: 1. Redemonstration of chronic cerebellar calcifications. 2. Senescent changes without acute abnormality. Specifically, no evidence for acute infarction. Dyllan Luque MD Abdomen/Pelvis CT 01/13/18 0000 Signed Impressions: Service Date/Time: Sunday, January 14, 2018 16:12 - CONCLUSION: Markedly cirrhotic liver appearance. Splenomegaly. Edinson Urbano MD Soft Tissue Neck X-Ray 01/12/18 0000 Signed Impressions: Service Date/Time: Friday, January 12, 2018 00:21 - CONCLUSION: 1. Degenerative changes of the mid and lower cervical spine. 2. Otherwise negative. No radiopaque foreign body. Gulshan Lieberman MD Head CT 01/11/[id number] Signed Impressions: Service Date/Time: Thursday, January 11, 2018 19:50 - CONCLUSION: No acute intracranial abnormality demonstrated. Atrophy and chronic cerebellar calcification. Edinson Esquivel MD Physical Exam GENERAL: This is a well-nourished, well-developed patient, in no apparent distress. SKIN: No rashes, ecchymoses or lesions. Cool and dry. HEAD: Atraumatic. Normocephalic. No temporal or scalp tenderness. EYES: Pupils equal round and reactive. Extraocular motions intact. No scleral icterus. No injection or drainage. ENT: Nose without bleeding, purulent drainage or septal hematoma. Throat without erythema, tonsillar hypertrophy or exudate. Uvula midline. Airway patent. NECK: Trachea midline. Supple, nontender, no meningeal signs. CARDIOVASCULAR: Regular rate and rhythm without murmurs. RESPIRATORY: Clear to auscultation. Breath sounds equal bilaterally. No wheezes , rales, or rhonchi. GASTROINTESTINAL: Abdomen soft, non-tender, nondistended. MUSCULOSKELETAL: Extremities without clubbing, cyanosis, or edema. No joint tenderness, effusion, or edema noted. No calf tenderness. Negative Homans sign bilaterally. NEUROLOGICAL: Not oriented. Did not follow commands Psych difficult to assess, calm. IV line sites with no evidence of infection. Assessment & Plan Remarks SIRS possible Sepsis (fever, WBC elevated) ? aspiration pneumonitis related WBC elevation. R/o DVT Hepatitis C antibody positive: reports patient is s.p treatment for Hep C. Acute metabolic encephalopathy: acute hypernatremia, DI present on admission. ? infection. R.o Meningoencephalitis. Diabetes Insipidus, hypernatremia Acute renal failure: prerenal, metabolic Recs Continue Cefepime IV for now. Doppler LE bilaterally r/o DVT. Follow Procalcitonin. Follow repeat flores cultures. Follow cultures Follow clinically. dw . Kate Gracia MD Jan 22, 2018 11:31
--- NOTE | 2018-01-22 13:23 | HHI.NPPN ---
Subjective Complaints: Confused History of Present Illness This is a 57-year-old male with a history of apparent bipolar disorder. The patient has been on lithium in the past. It is unclear how long he has been on lithium. The patient was admitted on 01/12/2018, after he had a recent extensive dental extraction. The patient had apparent sudden acute onset of confusion and altered mental status. The patient was found at home lying shaking with confusion and a low-grade temperature. Here, the patient was seen in the emergency room. He was further evaluated and brought to the ICU when he had ongoing confusion and altered mental status. Drug screen showed positive cannabinoids. He was initially started on IV fluids with normal saline. He has subsequently developed acute significant hypernatremia. He had a serum sodium of 133 on presentation. He was started initially on normal saline and his sodium jumped up to a level of 160. Throughout the course of today, the patient 's sodium has continued to rise from 160 up to 166 and then 165. He initially was on normal saline and then was given half normal saline and is now on D5W. The patient had ongoing confusion and altered mental status and was intubated after he had significant tachycardia and tachypnea. At this point, the patient is intubated and sedated and is receiving D5W for hypernatremia. Nephrology was consulted for further evaluation. Additional Remarks Continues to be lethargic. Sodium level is now normal (Zamzam Valentino) Review of Systems General General Remarks Unable to do ROS (Zamzam Valentino) Objective Data Data Vital Signs Date Time Temp Pulse Resp B/P (MAP) Pulse Ox O2 Delivery O2 Flow Rate FiO2 01/22/18 08:00 100 01/22/18 06:00 103 01/22/18 04:00 109 01/22/18 04:00 99.0 109 24 124/70 (88) 97 01/22/18 02:00 109 01/22/18 00:00 112 01/22/18 00:00 99.1 112 24 125/69 (87) 92 01/21/18 22:00 114 01/21/18 20:00 118 01/21/18 20:00 100.0 118 28 129/82 (98) 92 01/21/18 18:00 104 01/21/18 16:00 101 01/21/18 16:00 99.1 101 26 131/83 (99) 96 01/21/18 14:00 96 (Zamzam Valentino) -: 01/22/18 0335 01/22/18 0335 Physical Exam General Appearance: No Acute Distress, Anxious (Zamzam Valentino) Pulmonary Resp Exam: Breath Sounds Equal, No Distress, Rhonchi (Zamzam Valentino) Cardiology CV Exam: Regular (Zamzam Valentino) Gastrointestinal/Abdomen GI Exam: Soft, Non-Tender, Bowel Sounds Present (Zamzam Valentino) Genitourinary Exam: Flank Non-Tender (Zamzam Valentino) Integumentary Skin Exam: Warm, Dry Skin Remarks Rash on buttocks (Zamzam Valentino) Extremeties Extremities Exam: No Edema (Zamzam Valentino) Neurologic Neuro Exam: Unresponsive (Zamzam Valentino) Assessment/Plan Electrolyte Assessment: Hypernatremia Problem List: (1) Hypernatremia ICD Codes: E87.0 - Hyperosmolality and hypernatremia Status: Acute Plan: Possible diabetes insipidus possible secondary to chronic calcifications. Also possible nephrogenic component for diabetes insipidus given that the patient has had ongoing lithium use on as far as his lithium toxicity. Plan D5W decreased to 50 ml/hr Continue Amiloride 10mg daily Continue Free water On DDAVP ADH level is normal (2) Acute renal failure superimposed on stage 2 chronic kidney disease ICD Codes: N17.9 - Acute kidney failure, unspecified; N18.2 - Chronic kidney disease, stage 2 (mild) Status: Acute Plan: Acute kidney injury possible ATN Creatinine at 2.14 Renal US: . Mild medical renal disease. Probable nonobstructing right renal calculus. Graham catheter in bladder Plan Hypokalemia noted replacement ordered. Continue IVF Creatinine improving Will monitor UOP and BMP Avoid nephrotoxins. (3) Toxic metabolic encephalopathy ICD Codes: G92 - Toxic encephalopathy Status: Acute Plan: Continue antibiotics renal dosing. Lumbar puncture planned for am (Zamzam Valentino) Problem List: (1) Hypernatremia ICD Codes: E87.0 - Hyperosmolality and hypernatremia Status: Acute Plan: Possible diabetes insipidus possible secondary to chronic calcifications. Also possible nephrogenic component for diabetes insipidus given that the patient has had ongoing lithium use on as far as his lithium toxicity. Plan D5W decreased to 50 ml/hr Continue Amiloride 10mg daily Continue Free water On DDAVP ADH level is normal. Patient seen and examined, agree with above. Na. is normalized, Creatinine is almost same. (2) Acute renal failure superimposed on stage 2 chronic kidney disease ICD Codes: N17.9 - Acute kidney failure, unspecified; N18.2 - Chronic kidney disease, stage 2 (mild) Status: Acute Plan: Acute kidney injury possible ATN Creatinine at 2.14 Renal US: . Mild medical renal disease. Probable nonobstructing right renal calculus. Graham catheter in bladder Plan Hypokalemia noted replacement ordered. Continue IVF Creatinine improving Will monitor UOP and BMP Avoid nephrotoxins. (3) Toxic metabolic encephalopathy ICD Codes: G92 - Toxic encephalopathy Status: Acute Plan: Continue antibiotics renal dosing. Lumbar puncture planned for am (John Gutierrez MD) Zamzam Valentino Jan 22, 2018 13:23 John Gutierrez MD Jan 22, 2018 19:43
[2018-01-22] MEDS: HEPARIN SODIUM - SQ 10,000 UNITS/ML VIAL SQ SCH ×2 (13:27→20:25)
[2018-01-22 19:53] LABS: CSF CRYPTOCOCCUS ANTIGEN NOT DETECTED (NEGATIVE); VDRL CSF NON-REACTIVE (NON-REACTVE)
[2018-01-22] MEDS: NYSTATIN 100,000 U/GM PWD 15 GM BTL TOPICAL PRN (20:24)
[2018-01-23] VITALS (20 sets, daily range): BP systolic 97–125; BP diastolic 56–80; PULSE 60–94; RESP 16–33; TEMP 97–98.5; O2SAT 85–100
[2018-01-23] MEDS: NYSTATIN 100,000 UNIT/GM CREAM 15 GM TOPICAL SCH ×5 (00:36→22:04)
[2018-01-23] MEDS: CEFEPIME INJ 1,000 MG in SODIUM CHLORIDE 0.9% INJ 100 ML IV SCH ×3 (00:37→15:16)
[2018-01-23] MEDS: DEXTROSE 5% IN WATE 1000ML INJ 1,000 ML IV SCH ×2 (04:00→11:18)
[2018-01-23] MEDS: hydrALAZINE HCL 50 MG TAB PO SCH ×3 (05:08→21:24)
[2018-01-23] MEDS: INSULIN NovoLIN REGULAR SUPPLEMENTAL SCALE SQ SCH ×4 (05:15→18:00)
[2018-01-23 07:21] LABS: AUTOMATED NEUTROPHIL # 11.1 TH/MM3 (1.8-7.7); BASOPHIL # 0.1 TH/MM3 (0-0.2); BASOPHIL % 0.4 % (0.0-2.0); EOSINOPHIL # 0.5 TH/MM3 (0-0.4); EOSINOPHIL % 3.4 % (0.0-4.0); HEMATOCRIT 31.8 % (39.0-51.0); HEMOGLOBIN 10.9 GM/DL (13.0-17.0); LYMPH % 14.6 % (9.0-44.0); LYMPHOCYTE # 2.2 TH/MM3 (1.0-4.8); MEAN CELL VOLUME 102.7 FL (80.0-100.0); MEAN CORPUSCULAR HEMOGLOBIN 35.2 PG (27.0-34.0); MEAN CORPUSCULAR HGB CONC 34.3 % (32.0-36.0); MEAN PLATELET VOLUME 9.9 FL (7.0-11.0); MONO % 6.3 % (0.0-8.0); MONOCYTE # 0.9 TH/MM3 (0-0.9); NEUT % 75.3 % (16.0-70.0); PLATELET COUNT 141 TH/MM3 (150-450); RED BLOOD COUNT 3.09 MIL/MM3 (4.50-5.90); RED CELL DISTRIBUTION WIDTH 14.7 % (11.6-17.2); WHITE BLOOD COUNT 14.8 TH/MM3 (4.0-11.0)
[2018-01-23 07:39] LABS: ALBUMIN 2.7 GM/DL (3.4-5.0); AST (GOT) 74 U/L (15-37); BICARBONATE 22.5 MEQ/L (21.0-32.0); BLOOD UREA NITROGEN 33 MG/DL (7-18); CALCIUM 8.8 MG/DL (8.5-10.1); CHLORIDE 106 MEQ/L (98-107); CREATININE 2.06 MG/DL (0.60-1.30); GLOMERULAR FILTRATION RATE 33 ML/MIN (>89); GLUCOSE,RANDOM 110 MG/DL (74-106); SODIUM (NA) 138 MEQ/L (136-145)
[2018-01-23 07:41] LABS: ALT (GPT) 103 U/L (12-78)
[2018-01-23 07:43] LABS: ALKALINE PHOSPHATASE 167 U/L (45-117); TOTAL BILIRUBIN ADULT 0.7 MG/DL (0.2-1.0); TOTAL PROTEIN 7.4 GM/DL (6.4-8.2)
[2018-01-23] MEDS: DESMOPRESSIN ACETATE 4 MCG/ML VIAL IV PUSH SCH (08:19)
[2018-01-23] MEDS: LACTULOSE SYRUP 20 GM/30 ML CUP PO SCH ×3 (08:25→18:51)
[2018-01-23] MEDS: DOCUSATE SODIUM 50 MG/SENNA 8.6 MG TAB PO SCH ×2 (08:25→21:00)
[2018-01-23] MEDS: HEPARIN SODIUM - SQ 10,000 UNITS/ML VIAL SQ SCH ×2 (08:25→21:24)
[2018-01-23] MEDS: METOPROLOL TARTRATE 50 MG TAB PO SCH ×2 (08:26→21:24)
[2018-01-23] MEDS: aMILoride HCL 5 MG TAB PO SCH (08:26)
[2018-01-23] MEDS: THIAMINE HCL 100 MG TAB PO SCH (08:27)
[2018-01-23] MEDS: FAMOTIDINE 20 MG TAB PO SCH ×2 (08:27→21:23)
[2018-01-23] MEDS: FOLIC ACID 1 MG TAB PO SCH (08:27)
[2018-01-23] MEDS: MULTIVITAMIN TAB PO SCH (08:27)
[2018-01-23] MEDS: FREE WATER G-TUBE SCH ×2 (08:28→21:00)
[2018-01-23] MEDS: SODIUM CHLORIDE 0.9% FLUSH 10 ML FLUSH IV FLUSH SCH ×2 (08:28→21:26)
--- NOTE | 2018-01-23 09:30 | HHI.CCPN ---
Subjective Remarks/Hospital Course Is a 57-year-old male with known history of hypertension, hyperlipidemia, COPD, tobacco abuse, marijuana abuse, spinal stenosis, hypothyroidism, benign prostatic hypertrophy, anxiety, depression,? Bipolar disorder who originally presented to hospital because of altered mentation, confusion. Patient did recently undergo extraction of 10 of his lower teeth 2 days prior to coming to the ER. Records indicate that his stated that the day before coming the patient started talking and nonsense and laying in bed confused with a low- grade fever. Patient was brought to emergency department and had workup performed which did not indicate any acute abnormality for the patient's encephalopathy. Patient did have CT scan done of the brain which did not indicate any acute abnormality. Further studies with alcohol level which was normal, urine drug screen did show positive cannabinoids, TSH was normal, ammonia level was normal. In light of the patient having hyper bilirubin, transaminitis, macrocytic anemia, thrombocytopenia one could consider the patient does have chronic alcohol related issues. Patient was started on thiamine and folic acid. Patient was started on CIWA protocol. Patient was admitted to the hospital for further management patient had signs of systemic inflammatory response syndrome without any sign of infection. He was started on empirical antibiotics to include vancomycin and Zosyn. Patient had workup done with chest x-ray which did not indicate any acute abnormality, urinalysis which is clear, blood cultures are negative for 2 days. No signs of infection at this time, however patient did just recently had 10 teeth extracted. Could have some underlying endocarditis. Patient did have signs of acute renal failure superimposed on chronic kidney disease stage II. Patient was started on IV fluids. Laboratory were followed and this morning patient found to have severe hypernatremia. Workup had been initiated with osmolality studies, urine sodium, ADH, MRI of brain which still awaiting results at this time. Patient was originally started on half-normal saline without any significant improvement. Subsequently changed to D5W at 75 ml/hr. Continue to monitor sodium level every 4 hours. Patient still with considerable altered mental status. Toxic metabolic encephalopathy. Presently the patient is maintaining his airway with good O2 saturations of 96% on room air, however there are episodes of tachypnea going upward 33 breaths per minute. Because of his intermittent respiratory distress and altered mental status is very concerning that the patient may require intubation for continued management and care if his symptoms does not improve. Hospitalist did discuss the case with critical care, because of the critical nature the patient and possible respiratory collapse is recommended patient be transferred to the main IMC under critical care management. Hence critical care was consulted. Subjective: 01/14: Afebrile. Patient easily arousable, and continues to be confused. MRI pending. Patient was maintained on Precedex infusion during the night Precedex infusion off. Patient protecting airway, dyspnea noted at this time. Continued serum sodium level monitoring. Initial ADH level pending. Patient continues on DDAVP, and Amilioride. 01/15: Report of and [employer]ES [employer], patient's recognition of family members, patient articulating words him what clearer. Upon my evaluation patient was on Precedex per report the patient became agitated during the night and Precedex infusion was increased, patient was placed in 4point restraints for patient safety. Brain imaging studies negative. EEG shows slowing but under the influence of Precedex infusion. 01/16: Overnight the patient received multiple doses of Ativan, and continued on Librium. This a.m. patient more confused than yesterday. Ativan and Librium discontinued, Precedex was discontinued yesterday. Platelet count noted to be low, HIT panel ordered . In anticipation of lumbar puncture, repeat platelet count this afternoon possible transfusion of platelets. INR pending. Discussed plan with Dr. Nur. 01/17 Patient is lying in bed in NAD. Afebrile. remains confused. For possible LP today 01/18 Patient was given Ativan twice overnight. Renal function is improving with Cr: 3.01 from 3.49 01/19 No events overnight. s/p LP yesterday showed clear CSF 5 wbc, nl gic, TP: 45.5 01/20 No events overnight. T:100.4, renal function is improving Cr:2.34 from 2.72 01/21 Patient had T: 100.1 last night, had 1175ml gastric output from NGT. 01/22 Patient is lying in bed in NAD. T:100.0 last night 01/23: Drowsy, easily arousable. Disoriented currently. Follows a occasional command. Not in any acute distress. Sodium down to 138 this morning. Decreasing DDAVP to 2 mics IV daily. Objective Vital Signs Date Time Temp Pulse Resp B/P (MAP) Pulse Ox O2 Delivery O2 Flow Rate FiO2 01/23/18 06:00 94 01/23/18 04:30 24 92 3/28/18 04:00 97.0 107/80 (89) Intake and Output 01/23/18 01/23/18 01/24/18 08:00 16:00 00:00 Intake Total 1200 ml Output Total 1005 ml Balance 195 ml Result Diagram: 01/23/18 0628 01/23/18 0628 Other Results Microbiology Date/Time Source Procedure Growth Status 01/20/18 18:00 Urine Clean Catch Urine Culture - Final NO GROWTH IN 48 HOURS. Complete Imaging Last Impressions Chest X-Ray 01/21/18 0000 Signed Impressions: Service Date/Time: Sunday, January 21, 2018 08:52 - CONCLUSION: 1. No acute cardiac pulmonary disease. 2. Apparent placement of a nasogastric tube with the tip projected over the mid to distal esophagus. Shubham Patricio MD Abdomen X-Ray 01/21/18 0000 Signed Impressions: Service Date/Time: Sunday, January 21, 2018 08:43 - CONCLUSION: 1. Unremarkable bowel gas pattern. 2. Nasogastric tube with the tip in the proximal stomach. Shubham Patricio MD Lumbar Puncture Fluoroscopy 01/18/18 0000 Signed Impressions: Service Date/Time: Thursday, January 18, 2018 13:09 - CONCLUSION: Uncomplicated fluoroscopically guided lumbar puncture. Moses Chavez Jr., MD Renal Ultrasound 01/14/18 0000 Signed Impressions: Service Date/Time: Sunday, January 14, 2018 17:02 - CONCLUSION: 1. Mild medical renal disease. Probable nonobstructing right renal calculus. Graham catheter in bladder. Jonny Arciniega MD Head Magnetic Resonance Angiography 01/14/18 0000 Signed Impressions: Service Date/Time: Sunday, January 14, 2018 15:24 - CONCLUSION: 1. Suboptimal visualization of the left vertebral artery due to motion artifact particularly at the vertebrobasilar junction. Can not exclude a focal flow-limiting stenosis at this level. 2. Otherwise, unremarkable MRA examination of the [place] of [place]. No aneurysm or large vessel cerebral artery occlusion Dyllan Luque MD Brain MRI 01/14/18 0000 Signed Impressions: Service Date/Time: Sunday, January 14, 2018 15:24 - CONCLUSION: 1. Redemonstration of chronic cerebellar calcifications. 2. Senescent changes without acute abnormality. Specifically, no evidence for acute infarction. Dyllan Luque MD Abdomen/Pelvis CT 01/13/18 0000 Signed Impressions: Service Date/Time: Sunday, January 14, 2018 16:12 - CONCLUSION: Markedly cirrhotic liver appearance. Splenomegaly. Edinson Urbano MD Soft Tissue Neck X-Ray 01/12/18 0000 Signed Impressions: Service Date/Time: Friday, January 12, 2018 00:21 - CONCLUSION: 1. Degenerative changes of the mid and lower cervical spine. 2. Otherwise negative. No radiopaque foreign body. Gulshan Lieberman MD Head CT 01/11/[id number] Signed Impressions: Service Date/Time: Thursday, January 11, 2018 19:50 - CONCLUSION: No acute intracranial abnormality demonstrated. Atrophy and chronic cerebellar calcification. Edinson Esquivel MD Objective Remarks GENERAL: Well-developed, well-nourished, in no acute distress. Confused HEENT: Head is normocephalic without any lesions or masses noted. Facial features are symmetric. Eyes: Pupils equal round reactive to light. Extraocular muscles are intact. Conjunctivae were clear. NECK: Supple without any masses. Trachea midline no deviation. No JVD, no bruits are appreciated CARDIAC: Tachycardic S1/S2 are heard. No murmurs gallops or rubs. LUNGS: Clear to auscultation bilaterally. No wheeze, rhonchi or rales. No use of accessory muscles on inspiration or expiration. ABDOMEN: Soft, nontender. Nondistended. Bowel sounds heard in all 4 quadrants. No organomegaly or masses. Negative rebound, negative guarding EXTREMITIES: No edema, pulses are equal bilaterally. No cyanosis or clubbing NEUROLOGY:Confused. A/P Problem List: (1) Toxic metabolic encephalopathy ICD Code: G92 - Toxic encephalopathy Status: Acute (2) Altered mental status ICD Code: R41.82 - Altered mental status, unspecified (3) Hypernatremia ICD Code: E87.0 - Hyperosmolality and hypernatremia Status: Acute (4) Systemic inflammatory response syndrome ICD Code: R65.10 - Systemic inflammatory response syndrome (SIRS) of non- infectious origin without acute organ dysfunction (5) Acute renal failure superimposed on stage 2 chronic kidney disease ICD Code: N17.9 - Acute kidney failure, unspecified; N18.2 - Chronic kidney disease, stage 2 (mild) Status: Acute (6) Chronic obstructive pulmonary disease ICD Code: J44.9 - Chronic obstructive pulmonary disease, unspecified (7) Hypothyroidism ICD Code: E03.9 - Hypothyroidism, unspecified (8) Leukocytosis ICD Code: D72.829 - Elevated white blood cell count, unspecified (9) Macrocytic anemia ICD Code: D53.9 - Nutritional anemia, unspecified (10) Thrombocytopenia ICD Code: D69.6 - Thrombocytopenia, unspecified Status: Acute (11) Hyperbilirubinemia ICD Code: E80.6 - Other disorders of bilirubin metabolism (12) Transaminitis ICD Code: R74.0 - Nonspecific elevation of levels of transaminase and lactic acid dehydrogenase [LDH] (13) Hyperglycemia ICD Code: R73.9 - Hyperglycemia, unspecified Assessment and Plan NEUROLOGY Altered mental status Toxic metabolic encephalopathy Anxiety/depression,? Bipolar disorder THC use Possible central diabetes insipidus 01/18 s/p LP : clear CSF, 5 WBC, nl goc, TP:45.5 01/12 CT scan of brain does not indicate any acute abnormality Urine drug screen was positive for cannabinoids Alcohol level was less than 3, TSH, B12, folate were normal [place] level 0.3 Continue neuro checks every one hour On thiamine, continue folic acid/ MVI daily Seizure precaution 01/14 EEG-no epileptiform features mild to moderate diffuse disturbance in cerebral function Neurology following 01/14- MRI-no acute infarction 01/14- MRA- unremarkable exam of the [place] PULMONOLOGY Chronic obstructive pulmonary disease Chronic tobacco abuse Continue with oxygen keep sats >92% head of bed 30, Duo nebs every 6 hours as needed for shortness of breath or dyspnea CXR yesterday > No acute disease CARDIOLOGY Hypertension Hyperlipidemia On Lopressor 50mg Q12, Hydralazine 50mg Q8-monitor and maintain MAP greater than 65 ECHO showed EF 55-60% GASTROENTEROLOGY Hyperbilirubinemia Transaminitis Hepatitis C Cirrhosis of Liver KUB abdomen 01/21: Unremarkable bowel gas pattern Tube feeds placed on hold ( Nepro) monitor gastric output CT abd/pelvis: Markedly cirrhotic liver appearance. Splenomegaly. Hep C viral hepatitis antibody positive GI prophylaxis Pepcid IV twice daily Lactulose 30ml TID monitor Ammonia level( 40) RENAL Acute renal failure superimposed on chronic kidney disease stage II Hypernatremia: Possible dehydration, diabetes insipidus (central versus nephrogenic) Continue Amiloride 10mg daily D5W at 100 ml/hr, free water 250ml Q12, monitor sodium level. On DDAVP 2mcg Q12 - decreased to 2mcg daily on 01/23 as Na 138. Nephrology is following Renal function is improving. INFECTIOUS DISEASE Continue abx (Cefepime,) monitor for signs of infections ( Fever, WBC) ID is following Follow up on blood cultures from 01/21, Urine cx 01/20: No growth BC 01/11 NGTD, influenza screening negative 01/13 s/p LP 01/18: clear CSF, 5 WBC, nl glc, TP:45.5. HSV PCR negative, CSF cx: No growth ENDOCRINOLOGY Hypothyroidism Hyperglycemia TSH 2.86 SSI for glycemic control HEMATOLOGY Macrocytic anemia Thrombocytopenia- could be related to liver disease Monitor CBC, Hep PLT ab is negative Monitor coags, PROPHYLAXIS DVT- SCD's resume Heparin SQ( H/H stable, PLT is recovering) GI protection with Pepcid IV LINES Peripheral IVs Consult and transfer to hospitalist service for further medical management, critical care will be signing off. Please reconsult if needed. Level 2 Dioni Gracia MD Jan 23, 2018 09:30
--- NOTE | 2018-01-23 10:10 | HHI.NPPN ---
Subjective Complaints: Confused Renal Failure: Acute History of Present Illness This is a 57-year-old male with a history of apparent bipolar disorder. The patient has been on lithium in the past. It is unclear how long he has been on lithium. The patient was admitted on 01/12/2018, after he had a recent extensive dental extraction. The patient had apparent sudden acute onset of confusion and altered mental status. The patient was found at home lying shaking with confusion and a low-grade temperature. Here, the patient was seen in the emergency room. He was further evaluated and brought to the ICU when he had ongoing confusion and altered mental status. Drug screen showed positive cannabinoids. He was initially started on IV fluids with normal saline. He has subsequently developed acute significant hypernatremia. He had a serum sodium of 133 on presentation. He was started initially on normal saline and his sodium jumped up to a level of 160. Throughout the course of today, the patient 's sodium has continued to rise from 160 up to 166 and then 165. He initially was on normal saline and then was given half normal saline and is now on D5W. The patient had ongoing confusion and altered mental status and was intubated after he had significant tachycardia and tachypnea. At this point, the patient is intubated and sedated and is receiving D5W for hypernatremia. Nephrology was consulted for further evaluation. Additional Remarks Patient was more awake today then in the past responding to questions. Not oriented. (Zamzam Valentino) Objective Data Data Vital Signs Date Time Temp Pulse Resp B/P (MAP) Pulse Ox O2 Delivery O2 Flow Rate FiO2 01/23/18 09:28 97 Nasal Cannula 1.00 01/23/18 06:00 94 01/23/18 04:30 91 24 92 01/23/18 04:00 60 01/23/18 04:00 97.0 93 17 107/80 (89) 98 01/23/18 03:30 93 16 96 01/23/18 03:00 92 24 117/57 (77) 95 01/23/18 02:30 92 25 99 01/23/18 02:00 90 21 108/66 (80) 98 01/23/18 02:00 92 01/23/18 02:00 108/66 (80) 01/23/18 01:30 90 33 100 01/23/18 01:00 91 17 97/56 (70) 93 01/23/18 00:30 92 19 92 01/23/18 00:00 97.0 91 22 117/67 (84) 85 01/23/18 00:00 92 01/22/18 23:30 86 23 91 01/22/18 23:00 82 24 118/68 (85) 92 01/22/18 22:30 84 22 92 01/22/18 22:00 83 21 113/69 (84) 93 01/22/18 22:00 80 01/22/18 21:30 95 21 94 01/22/18 21:00 99 23 126/68 (87) 95 01/22/18 20:30 97 20 95 01/22/18 20:00 98 01/22/18 20:00 98.2 98 29 118/71 (87) 95 01/22/18 19:30 100 21 96 01/22/18 19:00 101 22 118/74 (89) 96 01/22/18 18:30 96 20 92 01/22/18 18:00 100 24 119/70 (86) 93 01/22/18 18:00 100 01/22/18 17:30 89 20 94 01/22/18 17:00 96 21 112/69 (83) 94 01/22/18 16:30 94 21 94 01/22/18 16:00 98.1 92 23 108/56 (73) 94 01/22/18 16:00 92 01/22/18 14:00 96 01/22/18 12:00 98.1 95 27 111/75 (87) 94 01/22/18 12:00 95 01/22/18 10:00 101 (Zamzam Valentino) -: 01/23/18 0628 01/23/18 0628 Tubes & Lines: Graham (Zamzam Valentino) Physical Exam General Appearance: No Acute Distress, Comfortable (Zamzam Valentino) Pulmonary Resp Exam: Breath Sounds Equal, No Distress, Rhonchi (Zamzam Valentino) Cardiology CV Exam: Regular (Zamzam Valentino) Gastrointestinal/Abdomen GI Exam: Soft, Non-Tender, Bowel Sounds Present (Zamzam Valentino) Genitourinary Exam: Flank Non-Tender (Zamzam Valentino) Integumentary Skin Exam: Warm, Dry Skin Remarks Rash on buttocks (Zamzam Valentino) Extremeties Extremities Exam: No Edema (Zamzam Valentino) Neurologic Neuro Exam: Awake (Zamzam Valentino) Assessment/Plan Electrolyte Assessment: Hypernatremia Problem List: (1) Hypernatremia ICD Codes: E87.0 - Hyperosmolality and hypernatremia Status: Acute Plan: Possible diabetes insipidus possible secondary to chronic calcifications. Also possible nephrogenic component for diabetes insipidus given that the patient has had ongoing lithium use on as far as his lithium toxicity. Plan D5W at 50 ml/hr Continue Amiloride 10mg daily Continue Free water DDAVP decreased. ADH level is normal. (2) Acute renal failure superimposed on stage 2 chronic kidney disease ICD Codes: N17.9 - Acute kidney failure, unspecified; N18.2 - Chronic kidney disease, stage 2 (mild) Status: Acute Plan: Acute kidney injury possible ATN Creatinine at 2.14 and now 2.06 Renal US: . Mild medical renal disease. Probable nonobstructing right renal calculus. Graham catheter in bladder Plan Hypokalemia noted replacement ordered. Continue IVF Creatinine improving Will monitor UOP and BMP Avoid nephrotoxins. (3) Toxic metabolic encephalopathy ICD Codes: G92 - Toxic encephalopathy Status: Acute Plan: Continue antibiotics renal dosing. Lumbar puncture planned for am (Zamzam Valentino) Problem List: (1) Hypernatremia ICD Codes: E87.0 - Hyperosmolality and hypernatremia Status: Acute Plan: Possible diabetes insipidus possible secondary to chronic calcifications. Also possible nephrogenic component for diabetes insipidus given that the patient has had ongoing lithium use on as far as his lithium toxicity. Plan D5W at 50 ml/hr Continue Amiloride 10mg daily Continue Free water DDAVP decreased. ADH level is normal. Patient seen and examined, agree with above. Creatinine continue to improve. Decrease DDAVP, and if Na. remain normal, can D/C. (2) Acute renal failure superimposed on stage 2 chronic kidney disease ICD Codes: N17.9 - Acute kidney failure, unspecified; N18.2 - Chronic kidney disease, stage 2 (mild) Status: Acute Plan: Acute kidney injury possible ATN Creatinine at 2.14 and now 2.06 Renal US: . Mild medical renal disease. Probable nonobstructing right renal calculus. Graham catheter in bladder Plan Hypokalemia noted replacement ordered. Continue IVF Creatinine improving Will monitor UOP and BMP Avoid nephrotoxins. (3) Toxic metabolic encephalopathy ICD Codes: G92 - Toxic encephalopathy Status: Acute Plan: Continue antibiotics renal dosing. Lumbar puncture planned for am (John Gutierrez MD) Zamzam Valentino Jan 23, 2018 10:10 John Gutierrez MD Jan 23, 2018 11:33
--- NOTE | 2018-01-23 10:32 | HHI.IDPN ---
Subjective Subjective Remarks is a 57-year-old male with past medical history significant for hypertension, hyperlipidemia, COPD, tobacco abuse. Patient's past medical history reportedly is also significant for marijuana use, spinal stenosis unsure if he had any instrumentation. Patient also has a history of hypothyroidism. Patient's psychiatric history is also significant for anxiety, depression possibly history of bipolar disorder who is on multiple medications such as buspirone, citalopram, mirtazapine, gabapentin, hydroxyzine as well as lithium. With this background patient presents to the hospital with a history of altered mental status and confusion prior to admission. Per records patient's noticed that patient was starting to speak nonsensical language and was laying in bed with a low-grade fever. Reportedly patient also had an extraction about 10 of his lower teeth 2 days prior to coming to the emergency department. Sepsis workup as well as a neurological workup was initiated on admission. Blood cultures on admission and negative so far. CSF studies done on admission show 5 wbc, normal glucose total protein 45.5, CSF HSV 1 and 2 are negative. CSF VDRL is pending at the present time. An MRI of the brain did not show any acute infarcts or any infectious etiology. Evaluation was started on empiric vancomycin IV and Zosyn. Infectious disease is consulted for evaluation and management of persistent fevers and leukocytosis. At the time of my evaluation patient is in the ICU currently on room air not on any pressors. Overnight events reviewed No fevers No rash No diarrhea More awake, responsive, smiles. Antibiotics Cefepime IV Lines Line sites with no e.o infection. Past Medical History reviewed. Allergies: Coded Allergies: chlorpheniramine (Unverified Allergy, Severe, ANTIHISTAMINE???, 01/11/18) pseudoephedrine (Unverified Allergy, Severe, DECONGESTANTS???, 01/11/18) Objective . Vital Signs Date Time Temp Pulse Resp B/P (MAP) Pulse Ox O2 Delivery O2 Flow Rate FiO2 01/23/18 09:28 97 Nasal Cannula 1.00 01/23/18 06:00 94 01/23/18 04:30 91 24 92 01/23/18 04:00 60 01/23/18 04:00 97.0 93 17 107/80 (89) 98 01/23/18 03:30 93 16 96 01/23/18 03:00 92 24 117/57 (77) 95 01/23/18 02:30 92 25 99 01/23/18 02:00 90 21 108/66 (80) 98 01/23/18 02:00 92 01/23/18 02:00 108/66 (80) 01/23/18 01:30 90 33 100 01/23/18 01:00 91 17 97/56 (70) 93 01/23/18 00:30 92 19 92 01/23/18 00:00 97.0 91 22 117/67 (84) 85 01/23/18 00:00 92 01/22/18 23:30 86 23 91 01/22/18 23:00 82 24 118/68 (85) 92 01/22/18 22:30 84 22 92 01/22/18 22:00 83 21 113/69 (84) 93 01/22/18 22:00 80 01/22/18 21:30 95 21 94 01/22/18 21:00 99 23 126/68 (87) 95 01/22/18 20:30 97 20 95 01/22/18 20:00 98 01/22/18 20:00 98.2 98 29 118/71 (87) 95 01/22/18 19:30 100 21 96 01/22/18 19:00 101 22 118/74 (89) 96 01/22/18 18:30 96 20 92 01/22/18 18:00 100 24 119/70 (86) 93 01/22/18 18:00 100 01/22/18 17:30 89 20 94 01/22/18 17:00 96 21 112/69 (83) 94 01/22/18 16:30 94 21 94 01/22/18 16:00 98.1 92 23 108/56 (73) 94 01/22/18 16:00 92 01/22/18 14:00 96 01/22/18 12:00 98.1 95 27 111/75 (87) 94 01/22/18 12:00 95 . Laboratory Tests Test 01/22/18 03:35 01/23/18 06:28 White Blood Count 20.3 TH/MM3 14.8 TH/MM3 Red Blood Count 3.19 MIL/MM3 3.09 MIL/MM3 Hemoglobin 11.3 GM/DL 10.9 GM/DL Hematocrit 32.9 % 31.8 % Mean Corpuscular Volume 103.1 FL 102.7 FL Mean Corpuscular Hemoglobin 35.4 PG 35.2 PG Mean Corpuscular Hemoglobin Concent 34.4 % 34.3 % Red Cell Distribution Width 14.9 % 14.7 % Platelet Count 120 TH/MM3 141 TH/MM3 Mean Platelet Volume 9.6 FL 9.9 FL Neutrophils (%) (Auto) 83.7 % 75.3 % Lymphocytes (%) (Auto) 10.2 % 14.6 % Monocytes (%) (Auto) 4.6 % 6.3 % Eosinophils (%) (Auto) 0.9 % 3.4 % Basophils (%) (Auto) 0.6 % 0.4 % Neutrophils # (Auto) 17.0 TH/MM3 11.1 TH/MM3 Lymphocytes # (Auto) 2.1 TH/MM3 2.2 TH/MM3 Monocytes # (Auto) 0.9 TH/MM3 0.9 TH/MM3 Eosinophils # (Auto) 0.2 TH/MM3 0.5 TH/MM3 Basophils # (Auto) 0.1 TH/MM3 0.1 TH/MM3 CBC Comment DIFF FINAL DIFF FINAL Differential Comment Laboratory Tests Test 01/22/18 03:35 01/22/18 21:20 01/23/18 06:28 Blood Urea Nitrogen 24 MG/DL 33 MG/DL Creatinine 2.14 MG/DL 2.06 MG/DL Random Glucose 129 MG/DL 110 MG/DL Total Protein 7.1 GM/DL 7.4 GM/DL Albumin 2.6 GM/DL 2.7 GM/DL Calcium Level 8.7 MG/DL 8.8 MG/DL Alkaline Phosphatase 146 U/L 167 U/L Aspartate Amino Transf (AST/SGOT) 63 U/L 74 U/L Alanine Aminotransferase (ALT/SGPT) 96 U/L 103 U/L Total Bilirubin 0.7 MG/DL 0.7 MG/DL Sodium Level 140 MEQ/L 138 MEQ/L Potassium Level 3.3 MEQ/L 3.3 MEQ/L 3.2 MEQ/L Chloride Level 108 MEQ/L 106 MEQ/L Carbon Dioxide Level 19.3 MEQ/L 22.5 MEQ/L Anion Gap 13 MEQ/L 10 MEQ/L Estimat Glomerular Filtration Rate 32 ML/MIN 33 ML/MIN Procalcitonin 1.20 ng/mL Microbiology Date/Time Source Procedure Growth Status 01/21/18 12:20 Blood Peripheral Aerobic Blood Culture - Preliminary NO GROWTH IN 1 DAY Resulted 01/21/18 12:20 Blood Peripheral Anaerobic Blood Culture - Preliminary NO GROWTH IN 1 DAY Resulted 01/21/18 12:10 Blood Peripheral Aerobic Blood Culture - Preliminary NO GROWTH IN 1 DAY Resulted 01/21/18 12:10 Blood Peripheral Anaerobic Blood Culture - Preliminary NO GROWTH IN 1 DAY Resulted 01/20/18 18:00 Urine Clean Catch Urine Culture - Final NO GROWTH IN 48 HOURS. Complete Imaging Last Impressions Chest X-Ray 01/21/18 0000 Signed Impressions: Service Date/Time: Sunday, January 21, 2018 08:52 - CONCLUSION: 1. No acute cardiac pulmonary disease. 2. Apparent placement of a nasogastric tube with the tip projected over the mid to distal esophagus. Shubham Patricio MD Abdomen X-Ray 01/21/18 0000 Signed Impressions: Service Date/Time: Sunday, January 21, 2018 08:43 - CONCLUSION: 1. Unremarkable bowel gas pattern. 2. Nasogastric tube with the tip in the proximal stomach. Shubham Patricio MD Lumbar Puncture Fluoroscopy 01/18/18 0000 Signed Impressions: Service Date/Time: Thursday, January 18, 2018 13:09 - CONCLUSION: Uncomplicated fluoroscopically guided lumbar puncture. Moses Chavez Jr., MD Renal Ultrasound 01/14/18 0000 Signed Impressions: Service Date/Time: Sunday, January 14, 2018 17:02 - CONCLUSION: 1. Mild medical renal disease. Probable nonobstructing right renal calculus. Graham catheter in bladder. Jonny Arciniega MD Head Magnetic Resonance Angiography 01/14/18 0000 Signed Impressions: Service Date/Time: Sunday, January 14, 2018 15:24 - CONCLUSION: 1. Suboptimal visualization of the left vertebral artery due to motion artifact particularly at the vertebrobasilar junction. Can not exclude a focal flow-limiting stenosis at this level. 2. Otherwise, unremarkable MRA examination of the [place]. No aneurysm or large vessel cerebral artery occlusion Dyllan Luque MD Brain MRI 01/14/18 0000 Signed Impressions: Service Date/Time: Sunday, January 14, 2018 15:24 - CONCLUSION: 1. Redemonstration of chronic cerebellar calcifications. 2. Senescent changes without acute abnormality. Specifically, no evidence for acute infarction. Dyllan Luque MD Abdomen/Pelvis CT 01/13/18 0000 Signed Impressions: Service Date/Time: Sunday, January 14, 2018 16:12 - CONCLUSION: Markedly cirrhotic liver appearance. Splenomegaly. Edinson Urbano MD Soft Tissue Neck X-Ray 01/12/18 0000 Signed Impressions: Service Date/Time: Friday, January 12, 2018 00:21 - CONCLUSION: 1. Degenerative changes of the mid and lower cervical spine. 2. Otherwise negative. No radiopaque foreign body. Gulshan Lieberman MD Head CT 01/11/181926 Signed Impressions: Service Date/Time: Thursday, January 11, 2018 19:50 - CONCLUSION: No acute intracranial abnormality demonstrated. Atrophy and chronic cerebellar calcification. Edinson Esquivel MD Physical Exam GENERAL: This is a well-nourished, well-developed patient, in no apparent distress. SKIN: No rashes, ecchymoses or lesions. Cool and dry. HEAD: Atraumatic. Normocephalic. No temporal or scalp tenderness. EYES: Pupils equal round and reactive. Extraocular motions intact. No scleral icterus. No injection or drainage. ENT: Nose without bleeding, purulent drainage or septal hematoma. Throat without erythema, tonsillar hypertrophy or exudate. Uvula midline. Airway patent. NECK: Trachea midline. Supple, nontender, no meningeal signs. CARDIOVASCULAR: Regular rate and rhythm without murmurs. RESPIRATORY: Clear to auscultation. Breath sounds equal bilaterally. No wheezes , rales, or rhonchi. GASTROINTESTINAL: Abdomen soft, non-tender, nondistended. MUSCULOSKELETAL: Extremities without clubbing, cyanosis, or edema. No joint tenderness, effusion, or edema noted. No calf tenderness. Negative Homans sign bilaterally. NEUROLOGICAL: Not oriented. Did not follow commands Psych difficult to assess, calm. IV line sites with no evidence of infection. Assessment & Plan Remarks SIRS possible Sepsis (fever, WBC elevated) ? aspiration pneumonitis. Leucocytosis improving. Hepatitis C antibody positive: reports patient is s.p treatment for Hep C. Acute metabolic encephalopathy: acute hypernatremia, DI present on admission. ? infection. R.o Meningoencephalitis. Diabetes Insipidus, hypernatremia Acute renal failure: prerenal, metabolic Recs Continue Cefepime IV for now (stop date in chart) Ordered bedside swallow eval if passes ok to switch to oral augmentin till 2017. If fails swallow eval complete Cefepime IV stop date entered. Doppler LE negative. Elevated Procalcitonin. Follow repeat flores cultures. Follow cultures Follow clinically. dw . Kate Gracia MD Jan 23, 2018 10:32
[2018-01-23] MEDS: ACETAMINOPHEN 325 MG TAB PO PRN (13:57)
[2018-01-23] MEDS ORDERED: HALOPERIDOL LACTATE 5 MG/ML AMP IV PUSH ONE (15:15)
[2018-01-24] VITALS (13 sets, daily range): BP systolic 109–148; BP diastolic 66–82; PULSE 73–108; RESP 18–26; TEMP 98.4–99.1; O2SAT 95–97
[2018-01-24] MEDS: CEFEPIME INJ 1,000 MG in SODIUM CHLORIDE 0.9% INJ 100 ML IV SCH ×2 (00:18→08:12)
[2018-01-24] MEDS: DEXTROSE 5% IN WATE 1000ML INJ 1,000 ML IV SCH (01:18)
[2018-01-24] MEDS: hydrALAZINE HCL 50 MG TAB PO SCH ×3 (05:21→22:00)
[2018-01-24] MEDS: NYSTATIN 100,000 UNIT/GM CREAM 15 GM TOPICAL SCH ×3 (05:21→18:00)
[2018-01-24] MEDS: INSULIN NovoLIN REGULAR SUPPLEMENTAL SCALE SQ SCH ×4 (05:21→17:58)
[2018-01-24 05:36] LABS: AUTOMATED NEUTROPHIL # 11.4 TH/MM3 (1.8-7.7); BASOPHIL # 0.1 TH/MM3 (0-0.2); BASOPHIL % 0.4 % (0.0-2.0); EOSINOPHIL # 0.5 TH/MM3 (0-0.4); EOSINOPHIL % 3.2 % (0.0-4.0); HEMATOCRIT 31.5 % (39.0-51.0); HEMOGLOBIN 10.8 GM/DL (13.0-17.0); LYMPH % 13.6 % (9.0-44.0); LYMPHOCYTE # 2.1 TH/MM3 (1.0-4.8); MEAN CELL VOLUME 103.7 FL (80.0-100.0); MEAN CORPUSCULAR HEMOGLOBIN 35.7 PG (27.0-34.0); MEAN CORPUSCULAR HGB CONC 34.4 % (32.0-36.0); MEAN PLATELET VOLUME 10.1 FL (7.0-11.0); MONO % 7.8 % (0.0-8.0); MONOCYTE # 1.2 TH/MM3 (0-0.9); PLATELET COUNT 155 TH/MM3 (150-450); RED BLOOD COUNT 3.03 MIL/MM3 (4.50-5.90); WHITE BLOOD COUNT 15.2 TH/MM3 (4.0-11.0)
[2018-01-24 06:06] LABS: ALBUMIN 2.5 GM/DL (3.4-5.0); ALT (GPT) 106 U/L (12-78); AST (GOT) 71 U/L (15-37); BLOOD UREA NITROGEN 35 MG/DL (7-18); CHLORIDE 108 MEQ/L (98-107); CREATININE 1.99 MG/DL (0.60-1.30); GLOMERULAR FILTRATION RATE 35 ML/MIN (>89); GLUCOSE,RANDOM 131 MG/DL (74-106); SODIUM (NA) 140 MEQ/L (136-145)
[2018-01-24 06:09] LABS: ALKALINE PHOSPHATASE 181 U/L (45-117); TOTAL BILIRUBIN ADULT 0.6 MG/DL (0.2-1.0); TOTAL PROTEIN 7.4 GM/DL (6.4-8.2)
[2018-01-24] MEDS ORDERED: POTASSIUM CHLORIDE 25 MEQ EFFERVESCENT TAB PO ONE (06:35)
[2018-01-24] MEDS: LORazepam 2 MG/ML VIAL IV PRN ×2 (08:10→13:18)
[2018-01-24] MEDS: DESMOPRESSIN ACETATE 4 MCG/ML VIAL IV PUSH SCH (08:13)
[2018-01-24] MEDS: ONDANSETRON HCL 4 MG/2 ML VIAL IVP PRN (08:15)
[2018-01-24] MEDS: HEPARIN SODIUM - SQ 10,000 UNITS/ML VIAL SQ SCH ×2 (08:17→19:46)
[2018-01-24] MEDS: FREE WATER G-TUBE SCH ×2 (08:18→20:03)
[2018-01-24] MEDS: SODIUM CHLORIDE 0.9% FLUSH 10 ML FLUSH IV FLUSH SCH ×2 (08:18→19:46)
[2018-01-24] MEDS: LACTULOSE SYRUP 20 GM/30 ML CUP PO SCH ×3 (08:19→18:00)
[2018-01-24] MEDS: METOPROLOL TARTRATE 50 MG TAB PO SCH ×2 (08:19→19:46)
[2018-01-24] MEDS: FOLIC ACID 1 MG TAB PO SCH (08:19)
[2018-01-24] MEDS: aMILoride HCL 5 MG TAB PO SCH (08:19)
[2018-01-24] MEDS: FAMOTIDINE 20 MG TAB PO SCH ×2 (08:19→19:45)
[2018-01-24] MEDS: MULTIVITAMIN TAB PO SCH (08:20)
[2018-01-24] MEDS: THIAMINE HCL 100 MG TAB PO SCH (08:20)
[2018-01-24] MEDS: DOCUSATE SODIUM 50 MG/SENNA 8.6 MG TAB PO SCH ×2 (08:20→19:55)
[2018-01-24] MEDS ORDERED: DESMOPRESSIN ACETATE 4 MCG/ML VIAL IV PUSH SCH (09:00)
--- NOTE | 2018-01-24 09:58 | HHI.PR ---
Subjective Remarks Nursing reports that the patient did have some substantial vomiting this morning with no bloody emesis. Tube feeds were stopped. There was no residual noted on the tube feeds. This is a first-time vomiting has been noted by this nurse. Patient appears to be slightly delirious and does not fully answer questions although he is aroused easily. Objective Vital Signs Date Time Temp Pulse Resp B/P (MAP) Pulse Ox O2 Delivery O2 Flow Rate FiO2 01/24/18 08:00 95 01/24/18 08:00 98.4 95 24 148/82 (104) 96 01/24/18 06:00 83 01/24/18 04:00 82 01/24/18 04:00 98.4 82 26 112/66 (81) 96 01/24/18 02:00 84 01/24/18 00:00 99.1 81 19 137/81 (99) 95 01/24/18 00:00 81 01/23/18 22:00 80 01/23/18 20:00 98.4 75 17 116/71 (86) 98 01/23/18 20:00 75 01/23/18 18:00 75 01/23/18 16:00 98.4 74 22 102/64 (77) 95 01/23/18 16:00 74 01/23/18 14:57 22 01/23/18 14:00 72 01/23/18 12:00 98.3 71 20 116/72 (87) 92 01/23/18 12:00 76 01/23/18 10:00 78 I/O 01/23/18 01/23/18 01/23/18 01/24/18 01/24/18 01/24/18 07:00 15:00 23:00 07:00 15:00 23:00 Intake Total 1200 ml 1205 ml 1208 ml Output Total 1005 ml 775 ml 575 ml Balance 195 ml 430 ml 633 ml IV Total 1200 ml 775 ml 608 ml Tube Feeding 130 ml 350 ml Tube Irrigant 250 ml Other 300 ml Output Urine Total 405 ml 775 ml 575 ml Gastric Drainage Total 600 ml # Bowel Movements 1 Result Diagram: 01/24/1840901/24/18409 Objective Remarks Sitting up in bed, appears drowsy, easily woken up, maintains good eye contact but does not fully answer questions, cannot demonstrate full orientation Abdomen appears soft, nontender, nondistended NG tube in place A/P Assessment and Plan 57-year-old male who was admitted for encephalopathy. Was intubated eventually extubated, was concluded to at least have undergone metabolic encephalopathy due to his severe hypernatremia. HRT panel is negative, cultures including CSF from lumbar puncture are negative. Nephrology has been following, DDAVP has been titrated down while patient is still on D5 with tube feeds. [place] has been stopped (bipolar disorder), psychiatry consult pending Vomiting - self limited, possibly 2/2 ETOH gastropathy? ; if recurs, will consider GI consult. CMP appears unremarkable for acute changes. KUB abdomen : Unremarkable bowel gas pattern Toxic metabolic encephalopathy Anxiety/depression,? 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 THC positive. MRI neg for acute findings. Alcohol level was less than 3, TSH, B12, folate were normal [place] level 0.3 On thiamine, continue folic acid/ MVI daily Seizure precaution 01/14 EEG-no epileptiform features mild to moderate diffuse disturbance in cerebral function Neurology following Chronic obstructive pulmonary disease Chronic tobacco abuse head of bed 30, Duo nebs every 6 hours as needed for shortness of breath or dyspnea Hypertension Hyperlipidemia On Lopressor , Hydralazine ECHO showed EF 55-60% Hyperbilirubinemia Transaminitis Hepatitis C Cirrhosis of Liver Tube feeds placed on hold ( [place]) monitor gastric output CT abd/pelvis: Markedly cirrhotic liver appearance. Splenomegaly. Hep C viral hepatitis antibody positive GI prophylaxis Pepcid IV twice daily Lactulose 30ml TID monitor [place] level( 40) Acute renal failure superimposed on chronic kidney disease stage II Hypernatremia: Possible dehydration, diabetes insipidus (central versus nephrogenic) Continue Amiloride D5W, monitor sodium On DDAVP being titrated down Nephrology is following ID signed off; cefepime stop date in chart. Follow up on blood cultures from 01/21, Urine cx 01/20: No growth BC 01/11 NGTD, influenza screening negative 01/13 s/p LP 01/18: clear CSF, 5 WBC, nl glc, TP:45.5. HSV PCR negative, CSF cx: No growth Hypothyroidism Hyperglycemia TSH 2.86 SSI for glycemic control Macrocytic anemia Thrombocytopenia- chronic, stable Tushar Dimas MD Jan 24, 2018 09:58
--- NOTE | 2018-01-24 12:20 | HHI.NPPN ---
Subjective Complaints: Confused Renal Failure: Acute History of Present Illness This is a 57-year-old male with a history of apparent bipolar disorder. The patient has been on lithium in the past. It is unclear how long he has been on lithium. The patient was admitted on 01/12/2018, after he had a recent extensive dental extraction. The patient had apparent sudden acute onset of confusion and altered mental status. The patient was found at home lying shaking with confusion and a low-grade temperature. Here, the patient was seen in the emergency room. He was further evaluated and brought to the ICU when he had ongoing confusion and altered mental status. Drug screen showed positive cannabinoids. He was initially started on IV fluids with normal saline. He has subsequently developed acute significant hypernatremia. He had a serum sodium of 133 on presentation. He was started initially on normal saline and his sodium jumped up to a level of 160. Throughout the course of today, the patient 's sodium has continued to rise from 160 up to 166 and then 165. He initially was on normal saline and then was given half normal saline and is now on D5W. The patient had ongoing confusion and altered mental status and was intubated after he had significant tachycardia and tachypnea. At this point, the patient is intubated and sedated and is receiving D5W for hypernatremia. Nephrology was consulted for further evaluation. Additional Remarks Patient is sleeping. at bedside. (Zamzam Valentino) Objective Data Data Vital Signs Date Time Temp Pulse Resp B/P (MAP) Pulse Ox O2 Delivery O2 Flow Rate FiO2 01/24/18 10:00 98 01/24/18 08:00 95 01/24/18 08:00 98.4 95 24 148/82 (104) 96 01/24/18 06:00 83 01/24/18 04:00 82 01/24/18 04:00 98.4 82 26 112/66 (81) 96 01/24/18 02:00 84 01/24/18 00:00 99.1 81 19 137/81 (99) 95 01/24/18 00:00 81 01/23/18 22:00 80 01/23/18 20:00 98.4 75 17 116/71 (86) 98 01/23/18 20:00 75 01/23/18 18:00 75 01/23/18 16:00 98.4 74 22 102/64 (77) 95 01/23/18 16:00 74 01/23/18 14:57 22 01/23/18 14:00 72 (Zamzam Valentino) -: 01/24/18 0410 01/24/18 0410 Tubes & Lines: Graham (Zamzam Valentino) Physical Exam General Appearance: No Acute Distress, Comfortable (Zamzam Valentino) Pulmonary Resp Exam: Breath Sounds Equal, No Distress, Rhonchi (Zamzam Valentino) Cardiology CV Exam: Regular (Zamzam Valentino) Gastrointestinal/Abdomen GI Exam: Soft, Non-Tender, Bowel Sounds Present (Zamzam Valentino) Genitourinary Exam: Flank Non-Tender (Zamzam Valentino) Integumentary Skin Exam: Warm, Dry Skin Remarks Rash on buttocks (Zamzam Valentino) Extremeties Extremities Exam: No Edema (Zamzam Valentino) Neurologic Neuro Exam: Awake (Zamzam Valentino) Assessment/Plan Discussed Condition With: Patient, Spouse Assessment Summary: ANGELLA/Acute Renal Failure Problem List: (1) Hypernatremia ICD Codes: E87.0 - Hyperosmolality and hypernatremia Status: Acute Plan: Possible diabetes insipidus possible secondary to chronic calcifications. Also possible nephrogenic component for diabetes insipidus given that the patient has had ongoing lithium use on as far as his lithium toxicity. Plan Continue Amiloride 10mg daily Continue Free water DDAVP decreased. ADH level is normal. If Na. remain normal, can D/C DDAVP (2) Acute renal failure superimposed on stage 2 chronic kidney disease ICD Codes: N17.9 - Acute kidney failure, unspecified; N18.2 - Chronic kidney disease, stage 2 (mild) Status: Acute Plan: Acute kidney injury possible ATN Creatinine improved at 1.99 from 2.14 Renal US: . Mild medical renal disease. Probable nonobstructing right renal calculus. Graham catheter in bladder Plan Hypokalemia noted replacement GIVEN Will monitor UOP and BMP Avoid nephrotoxins. (3) Toxic metabolic encephalopathy ICD Codes: G92 - Toxic encephalopathy Status: Acute Plan: Continue antibiotics renal dosing. (Zamzam Valentino) Problem List: (1) Hypernatremia ICD Codes: E87.0 - Hyperosmolality and hypernatremia Status: Acute Plan: Possible diabetes insipidus possible secondary to chronic calcifications. Also possible nephrogenic component for diabetes insipidus given that the patient has had ongoing lithium use on as far as his lithium toxicity. Plan Continue Amiloride 10mg daily Continue Free water DDAVP decreased. ADH level is normal. If Na. remain normal, can D/C DDAVP. Patient seen and examined, agree with above. K is low and replaced. (2) Acute renal failure superimposed on stage 2 chronic kidney disease ICD Codes: N17.9 - Acute kidney failure, unspecified; N18.2 - Chronic kidney disease, stage 2 (mild) Status: Acute Plan: Acute kidney injury possible ATN Creatinine improved at 1.99 from 2.14 Renal US: . Mild medical renal disease. Probable nonobstructing right renal calculus. Graham catheter in bladder Plan Hypokalemia noted replacement GIVEN Will monitor UOP and BMP Avoid nephrotoxins. (3) Toxic metabolic encephalopathy ICD Codes: G92 - Toxic encephalopathy Status: Acute Plan: Continue antibiotics renal dosing. (John Gutierrez MD) Zamzam Valentino Jan 24, 2018 12:20 John Gutierrez MD Jan 24, 2018 18:07
--- NOTE | 2018-01-24 13:21 | PD.PSY.CON ---
Provisional Diagnosis Admission Date Jan 14, 2018 at 05:55 [place]. Delirium due to underlying medical conditions, history of bipolar disorder History of Present Illness Service Psychiatry Consult Requested By Medical team Reason for Consult Delirium Primary Care Physician No Primary Care Physician HPI The patient is a 57-year-old man with a reported history of bipolar disorder, he also has history of alcohol and cannabis use disorder. The patient has been on lithium in the past. It is unclear how long he has been on lithium. Patient has medical history of COPD, hypertension, renal failure, hepatitis C. He was admitted for encephalopathy. Was intubated eventually extubated, was concluded to at least have undergone metabolic encephalopathy due to his severe hypernatremia. HRT panel is negative, cultures including CSF from lumbar puncture are negative. Nephrology has been following, DDAVP has been titrated down while patient is still on D5 with tube feeds. Buck[place] has been stopped. Buck[place] level was initially 0.3. Psychiatric evaluation today the patient is very confused, with disorganized speech and thought process, tangential, completely disoriented, unable to provide any significant information for the psychiatric assessment at this moment. As per chart review CT head and cultures negative. THC positive. MRI neg for acute findings. Alcohol level was less than 3, TSH, B12, folate were normal. 01/14 EEG-no epileptiform features mild to moderate diffuse disturbance. Review of Systems ROS Limitations: Altered Mental Status, Uncooperative Past Family Social History Coded Allergies: chlorpheniramine (Unverified Allergy, Severe, ANTIHISTAMINE???, 01/11/18) pseudoephedrine (Unverified Allergy, Severe, DECONGESTANTS???, 01/11/18) Reported Medications Lactulose Liq (Lactulose Liq) 10 Gm/15 Ml Soln, 30 ML PO TID, ML 0 Refills 01/13/18 Levothyroxine (Levothyroxine) 25 Mcg Tab, 25 MCG PO DAILY for Thyroid, #30 TAB 0 Refills 01/11/18 Buspirone (Buspirone) 15 Mg Tab, 15 MG PO HS for Anxiety, TAB 0 Refills 01/11/18 Fluticasone-Vilanterol Inh (Breo Ellipta Inh) 100-25 Mcg/Act Inh, 1 PUFF INH DAILY, #1 INHALER 0 Refills Use daily at the same time. 01/11/18 Escitalopram (Escitalopram) 10 Mg Tab, 10 MG PO HS, #30 TAB 0 Refills 01/11/18 Tamsulosin (Tamsulosin) 0.4 Mg Cap, 0.4 MG PO HS for Manage Prostate Problems, # 30 CAP 0 Refills 01/11/18 Hydroxyzine Pamoate (Hydroxyzine Pamoate) 50 Mg Cap, 150 MG PO HS, CAP 0 Refills 01/11/18 Mirtazapine (Mirtazapine) 30 Mg Tab, 30 MG PO HS for Depression Control, #30 TAB 0 Refills 01/11/18 Gabapentin (Gabapentin) 600 Mg Tab, 4 TAB PO HS, #30 TAB 0 Refills 01/11/18 [place] Carbonate ([place] Carbonate) 300 Mg Cap, 900 MG PO BID, CAP 0 Refills 01/11/18 Current Medications Medications (Trade) Dose Ordered Sig/[place] Route Start Time Stop Time Status Last Admin (NS Flush) 2 ml UNSCH PRN IV FLUSH 01/12/18 00:45 (NS Flush) 2 ml BID IV FLUSH 01/12/18 09:00 01/24/18 08:18 (Tylenol) 650 mg Q4H PRN PO 01/12/18 00:45 01/23/18 13:57 (Zofran Inj) 4 mg Q6H PRN IVP 01/12/18 00:45 01/24/18 08:15 (Narcan Inj) 0.4 mg UNSCH PRN IV PUSH 01/12/18 00:45 (Shari-Colace) 1 tab BID PO 01/12/18 09:00 01/23/18 08:25 (Milk Of Magnesia Liq) 30 ml Q12H PRN PO 01/12/18 00:45 (Senokot) 17.2 mg Q12H PRN PO 01/12/18 00:45 (Dulcolax Supp) 10 mg DAILY PRN RECTAL 01/12/18 00:45 (Lactulose Liq) 30 ml DAILY PRN PO 01/12/18 00:45 (Catapres) 0.1 mg Q6H PRN PO 01/12/18 10:00 (Romazicon Inj) 0.2 mg Q1M PRN IV PUSH 01/12/18 10:00 (Duoneb Neb) 1 ampule Q4HR NEB PRN NEB 01/13/18 13:00 (Vasotec Inj) 1.25 mg Q6H PRN IV PUSH 01/13/18 16:00 (Apresoline Inj) 20 mg Q4H PRN IV PUSH 01/13/18 16:00 (Midamor) 10 mg DAILY PO 01/13/18 20:45 01/23/18 08:26 Miscellaneous Information Patient in critical care unit? Ass... Q361D .XX 01/14/18 02:45 (Vitamin B1) 100 mg DAILY PO 01/17/18 11:00 01/23/18 08:27 (Folate) 1 mg DAILY PO 01/17/18 11:00 01/23/18 08:27 (Theragran) 1 tab DAILY PO 01/17/18 11:00 01/23/18 08:27 (D50w (Vial) Inj) 50 ml UNSCH PRN IV PUSH 01/17/18 11:00 (Glucagon Inj) 1 mg UNSCH PRN OTHER 01/17/18 11:00 (NovoLIN R SUPPLEMENTAL SCALE) 1 Q6HR SQ 01/17/18 12:00 01/19/18 23:53 (Ativan Inj) 1 mg Q4H PRN IV 01/17/18 19:45 01/24/18 08:10 (Lopressor) 50 mg Q12HR PO 01/18/18 09:15 01/23/18 21:24 (Lactulose Liq) 30 ml TID PO 01/18/18 13:00 01/23/18 18:51 (Mycostatin Powder) 1 applic Q12HR PRN TOPICAL 01/18/18 12:30 01/22/18 20:24 (Apresoline) 50 mg Q8HR PO 01/19/18 08:00 01/24/18 05:21 Cefepime HCl 1000 mg/Sodium Chloride 100 ml @ 200 mls/hr Q8H IV 01/21/18 09:00 01/28/18 08:59 01/24/18 08:12 (Free Water) 250 ml Q12HR G-TUBE 01/21/18 09:00 01/23/18 21:00 (Mycostatin Cream) 1 applic Q6HR TOPICAL 01/21/18 12:00 01/24/18 12:00 (Pepcid) 10 mg BID PO 01/21/18 21:00 01/23/18 21:23 (Heparin Inj) 5,000 units Q12HR SQ 01/22/18 09:00 01/24/18 08:17 (Ddavp Inj) 1 mcg DAILY IV PUSH 01/24/18 09:00 01/24/18 08:13 Physical Exam Vital Signs Vital Signs Date Time Temp Pulse Resp B/P (MAP) Pulse Ox O2 Delivery O2 Flow Rate FiO2 01/24/18 12:00 97 01/24/18 12:00 98.8 19 109/70 (83) 97 01/23/18 09:28 Nasal Cannula 1.00 I/O 01/24/18 01/24/18 01/25/18 08:00 16:00 00:00 Intake Total 1208 ml Output Total 575 ml Balance 633 ml Lab Results Test 01/24/18 04:10 White Blood Count 15.2 TH/MM3 Red Blood Count 3.03 MIL/MM3 Hemoglobin 10.8 GM/DL Hematocrit 31.5 % Mean Corpuscular Volume 103.7 FL Mean Corpuscular Hemoglobin 35.7 PG Mean Corpuscular Hemoglobin Concent 34.4 % Red Cell Distribution Width 15.0 % Platelet Count 155 TH/MM3 Mean Platelet Volume 10.1 FL Neutrophils (%) (Auto) 75.0 % Lymphocytes (%) (Auto) 13.6 % Monocytes (%) (Auto) 7.8 % Eosinophils (%) (Auto) 3.2 % Basophils (%) (Auto) 0.4 % Neutrophils # (Auto) 11.4 TH/MM3 Lymphocytes # (Auto) 2.1 TH/MM3 Monocytes # (Auto) 1.2 TH/MM3 Eosinophils # (Auto) 0.5 TH/MM3 Basophils # (Auto) 0.1 TH/MM3 CBC Comment DIFF FINAL Differential Comment Blood Urea Nitrogen 35 MG/DL Creatinine 1.99 MG/DL Random Glucose 131 MG/DL Total Protein 7.4 GM/DL Albumin 2.5 GM/DL Calcium Level 9.0 MG/DL Alkaline Phosphatase 181 U/L Aspartate Amino Transf (AST/SGOT) 71 U/L Alanine Aminotransferase (ALT/SGPT) 106 U/L Total Bilirubin 0.6 MG/DL Sodium Level 140 MEQ/L Potassium Level 3.1 MEQ/L Chloride Level 108 MEQ/L Carbon Dioxide Level 21.0 MEQ/L Anion Gap 11 MEQ/L Estimat Glomerular Filtration Rate 35 ML/MIN Date/Time Source Procedure Growth Status 01/21/18 12:20 Blood Peripheral Aerobic Blood Culture - Preliminary NO GROWTH IN 3 DAYS Resulted 01/21/18 12:20 Blood Peripheral Anaerobic Blood Culture - Preliminary NO GROWTH IN 3 DAYS Resulted 01/18/18 13:17 Cerebral Spinal Fluid Lumbar Puncture Gram Stain - Final Complete 01/18/18 13:17 Cerebral Spinal Fluid Lumbar Puncture CSF Culture - Final NO GROWTH IN 72 HOURS Complete 01/13/18 17:40 Nasal Aspirate Influenza Types A,B Antigen (DIMITRIS) - Final NEGATIVE FOR FLU A AND B ANTIGEN.... Complete 01/20/18 18:00 Urine Clean Catch Urine Culture - Final NO GROWTH IN 48 HOURS. Complete Mental Status Examination Appearance: Appropriate Consciousness: Clouded Orientation: Person Motor Activity: Normal gait Speech: Unremarkable, Incoherent Language: Adequate Fund of Knowledge: Inadequate Attention and Concentration: Inadequate Memory: Impaired Mood: Irritable Affect: Labile Thought Process & Associations: Loose associations, Disorganized Thought Content: Appropriate Hallucination Type: None Delusion Type: None Suicidal Ideation: No Suicidal Plan: No Suicidal Intention: No Homicidal Ideation: No Homicidal Plan: No Homicidal Intention: No Insight: Poor Judgment: Poor Assessment & Plan Problem List: (1) Delirium due to another medical condition ICD Codes: F05 - Delirium due to known physiological condition Assessment & Plan: On psychiatric evaluation today the patient presents with evident signs of delirium, very confused, with disorganized behavior and his speech, his restraint in 2 points, fluctuation of consciousness, poor attention span, disoriented, unable to provide any significant information for the psychiatric assessment at this moment. Patient has history of bipolar disorder , he has been in lithium, no collateral information is available at this moment in order to confirm for how long the patient has been in lithium and also his baseline. Patient also has history of substance use disorder. His current presentation seems to be more related with delirium then with a bipolar disorder , there is no mood component in this presentation as at this moment. I agree with discontinuing lithium, especially with his acute kidney impairment. Haldol 1 mg twice daily is appropriate for delirium and also for behavioral control. Haldol 2-5 mg IM/IV every 8 hours if severe agitation or aggressiveness. If patient continues to be psychotic beyond medical clearance, he can be appropriate to be [place] acted and transferred to psychiatry. (2) Toxic metabolic encephalopathy ICD Codes: G92 - Toxic encephalopathy Status: Acute (3) Acute renal failure superimposed on stage 2 chronic kidney disease ICD Codes: N17.9 - Acute kidney failure, unspecified; N18.2 - Chronic kidney disease, stage 2 (mild) Status: Acute Assessment & Plan Estimated LOS: days Adonay Yu MD Jan 24, 2018 13:21
[2018-01-24] MEDS: DEXT 5%-NACL 0.45% 1000 ML INJ 1,000 ML IV SCH (13:45)
[2018-01-24] MEDS ORDERED: HALOPERIDOL LACTATE 5 MG/ML AMP IM ONE (14:35)
[2018-01-24] MEDS: HALOPERIDOL 1 MG TAB PO SCH (20:03)
[2018-01-25] VITALS (13 sets, daily range): BP systolic 104–124; BP diastolic 60–66; PULSE 65–86; RESP 14–23; TEMP 97.6–98.9; O2SAT 94–99
[2018-01-25] MEDS: NYSTATIN 100,000 UNIT/GM CREAM 15 GM TOPICAL SCH ×5 (00:32→23:51)
[2018-01-25] MEDS: CEFEPIME INJ 1,000 MG in SODIUM CHLORIDE 0.9% INJ 100 ML IV SCH ×3 (00:34→17:33)
[2018-01-25 03:57] LABS: CREATININE 2.06 MG/DL (0.60-1.30)
[2018-01-25] MEDS: hydrALAZINE HCL 50 MG TAB PO SCH ×3 (05:25→22:00)
[2018-01-25] MEDS: INSULIN NovoLIN REGULAR SUPPLEMENTAL SCALE SQ SCH ×5 (06:00→23:51)
[2018-01-25] MEDS: DOCUSATE SODIUM 50 MG/SENNA 8.6 MG TAB PO SCH ×2 (09:00→20:01)
[2018-01-25] MEDS: METOPROLOL TARTRATE 50 MG TAB PO SCH ×2 (09:00→20:01)
[2018-01-25] MEDS: FREE WATER G-TUBE SCH ×2 (09:00→20:01)
[2018-01-25] MEDS: LACTULOSE SYRUP 20 GM/30 ML CUP PO SCH ×3 (09:00→17:33)
[2018-01-25] MEDS: HEPARIN SODIUM - SQ 10,000 UNITS/ML VIAL SQ SCH ×2 (09:05→20:00)
[2018-01-25] MEDS: HALOPERIDOL 1 MG TAB PO SCH ×2 (09:05→20:00)
[2018-01-25] MEDS: MULTIVITAMIN TAB PO SCH (09:05)
[2018-01-25] MEDS: FAMOTIDINE 20 MG TAB PO SCH ×2 (09:05→20:00)
[2018-01-25] MEDS: DESMOPRESSIN ACETATE 4 MCG/ML VIAL IV PUSH SCH (09:06)
[2018-01-25] MEDS: FOLIC ACID 1 MG TAB PO SCH (09:06)
[2018-01-25] MEDS: aMILoride HCL 5 MG TAB PO SCH (09:06)
[2018-01-25] MEDS: SODIUM CHLORIDE 0.9% FLUSH 10 ML FLUSH IV FLUSH SCH ×2 (09:07→20:01)
[2018-01-25] MEDS: THIAMINE HCL 100 MG TAB PO SCH (09:07)
--- NOTE | 2018-01-25 10:31 | HHI.IDPN ---
Subjective Subjective Remarks is a 57-year-old male with past medical history significant for hypertension, hyperlipidemia, COPD, tobacco abuse. Patient's past medical history reportedly is also significant for marijuana use, spinal stenosis unsure if he had any instrumentation. Patient also has a history of hypothyroidism. Patient's psychiatric history is also significant for anxiety, depression possibly history of bipolar disorder who is on multiple medications such as buspirone, citalopram, mirtazapine, gabapentin, hydroxyzine as well as lithium. With this background patient presents to the hospital with a history of altered mental status and confusion prior to admission. Per records patient's noticed that patient was starting to speak nonsensical language and was laying in bed with a low-grade fever. Reportedly patient also had an extraction about 10 of his lower teeth 2 days prior to coming to the emergency department. Sepsis workup as well as a neurological workup was initiated on admission. Blood cultures on admission and negative so far. CSF studies done on admission show 5 wbc, normal glucose total protein 45.5, CSF HSV 1 and 2 are negative. CSF VDRL is pending at the present time. An MRI of the brain did not show any acute infarcts or any infectious etiology. Evaluation was started on empiric vancomycin IV and Zosyn. Infectious disease is consulted for evaluation and management of persistent fevers and leukocytosis. At the time of my evaluation patient is in the ICU currently on room air not on any pressors. Overnight events reviewed No fevers No rash No diarrhea More awake, responsive, smiles. Antibiotics Cefepime IV Lines Line sites with no e.o infection. Past Medical History reviewed. Allergies: Coded Allergies: chlorpheniramine (Unverified Allergy, Severe, ANTIHISTAMINE???, 01/11/18) pseudoephedrine (Unverified Allergy, Severe, DECONGESTANTS???, 01/11/18) Objective . Vital Signs Date Time Temp Pulse Resp B/P (MAP) Pulse Ox O2 Delivery O2 Flow Rate FiO2 01/25/18 09:48 94 Nasal Cannula 2.00 01/25/18 06:00 65 01/25/18 04:00 65 01/25/18 04:00 98.9 65 16 120/60 (80) 98 01/25/18 02:00 73 01/25/18 00:13 98 Nasal Cannula 2.00 01/25/18 00:00 71 01/25/18 00:00 98.3 71 19 108/66 (80) 99 01/24/18 22:00 73 01/24/18 20:00 96 01/24/18 20:00 99.1 96 18 123/71 (88) 96 01/24/18 18:00 104 01/24/18 16:00 108 01/24/18 16:00 108 19 115/69 (84) 97 01/24/18 14:00 106 01/24/18 12:00 97 01/24/18 12:00 98.8 91 19 109/70 (83) 97 . Laboratory Tests Test 01/24/18 04:10 White Blood Count 15.2 TH/MM3 Red Blood Count 3.03 MIL/MM3 Hemoglobin 10.8 GM/DL Hematocrit 31.5 % Mean Corpuscular Volume 103.7 FL Mean Corpuscular Hemoglobin 35.7 PG Mean Corpuscular Hemoglobin Concent 34.4 % Red Cell Distribution Width 15.0 % Platelet Count 155 TH/MM3 Mean Platelet Volume 10.1 FL Neutrophils (%) (Auto) 75.0 % Lymphocytes (%) (Auto) 13.6 % Monocytes (%) (Auto) 7.8 % Eosinophils (%) (Auto) 3.2 % Basophils (%) (Auto) 0.4 % Neutrophils # (Auto) 11.4 TH/MM3 Lymphocytes # (Auto) 2.1 TH/MM3 Monocytes # (Auto) 1.2 TH/MM3 Eosinophils # (Auto) 0.5 TH/MM3 Basophils # (Auto) 0.1 TH/MM3 CBC Comment DIFF FINAL Differential Comment Laboratory Tests Test 01/24/18 04:10 01/25/18 03:09 Blood Urea Nitrogen 35 MG/DL Creatinine 1.99 MG/DL 2.06 MG/DL Random Glucose 131 MG/DL Total Protein 7.4 GM/DL Albumin 2.5 GM/DL Calcium Level 9.0 MG/DL Alkaline Phosphatase 181 U/L Aspartate Amino Transf (AST/SGOT) 71 U/L Alanine Aminotransferase (ALT/SGPT) 106 U/L Total Bilirubin 0.6 MG/DL Sodium Level 140 MEQ/L Potassium Level 3.1 MEQ/L Chloride Level 108 MEQ/L Carbon Dioxide Level 21.0 MEQ/L Anion Gap 11 MEQ/L Estimat Glomerular Filtration Rate 35 ML/MIN 33 ML/MIN Imaging Last Impressions Chest X-Ray 01/21/18 0000 Signed Impressions: Service Date/Time: Sunday, January 21, 2018 08:52 - CONCLUSION: 1. No acute cardiac pulmonary disease. 2. Apparent placement of a nasogastric tube with the tip projected over the mid to distal esophagus. Shubham Patricio MD Abdomen X-Ray 01/21/18 0000 Signed Impressions: Service Date/Time: Sunday, January 21, 2018 08:43 - CONCLUSION: 1. Unremarkable bowel gas pattern. 2. Nasogastric tube with the tip in the proximal stomach. Shubham Patricio MD Lumbar Puncture Fluoroscopy 01/18/18 0000 Signed Impressions: Service Date/Time: Thursday, January 18, 2018 13:09 - CONCLUSION: Uncomplicated fluoroscopically guided lumbar puncture. Moses Chavez Jr., MD Renal Ultrasound 01/14/18 0000 Signed Impressions: Service Date/Time: Sunday, January 14, 2018 17:02 - CONCLUSION: 1. Mild medical renal disease. Probable nonobstructing right renal calculus. Graham catheter in bladder. Jonny Arciniega MD Head Magnetic Resonance Angiography 01/14/18 0000 Signed Impressions: Service Date/Time: Sunday, January 14, 2018 15:24 - CONCLUSION: 1. Suboptimal visualization of the left vertebral artery due to motion artifact particularly at the vertebrobasilar junction. Can not exclude a focal flow-limiting stenosis at this level. 2. Otherwise, unremarkable MRA examination of the [place] of [place]. No aneurysm or large vessel cerebral artery occlusion Dyllan Luque MD Brain MRI 01/14/18 0000 Signed Impressions: Service Date/Time: Sunday, January 14, 2018 15:24 - CONCLUSION: 1. Redemonstration of chronic cerebellar calcifications. 2. Senescent changes without acute abnormality. Specifically, no evidence for acute infarction. Dyllan Luque MD Abdomen/Pelvis CT 01/13/18 0000 Signed Impressions: Service Date/Time: Sunday, January 14, 2018 16:12 - CONCLUSION: Markedly cirrhotic liver appearance. Splenomegaly. Edinson Urbano MD Soft Tissue Neck X-Ray 01/12/18 0000 Signed Impressions: Service Date/Time: Friday, January 12, 2018 00:21 - CONCLUSION: 1. Degenerative changes of the mid and lower cervical spine. 2. Otherwise negative. No radiopaque foreign body. Gulshan Lieberman MD Head CT 01/11/[id number] Signed Impressions: Service Date/Time: Thursday, January 11, 2018 19:50 - CONCLUSION: No acute intracranial abnormality demonstrated. Atrophy and chronic cerebellar calcification. Edinson Esquivel MD Physical Exam GENERAL: This is a well-nourished, well-developed patient, in no apparent distress. SKIN: No rashes, ecchymoses or lesions. Cool and dry. HEAD: Atraumatic. Normocephalic. No temporal or scalp tenderness. EYES: Pupils equal round and reactive. Extraocular motions intact. No scleral icterus. No injection or drainage. ENT: Nose without bleeding, purulent drainage or septal hematoma. Throat without erythema, tonsillar hypertrophy or exudate. Uvula midline. Airway patent. NECK: Trachea midline. Supple, nontender, no meningeal signs. CARDIOVASCULAR: Regular rate and rhythm without murmurs. RESPIRATORY: Clear to auscultation. Breath sounds equal bilaterally. No wheezes , rales, or rhonchi. GASTROINTESTINAL: Abdomen soft, non-tender, nondistended. MUSCULOSKELETAL: Extremities without clubbing, cyanosis, or edema. No joint tenderness, effusion, or edema noted. No calf tenderness. Negative Homans sign bilaterally. NEUROLOGICAL: Not oriented. Did not follow commands Psych difficult to assess, calm. IV line sites with no evidence of infection. Assessment & Plan Remarks SIRS possible Sepsis (fever, WBC elevated) ? aspiration pneumonitis. Leucocytosis improving. Hepatitis C antibody positive: reports patient is s.p treatment for Hep C. Acute metabolic encephalopathy: acute hypernatremia, DI present on admission. ? infection. R.o Meningoencephalitis. Diabetes Insipidus, hypernatremia Acute renal failure: prerenal, metabolic Recs Continue Cefepime IV for now (stop date in chart) Ordered bedside swallow eval if passes ok to switch to oral augmentin till 2017. If fails swallow eval complete Cefepime IV stop date entered. Doppler LE negative. Elevated Procalcitonin. Follow repeat flores cultures. Follow cultures Follow clinically. dw . Will sign off please call back if any change in clinical condition or questions. Kate Gracia MD Jan 25, 2018 10:31
--- NOTE | 2018-01-25 11:02 | HHI.PR ---
Subjective Remarks Nursing denies any deterioration since last night including dislodging his rectal tube. Requiring restraints only for disconnecting devices. Nursing denies that the patient had any further nausea vomiting. He passed a swallow study and is now on clear liquids. Patient himself denies any nausea vomiting. He is more attentive today but still disoriented. Objective Vital Signs Date Time Temp Pulse Resp B/P (MAP) Pulse Ox O2 Delivery O2 Flow Rate FiO2 01/25/18 09:48 94 Nasal Cannula 2.00 01/25/18 06:00 65 01/25/18 04:00 65 01/25/18 04:00 98.9 65 16 120/60 (80) 98 01/25/18 02:00 73 01/25/18 00:13 98 Nasal Cannula 2.00 01/25/18 00:00 71 01/25/18 00:00 98.3 71 19 108/66 (80) 99 01/24/18 22:00 73 01/24/18 20:00 96 01/24/18 20:00 99.1 96 18 123/71 (88) 96 01/24/18 18:00 104 01/24/18 16:00 108 01/24/18 16:00 108 19 115/69 (84) 97 01/24/18 14:00 106 01/24/18 12:00 97 01/24/18 12:00 98.8 91 19 109/70 (83) 97 I/O 01/24/18 01/24/18 01/24/18 01/25/18 01/25/18 01/25/18 07:00 15:00 23:00 07:00 15:00 23:00 Intake Total 1208 ml 0 ml 500 ml Output Total 575 ml 925 ml 700 ml Balance 633 ml -925 ml -200 ml Intake Oral 0 ml 400 ml IV Total 608 ml 100 ml Tube Feeding 350 ml Tube Irrigant 250 ml Output Urine Total 575 ml 525 ml 500 ml Stool Total 400 ml 200 ml # Bowel Movements 1 1 Result Diagram: 01/24/18 0410 01/25/18 0309 Objective Remarks Sitting up in bed, appears drowsy, easily woken up, maintains good eye contact and answers more questions today Abdomen appears soft, nontender, nondistended, hyperactive bowel sounds No NG tube in place A/P Assessment and Plan 57-year-old male who was admitted for encephalopathy. Was intubated eventually extubated, was concluded to at least have undergone metabolic encephalopathy due to his severe hypernatremia. HRT panel is negative, cultures including CSF from lumbar puncture are negative. Nephrology has been following, DDAVP has been titrated down while patient is still on D5 with tube feeds. [place] has been stopped (bipolar disorder), psychiatry consult pending Vomiting -resolved Toxic metabolic encephalopathy Anxiety/depression,? 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 THC positive. MRI neg for acute findings. Alcohol level was less than 3, TSH, B12, folate were normal [place] level 0.3 On thiamine, continue folic acid/ MVI daily Seizure precaution 01/14 EEG-no epileptiform features mild to moderate diffuse disturbance in cerebral function Neurology following Chronic obstructive pulmonary disease Chronic tobacco abuse head of bed 30, Duo nebs every 6 hours as needed for shortness of breath or dyspnea Hypertension Hyperlipidemia On Lopressor , Hydralazine ECHO showed EF 55-60% Hyperbilirubinemia Transaminitis Hepatitis C Cirrhosis of Liver Now on p.o. intake per speech therapy, monitor intake CT abd/pelvis: Markedly cirrhotic liver appearance. Splenomegaly. Hep C viral hepatitis antibody positive GI prophylaxis Pepcid IV twice daily Lactulose 30ml TID monitor Ammonia level( 40) Acute renal failure superimposed on chronic kidney disease stage II Hypernatremia: Possible dehydration, diabetes insipidus (central versus nephrogenic) Continue Amiloride D5W, monitor sodium On DDAVP being titrated down Nephrology is following ID signed off; cefepime stop date in chart. Follow up on blood cultures from 01/21, Urine cx 01/20: No growth BC 01/11 NGTD, influenza screening negative 01/13 s/p LP 01/18: clear CSF, 5 WBC, nl glc, TP:45.5. HSV PCR negative, CSF cx: No growth Hypothyroidism Hyperglycemia TSH 2.86 SSI for glycemic control Macrocytic anemia Thrombocytopenia- chronic, stable Stable transfer to regular floor pending availability Tushar Dimas MD Jan 25, 2018 11:02
--- NOTE | 2018-01-25 13:23 | HHI.NPPN ---
Subjective Complaints: Confused Renal Failure: Acute History of Present Illness This is a 57-year-old male with a history of apparent bipolar disorder. The patient has been on lithium in the past. It is unclear how long he has been on lithium. The patient was admitted on 01/12/2018, after he had a recent extensive dental extraction. The patient had apparent sudden acute onset of confusion and altered mental status. The patient was found at home lying shaking with confusion and a low-grade temperature. Here, the patient was seen in the emergency room. He was further evaluated and brought to the ICU when he had ongoing confusion and altered mental status. Drug screen showed positive cannabinoids. He was initially started on IV fluids with normal saline. He has subsequently developed acute significant hypernatremia. He had a serum sodium of 133 on presentation. He was started initially on normal saline and his sodium jumped up to a level of 160. Throughout the course of today, the patient 's sodium has continued to rise from 160 up to 166 and then 165. He initially was on normal saline and then was given half normal saline and is now on D5W. The patient had ongoing confusion and altered mental status and was intubated after he had significant tachycardia and tachypnea. At this point, the patient is intubated and sedated and is receiving D5W for hypernatremia. Nephrology was consulted for further evaluation. Additional Remarks Patient is more awake today and responding to questions. No oriented. PO intake is improving. (Zamzam Valentino) Objective Data Data Vital Signs Date Time Temp Pulse Resp B/P (MAP) Pulse Ox O2 Delivery O2 Flow Rate FiO2 01/25/18 12:00 97.6 75 21 115/63 (80) 98 01/25/18 09:48 94 Nasal Cannula 2.00 01/25/18 06:00 65 01/25/18 04:00 65 01/25/18 04:00 98.9 65 16 120/60 (80) 98 01/25/18 02:00 73 01/25/18 00:13 98 Nasal Cannula 2.00 01/25/18 00:00 71 01/25/18 00:00 98.3 71 19 108/66 (80) 99 01/24/18 22:00 73 01/24/18 20:00 96 01/24/18 20:00 99.1 96 18 123/71 (88) 96 3/29/18 18:00 104 01/24/18 16:00 108 01/24/18 16:00 108 19 115/69 (84) 97 01/24/18 14:00 106 (Zamzam Valentino) -: 01/24/18 0410 01/25/18 0309 Tubes & Lines: Graham (Zamzam Valentino) Physical Exam General Appearance: No Acute Distress, Comfortable (Zamzam Valentino) Pulmonary Resp Exam: Breath Sounds Equal, No Distress, Rhonchi (Zamzam ValentinoP) Cardiology CV Exam: Regular (Zamzam Valentino) Gastrointestinal/Abdomen GI Exam: Soft, Non-Tender, Bowel Sounds Present (Zamzam Valentino) Genitourinary Exam: Flank Non-Tender (Zamzam Valentino) Integumentary Skin Exam: Warm, Dry Skin Remarks Rash on buttocks (Zamzam Valentino) Extremeties Extremities Exam: No Edema (Zamzam Valentino) Neurologic Neuro Exam: Awake (Zamzam Valentino) Assessment/Plan Discussed Condition With: Patient, Spouse Assessment Summary: ANGELLA/Acute Renal Failure Problem List: (1) Hypernatremia ICD Codes: E87.0 - Hyperosmolality and hypernatremia Status: Acute Plan: Possible diabetes insipidus possible secondary to chronic calcifications. Also possible nephrogenic component for diabetes insipidus given that the patient has had ongoing lithium use on as far as his lithium toxicity. Plan Continue Amiloride 10mg daily Continue DDAVP if sodium normal tomorrow discontinue (2) Acute renal failure superimposed on stage 2 chronic kidney disease ICD Codes: N17.9 - Acute kidney failure, unspecified; N18.2 - Chronic kidney disease, stage 2 (mild) Status: Acute Plan: Acute kidney injury possible ATN Creatinine at 2.06 today from 1.99 Renal US: . Mild medical renal disease. Probable nonobstructing right renal calculus. Graham catheter in bladder Plan Will monitor UOP and BMP Avoid nephrotoxins. (3) Toxic metabolic encephalopathy ICD Codes: G92 - Toxic encephalopathy Status: Acute Plan: Continue antibiotics renal dosing. (Zamzam Valentino) Problem List: (1) Hypernatremia ICD Codes: E87.0 - Hyperosmolality and hypernatremia Status: Acute Plan: Possible diabetes insipidus possible secondary to chronic calcifications. Also possible nephrogenic component for diabetes insipidus given that the patient has had ongoing lithium use on as far as his lithium toxicity. Plan Continue Amiloride 10mg daily Continue DDAVP if sodium normal tomorrow discontinue. Patient seen and examined, agree with above. Creatinine is stable. (2) Acute renal failure superimposed on stage 2 chronic kidney disease ICD Codes: N17.9 - Acute kidney failure, unspecified; N18.2 - Chronic kidney disease, stage 2 (mild) Status: Acute Plan: Acute kidney injury possible ATN Creatinine at 2.06 today from 1.99 Renal US: . Mild medical renal disease. Probable nonobstructing right renal calculus. Graham catheter in bladder Plan Will monitor UOP and BMP Avoid nephrotoxins. (3) Toxic metabolic encephalopathy ICD Codes: G92 - Toxic encephalopathy Status: Acute Plan: Continue antibiotics renal dosing. (John Gutierrez MD) Zamzam Valentino Jan 25, 2018 13:23 John Gutierrez MD Jan 25, 2018 18:42
[2018-01-25] MEDS: DEXT 5%-NACL 0.45% 1000 ML INJ 1,000 ML IV SCH (13:34)
[2018-01-25] MEDS: LORazepam 2 MG/ML VIAL IV PRN (15:12)
[2018-01-26] VITALS (9 sets, daily range): BP systolic 100–126; BP diastolic 55–70; PULSE 59–86; RESP 16–20; TEMP 97.6–98.6; O2SAT 95–99
[2018-01-26] MEDS: CEFEPIME INJ 1,000 MG in SODIUM CHLORIDE 0.9% INJ 100 ML IV SCH ×3 (00:55→16:02)
[2018-01-26 05:05] LABS: BICARBONATE 19.6 MEQ/L (21.0-32.0); CALCIUM 8.2 MG/DL (8.5-10.1); CREATININE 1.78 MG/DL (0.60-1.30)
[2018-01-26] MEDS: INSULIN NovoLIN REGULAR SUPPLEMENTAL SCALE SQ SCH ×4 (06:00→23:37)
[2018-01-26] MEDS: hydrALAZINE HCL 50 MG TAB PO SCH ×3 (06:00→21:32)
[2018-01-26] MEDS: NYSTATIN 100,000 UNIT/GM CREAM 15 GM TOPICAL SCH ×4 (06:42→23:38)
[2018-01-26] MEDS: FREE WATER G-TUBE SCH ×2 (08:14→21:00)
[2018-01-26] MEDS: DOCUSATE SODIUM 50 MG/SENNA 8.6 MG TAB PO SCH (08:14)
[2018-01-26] MEDS: DESMOPRESSIN ACETATE 4 MCG/ML VIAL IV PUSH SCH ×2 (08:15→11:55)
[2018-01-26] MEDS: aMILoride HCL 5 MG TAB PO SCH (08:21)
[2018-01-26] MEDS: MULTIVITAMIN TAB PO SCH (08:21)
[2018-01-26] MEDS: METOPROLOL TARTRATE 50 MG TAB PO SCH ×2 (08:21→21:31)
[2018-01-26] MEDS: SODIUM CHLORIDE 0.9% FLUSH 10 ML FLUSH IV FLUSH SCH ×2 (08:21→21:30)
[2018-01-26] MEDS: FAMOTIDINE 20 MG TAB PO SCH ×2 (08:21→21:31)
[2018-01-26] MEDS: LACTULOSE SYRUP 20 GM/30 ML CUP PO SCH (08:21)
[2018-01-26] MEDS: HALOPERIDOL 1 MG TAB PO SCH ×2 (08:21→21:31)
[2018-01-26] MEDS: FOLIC ACID 1 MG TAB PO SCH (08:21)
[2018-01-26] MEDS: THIAMINE HCL 100 MG TAB PO SCH (08:21)
[2018-01-26] MEDS: HEPARIN SODIUM - SQ 10,000 UNITS/ML VIAL SQ SCH ×2 (08:22→21:31)
--- NOTE | 2018-01-26 10:51 | HHI.NPPN ---
Subjective Complaints: Confused Renal Failure: Acute History of Present Illness This is a 57-year-old male with a history of apparent bipolar disorder. The patient has been on lithium in the past. It is unclear how long he has been on lithium. The patient was admitted on 01/12/2018, after he had a recent extensive dental extraction. The patient had apparent sudden acute onset of confusion and altered mental status. The patient was found at home lying shaking with confusion and a low-grade temperature. Here, the patient was seen in the emergency room. He was further evaluated and brought to the ICU when he had ongoing confusion and altered mental status. Drug screen showed positive cannabinoids. He was initially started on IV fluids with normal saline. He has subsequently developed acute significant hypernatremia. He had a serum sodium of 133 on presentation. He was started initially on normal saline and his sodium jumped up to a level of 160. Throughout the course of today, the patient 's sodium has continued to rise from 160 up to 166 and then 165. He initially was on normal saline and then was given half normal saline and is now on D5W. The patient had ongoing confusion and altered mental status and was intubated after he had significant tachycardia and tachypnea. At this point, the patient is intubated and sedated and is receiving D5W for hypernatremia. Nephrology was consulted for further evaluation. Additional Remarks Patient is more awake today and responding to questions, remain confused. Objective Data Data Vital Signs Date Time Temp Pulse Resp B/P (MAP) Pulse Ox O2 Delivery O2 Flow Rate FiO2 01/26/18 09:27 81 01/26/18 07:32 98.6 74 20 122/66 (84) 99 01/26/18 05:06 79 01/26/18 04:00 98.1 86 18 117/68 (84) 96 01/26/18 00:00 81 01/26/18 00:00 97.6 81 16 100/55 (70) 95 01/25/18 20:00 83 01/25/18 20:00 97.9 83 23 124/64 (84) 96 01/25/18 18:00 86 01/25/18 16:00 70 01/25/18 16:00 97.8 70 14 104/63 (77) 95 01/25/18 14:00 79 01/25/18 12:00 97.6 75 21 115/63 (80) 98 01/25/18 12:00 75 -: 01/24/18 0410 01/26/18 0344 Tubes & Lines: Graham Physical Exam General Appearance: No Acute Distress, Comfortable Pulmonary Resp Exam: Breath Sounds Equal, No Distress, Rhonchi Cardiology CV Exam: Regular Gastrointestinal/Abdomen GI Exam: Soft, Non-Tender, Bowel Sounds Present Genitourinary Exam: Flank Non-Tender Integumentary Skin Exam: Warm, Dry Extremeties Extremities Exam: No Edema Neurologic Neuro Exam: Awake Assessment/Plan Discussed Condition With: Patient, Spouse Assessment Summary: ANGELLA/Acute Renal Failure Problem List: (1) Hypernatremia ICD Codes: E87.0 - Hyperosmolality and hypernatremia Status: Acute Plan: Possible diabetes insipidus possible secondary to chronic calcifications. Also possible nephrogenic component for diabetes insipidus given that the patient has had ongoing lithium use on as far as his lithium toxicity. Plan Continue Amiloride 10mg daily Continue DDAVP if sodium normal tomorrow discontinue. Patient seen and examined, agree with above. Creatinine is improving, Non oliguric. Encourage oral intake. (2) Acute renal failure superimposed on stage 2 chronic kidney disease ICD Codes: N17.9 - Acute kidney failure, unspecified; N18.2 - Chronic kidney disease, stage 2 (mild) Status: Acute Plan: Acute kidney injury possible ATN Creatinine at 2.06 today from 1.99 Renal US: . Mild medical renal disease. Probable nonobstructing right renal calculus. Graham catheter in bladder Plan Will monitor UOP and BMP Avoid nephrotoxins. (3) Toxic metabolic encephalopathy ICD Codes: G92 - Toxic encephalopathy Status: Acute Plan: Continue antibiotics renal dosing. John Gutierrez MD Jan 26, 2018 10:50
--- NOTE | 2018-01-26 11:09 | HHI.PR ---
Subjective Remarks f/u encephalopathy Confusion/delirium about the same, no much change, receiving Haldol, still in restraints. Oriented to self but not to place. No overnight events. Still with loose stools. Objective Vitals Vital Signs Date Time Temp Pulse Resp B/P (MAP) Pulse Ox O2 Delivery O2 Flow Rate FiO2 01/26/18 09:27 81 01/26/18 07:32 98.6 74 20 122/66 (84) 99 01/26/18 05:06 79 01/26/18 04:00 98.1 86 18 117/68 (84) 96 01/26/18 00:00 81 01/26/18 00:00 97.6 81 16 100/55 (70) 95 01/25/18 20:00 83 01/25/18 20:00 97.9 83 23 124/64 (84) 96 01/25/18 18:00 86 01/25/18 16:00 70 01/25/18 16:00 97.8 70 14 104/63 (77) 95 01/25/18 14:00 79 01/25/18 12:00 97.6 75 21 115/63 (80) 98 01/25/18 12:00 75 I/O 01/25/18 01/25/18 01/25/18 01/26/18 01/26/18 01/26/18 07:00 15:00 23:00 07:00 15:00 23:00 Intake Total 500 ml 350 ml 100 ml Output Total 700 ml 600 ml Balance -200 ml -250 ml 100 ml Intake Oral 400 ml 350 ml IV Total 100 ml 100 ml Output Urine Total 500 ml 600 ml Stool Total 200 ml # Bowel Movements 1 1 Result Diagram: 01/24/18 0410 01/26/18 0344 Objective Remarks Not in distress, on restraints, confused Pupils equal reactive to light, anicteric Regular rate and rhythm, no murmurs Clear breath sounds Abdomen soft nontender No edema Awake, alert, oriented to self but not to time and place. Moves extremities, no focal neurologic deficits. A/P Problem List: (1) Altered mental status ICD Code: R41.82 - Altered mental status, unspecified (2) Toxic metabolic encephalopathy ICD Code: G92 - Toxic encephalopathy Status: Acute (3) Hypernatremia ICD Code: E87.0 - Hyperosmolality and hypernatremia Status: Acute (4) Acute renal failure superimposed on stage 2 chronic kidney disease ICD Code: N17.9 - Acute kidney failure, unspecified; N18.2 - Chronic kidney disease, stage 2 (mild) Status: Acute (5) Systemic inflammatory response syndrome ICD Code: R65.10 - Systemic inflammatory response syndrome (SIRS) of non- infectious origin without acute organ dysfunction (6) Chronic obstructive pulmonary disease ICD Code: J44.9 - Chronic obstructive pulmonary disease, unspecified (7) Hypothyroidism ICD Code: E03.9 - Hypothyroidism, unspecified (8) Leukocytosis ICD Code: D72.829 - Elevated white blood cell count, unspecified (9) Thrombocytopenia ICD Code: D69.6 - Thrombocytopenia, unspecified Status: Acute (10) Transaminitis ICD Code: R74.0 - Nonspecific elevation of levels of transaminase and lactic acid dehydrogenase [LDH] (11) Hyperbilirubinemia ICD Code: E80.6 - Other disorders of bilirubin metabolism (12) Macrocytic anemia ICD Code: D53.9 - Nutritional anemia, unspecified (13) Hyperglycemia ICD Code: R73.9 - Hyperglycemia, unspecified Assessment and Plan This is 57-year-old male who was admitted for encephalopathy. Initially admitted to the ICU after intubation, extubated, diagnosed to have metabolic encephalopathy secondary to severe hypernatremia. CSF infection ruled out. Altered mental status secondary to delirium, toxic metabolic encephalopathy secondary to hyponatremia-CSF culture negative, unlikely [employer] infection, seen by psychiatry, likely secondary to delirium versus toxic metabolic encephalopathy secondary to hyponatremia, resolving. Psychiatry following, continue Haldol as needed, continue restraints. Not likely secondary to bipolar disorder. CT scan of the head unremarkable, MRI negative for acute findings. Ammonia within normal limits, stop lactulose. Workup negative including TSH, vitamin B12. Continue thiamine, folic acid. Seizure precautions, EEG showed mild to moderate diffuse disturbance in cerebral function, no epileptiform discharges. Acute renal failure, on top of chronic kidney disease stage II-nephrology following, resolving, likely secondary to acute tubular necrosis. Hypernatremia-nephrology following, possibly secondary to diabetes insipidus from calcifications versus lithium. Continue DDAVP, titrated down, likely secondary to lithium therapy. Continue amiloride, stop DDAVP if sodium is normal tomorrow. [place] stopped. Chronic COPD-continue duo nebs as needed. Stable. Hypertension-continue Lopressor, hydralazine, echocardiogram showed ejection fraction of 55-60%. Hyperlipidemia, transaminitis, hepatitis C, cirrhosis of the liver-CT of the abdomen showed cirrhotic liver, splenomegaly. Hepatitis C treatment as outpatient. Recheck LFTs in a few days Leukocytosis-improving, infectious disease has signed off, continue cefepime, switch to Augmentin 01/28/2018 if able to take oral pills, pro-calcitonin is increased. Cultures negative including urine culture and blood culture. Influenza screening negative. LP negative. Status post speech evaluation-pured diet and thin liquids. GI prophylaxis: Pepcid Macrocytic anemia, Thrombocytopenia- chronic, stable Discharge Planning Would likely still need custodial placement. Bienvenido Haney MD Jan 26, 2018 11:09
[2018-01-26] MEDS ORDERED: DOCUSATE SODIUM 50 MG/SENNA 8.6 MG TAB PO PRN (11:45)
[2018-01-26] MEDS ORDERED: HALOPERIDOL LACTATE 5 MG/ML AMP IM PRN (15:30)
[2018-01-27] VITALS (9 sets, daily range): BP systolic 106–149; BP diastolic 62–79; PULSE 59–91; RESP 12–20; TEMP 97.6–98.9; O2SAT 95–100
[2018-01-27] MEDS: CEFEPIME INJ 1,000 MG in SODIUM CHLORIDE 0.9% INJ 100 ML IV SCH ×4 (01:39→23:44)
[2018-01-27] MEDS: LORazepam 2 MG/ML VIAL IV PRN (01:40)
[2018-01-27] MEDS: INSULIN NovoLIN REGULAR SUPPLEMENTAL SCALE SQ SCH ×4 (05:52→23:46)
[2018-01-27] MEDS: hydrALAZINE HCL 50 MG TAB PO SCH ×3 (05:52→21:06)
[2018-01-27] MEDS: NYSTATIN 100,000 UNIT/GM CREAM 15 GM TOPICAL SCH ×4 (05:54→23:47)
[2018-01-27] MEDS: FREE WATER G-TUBE SCH ×2 (08:39→21:00)
[2018-01-27] MEDS: aMILoride HCL 5 MG TAB PO SCH (08:49)
[2018-01-27] MEDS: THIAMINE HCL 100 MG TAB PO SCH (08:49)
[2018-01-27] MEDS: METOPROLOL TARTRATE 50 MG TAB PO SCH ×2 (08:49→21:05)
[2018-01-27] MEDS: FOLIC ACID 1 MG TAB PO SCH (08:49)
[2018-01-27] MEDS: HALOPERIDOL 1 MG TAB PO SCH ×2 (08:50→21:05)
[2018-01-27] MEDS: SODIUM CHLORIDE 0.9% FLUSH 10 ML FLUSH IV FLUSH SCH ×2 (08:50→21:00)
[2018-01-27] MEDS: MULTIVITAMIN TAB PO SCH (08:50)
[2018-01-27] MEDS: HEPARIN SODIUM - SQ 10,000 UNITS/ML VIAL SQ SCH ×2 (08:50→21:05)
[2018-01-27] MEDS: FAMOTIDINE 20 MG TAB PO SCH ×2 (08:50→21:05)
[2018-01-27] MEDS: DESMOPRESSIN ACETATE 4 MCG/ML VIAL IV PUSH SCH (09:00)
[2018-01-27 09:46] LABS: BICARBONATE 15.9 MEQ/L (21.0-32.0); CALCIUM 9.2 MG/DL (8.5-10.1); CREATININE 1.82 MG/DL (0.60-1.30)
--- NOTE | 2018-01-27 11:06 | HHI.PR ---
Subjective Remarks Patient is in bed. Sleepy. Is noted agitated on and off. Restraints on. Objective Vitals Vital Signs Date Time Temp Pulse Resp B/P (MAP) Pulse Ox O2 Delivery O2 Flow Rate FiO2 01/27/18 10:43 79 12 149/79 (102) 100 01/27/18 08:57 66 01/27/18 04:10 98.7 69 20 106/62 (77) 95 01/27/18 01:00 65 01/27/18 00:00 98.9 59 20 138/65 (89) 99 01/26/18 20:00 98.1 75 20 126/70 (88) 98 01/26/18 17:57 98.3 71 20 119/57 (77) 99 01/26/18 13:07 61 01/26/18 12:38 98.3 59 20 123/61 (81) 96 I/O 01/26/18 01/26/18 01/26/18 01/27/18 01/27/18 01/27/18 06:59 14:59 22:59 06:59 14:59 22:59 Intake Total 100 ml 100 ml 820 ml 100 ml Output Total 3 ml Balance 100 ml 100 ml 817 ml 100 ml Intake Oral 720 ml IV Total 100 ml 100 ml 100 ml 100 ml Output Urine Total 3 ml # Voids 1 # Bowel Movements 3 Result Diagram: 01/24/18 0410 01/27/18 0740 Imaging Last Impressions Lower Extremity Ultrasound 01/22/18 0000 Signed Impressions: Service Date/Time: Monday, January 22, 2018 10:36 - CONCLUSION: Normal examination. Jonny Arciniega MD Chest X-Ray 01/21/18 0000 Signed Impressions: Service Date/Time: Sunday, January 21, 2018 08:52 - CONCLUSION: 1. No acute cardiac pulmonary disease. 2. Apparent placement of a nasogastric tube with the tip projected over the mid to distal esophagus. Shubham Patricio MD Abdomen X-Ray 01/21/18 0000 Signed Impressions: Service Date/Time: Sunday, January 21, 2018 08:43 - CONCLUSION: 1. Unremarkable bowel gas pattern. 2. Nasogastric tube with the tip in the proximal stomach. Shubham Patricio MD Lumbar Puncture Fluoroscopy 01/18/18 0000 Signed Impressions: Service Date/Time: Thursday, January 18, 2018 13:09 - CONCLUSION: Uncomplicated fluoroscopically guided lumbar puncture. Moses Chavez Jr., MD Renal Ultrasound 01/14/18 0000 Signed Impressions: Service Date/Time: Sunday, January 14, 2018 17:02 - CONCLUSION: 1. Mild medical renal disease. Probable nonobstructing right renal calculus. Graham catheter in bladder. Jonny Arciniega MD Head Magnetic Resonance Angiography 01/14/18 0000 Signed Impressions: Service Date/Time: Sunday, January 14, 2018 15:24 - CONCLUSION: 1. Suboptimal visualization of the left vertebral artery due to motion artifact particularly at the vertebrobasilar junction. Can not exclude a focal flow-limiting stenosis at this level. 2. Otherwise, unremarkable MRA examination of the [place]. No aneurysm or large vessel cerebral artery occlusion Dyllan Luque MD Brain MRI 01/14/18 0000 Signed Impressions: Service Date/Time: Sunday, January 14, 2018 15:24 - CONCLUSION: 1. Redemonstration of chronic cerebellar calcifications. 2. Senescent changes without acute abnormality. Specifically, no evidence for acute infarction. Dyllan Luque MD Abdomen/Pelvis CT 01/13/18 0000 Signed Impressions: Service Date/Time: Sunday, January 14, 2018 16:12 - CONCLUSION: Markedly cirrhotic liver appearance. Splenomegaly. Edinson Urbano MD Soft Tissue Neck X-Ray 01/12/18 0000 Signed Impressions: Service Date/Time: Friday, January 12, 2018 00:21 - CONCLUSION: 1. Degenerative changes of the mid and lower cervical spine. 2. Otherwise negative. No radiopaque foreign body. Gulshan Lieberman MD Head CT 01/11/181926 Signed Impressions: Service Date/Time: Thursday, January 11, 2018 19:50 - CONCLUSION: No acute intracranial abnormality demonstrated. Atrophy and chronic cerebellar calcification. Edinson Esquivel MD Objective Remarks GENERAL: In bed, sleepy, noted agitated on and off. Moving arms and legs opening eyes does not follow commands. CARDIOVASCULAR: Regular rate and rhythm. RESPIRATORY: No accessory muscle use. Clear to auscultation. Breath sounds equal bilaterally. GASTROINTESTINAL: Abdomen soft, non-tender, nondistended. Hepatic and splenic margins not palpable. MUSCULOSKELETAL: Extremities without clubbing, cyanosis, or edema. No obvious deformities. NEUROLOGICAL: Awake and alert. No obvious cranial nerve deficits. Moving arms and legs opening eyes does not follow commands. A/P Problem List: (1) Altered mental status ICD Code: R41.82 - Altered mental status, unspecified (2) Toxic metabolic encephalopathy ICD Code: G92 - Toxic encephalopathy Status: Acute (3) Hypernatremia ICD Code: E87.0 - Hyperosmolality and hypernatremia Status: Acute (4) Acute renal failure superimposed on stage 2 chronic kidney disease ICD Code: N17.9 - Acute kidney failure, unspecified; N18.2 - Chronic kidney disease, stage 2 (mild) Status: Acute (5) Systemic inflammatory response syndrome ICD Code: R65.10 - Systemic inflammatory response syndrome (SIRS) of non- infectious origin without acute organ dysfunction (6) Chronic obstructive pulmonary disease ICD Code: J44.9 - Chronic obstructive pulmonary disease, unspecified (7) Hypothyroidism ICD Code: E03.9 - Hypothyroidism, unspecified (8) Leukocytosis ICD Code: D72.829 - Elevated white blood cell count, unspecified (9) Thrombocytopenia ICD Code: D69.6 - Thrombocytopenia, unspecified Status: Acute (10) Transaminitis ICD Code: R74.0 - Nonspecific elevation of levels of transaminase and lactic acid dehydrogenase [LDH] (11) Hyperbilirubinemia ICD Code: E80.6 - Other disorders of bilirubin metabolism (12) Macrocytic anemia ICD Code: D53.9 - Nutritional anemia, unspecified (13) Hyperglycemia ICD Code: R73.9 - Hyperglycemia, unspecified Assessment and Plan This is 57-year-old male who was admitted for encephalopathy. Initially admitted to the ICU after intubation, extubated, diagnosed to have metabolic encephalopathy secondary to severe hypernatremia. CSF infection ruled out. Altered mental status secondary to delirium, toxic metabolic encephalopathy secondary to hyponatremia CSF culture negative, unlikely [employer] infection, seen by psychiatry, likely secondary to delirium versus toxic metabolic encephalopathy secondary to hyponatremia, resolving. Psychiatry following, continue Haldol as needed, continue restraints. Not likely secondary to bipolar disorder. CT scan of the head unremarkable, MRI negative for acute findings. Seizure precautions, EEG showed mild to moderate diffuse disturbance in cerebral function, no epileptiform discharges. Ammonia within normal limits, stop lactulose. Other workup negative including TSH, vitamin B12. Continue thiamine, folic acid. Noted more agitated, placed in four-point restraints, Haldol 4 mg IM every 6 hours as needed. Monitor. Acute renal failure, on top of chronic kidney disease stage II-nephrology following, resolving, likely secondary to acute tubular necrosis. Hypernatremia-nephrology following, possibly secondary to diabetes insipidus from calcifications versus lithium. Continue DDAVP, titrated down, likely secondary to lithium therapy. Continue amiloride, stop DDAVP if sodium is normal tomorrow. [place] stopped. Chronic COPD-continue duo nebs as needed. Stable. Hypertension-continue Lopressor, hydralazine, echocardiogram showed ejection fraction of 55-60%. Hyperlipidemia, transaminitis, hepatitis C, cirrhosis of the liver-CT of the abdomen showed cirrhotic liver, splenomegaly. Hepatitis C treatment as outpatient. Recheck LFTs in a few days Leukocytosis-improving, infectious disease has signed off, continue cefepime, switch to Augmentin 01/28/2018 if able to take oral pills, pro-calcitonin is increased. Cultures negative including urine culture and blood culture. Influenza screening negative. LP negative. Macrocytic anemia, Thrombocytopenia- chronic, stable. Status post speech evaluation-pured diet and thin liquids. GI prophylaxis: Pepcid Discharge Planning Would likely still need halfway placement. June Mazariegos MD Jan 27, 2018 11:06
--- NOTE | 2018-01-27 13:29 | HHI.NPPN ---
Subjective Complaints: Confused Renal Failure: Acute History of Present Illness This is a 57-year-old male with a history of apparent bipolar disorder. The patient has been on lithium in the past. It is unclear how long he has been on lithium. The patient was admitted on 01/12/2018, after he had a recent extensive dental extraction. The patient had apparent sudden acute onset of confusion and altered mental status. The patient was found at home lying shaking with confusion and a low-grade temperature. Here, the patient was seen in the emergency room. He was further evaluated and brought to the ICU when he had ongoing confusion and altered mental status. Drug screen showed positive cannabinoids. He was initially started on IV fluids with normal saline. He has subsequently developed acute significant hypernatremia. He had a serum sodium of 133 on presentation. He was started initially on normal saline and his sodium jumped up to a level of 160. Throughout the course of today, the patient 's sodium has continued to rise from 160 up to 166 and then 165. He initially was on normal saline and then was given half normal saline and is now on D5W. The patient had ongoing confusion and altered mental status and was intubated after he had significant tachycardia and tachypnea. At this point, the patient is intubated and sedated and is receiving D5W for hypernatremia. Nephrology was consulted for further evaluation. Additional Remarks Patient is confused and more lethargic today. Objective Data Data Vital Signs Date Time Temp Pulse Resp B/P (MAP) Pulse Ox O2 Delivery O2 Flow Rate FiO2 01/27/18 12:38 65 01/27/18 10:43 79 12 149/79 (102) 100 01/27/18 08:57 66 01/27/18 04:10 98.7 69 20 106/62 (77) 95 01/27/18 01:00 65 01/27/18 00:00 98.9 59 20 138/65 (89) 99 01/26/18 20:00 98.1 75 20 126/70 (88) 98 01/26/18 17:57 98.3 71 20 119/57 (77) 99 -: 01/24/18 0410 01/27/18 0740 Tubes & Lines: Graham Physical Exam General Appearance: No Acute Distress, Comfortable Pulmonary Resp Exam: Breath Sounds Equal, No Distress, Rhonchi Cardiology CV Exam: Regular Gastrointestinal/Abdomen GI Exam: Soft, Non-Tender, Bowel Sounds Present Genitourinary Exam: Flank Non-Tender Integumentary Skin Exam: Warm, Dry Extremeties Extremities Exam: No Edema Neurologic Neuro Exam: Awake Assessment/Plan Discussed Condition With: Patient, Spouse Assessment Summary: ANGELLA/Acute Renal Failure Problem List: (1) Hypernatremia ICD Codes: E87.0 - Hyperosmolality and hypernatremia Status: Acute Plan: Possible diabetes insipidus possible secondary to chronic calcifications. Also possible nephrogenic component for diabetes insipidus given that the patient has had ongoing lithium use on as far as his lithium toxicity. Plan Continue Amiloride 10mg daily Continue DDAVP if sodium normal tomorrow discontinue. Patient seen and examined, agree with above. Creatinine is stable, Hco3 decreased, follow in AM and check Lactic acid level. Non oliguric. Encourage oral intake. Follow the BMP in AM. (2) Acute renal failure superimposed on stage 2 chronic kidney disease ICD Codes: N17.9 - Acute kidney failure, unspecified; N18.2 - Chronic kidney disease, stage 2 (mild) Status: Acute Plan: Acute kidney injury possible ATN Creatinine at 2.06 today from 1.99 Renal US: . Mild medical renal disease. Probable nonobstructing right renal calculus. Graham catheter in bladder Plan Will monitor UOP and BMP Avoid nephrotoxins. (3) Toxic metabolic encephalopathy ICD Codes: G92 - Toxic encephalopathy Status: Acute Plan: Continue antibiotics renal dosing. John Gutierrez MD Jan 27, 2018 13:29
[2018-01-27] MEDS: AMOXICILLIN/CLAVULANATE K 875 MG TAB PO SCH (21:05)
[2018-01-28] VITALS (7 sets, daily range): BP systolic 106–134; BP diastolic 56–73; PULSE 59–69; RESP 16–20; TEMP 97.6–98.9; O2SAT 18–100
[2018-01-28] MEDS: hydrALAZINE HCL 50 MG TAB PO SCH ×3 (05:44→21:37)
[2018-01-28] MEDS: NYSTATIN 100,000 UNIT/GM CREAM 15 GM TOPICAL SCH ×3 (05:45→18:32)
[2018-01-28] MEDS: INSULIN NovoLIN REGULAR SUPPLEMENTAL SCALE SQ SCH ×3 (05:45→18:32)
[2018-01-28 08:30] LABS: AUTOMATED NEUTROPHIL # 5.4 TH/MM3 (1.8-7.7); BASOPHIL # 0.1 TH/MM3 (0-0.2); EOSINOPHIL # 0.4 TH/MM3 (0-0.4); EOSINOPHIL % 4.7 % (0.0-4.0); HEMATOCRIT 30.6 % (39.0-51.0); HEMOGLOBIN 10.4 GM/DL (13.0-17.0); LYMPH % 26.8 % (9.0-44.0); LYMPHOCYTE # 2.5 TH/MM3 (1.0-4.8); MEAN CELL VOLUME 103.2 FL (80.0-100.0); MEAN CORPUSCULAR HEMOGLOBIN 34.9 PG (27.0-34.0); MEAN CORPUSCULAR HGB CONC 33.8 % (32.0-36.0); MEAN PLATELET VOLUME 8.8 FL (7.0-11.0); MONOCYTE # 0.9 TH/MM3 (0-0.9); NEUT % 57.5 % (16.0-70.0); PLATELET COUNT 174 TH/MM3 (150-450); RED BLOOD COUNT 2.97 MIL/MM3 (4.50-5.90); RED CELL DISTRIBUTION WIDTH 15.5 % (11.6-17.2); WHITE BLOOD COUNT 9.4 TH/MM3 (4.0-11.0)
[2018-01-28] MEDS: MULTIVITAMIN TAB PO SCH (08:52)
[2018-01-28] MEDS: AMOXICILLIN/CLAVULANATE K 875 MG TAB PO SCH ×2 (08:52→21:34)
[2018-01-28] MEDS: THIAMINE HCL 100 MG TAB PO SCH (08:52)
[2018-01-28] MEDS: aMILoride HCL 5 MG TAB PO SCH (08:52)
[2018-01-28] MEDS: FOLIC ACID 1 MG TAB PO SCH (08:52)
[2018-01-28] MEDS: FAMOTIDINE 20 MG TAB PO SCH ×2 (08:52→21:34)
[2018-01-28] MEDS: HALOPERIDOL 1 MG TAB PO SCH ×2 (08:52→21:34)
[2018-01-28] MEDS: METOPROLOL TARTRATE 50 MG TAB PO SCH ×2 (08:53→21:33)
[2018-01-28] MEDS: HEPARIN SODIUM - SQ 10,000 UNITS/ML VIAL SQ SCH ×2 (08:54→21:33)
[2018-01-28] MEDS: DESMOPRESSIN ACETATE 4 MCG/ML VIAL IV PUSH SCH (08:54)
[2018-01-28] MEDS: SODIUM CHLORIDE 0.9% FLUSH 10 ML FLUSH IV FLUSH SCH ×2 (08:54→21:35)
[2018-01-28] MEDS: FREE WATER G-TUBE SCH (08:55)
[2018-01-28 09:01] LABS: BICARBONATE 16.1 MEQ/L (21.0-32.0); CALCIUM 8.9 MG/DL (8.5-10.1); CREATININE 1.73 MG/DL (0.60-1.30)
--- NOTE | 2018-01-28 10:13 | HHI.NPPN ---
Subjective Complaints: Confused Renal Failure: Acute History of Present Illness This is a 57-year-old male with a history of apparent bipolar disorder. The patient has been on lithium in the past. It is unclear how long he has been on lithium. The patient was admitted on 01/12/2018, after he had a recent extensive dental extraction. The patient had apparent sudden acute onset of confusion and altered mental status. The patient was found at home lying shaking with confusion and a low-grade temperature. Here, the patient was seen in the emergency room. He was further evaluated and brought to the ICU when he had ongoing confusion and altered mental status. Drug screen showed positive cannabinoids. He was initially started on IV fluids with normal saline. He has subsequently developed acute significant hypernatremia. He had a serum sodium of 133 on presentation. He was started initially on normal saline and his sodium jumped up to a level of 160. Throughout the course of today, the patient 's sodium has continued to rise from 160 up to 166 and then 165. He initially was on normal saline and then was given half normal saline and is now on D5W. The patient had ongoing confusion and altered mental status and was intubated after he had significant tachycardia and tachypnea. At this point, the patient is intubated and sedated and is receiving D5W for hypernatremia. Nephrology was consulted for further evaluation. Additional Remarks Patient is lethargic barely opening eyes to commands. (Zamzam Valentino) Review of Systems General General Remarks unable to do ROS due to mental status (Zamzam Valentino) Objective Data Data 01/28/18 01/29/18 19:00 07:00 Intake Total 600 ml Balance 600 ml Intake Oral 600 ml # Voids 1 # Bowel Movements 1 Vital Signs Date Time Temp Pulse Resp B/P (MAP) Pulse Ox O2 Delivery O2 Flow Rate FiO2 01/28/18 08:20 98.3 62 18 128/67 (87) 18 01/28/18 05:11 98.0 65 20 116/56 (76) 100 01/28/18 01:00 59 01/28/18 00:36 97.6 64 20 134/68 (90) 96 01/27/18 20:22 97.6 84 20 135/65 (88) 99 01/27/18 17:32 91 01/27/18 16:38 98.4 63 20 121/72 (88) 97 01/27/18 12:38 65 01/27/18 10:43 79 12 149/79 (102) 100 (Zamzam Valentino) -: 01/28/18 0819 01/28/18 0819 Physical Exam General Appearance: No Acute Distress, Comfortable (Zamzam Valentino) Pulmonary Resp Exam: Breath Sounds Equal, No Distress, Decreased Bases (Zamzam Valentino) Cardiology CV Exam: Regular (Zamzam Valentino) Gastrointestinal/Abdomen GI Exam: Soft, Non-Tender, Bowel Sounds Present (Zamzam Valentino) Genitourinary Exam: Flank Non-Tender (Zamzam Valentino) Integumentary Skin Exam: Warm, Dry Skin Remarks Rash on buttocks (Zamzam Valentino) Extremeties Extremities Exam: No Edema (Zamzam Valentino) Neurologic Neuro Exam: Awake (Zamzam Valentino) Assessment/Plan Discussed Condition With: Patient Assessment Summary: ANGELLA/Acute Renal Failure Problem List: (1) Hypernatremia ICD Codes: E87.0 - Hyperosmolality and hypernatremia Status: Acute Plan: Possible diabetes insipidus possible secondary to chronic calcifications. Also possible nephrogenic component for diabetes insipidus given that the patient has had ongoing lithium use on as far as his lithium toxicity. Plan Continue Amiloride 10mg daily DDAVP discontinued Hypernatremia resolved (2) Acute renal failure superimposed on stage 2 chronic kidney disease ICD Codes: N17.9 - Acute kidney failure, unspecified; N18.2 - Chronic kidney disease, stage 2 (mild) Status: Acute Plan: Acute kidney injury possible ATN Creatinine improving at 1.73 from 1.82 Renal US: . Mild medical renal disease. Probable nonobstructing right renal calculus. Graham catheter in bladder Plan Will monitor UOP and BMP creatinine improving CO2 improved at 16.2 Avoid nephrotoxins. (3) Toxic metabolic encephalopathy ICD Codes: G92 - Toxic encephalopathy Status: Acute Plan: Continue antibiotics renal dosing. (Zamzam Valentino) Problem List: (1) Hypernatremia ICD Codes: E87.0 - Hyperosmolality and hypernatremia Status: Acute Plan: Possible diabetes insipidus possible secondary to chronic calcifications. Also possible nephrogenic component for diabetes insipidus given that the patient has had ongoing lithium use on as far as his lithium toxicity. Plan Continue Amiloride 10mg daily DDAVP discontinued Hypernatremia resolved (2) Acute renal failure superimposed on stage 2 chronic kidney disease ICD Codes: N17.9 - Acute kidney failure, unspecified; N18.2 - Chronic kidney disease, stage 2 (mild) Status: Acute Plan: Acute kidney injury possible ATN Creatinine improving at 1.73 from 1.82 Renal US: . Mild medical renal disease. Probable nonobstructing right renal calculus. Graham catheter in bladder Plan Will monitor UOP and BMP creatinine improving CO2 improved at 16.2 Avoid nephrotoxins. Patient seen and examined, agree with above.Creatinine is stable at 1.6-1.7. (3) Toxic metabolic encephalopathy ICD Codes: G92 - Toxic encephalopathy Status: Acute Plan: Continue antibiotics renal dosing. (John Gutierrez MD) Zamzam Valentino Jan 28, 2018 10:13 John Gutierrez MD Jan 28, 2018 17:57
--- NOTE | 2018-01-28 11:05 | HHI.PR ---
Subjective Remarks Improved today. less agitated. With visual hallucinations. Patient is confused. Knows his name and that he is seen in the hospital. No chest pain or shortness of breath nausea or vomiting. Objective Vitals Vital Signs Date Time Temp Pulse Resp B/P (MAP) Pulse Ox O2 Delivery O2 Flow Rate FiO2 01/28/18 08:20 98.3 62 18 128/67 (87) 18 01/28/18 05:11 98.0 65 20 116/56 (76) 100 01/28/18 01:00 59 01/28/18 00:36 97.6 64 20 134/68 (90) 96 01/27/18 20:22 97.6 84 20 135/65 (88) 99 01/27/18 17:32 91 01/27/18 16:38 98.4 63 20 121/72 (88) 97 01/27/18 12:38 65 I/O 01/27/18 01/27/18 01/27/18 01/28/18 01/28/18 01/28/18 07:00 15:00 23:00 07:00 15:00 23:00 Intake Total 100 ml 1020 ml 600 ml Output Total 1200 ml Balance 100 ml -180 ml 600 ml Intake Oral 1020 ml 600 ml IV Total 100 ml Output Urine Total 1200 ml # Voids 1 1 4 1 # Bowel Movements 3 1 Result Diagram: 01/28/1881801/28/18818 Imaging Last Impressions Lower Extremity Ultrasound 01/22/18 0000 Signed Impressions: Service Date/Time: Monday, January 22, 2018 10:36 - CONCLUSION: Normal examination. Jonny Arciniega MD Chest X-Ray 01/21/18 0000 Signed Impressions: Service Date/Time: Sunday, January 21, 2018 08:52 - CONCLUSION: 1. No acute cardiac pulmonary disease. 2. Apparent placement of a nasogastric tube with the tip projected over the mid to distal esophagus. Shubham Patricio MD Abdomen X-Ray 01/21/18 0000 Signed Impressions: Service Date/Time: Sunday, January 21, 2018 08:43 - CONCLUSION: 1. Unremarkable bowel gas pattern. 2. Nasogastric tube with the tip in the proximal stomach. Shubham Patricio MD Lumbar Puncture Fluoroscopy 01/18/18 0000 Signed Impressions: Service Date/Time: Thursday, January 18, 2018 13:09 - CONCLUSION: Uncomplicated fluoroscopically guided lumbar puncture. Moses Chavez Jr., MD Renal Ultrasound 01/14/18 0000 Signed Impressions: Service Date/Time: Sunday, January 14, 2018 17:02 - CONCLUSION: 1. Mild medical renal disease. Probable nonobstructing right renal calculus. Graham catheter in bladder. Jonny Arciniega MD Head Magnetic Resonance Angiography 01/14/18 0000 Signed Impressions: Service Date/Time: Sunday, January 14, 2018 15:24 - CONCLUSION: 1. Suboptimal visualization of the left vertebral artery due to motion artifact particularly at the vertebrobasilar junction. Can not exclude a focal flow-limiting stenosis at this level. 2. Otherwise, unremarkable MRA examination of the [place]. No aneurysm or large vessel cerebral artery occlusion Dyllan Luque MD Brain MRI 01/14/18 0000 Signed Impressions: Service Date/Time: Sunday, January 14, 2018 15:24 - CONCLUSION: 1. Redemonstration of chronic cerebellar calcifications. 2. Senescent changes without acute abnormality. Specifically, no evidence for acute infarction. Dyllan Luque MD Abdomen/Pelvis CT 01/13/18 0000 Signed Impressions: Service Date/Time: Sunday, January 14, 2018 16:12 - CONCLUSION: Markedly cirrhotic liver appearance. Splenomegaly. Edinson Urbano MD Soft Tissue Neck X-Ray 01/12/18 0000 Signed Impressions: Service Date/Time: Friday, January 12, 2018 00:21 - CONCLUSION: 1. Degenerative changes of the mid and lower cervical spine. 2. Otherwise negative. No radiopaque foreign body. Gulshan Lieberman MD Head CT 01/11/181926 Signed Impressions: Service Date/Time: Thursday, January 11, 2018 19:50 - CONCLUSION: No acute intracranial abnormality demonstrated. Atrophy and chronic cerebellar calcification. Edinson Esquivel MD Objective Remarks GENERAL: In bed, more awake and alert. Moving arms and legs, follows some commands. Off restraints. CARDIOVASCULAR: Regular rate and rhythm. RESPIRATORY: No accessory muscle use. Clear to auscultation. Breath sounds equal bilaterally. GASTROINTESTINAL: Abdomen soft, non-tender, nondistended. Hepatic and splenic margins not palpable. MUSCULOSKELETAL: Extremities without clubbing, cyanosis, or edema. No obvious deformities. NEUROLOGICAL: Awake and alert. No obvious cranial nerve deficits. Moving arms and legs, following some commands. A/P Problem List: (1) Altered mental status ICD Code: R41.82 - Altered mental status, unspecified (2) Toxic metabolic encephalopathy ICD Code: G92 - Toxic encephalopathy Status: Acute (3) Hypernatremia ICD Code: E87.0 - Hyperosmolality and hypernatremia Status: Acute (4) Acute renal failure superimposed on stage 2 chronic kidney disease ICD Code: N17.9 - Acute kidney failure, unspecified; N18.2 - Chronic kidney disease, stage 2 (mild) Status: Acute (5) Systemic inflammatory response syndrome ICD Code: R65.10 - Systemic inflammatory response syndrome (SIRS) of non- infectious origin without acute organ dysfunction (6) Chronic obstructive pulmonary disease ICD Code: J44.9 - Chronic obstructive pulmonary disease, unspecified (7) Hypothyroidism ICD Code: E03.9 - Hypothyroidism, unspecified (8) Leukocytosis ICD Code: D72.829 - Elevated white blood cell count, unspecified (9) Thrombocytopenia ICD Code: D69.6 - Thrombocytopenia, unspecified Status: Acute (10) Transaminitis ICD Code: R74.0 - Nonspecific elevation of levels of transaminase and lactic acid dehydrogenase [LDH] (11) Hyperbilirubinemia ICD Code: E80.6 - Other disorders of bilirubin metabolism (12) Macrocytic anemia ICD Code: D53.9 - Nutritional anemia, unspecified (13) Hyperglycemia ICD Code: R73.9 - Hyperglycemia, unspecified Assessment and Plan This is 57-year-old male who was admitted for encephalopathy. Initially admitted to the ICU after intubation, extubated, diagnosed to have metabolic encephalopathy secondary to severe hypernatremia. CSF infection ruled out. 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 Psychiatry following, continue Haldol as needed, continue restraints. Not likely secondary to bipolar disorder. CT scan of the head unremarkable, MRI negative for acute findings. Seizure precautions, EEG showed mild to moderate diffuse disturbance in cerebral function, no epileptiform discharges. Ammonia within normal limits, stop lactulose. Other workup negative including TSH, vitamin B12. Continue thiamine, folic acid. Noted more agitated, placed in four-point restraints, Haldol 4 mg IM every 6 hours as needed. Monitor. Acute renal failure, on top of chronic kidney disease stage II-nephrology following, resolving, likely secondary to acute tubular necrosis. Hypernatremia-nephrology following, possibly secondary to diabetes insipidus from calcifications versus lithium. Continue DDAVP, titrated down, likely secondary to lithium therapy. Continue amiloride, stop DDAVP if sodium is normal tomorrow. [place] stopped. Chronic COPD-continue duo nebs as needed. Stable. Hypertension-continue Lopressor, hydralazine, echocardiogram showed ejection fraction of 55-60%. Hyperlipidemia, transaminitis, hepatitis C, cirrhosis of the liver-CT of the abdomen showed cirrhotic liver, splenomegaly. Hepatitis C treatment as outpatient. Recheck LFTs in a few days Leukocytosis-improving, infectious disease has signed off, continue cefepime, switch to Augmentin 01/28/2018 if able to take oral pills, pro-calcitonin is increased. Cultures negative including urine culture and blood culture. Influenza screening negative. LP negative. Macrocytic anemia, Thrombocytopenia- chronic, stable. Status post speech evaluation-pured diet and thin liquids. GI prophylaxis: Pepcid Discharge Planning Would likely still need longterm placement. June Mazariegos MD Jan 28, 2018 11:05
[2018-01-29] VITALS: BP 110/60; PULSE 72; RESP 16; TEMP 97.7; O2SAT 98
[2018-01-29 04:00] VITALS: BP 103/62; PULSE 60; RESP 16; TEMP 98.5; O2SAT 98
[2018-01-29] MEDS: NYSTATIN 100,000 UNIT/GM CREAM 15 GM TOPICAL SCH ×5 (06:00→23:59)
[2018-01-29] MEDS: INSULIN NovoLIN REGULAR SUPPLEMENTAL SCALE SQ SCH ×5 (06:00→23:58)
[2018-01-29] MEDS: hydrALAZINE HCL 50 MG TAB PO SCH ×3 (06:22→21:57)
[2018-01-29 08:00] VITALS: BP 108/70; PULSE 60; RESP 18; TEMP 97.2; O2SAT 98
[2018-01-29 08:17] LABS: AUTOMATED NEUTROPHIL # 4.4 TH/MM3 (1.8-7.7); BASOPHIL # 0.1 TH/MM3 (0-0.2); BASOPHIL % 1.2 % (0.0-2.0); EOSINOPHIL # 0.4 TH/MM3 (0-0.4); EOSINOPHIL % 5.1 % (0.0-4.0); HEMATOCRIT 29.2 % (39.0-51.0); HEMOGLOBIN 10.1 GM/DL (13.0-17.0); LYMPH % 30.5 % (9.0-44.0); LYMPHOCYTE # 2.5 TH/MM3 (1.0-4.8); MEAN CELL VOLUME 103.2 FL (80.0-100.0); MEAN CORPUSCULAR HEMOGLOBIN 35.8 PG (27.0-34.0); MEAN CORPUSCULAR HGB CONC 34.7 % (32.0-36.0); MEAN PLATELET VOLUME 9.2 FL (7.0-11.0); MONO % 9.6 % (0.0-8.0); MONOCYTE # 0.8 TH/MM3 (0-0.9); NEUT % 53.6 % (16.0-70.0); PLATELET COUNT 145 TH/MM3 (150-450); RED BLOOD COUNT 2.83 MIL/MM3 (4.50-5.90); RED CELL DISTRIBUTION WIDTH 15.4 % (11.6-17.2); WHITE BLOOD COUNT 8.2 TH/MM3 (4.0-11.0)
[2018-01-29] MEDS: FOLIC ACID 1 MG TAB PO SCH (08:20)
[2018-01-29] MEDS: aMILoride HCL 5 MG TAB PO SCH (08:20)
[2018-01-29] MEDS: THIAMINE HCL 100 MG TAB PO SCH (08:20)
[2018-01-29] MEDS: METOPROLOL TARTRATE 50 MG TAB PO SCH ×2 (08:20→21:57)
[2018-01-29] MEDS: HALOPERIDOL 1 MG TAB PO SCH ×2 (08:20→21:56)
[2018-01-29] MEDS: MULTIVITAMIN TAB PO SCH (08:20)
[2018-01-29] MEDS: FAMOTIDINE 20 MG TAB PO SCH ×2 (08:20→21:59)
[2018-01-29] MEDS: HEPARIN SODIUM - SQ 10,000 UNITS/ML VIAL SQ SCH ×2 (08:21→21:58)
[2018-01-29] MEDS: SODIUM CHLORIDE 0.9% FLUSH 10 ML FLUSH IV FLUSH SCH ×2 (08:21→21:00)
[2018-01-29 08:39] LABS: BICARBONATE 17.3 MEQ/L (21.0-32.0); CALCIUM 9.2 MG/DL (8.5-10.1); CREATININE 1.71 MG/DL (0.60-1.30)
--- NOTE | 2018-01-29 09:15 | HHI.PR ---
Review/Management Diagnosis/Plan: (1) Toxic metabolic encephalopathy ICD Codes: G92 - Toxic encephalopathy Status: Acute Plan: etiology: multifactorial. hypernatremia, workup thus far has yielded evidence of cirrhosis and acute kidney injury No gross evidence of robotic maintenance technician infection/lesion mri/mra brain- no acute infarct eeg- slowing nh3 has improved with lactulose recs Neuro continues to improve slowly, seen by psych, monitor clinically (Darell Tsai) Daily Summary seen and examined. d/w PA. agree with above (Wing Nur MD) Subjective Subjective Comments No acute events reported No headache No chest pain No dyspnea Active Medications Current Medications Medications (Trade) Dose Ordered Sig/[place] Route Start Time Stop Time Status Last Admin (NS Flush) 2 ml UNSCH PRN IV FLUSH 01/12/18 00:45 (NS Flush) 2 ml BID IV FLUSH 01/12/18 09:00 01/28/18 21:35 (Tylenol) 650 mg Q4H PRN PO 01/12/18 00:45 01/23/18 13:57 (Zofran Inj) 4 mg Q6H PRN IVP 01/12/18 00:45 01/24/18 08:15 (Narcan Inj) 0.4 mg UNSCH PRN IV PUSH 01/12/18 00:45 (Milk Of Magnesia Liq) 30 ml Q12H PRN PO 01/12/18 00:45 (Senokot) 17.2 mg Q12H PRN PO 01/12/18 00:45 (Dulcolax Supp) 10 mg DAILY PRN RECTAL 01/12/18 00:45 (Lactulose Liq) 30 ml DAILY PRN PO 01/12/18 00:45 (Catapres) 0.1 mg Q6H PRN PO 01/12/18 10:00 (Romazicon Inj) 0.2 mg Q1M PRN IV PUSH 01/12/18 10:00 (Duoneb Neb) 1 ampule Q4HR NEB PRN NEB 01/13/18 13:00 (Vasotec Inj) 1.25 mg Q6H PRN IV PUSH 01/13/18 16:00 (Apresoline Inj) 20 mg Q4H PRN IV PUSH 01/13/18 16:00 (Midamor) 10 mg DAILY PO 01/13/18 20:45 01/29/18 08:20 Miscellaneous Information Patient in critical care unit? Ass... [id number] .XX 01/14/18 02:45 (Vitamin B1) 100 mg DAILY PO 01/17/18 11:00 01/29/18 08:20 (Folate) 1 mg DAILY PO 01/17/18 11:00 01/28/18 08:52 (Theragran) 1 tab DAILY PO 01/17/18 11:00 01/29/18 08:20 (D50w (Vial) Inj) 50 ml UNSCH PRN IV PUSH 01/17/18 11:00 (Glucagon Inj) 1 mg UNSCH PRN OTHER 01/17/18 11:00 (NovoLIN R SUPPLEMENTAL SCALE) 1 Q6HR SQ 01/17/18 12:00 01/28/18 13:44 (Ativan Inj) 1 mg Q4H PRN IV 01/17/18 19:45 01/27/18 01:40 (Lopressor) 50 mg Q12HR PO 01/18/18 09:15 01/28/18 21:33 (Mycostatin Powder) 1 applic Q12HR PRN TOPICAL 01/18/18 12:30 01/22/18 20:24 (Apresoline) 50 mg Q8HR PO 01/19/18 08:00 01/29/18 06:22 (Mycostatin Cream) 1 applic Q6HR TOPICAL 01/21/18 12:00 01/28/18 13:45 (Pepcid) 10 mg BID PO 01/21/18 21:00 01/29/18 08:20 (Heparin Inj) 5,000 units Q12HR SQ 01/22/18 09:00 01/29/18 08:21 (Haldol) 1 mg BID PO 01/24/18 21:00 01/29/18 08:20 (Shari-Colace) 1 tab BID PRN PO 01/26/18 11:45 (Haldol Inj) 4 mg Q6H PRN IM 01/26/18 15:30 01/26/18 15:52 Allergies Allergies Coded Allergies chlorpheniramine (Unverified Allergy, Severe, ANTIHISTAMINE???, 01/11/18) pseudoephedrine (Unverified Allergy, Severe, DECONGESTANTS???, 01/11/18) (Darell Tsai) Review of Systems All other ROS: ROS reviewed as documented in chart, Unable to obtain (Darell Tsai) Exam I&O / VS Vital Signs Date Time Temp Pulse Resp B/P (MAP) Pulse Ox O2 Delivery O2 Flow Rate FiO2 01/29/18 08:00 97.2 60 18 108/70 (83) 98 01/29/18 04:00 98.5 60 16 103/62 (76) 98 01/29/18 00:00 97.7 72 16 110/60 (77) 98 01/28/18 20:00 97.7 69 16 116/65 (82) 01/28/18 16:12 98.9 66 18 106/73 (84) 96 01/28/18 12:46 98.8 62 18 114/72 (86) 97 General: No acute distress Eye: PERRL, EOMI Respiratory: Non-labored respirations, Symmetrical expansion Cardiology: Normal rate Neurologic: Alert, Normal DTR's Psychiatric: Cooperative, Appropriate mood & affect Exam Comments Alert, oriented 1-2, following, significant improvement in mental status since my last examination, patient is verbose, pleasant today, following commands, ou 4-3mm, EOMI without nystagmus, moves all 4 independently without focal weakness , sensory grossly intact to touch throughout (Darell Tsai) Objective Micro and Labs Laboratory Tests Test 01/29/18 06:30 White Blood Count 8.2 Red Blood Count 2.83 Hemoglobin 10.1 Hematocrit 29.2 Mean Corpuscular Volume 103.2 Mean Corpuscular Hemoglobin 35.8 Mean Corpuscular Hemoglobin Concent 34.7 Red Cell Distribution Width 15.4 Platelet Count 145 Mean Platelet Volume 9.2 Neutrophils (%) (Auto) 53.6 Lymphocytes (%) (Auto) 30.5 Monocytes (%) (Auto) 9.6 Eosinophils (%) (Auto) 5.1 Basophils (%) (Auto) 1.2 Neutrophils # (Auto) 4.4 Lymphocytes # (Auto) 2.5 Monocytes # (Auto) 0.8 Eosinophils # (Auto) 0.4 Basophils # (Auto) 0.1 CBC Comment DIFF FINAL Differential Comment Blood Urea Nitrogen 16 Creatinine 1.71 Random Glucose 111 Calcium Level 9.2 Sodium Level 137 Potassium Level 3.8 Chloride Level 110 Carbon Dioxide Level 17.3 Anion Gap 10 Estimat Glomerular Filtration Rate 41 Date/Time Source Procedure Growth Status 01/21/18 12:20 Blood Peripheral Aerobic Blood Culture - Final NO GROWTH IN 5 DAYS Complete 01/21/18 12:20 Blood Peripheral Anaerobic Blood Culture - Final NO GROWTH IN 5 DAYS Complete 01/18/18 13:17 Cerebral Spinal Fluid Lumbar Puncture Gram Stain - Final Complete 01/18/18 13:17 Cerebral Spinal Fluid Lumbar Puncture CSF Culture - Final NO GROWTH IN 72 HOURS Complete 01/13/18 17:40 Nasal Aspirate Influenza Types A,B Antigen (DIMITRIS) - Final NEGATIVE FOR FLU A AND B ANTIGEN.... Complete 01/20/18 18:00 Urine Clean Catch Urine Culture - Final NO GROWTH IN 48 HOURS. Complete (Darell Tsai) Darell Tsai Jan 29, 2018 09:15 Wing Nur MD Jan 29, 2018 15:33
--- NOTE | 2018-01-29 09:59 | HHI.NPPN ---
Subjective Complaints: Confused Renal Failure: Acute History of Present Illness This is a 57-year-old male with a history of apparent bipolar disorder. The patient has been on lithium in the past. It is unclear how long he has been on lithium. The patient was admitted on 01/12/2018, after he had a recent extensive dental extraction. The patient had apparent sudden acute onset of confusion and altered mental status. The patient was found at home lying shaking with confusion and a low-grade temperature. Here, the patient was seen in the emergency room. He was further evaluated and brought to the ICU when he had ongoing confusion and altered mental status. Drug screen showed positive cannabinoids. He was initially started on IV fluids with normal saline. He has subsequently developed acute significant hypernatremia. He had a serum sodium of 133 on presentation. He was started initially on normal saline and his sodium jumped up to a level of 160. Throughout the course of today, the patient 's sodium has continued to rise from 160 up to 166 and then 165. He initially was on normal saline and then was given half normal saline and is now on D5W. The patient had ongoing confusion and altered mental status and was intubated after he had significant tachycardia and tachypnea. At this point, the patient is intubated and sedated and is receiving D5W for hypernatremia. Nephrology was consulted for further evaluation. Additional Remarks Patients mental status is improved. Restraints off. (Zamzam Valentino) Review of Systems Respiratory Respiratory Remarks Denies SOB (Zamzam Valentino) Cardiovascular Cardiac Remarks Denies CP (Zamzam Valentino) Gastrointestinal GI Remarks Denies abdominal pain (Zamzam Valentino) Objective Data Data Vital Signs Date Time Temp Pulse Resp B/P (MAP) Pulse Ox O2 Delivery O2 Flow Rate FiO2 01/29/18 08:00 97.2 60 18 108/70 (83) 98 01/29/18 04:00 98.5 60 16 103/62 (76) 98 01/29/18 00:00 97.7 72 16 110/60 (77) 98 01/28/18 20:00 97.7 69 16 116/65 (82) 01/28/18 16:12 98.9 66 18 106/73 (84) 96 01/28/18 12:46 98.8 62 18 114/72 (02) 97 (Zamzam Valentino) -: 01/29/18 0630 01/29/18 0630 Physical Exam General Appearance: No Acute Distress, Comfortable (Zamzam Valentino) Pulmonary Resp Exam: Breath Sounds Equal, No Distress, Decreased Bases (Zamzam Valentino) Cardiology CV Exam: Regular (Zamzam Valentino) Gastrointestinal/Abdomen GI Exam: Soft, Non-Tender, Bowel Sounds Present (Zamzam Valentino) Genitourinary Exam: Flank Non-Tender (Zamzam Valentino) Integumentary Skin Exam: Warm, Dry Skin Remarks Rash on buttocks (Zamzam Valentino) Extremeties Extremities Exam: No Edema (Zamzam Valentino) Neurologic Neuro Exam: Awake (Zamzam Valentino) Assessment/Plan Discussed Condition With: Patient Assessment Summary: ANGELLA/Acute Renal Failure Problem List: (1) Hypernatremia ICD Codes: E87.0 - Hyperosmolality and hypernatremia Status: Acute Plan: Possible diabetes insipidus possible secondary to chronic calcifications. Also possible nephrogenic component for diabetes insipidus given that the patient has had ongoing lithium use on as far as his lithium toxicity. Plan Continue Amiloride 10mg daily DDAVP discontinued Hypernatremia resolved (2) Acute renal failure superimposed on stage 2 chronic kidney disease ICD Codes: N17.9 - Acute kidney failure, unspecified; N18.2 - Chronic kidney disease, stage 2 (mild) Status: Acute Plan: Acute kidney injury possible ATN Creatinine stable Renal US: . Mild medical renal disease. Probable nonobstructing right renal calculus. Graham catheter in bladder Plan Will monitor UOP and BMP creatinine improving CO2 improving Avoid nephrotoxins. Fluids encouraged (3) Toxic metabolic encephalopathy ICD Codes: G92 - Toxic encephalopathy Status: Acute Plan: Continue antibiotics renal dosing. (Zamzam Valentino) Problem List: (1) Hypernatremia ICD Codes: E87.0 - Hyperosmolality and hypernatremia Status: Acute Plan: Possible diabetes insipidus possible secondary to chronic calcifications. Also possible nephrogenic component for diabetes insipidus given that the patient has had ongoing lithium use on as far as his lithium toxicity. Plan Continue Amiloride 10mg daily DDAVP discontinued Hypernatremia resolved. Patient seen and examined, agree with above. Creatinine same, 1.7, has possibly chronic kidney disease. (2) Acute renal failure superimposed on stage 2 chronic kidney disease ICD Codes: N17.9 - Acute kidney failure, unspecified; N18.2 - Chronic kidney disease, stage 2 (mild) Status: Acute Plan: Acute kidney injury possible ATN Creatinine stable Renal US: . Mild medical renal disease. Probable nonobstructing right renal calculus. Graham catheter in bladder Plan Will monitor UOP and BMP creatinine improving CO2 improving Avoid nephrotoxins. Fluids encouraged (3) Toxic metabolic encephalopathy ICD Codes: G92 - Toxic encephalopathy Status: Acute Plan: Continue antibiotics renal dosing. (John Gutierrez MD) Zamzam Valentino Jan 29, 2018 09:59 John Gutierrez MD Jan 29, 2018 18:43
[2018-01-29 12:00] VITALS: BP 116/67; PULSE 71; PULSE 72; RESP 18; TEMP 98.3; O2SAT 96
[2018-01-29] MEDS: QUEtiapine FUMARATE 25 MG TAB PO SCH (13:07)
[2018-01-29] MEDS ORDERED: CALCIUM CARBONATE 500 MG CHEWABLE TAB CHEW PRN (13:30)
[2018-01-29] MEDS ORDERED: CALCIUM CARBONATE 500 MG CHEWABLE TAB CHEW ONE (13:45)
--- NOTE | 2018-01-29 15:17 | HHI.PR ---
Subjective Remarks He is more awake and alert today. Was able to ambulate some with physical therapy. Poor mentation and poor insight and judgment. Less agitated. No n/v/d/c. Objective Vitals Vital Signs Date Time Temp Pulse Resp B/P (MAP) Pulse Ox O2 Delivery O2 Flow Rate FiO2 01/29/18 12:00 71 01/29/18 12:00 98.3 72 18 116/67 (83) 96 01/29/18 08:00 97.2 60 18 108/70 (83) 98 01/29/18 04:00 98.5 60 16 103/62 (76) 98 01/29/18 00:00 97.7 72 16 110/60 (77) 98 01/28/18 20:00 97.7 69 16 116/65 (82) 01/28/18 16:12 98.9 66 18 106/73 (84) 96 I/O 01/28/18 01/28/18 01/28/18 01/29/18 01/29/18 01/29/18 07:00 15:00 23:00 07:00 15:00 23:00 Intake Total 840 ml Balance 840 ml Intake Oral 840 ml # Voids 4 2 1 # Bowel Movements 2 1 Result Diagram: 01/29/18 0630 01/29/18 0630 Imaging Last Impressions Lower Extremity Ultrasound 01/22/18 0000 Signed Impressions: Service Date/Time: Monday, January 22, 2018 10:36 - CONCLUSION: Normal examination. Jonny Arciniega MD Chest X-Ray 01/21/18 0000 Signed Impressions: Service Date/Time: Sunday, January 21, 2018 08:52 - CONCLUSION: 1. No acute cardiac pulmonary disease. 2. Apparent placement of a nasogastric tube with the tip projected over the mid to distal esophagus. Shubham Patricio MD Abdomen X-Ray 01/21/18 0000 Signed Impressions: Service Date/Time: Sunday, January 21, 2018 08:43 - CONCLUSION: 1. Unremarkable bowel gas pattern. 2. Nasogastric tube with the tip in the proximal stomach. Shubham Patricio MD Lumbar Puncture Fluoroscopy 01/18/18 0000 Signed Impressions: Service Date/Time: Thursday, January 18, 2018 13:09 - CONCLUSION: Uncomplicated fluoroscopically guided lumbar puncture. Moses Chavez Jr., MD Renal Ultrasound 3/19/18 0000 Signed Impressions: Service Date/Time: Sunday, January 14, 2018 17:02 - CONCLUSION: 1. Mild medical renal disease. Probable nonobstructing right renal calculus. Graham catheter in bladder. Jonny Arciniega MD Head Magnetic Resonance Angiography 01/14/18 0000 Signed Impressions: Service Date/Time: Sunday, January 14, 2018 15:24 - CONCLUSION: 1. Suboptimal visualization of the left vertebral artery due to motion artifact particularly at the vertebrobasilar junction. Can not exclude a focal flow-limiting stenosis at this level. 2. Otherwise, unremarkable MRA examination of the [place] of [place]. No aneurysm or large vessel cerebral artery occlusion Dyllan Luque MD Brain MRI 01/14/18 0000 Signed Impressions: Service Date/Time: Sunday, January 14, 2018 15:24 - CONCLUSION: 1. Redemonstration of chronic cerebellar calcifications. 2. Senescent changes without acute abnormality. Specifically, no evidence for acute infarction. Dyllan Luque MD Abdomen/Pelvis CT 01/13/18 0000 Signed Impressions: Service Date/Time: Sunday, January 14, 2018 16:12 - CONCLUSION: Markedly cirrhotic liver appearance. Splenomegaly. Edinson Urbano MD Soft Tissue Neck X-Ray 01/12/18 0000 Signed Impressions: Service Date/Time: Friday, January 12, 2018 00:21 - CONCLUSION: 1. Degenerative changes of the mid and lower cervical spine. 2. Otherwise negative. No radiopaque foreign body. Gulshan Lieberman MD Head CT 01/11/181926 Signed Impressions: Service Date/Time: Thursday, January 11, 2018 19:50 - CONCLUSION: No acute intracranial abnormality demonstrated. Atrophy and chronic cerebellar calcification. Edinson Esquivel MD Objective Remarks GENERAL: In bed, more awake and alert. Moving arms and legs, follows some commands. Off restraints. CARDIOVASCULAR: Regular rate and rhythm. RESPIRATORY: No accessory muscle use. Clear to auscultation. Breath sounds equal bilaterally. GASTROINTESTINAL: Abdomen soft, non-tender, nondistended. Hepatic and splenic margins not palpable. MUSCULOSKELETAL: Extremities without clubbing, cyanosis, or edema. No obvious deformities. NEUROLOGICAL: Awake and alert. No obvious cranial nerve deficits. Moving arms and legs, following some commands. A/P Problem List: (1) Altered mental status ICD Code: R41.82 - Altered mental status, unspecified (2) Toxic metabolic encephalopathy ICD Code: G92 - Toxic encephalopathy Status: Acute (3) Hypernatremia ICD Code: E87.0 - Hyperosmolality and hypernatremia Status: Acute (4) Acute renal failure superimposed on stage 2 chronic kidney disease ICD Code: N17.9 - Acute kidney failure, unspecified; N18.2 - Chronic kidney disease, stage 2 (mild) Status: Acute (5) Systemic inflammatory response syndrome ICD Code: R65.10 - Systemic inflammatory response syndrome (SIRS) of non- infectious origin without acute organ dysfunction (6) Chronic obstructive pulmonary disease ICD Code: J44.9 - Chronic obstructive pulmonary disease, unspecified (7) Hypothyroidism ICD Code: E03.9 - Hypothyroidism, unspecified (8) Leukocytosis ICD Code: D72.829 - Elevated white blood cell count, unspecified (9) Thrombocytopenia ICD Code: D69.6 - Thrombocytopenia, unspecified Status: Acute (10) Transaminitis ICD Code: R74.0 - Nonspecific elevation of levels of transaminase and lactic acid dehydrogenase [LDH] (11) Hyperbilirubinemia ICD Code: E80.6 - Other disorders of bilirubin metabolism (12) Macrocytic anemia ICD Code: D53.9 - Nutritional anemia, unspecified (13) Hyperglycemia ICD Code: R73.9 - Hyperglycemia, unspecified Assessment and Plan This is 57-year-old male who was admitted for encephalopathy. Initially admitted to the ICU after intubation, extubated, diagnosed to have metabolic encephalopathy secondary to severe hypernatremia. CSF infection ruled out. Altered mental status secondary to delirium, toxic metabolic encephalopathy secondary to hyponatremia CSF culture negative, unlikely ROLL TENSION TESTER infection, seen by psychiatry, likely secondary to delirium versus toxic metabolic encephalopathy secondary to hyponatremia, resolving. Psychiatry following, continue Haldol as needed, continue restraints. Not likely secondary to bipolar disorder. CT scan of the head unremarkable, MRI negative for acute findings. Seizure precautions, EEG showed mild to moderate diffuse disturbance in cerebral function, no epileptiform discharges. Ammonia within normal limits, stop lactulose. Other workup negative including TSH, vitamin B12. Continue thiamine, folic acid. Noted more agitated, placed in four-point restraints, Haldol 4 mg IM every 6 hours as needed. Monitor. Acute renal failure, on top of chronic kidney disease stage II-nephrology following, resolving, likely secondary to acute tubular necrosis. Hypernatremia-nephrology following, possibly secondary to diabetes insipidus from calcifications versus lithium. Continue DDAVP, titrated down, likely secondary to lithium therapy. Continue amiloride, stop DDAVP if sodium is normal tomorrow. [place] stopped. Chronic COPD-continue duo nebs as needed. Stable. Hypertension-continue Lopressor, hydralazine, echocardiogram showed ejection fraction of 55-60%. Hyperlipidemia, transaminitis, hepatitis C, cirrhosis of the liver-CT of the abdomen showed cirrhotic liver, splenomegaly. Hepatitis C treatment as outpatient. Recheck LFTs if need Leukocytosis-improving, infectious disease has signed off. Received cefepime, switch to Augmentin end dateof abx 01/28/2018. Cultures negative including urine culture and blood culture. Influenza screening negative. LP negative. Macrocytic anemia, Thrombocytopenia- chronic, stable. Status post speech evaluation-pured diet and thin liquids. GI prophylaxis: Pepcid Discharge Planning Would likely still need jail placement. Poss DC 1-2 days if improved. June Mazariegos MD Jan 29, 2018 15:17
[2018-01-29 16:29] VITALS: BP 139/77; PULSE 101; RESP 18; TEMP 97.9; O2SAT 97
[2018-01-29] MEDS: LACTOBACILLUS ACIDOPHILUS TAB PO SCH (17:38)
[2018-01-29 20:00] VITALS: BP 140/70; PULSE 90; PULSE 99; RESP 16; TEMP 98.2; O2SAT 97
[2018-01-30] VITALS (9 sets, daily range): BP systolic 101–146; BP diastolic 56–94; PULSE 67–99; RESP 16–18; TEMP 97.3–98.9; O2SAT 95–100
[2018-01-30] MEDS: hydrALAZINE HCL 50 MG TAB PO SCH ×3 (05:40→22:00)
[2018-01-30] MEDS: INSULIN NovoLIN REGULAR SUPPLEMENTAL SCALE SQ SCH ×3 (06:00→18:06)
[2018-01-30] MEDS: NYSTATIN 100,000 UNIT/GM CREAM 15 GM TOPICAL SCH ×3 (06:24→18:06)
[2018-01-30] MEDS ORDERED: FAMO20TA2 PO (08:59)
[2018-01-30] MEDS ORDERED: THIA100 PO (08:59)
[2018-01-30] MEDS ORDERED: SERO25TA PO (08:59)
[2018-01-30] MEDS ORDERED: HYDR-3800 PO (08:59)
[2018-01-30] MEDS ORDERED: POLY17S PO (08:59)
[2018-01-30] MEDS ORDERED: FOLI1TAB6 PO (08:59)
[2018-01-30] MEDS ORDERED: METO-309 PO (08:59)
[2018-01-30] MEDS ORDERED: HALO1TAB PO (08:59)
[2018-01-30] MEDS ORDERED: THERTAB15 PO (08:59)
--- NOTE | 2018-01-30 08:59 | HHI.DS ---
Discharge Summary Admission Date Jan 14, 2018 at 05:55 Discharge Date: Jan 31, 2018 Admitting Diagnosis AMS and post operative dilirium (1) Altered mental status ICD Code: R41.82 - Altered mental status, unspecified Diagnosis: Principal (2) Toxic metabolic encephalopathy ICD Code: G92 - Toxic encephalopathy Diagnosis: Principal Status: Acute (3) Hypernatremia ICD Code: E87.0 - Hyperosmolality and hypernatremia Diagnosis: Principal Status: Acute (4) Acute renal failure superimposed on stage 2 chronic kidney disease ICD Code: N17.9 - Acute kidney failure, unspecified; N18.2 - Chronic kidney disease, stage 2 (mild) Diagnosis: Principal Status: Acute (5) Systemic inflammatory response syndrome ICD Code: R65.10 - Systemic inflammatory response syndrome (SIRS) of non- infectious origin without acute organ dysfunction Diagnosis: Principal (6) Chronic obstructive pulmonary disease ICD Code: J44.9 - Chronic obstructive pulmonary disease, unspecified Diagnosis: Principal (7) Hypothyroidism ICD Code: E03.9 - Hypothyroidism, unspecified Diagnosis: Principal (8) Leukocytosis ICD Code: D72.829 - Elevated white blood cell count, unspecified Diagnosis: Principal (9) Thrombocytopenia ICD Code: D69.6 - Thrombocytopenia, unspecified Diagnosis: Principal Status: Acute (10) Transaminitis ICD Code: R74.0 - Nonspecific elevation of levels of transaminase and lactic acid dehydrogenase [LDH] Diagnosis: Principal (11) Hyperbilirubinemia ICD Code: E80.6 - Other disorders of bilirubin metabolism Diagnosis: Principal (12) Macrocytic anemia ICD Code: D53.9 - Nutritional anemia, unspecified Diagnosis: Principal (13) Hyperglycemia ICD Code: R73.9 - Hyperglycemia, unspecified Diagnosis: Principal Procedures none Brief History - From Admission Is a 57-year-old male with known history of hypertension, hyperlipidemia, COPD, tobacco abuse, marijuana abuse, spinal stenosis, hypothyroidism, benign prostatic hypertrophy, anxiety, depression,? Bipolar disorder who originally presented to hospital because of altered mentation, confusion. Patient did recently undergo extraction of 10 of his lower teeth 2 days prior to coming to the ER. Records indicate that his stated that the day before coming the patient started talking and nonsense and laying in bed confused with a low- grade fever. Patient was brought to emergency department and had workup performed which did not indicate any acute abnormality for the patient's encephalopathy. Patient did have CT scan done of the brain which did not indicate any acute abnormality. Further studies with alcohol level which was normal, urine drug screen did show positive cannabinoids, TSH was normal, ammonia level was normal. In light of the patient having hyper bilirubin, transaminitis, macrocytic anemia, thrombocytopenia one could consider the patient does have chronic alcohol related issues. Patient was started on thiamine and folic acid. Patient was started on CIWA protocol. Patient was admitted to the hospital for further management patient had signs of systemic inflammatory response syndrome without any sign of infection. He was started on empirical antibiotics to include vancomycin and Zosyn. Patient had workup done with chest x-ray which did not indicate any acute abnormality, urinalysis which is clear, blood cultures are negative for 2 days. No signs of infection at this time, however patient did just recently had 10 teeth extracted. Could have some underlying endocarditis. Patient did have signs of acute renal failure superimposed on chronic kidney disease stage II. Patient was started on IV fluids. Laboratory were followed and this morning patient found to have severe hypernatremia. Workup had been initiated with osmolality studies, urine sodium, ADH, MRI of brain which still awaiting results at this time. Patient was originally started on half-normal saline without any significant improvement. Subsequently changed to D5W at 75 ml/hr. Continue to monitor sodium level every 4 hours. Patient still with considerable altered mental status. Toxic metabolic encephalopathy. Presently the patient is maintaining his airway with good O2 saturations of 96% on room air, however there are episodes of tachypnea going upward 33 breaths per minute. Because of his intermittent respiratory distress and altered mental status is very concerning that the patient may require intubation for continued management and care if his symptoms does not improve. Hospitalist did discuss the case with critical care, because of the critical nature the patient and possible respiratory collapse is recommended patient be transferred to the main [facility] [place] care management. Hence critical care was consulted. CBC/BMP: 01/29/18 0630 01/29/18 0630 Significant Findings Laboratory Tests Test 01/28/18 08:19 01/29/18 06:30 Red Blood Count 2.97 MIL/MM3 (4.50-5.90) 2.83 MIL/MM3 (4.50-5.90) Hemoglobin 10.4 GM/DL (13.0-17.0) 10.1 GM/DL (13.0-17.0) Hematocrit 30.6 % (39.0-51.0) 29.2 % (39.0-51.0) Mean Corpuscular Volume 103.2 FL (80.0-100.0) 103.2 FL (80.0-100.0) Mean Corpuscular Hemoglobin 34.9 PG (27.0-34.0) 35.8 PG (27.0-34.0) Monocytes (%) (Auto) 10.0 % (0.0-8.0) 9.6 % (0.0-8.0) Eosinophils (%) (Auto) 4.7 % (0.0-4.0) 5.1 % (0.0-4.0) Blood Urea Nitrogen 20 MG/DL (7-18) Creatinine 1.73 MG/DL (0.60-1.30) 1.71 MG/DL (0.60-1.30) Chloride Level 111 MEQ/L (98-107) 110 MEQ/L (98-107) Carbon Dioxide Level 16.1 MEQ/L (21.0-32.0) 17.3 MEQ/L (21.0-32.0) Estimat Glomerular Filtration Rate 41 ML/MIN (>89) 41 ML/MIN (>89) Platelet Count 145 TH/MM3 (150-450) Random Glucose 111 MG/DL (74-106) Imaging Last Impressions Lower Extremity Ultrasound 01/22/18 0000 Signed Impressions: Service Date/Time: Monday, January 22, 2018 10:36 - CONCLUSION: Normal examination. Jonny Arciniega MD Chest X-Ray 01/21/18 0000 Signed Impressions: Service Date/Time: Sunday, January 21, 2018 08:52 - CONCLUSION: 1. No acute cardiac pulmonary disease. 2. Apparent placement of a nasogastric tube with the tip projected over the mid to distal esophagus. Shubham Patricio MD Abdomen X-Ray 01/21/18 0000 Signed Impressions: Service Date/Time: Sunday, January 21, 2018 08:43 - CONCLUSION: 1. Unremarkable bowel gas pattern. 2. Nasogastric tube with the tip in the proximal stomach. Shubham Patricio MD Lumbar Puncture Fluoroscopy 01/18/18 0000 Signed Impressions: Service Date/Time: Thursday, January 18, 2018 13:09 - CONCLUSION: Uncomplicated fluoroscopically guided lumbar puncture. Moses Chavez Jr., MD Renal Ultrasound 01/14/18 0000 Signed Impressions: Service Date/Time: Sunday, January 14, 2018 17:02 - CONCLUSION: 1. Mild medical renal disease. Probable nonobstructing right renal calculus. Graham catheter in bladder. Jonny Arciniega MD Head Magnetic Resonance Angiography 01/14/18 0000 Signed Impressions: Service Date/Time: Sunday, January 14, 2018 15:24 - CONCLUSION: 1. Suboptimal visualization of the left vertebral artery due to motion artifact particularly at the vertebrobasilar junction. Can not exclude a focal flow-limiting stenosis at this level. 2. Otherwise, unremarkable MRA examination of the [place]. No aneurysm or large vessel cerebral artery occlusion Dyllan Luque MD Brain MRI 01/14/18 0000 Signed Impressions: Service Date/Time: Sunday, January 14, 2018 15:24 - CONCLUSION: 1. Redemonstration of chronic cerebellar calcifications. 2. Senescent changes without acute abnormality. Specifically, no evidence for acute infarction. Dyllan Luque MD Abdomen/Pelvis CT 01/13/18 0000 Signed Impressions: Service Date/Time: Sunday, January 14, 2018 16:12 - CONCLUSION: Markedly cirrhotic liver appearance. Splenomegaly. Edinson Urbano MD Soft Tissue Neck X-Ray 01/12/18 0000 Signed Impressions: Service Date/Time: Friday, January 12, 2018 00:21 - CONCLUSION: 1. Degenerative changes of the mid and lower cervical spine. 2. Otherwise negative. No radiopaque foreign body. Gulshan Lieberman MD Head CT 01/11/181926 Signed Impressions: Service Date/Time: Thursday, January 11, 2018 19:50 - CONCLUSION: No acute intracranial abnormality demonstrated. Atrophy and chronic cerebellar calcification. Edinson Esquivel MD PE at Discharge GENERAL: In bed, more awake and alert. Moving arms and legs, follows some commands. Off restraints. CARDIOVASCULAR: Regular rate and rhythm. RESPIRATORY: No accessory muscle use. Clear to auscultation. Breath sounds equal bilaterally. GASTROINTESTINAL: Abdomen soft, non-tender, nondistended. Hepatic and splenic margins not palpable. MUSCULOSKELETAL: Extremities without clubbing, cyanosis, or edema. No obvious deformities. NEUROLOGICAL: Awake and alert. No obvious cranial nerve deficits. Moving arms and legs, following some commands. Pt update on day of discharge Improved currently. Mentation is at baseline. at bedside. Physical recommend physical therapy recommends PT at home. Patient denies having any chest pain or shortness of breath no nausea vomiting. He is breathing well on room air. feels comfortable taking him home. Discussed with the if not doing well at home can get in touch with the PCP and can go to intermediate facility. Hospital Course This is 57-year-old male who was admitted for encephalopathy. Initially admitted to the ICU after intubation, extubated, diagnosed to have metabolic encephalopathy secondary to severe hypernatremia. CSF infection ruled out. Altered mental status secondary to delirium, toxic metabolic encephalopathy secondary to hyponatremia CSF culture negative, unlikely [employer] infection, seen by psychiatry, likely secondary to delirium versus toxic metabolic encephalopathy secondary to hyponatremia, resolving. Psychiatry following, continue Haldol as needed, continue restraints. Not likely secondary to bipolar disorder. CT scan of the head unremarkable, MRI negative for acute findings. Seizure precautions, EEG showed mild to moderate diffuse disturbance in cerebral function, no epileptiform discharges. Ammonia within normal limits, stop lactulose. Other workup negative including TSH, vitamin B12. Continue thiamine, folic acid. Patient improved with Haldol and Seroquel. Mentation back at baseline. Seen by psychiatry and cleared for discharge Acute renal failure, on top of chronic kidney disease stage II-nephrology following, resolving, likely secondary to acute tubular necrosis. Hypernatremia-nephrology following, possibly secondary to diabetes insipidus from calcifications versus lithium. Continue DDAVP, titrated down, likely secondary to lithium therapy. Continue amiloride, stop DDAVP if sodium is normal tomorrow. [place] stopped. Chronic COPD-continue duo nebs as needed. Stable. Hypertension-continue Lopressor, hydralazine, echocardiogram showed ejection fraction of 55-60%. Hyperlipidemia, transaminitis, hepatitis C, cirrhosis of the liver-CT of the abdomen showed cirrhotic liver, splenomegaly. Hepatitis C treatment as outpatient. Recheck LFTs if need Leukocytosis-improving, infectious disease has signed off. Received cefepime, switch to Augmentin end dateof abx 01/28/2018. Cultures negative including urine culture and blood culture. Influenza screening negative. LP negative. Macrocytic anemia, Thrombocytopenia- chronic, stable. Status post speech evaluation-pured diet and thin liquids. Pain in his legs recent doppler US no DVT GI prophylaxis: Pepcid Improved.Mentation is at baseline. at bedside. Physical recommend physical therapy recommends PT at home. Cleared by psychiatry for discharge also. Discussed with nephrology also clear patient for discharge. Discharged home with home health to follow-up as outpatient with PCP and consultants. Pt Condition on Discharge: Stable Discharge Disposition: Disch w/ Home Health Serv Discharge Time: > 30 minutes Discharge Instructions DIET: Follow Instructions for: Heart Healthy Diet Activities you can perform: Regular-No Restrictions Follow up Referrals: PCP Follow-up - 2-3 Days PCP Follow-up New Medications: Famotidine (Famotidine) 20 Mg Tab 10 MG PO BID for gerd, #60 TAB Folic Acid (Folic Acid) 1 Mg Tablet 1 MG PO DAILY for Nutritional Supplement, #30 TAB Haloperidol (Haloperidol) 1 Mg Tab 1 MG PO BID for psychosis , #60 TAB Hydralazine HCl (Hydralazine HCl) 50 Mg Tablet 50 MG PO Q8HR for Blood Pressure Management, #90 TAB Metoprolol Tartrate (Lopressor) 50 Mg Tab 50 MG PO Q12HR for Blood Pressure Management, #60 TAB Multivitamin with Folic Acid (Thera Tablet) 400 Mcg Tablet 1 TAB PO DAILY for Nutritional Supplement, #30 TAB Polyethylene Glycol 3350 Powder (Polyethylene Glycol 3350 Powder) 17 Gram Pow 17 GM PO DAILY for Constipation, #30 PACKET Quetiapine (Seroquel) 25 Mg Tab 25 MG PO BID@09,12 for psychosis , #60 TAB Thiamine HCl (Gnp Vitamin B-1) 100 Mg Tab 100 MG PO DAILY for Nutritional Supplement, #30 TAB Continued Medications: Buspirone (Buspirone) 15 Mg Tab 15 MG PO HS for Anxiety, TAB 0 Refills Escitalopram (Escitalopram) 10 Mg Tab 10 MG PO HS, #30 TAB 0 Refills Fluticasone-Vilanterol Inh (Breo Ellipta Inh) 100-25 Mcg/Act Inh 1 PUFF INH DAILY, #1 INHALER 0 Refills Use daily at the same time. Gabapentin (Gabapentin) 600 Mg Tab 4 TAB PO HS, #30 TAB 0 Refills Hydroxyzine Pamoate (Hydroxyzine Pamoate) 50 Mg Cap 150 MG PO HS, CAP 0 Refills Lactulose Liq (Lactulose Liq) 10 Gm/15 Ml Soln 30 ML PO TID, ML 0 Refills Levothyroxine (Levothyroxine) 25 Mcg Tab 25 MCG PO DAILY for Thyroid, #[address] [place] Carbonate ([place] Carbonate) 300 Mg Cap 900 MG PO BID, CAP 0 Refills Mirtazapine (Mirtazapine) 30 Mg Tab 30 MG PO HS for Depression Control, #30 TAB 0 Refills Tamsulosin (Tamsulosin) 0.4 Mg Cap 0.4 MG PO HS for Manage Prostate Problems, #30 CAP 0 Refills June Mazariegos MD Jan 30, 2018 08:59
[2018-01-30] MEDS ORDERED: POLYETHYLENE GLYCOL 17 GM PKG PO SCH (09:00)
[2018-01-30] MEDS ORDERED: POLYETHYLENE GLYCOL 17 GM PKG PO ONE (09:00)
--- NOTE | 2018-01-30 09:06 | HHI.PR ---
Review/Management Diagnosis/Plan: (1) Toxic metabolic encephalopathy ICD Codes: G92 - Toxic encephalopathy Status: Acute Plan: etiology: multifactorial. hypernatremia, workup thus far has yielded evidence of cirrhosis and acute kidney injury No gross evidence of yard cleaner infection/lesion mri/mra brain- no acute infarct eeg- slowing nh3 has improved with lactulose recs doing well. neuro exam significantly improved ok to d/c from neuro no driving outpatient f/u Subjective Subjective Comments No acute events reported No headache No chest pain No dyspnea Active Medications Current Medications Medications (Trade) Dose Ordered Sig/[place] Route Start Time Stop Time Status Last Admin (NS Flush) 2 ml UNSCH PRN IV FLUSH 01/12/18 00:45 (NS Flush) 2 ml BID IV FLUSH 01/12/18 09:00 01/28/18 21:35 (Tylenol) 650 mg Q4H PRN PO 01/12/18 00:45 01/23/18 13:57 (Zofran Inj) 4 mg Q6H PRN IVP 01/12/18 00:45 01/24/18 08:15 (Narcan Inj) 0.4 mg UNSCH PRN IV PUSH 01/12/18 00:45 (Milk Of Magnesia Liq) 30 ml Q12H PRN PO 01/12/18 00:45 (Senokot) 17.2 mg Q12H PRN PO 01/12/18 00:45 (Dulcolax Supp) 10 mg DAILY PRN RECTAL 01/12/18 00:45 (Lactulose Liq) 30 ml DAILY PRN PO 01/12/18 00:45 (Catapres) 0.1 mg Q6H PRN PO 01/12/18 10:00 (Romazicon Inj) 0.2 mg Q1M PRN IV PUSH 01/12/18 10:00 (Duoneb Neb) 1 ampule Q4HR NEB PRN NEB 01/13/18 13:00 (Vasotec Inj) 1.25 mg Q6H PRN IV PUSH 01/13/18 16:00 (Apresoline Inj) 20 mg Q4H PRN IV PUSH 01/13/18 16:00 (Midamor) 10 mg DAILY PO 01/13/18 20:45 01/29/18 08:20 Miscellaneous Information Patient in critical care unit? Ass... Q361D .XX 01/14/18 02:45 (Vitamin B1) 100 mg DAILY PO 01/17/18 11:00 01/29/18 08:20 (Folate) 1 mg DAILY PO 01/17/18 11:00 01/29/18 08:20 (Theragran) 1 tab DAILY PO 01/17/18 11:00 01/29/18 08:20 (D50w (Vial) Inj) 50 ml UNSCH PRN IV PUSH 01/17/18 11:00 (Glucagon Inj) 1 mg UNSCH PRN OTHER 01/17/18 11:00 (NovoLIN R SUPPLEMENTAL SCALE) 1 Q6HR SQ 01/17/18 12:00 01/28/18 13:44 (Ativan Inj) 1 mg Q4H PRN IV 01/17/18 19:45 01/27/18 01:40 (Lopressor) 50 mg Q12HR PO 01/18/18 09:15 01/29/18 21:57 (Mycostatin Powder) 1 applic Q12HR PRN TOPICAL 01/18/18 12:30 01/22/18 20:24 (Apresoline) 50 mg Q8HR PO 01/19/18 08:00 01/30/18 05:40 (Mycostatin Cream) 1 applic Q6HR TOPICAL 01/21/18 12:00 01/30/18 06:24 (Pepcid) 10 mg BID PO 01/21/18 21:00 01/29/18 21:59 (Heparin Inj) 5,000 units Q12HR SQ 01/22/18 09:00 01/29/18 21:58 (Haldol) 1 mg BID PO 01/24/18 21:00 01/29/18 21:56 (Shari-Colace) 1 tab BID PRN PO 01/26/18 11:45 (Haldol Inj) 4 mg Q6H PRN IM 01/26/18 15:30 01/26/18 15:52 (SEROquel) 25 mg BID@09,12 PO 01/29/18 12:00 01/29/18 13:07 (Lactinex) 1 tab TID PO 01/29/18 18:00 01/29/18 17:38 (Tums Chew) 500 mg Q12HR PRN CHEW 01/29/18 13:30 Allergies Allergies Coded Allergies chlorpheniramine (Unverified Allergy, Severe, ANTIHISTAMINE???, 01/11/18) pseudoephedrine (Unverified Allergy, Severe, DECONGESTANTS???, 01/11/18) Review of Systems All other ROS: ROS reviewed as documented in chart, Unable to obtain Exam I&O / VS Vital Signs Date Time Temp Pulse Resp B/P (MAP) Pulse Ox O2 Delivery O2 Flow Rate FiO2 01/30/18 08:12 98.5 68 18 114/68 (83) 96 01/30/18 04:12 68 01/30/18 04:00 98.3 98 16 140/68 (92) 95 01/30/18 00:00 97.3 99 16 136/76 (96) 95 01/30/18 00:00 78 01/29/18 20:00 90 01/29/18 20:00 98.2 99 16 140/70 (93) 97 01/29/18 16:29 97.9 101 18 139/77 (97) 97 01/29/18 12:00 71 01/29/18 12:00 98.3 72 18 116/67 (83) 96 General: No acute distress Eye: PERRL, EOMI Respiratory: Non-labored respirations, Symmetrical expansion Cardiology: Normal rate Neurologic: Alert, Normal DTR's Psychiatric: Cooperative, Appropriate mood & affect Exam Comments alert, ox 3, sitting up eating breakfast, follows, calm, appropriate, eomi, vff , tierney to gravity Objective Micro and Labs Date/Time Source Procedure Growth Status 01/21/18 12:20 Blood Peripheral Aerobic Blood Culture - Final NO GROWTH IN 5 DAYS Complete 01/21/18 12:20 Blood Peripheral Anaerobic Blood Culture - Final NO GROWTH IN 5 DAYS Complete 01/18/18 13:17 Cerebral Spinal Fluid Lumbar Puncture Gram Stain - Final Complete 01/18/18 13:17 Cerebral Spinal Fluid Lumbar Puncture CSF Culture - Final NO GROWTH IN 72 HOURS Complete 01/13/18 17:40 Nasal Aspirate Influenza Types A,B Antigen (DIMITRIS) - Final NEGATIVE FOR FLU A AND B ANTIGEN.... Complete 01/20/18 18:00 Urine Clean Catch Urine Culture - Final NO GROWTH IN 48 HOURS. Complete Wing Nur MD Jan 30, 2018 09:06
[2018-01-30] MEDS: MULTIVITAMIN TAB PO SCH (09:26)
[2018-01-30] MEDS: METOPROLOL TARTRATE 50 MG TAB PO SCH ×2 (09:26→20:07)
[2018-01-30] MEDS: LACTOBACILLUS ACIDOPHILUS TAB PO SCH ×3 (09:27→18:07)
[2018-01-30] MEDS: HALOPERIDOL 1 MG TAB PO SCH ×2 (09:27→20:07)
[2018-01-30] MEDS: THIAMINE HCL 100 MG TAB PO SCH (09:27)
[2018-01-30] MEDS: HEPARIN SODIUM - SQ 10,000 UNITS/ML VIAL SQ SCH ×2 (09:27→20:08)
[2018-01-30] MEDS: FAMOTIDINE 20 MG TAB PO SCH ×2 (09:27→20:07)
[2018-01-30] MEDS: QUEtiapine FUMARATE 25 MG TAB PO SCH ×2 (09:27→12:52)
[2018-01-30] MEDS: FOLIC ACID 1 MG TAB PO SCH (09:27)
[2018-01-30] MEDS: SODIUM CHLORIDE 0.9% FLUSH 10 ML FLUSH IV FLUSH SCH ×2 (09:28→20:09)
[2018-01-30] MEDS: aMILoride HCL 5 MG TAB PO SCH (09:28)
--- NOTE | 2018-01-30 10:17 | HHI.NPPN ---
Subjective Complaints: Confused Renal Failure: Acute History of Present Illness This is a 57-year-old male with a history of apparent bipolar disorder. The patient has been on lithium in the past. It is unclear how long he has been on lithium. The patient was admitted on 01/12/2018, after he had a recent extensive dental extraction. The patient had apparent sudden acute onset of confusion and altered mental status. The patient was found at home lying shaking with confusion and a low-grade temperature. Here, the patient was seen in the emergency room. He was further evaluated and brought to the ICU when he had ongoing confusion and altered mental status. Drug screen showed positive cannabinoids. He was initially started on IV fluids with normal saline. He has subsequently developed acute significant hypernatremia. He had a serum sodium of 133 on presentation. He was started initially on normal saline and his sodium jumped up to a level of 160. Throughout the course of today, the patient 's sodium has continued to rise from 160 up to 166 and then 165. He initially was on normal saline and then was given half normal saline and is now on D5W. The patient had ongoing confusion and altered mental status and was intubated after he had significant tachycardia and tachypnea. At this point, the patient is intubated and sedated and is receiving D5W for hypernatremia. Nephrology was consulted for further evaluation. Additional Remarks Patients alert and cooperative. No SOB. Discharge plans underway. (Zamzam Valentino) Review of Systems Respiratory Respiratory Remarks Denies SOB (Zamzam Valentino) Cardiovascular Cardiac Remarks Denies CP (Zamzam Valentino) Gastrointestinal GI Remarks Denies abdominal pain (Zamzam Valentino) Objective Data Data Vital Signs Date Time Temp Pulse Resp B/P (MAP) Pulse Ox O2 Delivery O2 Flow Rate FiO2 01/30/18 08:12 98.5 68 18 114/68 (83) 96 01/30/18 04:12 68 01/30/18 04:00 98.3 98 16 140/68 (92) 95 01/30/18 00:00 97.3 99 16 136/76 (96) 95 01/30/18 00:00 78 01/29/18 20:00 90 01/29/18 20:00 98.2 99 16 140/70 (93) 97 4/3/18 16:29 97.9 101 18 139/77 (97) 97 01/29/18 12:00 71 01/29/18 12:00 98.3 72 18 116/67 (83) 96 (Zamzam Valentino) -: 01/29/18 0630 01/29/18 0630 Physical Exam General Appearance: No Acute Distress, Comfortable (Zamzam Valentino) Pulmonary Resp Exam: Breath Sounds Equal, No Distress, Decreased Bases (Zamzam Valentino) Cardiology CV Exam: Regular (Zamzam Valentino) Gastrointestinal/Abdomen GI Exam: Soft, Non-Tender, Bowel Sounds Present (Zamzam Valentino) Genitourinary Exam: Flank Non-Tender (Zamzam Valentino) Integumentary Skin Exam: Warm, Dry Skin Remarks Rash on buttocks (Zamzam Valentino) Extremeties Extremities Exam: No Edema (Zamzam Valentino) Neurologic Neuro Exam: Awake (Zamzam Valentino) Assessment/Plan Discussed Condition With: Patient Assessment Summary: ANGELLA/Acute Renal Failure Problem List: (1) Hypernatremia ICD Codes: E87.0 - Hyperosmolality and hypernatremia Status: Acute Plan: Possible diabetes insipidus possible secondary to chronic calcifications. Also possible nephrogenic component for diabetes insipidus given that the patient has had ongoing lithium use on as far as his lithium toxicity. Plan Continue Amiloride 10mg daily DDAVP discontinued hypernatremia resolved. (2) Acute renal failure superimposed on stage 2 chronic kidney disease ICD Codes: N17.9 - Acute kidney failure, unspecified; N18.2 - Chronic kidney disease, stage 2 (mild) Status: Acute Plan: Acute kidney injury possible ATN Renal US: . Mild medical renal disease. Probable nonobstructing right renal calculus. Graham catheter in bladder Avoid nephrotoxins. Fluids encouraged Creatinine at 1.7, has possibly chronic kidney disease. Plans for discharge underway. (3) Toxic metabolic encephalopathy ICD Codes: G92 - Toxic encephalopathy Status: Acute Plan: Continue antibiotics renal dosing. (Zamzam Valentino) Problem List: (1) Hypernatremia ICD Codes: E87.0 - Hyperosmolality and hypernatremia Status: Acute Plan: Possible diabetes insipidus possible secondary to chronic calcifications. Also possible nephrogenic component for diabetes insipidus given that the patient has had ongoing lithium use on as far as his lithium toxicity. Plan Continue Amiloride 10mg daily DDAVP discontinued hypernatremia resolved. (2) Acute renal failure superimposed on stage 2 chronic kidney disease ICD Codes: N17.9 - Acute kidney failure, unspecified; N18.2 - Chronic kidney disease, stage 2 (mild) Status: Acute Plan: Acute kidney injury possible ATN Renal US: . Mild medical renal disease. Probable nonobstructing right renal calculus. Graham catheter in bladder Avoid nephrotoxins. Fluids encouraged Creatinine at 1.7, has possibly chronic kidney disease. Plans for discharge underway. Patient seen and examined, agree with above. Patient can be discharged from Nephrology, will need out patient follow up. (3) Toxic metabolic encephalopathy ICD Codes: G92 - Toxic encephalopathy Status: Acute Plan: Continue antibiotics renal dosing. (John Gutierrez MD) Zamzam Valentino Jan 30, 2018 10:17 John Gutierrez MD Jan 30, 2018 18:00
--- NOTE | 2018-01-30 12:10 | HHI.PR ---
Subjective Remarks Improved today. More awake and alert. Seen by psych cleared by DC, discussed with Dr Yu. Patient is complaining of pain in his legs with walking. No fever or chills. No n/v/d/c. Objective Vitals Vital Signs Date Time Temp Pulse Resp B/P (MAP) Pulse Ox O2 Delivery O2 Flow Rate FiO2 01/30/18 12:00 98.9 67 18 101/57 (72) 96 01/30/18 08:12 98.5 68 18 114/68 (83) 96 01/30/18 04:12 68 01/30/18 04:00 98.3 98 16 140/68 (92) 95 01/30/18 00:00 97.3 99 16 136/76 (96) 95 01/30/18 00:00 78 01/29/18 20:00 90 01/29/18 20:00 98.2 99 16 140/70 (93) 97 01/29/18 16:29 97.9 101 18 139/77 (97) 97 I/O 01/29/18 01/29/18 01/29/18 01/30/18 01/30/18 01/30/18 07:00 15:00 23:00 07:00 15:00 23:00 Intake Total 480 ml Balance 480 ml Intake Oral 480 ml # Voids 3 # Bowel Movements 3 Result Diagram: 01/29/18 0630 01/29/18 0630 Imaging Last Impressions Lower Extremity Ultrasound 01/22/18 0000 Signed Impressions: Service Date/Time: Monday, January 22, 2018 10:36 - CONCLUSION: Normal examination. Jonny Arciniega MD Chest X-Ray 01/21/18 0000 Signed Impressions: Service Date/Time: Sunday, January 21, 2018 08:52 - CONCLUSION: 1. No acute cardiac pulmonary disease. 2. Apparent placement of a nasogastric tube with the tip projected over the mid to distal esophagus. Shubham Patricio MD Abdomen X-Ray 01/21/18 0000 Signed Impressions: Service Date/Time: Sunday, January 21, 2018 08:43 - CONCLUSION: 1. Unremarkable bowel gas pattern. 2. Nasogastric tube with the tip in the proximal stomach. Shubham Patricio MD Lumbar Puncture Fluoroscopy 01/18/18 0000 Signed Impressions: Service Date/Time: Thursday, January 18, 2018 13:09 - CONCLUSION: Uncomplicated fluoroscopically guided lumbar puncture. Moses Chavez Jr., MD Renal Ultrasound 01/14/18 0000 Signed Impressions: Service Date/Time: Sunday, January 14, 2018 17:02 - CONCLUSION: 1. Mild medical renal disease. Probable nonobstructing right renal calculus. Graham catheter in bladder. Jonny Arciniega MD Head Magnetic Resonance Angiography 01/14/18 0000 Signed Impressions: Service Date/Time: Sunday, January 14, 2018 15:24 - CONCLUSION: 1. Suboptimal visualization of the left vertebral artery due to motion artifact particularly at the vertebrobasilar junction. Can not exclude a focal flow-limiting stenosis at this level. 2. Otherwise, unremarkable MRA examination of the [place]. No aneurysm or large vessel cerebral artery occlusion Dyllan Luque MD Brain MRI 01/14/18 0000 Signed Impressions: Service Date/Time: Sunday, January 14, 2018 15:24 - CONCLUSION: 1. Redemonstration of chronic cerebellar calcifications. 2. Senescent changes without acute abnormality. Specifically, no evidence for acute infarction. Dyllan Luque MD Abdomen/Pelvis CT 01/13/18 0000 Signed Impressions: Service Date/Time: Sunday, January 14, 2018 16:12 - CONCLUSION: Markedly cirrhotic liver appearance. Splenomegaly. Edinson Urbano MD Soft Tissue Neck X-Ray 01/12/18 0000 Signed Impressions: Service Date/Time: Friday, January 12, 2018 00:21 - CONCLUSION: 1. Degenerative changes of the mid and lower cervical spine. 2. Otherwise negative. No radiopaque foreign body. Gulshan Lieberman MD Head CT 01/11/181926 Signed Impressions: Service Date/Time: Thursday, January 11, 2018 19:50 - CONCLUSION: No acute intracranial abnormality demonstrated. Atrophy and chronic cerebellar calcification. Edinson Esquivel MD Objective Remarks GENERAL: In bed, more awake and alert. Moving arms and legs, follows some commands. Off restraints. CARDIOVASCULAR: Regular rate and rhythm. RESPIRATORY: No accessory muscle use. Clear to auscultation. Breath sounds equal bilaterally. GASTROINTESTINAL: Abdomen soft, non-tender, nondistended. Hepatic and splenic margins not palpable. MUSCULOSKELETAL: Extremities without clubbing, cyanosis, or edema. No obvious deformities. NEUROLOGICAL: Awake and alert. No obvious cranial nerve deficits. Moving arms and legs, following some commands. A/P Problem List: (1) Altered mental status ICD Code: R41.82 - Altered mental status, unspecified (2) Toxic metabolic encephalopathy ICD Code: G92 - Toxic encephalopathy Status: Acute (3) Hypernatremia ICD Code: E87.0 - Hyperosmolality and hypernatremia Status: Acute (4) Acute renal failure superimposed on stage 2 chronic kidney disease ICD Code: N17.9 - Acute kidney failure, unspecified; N18.2 - Chronic kidney disease, stage 2 (mild) Status: Acute (5) Systemic inflammatory response syndrome ICD Code: R65.10 - Systemic inflammatory response syndrome (SIRS) of non- infectious origin without acute organ dysfunction (6) Chronic obstructive pulmonary disease ICD Code: J44.9 - Chronic obstructive pulmonary disease, unspecified (7) Hypothyroidism ICD Code: E03.9 - Hypothyroidism, unspecified (8) Leukocytosis ICD Code: D72.829 - Elevated white blood cell count, unspecified (9) Thrombocytopenia ICD Code: D69.6 - Thrombocytopenia, unspecified Status: Acute (10) Transaminitis ICD Code: R74.0 - Nonspecific elevation of levels of transaminase and lactic acid dehydrogenase [LDH] (11) Hyperbilirubinemia ICD Code: E80.6 - Other disorders of bilirubin metabolism (12) Macrocytic anemia ICD Code: D53.9 - Nutritional anemia, unspecified (13) Hyperglycemia ICD Code: R73.9 - Hyperglycemia, unspecified Assessment and Plan This is 57-year-old male who was admitted for encephalopathy. Initially admitted to the ICU after intubation, extubated, diagnosed to have metabolic encephalopathy secondary to severe hypernatremia. CSF infection ruled out. Altered mental status secondary to delirium, toxic metabolic encephalopathy secondary to hyponatremia CSF culture negative, unlikely [employer] infection, seen by psychiatry, likely secondary to delirium versus toxic metabolic encephalopathy secondary to hyponatremia, resolving. Psychiatry following, continue Haldol as needed, continue restraints. Not likely secondary to bipolar disorder. CT scan of the head unremarkable, MRI negative for acute findings. Seizure precautions, EEG showed mild to moderate diffuse disturbance in cerebral function, no epileptiform discharges. Ammonia within normal limits, stop lactulose. Other workup negative including TSH, vitamin B12. Continue thiamine, folic acid. Noted more agitated, placed in four-point restraints, Haldol 4 mg IM every 6 hours as needed. Monitor. Acute renal failure, on top of chronic kidney disease stage II-nephrology following, resolving, likely secondary to acute tubular necrosis. Hypernatremia-nephrology following, possibly secondary to diabetes insipidus from calcifications versus lithium. Continue DDAVP, titrated down, likely secondary to lithium therapy. Continue amiloride, stop DDAVP if sodium is normal tomorrow. [place] stopped. Chronic COPD-continue duo nebs as needed. Stable. Hypertension-continue Lopressor, hydralazine, echocardiogram showed ejection fraction of 55-60%. Hyperlipidemia, transaminitis, hepatitis C, cirrhosis of the liver-CT of the abdomen showed cirrhotic liver, splenomegaly. Hepatitis C treatment as outpatient. Recheck LFTs if need Leukocytosis-improving, infectious disease has signed off. Received cefepime, switch to Augmentin end dateof abx 01/28/2018. Cultures negative including urine culture and blood culture. Influenza screening negative. LP negative. Macrocytic anemia, Thrombocytopenia- chronic, stable. Status post speech evaluation-pured diet and thin liquids. Pain in his legs recent doppler US no DVT GI prophylaxis: Pepcid Discharge Planning Would likely still need correction placement. DC to SNF when arrangements done. June Mazariegos MD Jan 30, 2018 12:10
--- NOTE | 2018-01-30 13:31 | HHI.PYPN ---
Subjective Remarks The patient was seen today for psychiatric reevaluation in the medical floor. Patient also was discussed with nurse in charge Meaghan and . As per nursing charge the patient has been actually doing really good, without evidence of agitation or psychosis. On psychiatric evaluation the patient is calm, cooperative and very pleasant. The patient reports that he feels much better, and he is looking forward motivated to be discharge go back home. The patient reports good mood, denies depression, denies anxiety, denies brad and psychosis. During this evaluation the patient is completely logical, coherent and relevant. He denies suicidal and was ideation, he denies visual and auditory hallucinations. He is fully oriented 3, no gross cognitive impairment , fluctuation of consciousness present. Mental Status Examination Appearance: Appropriate Consciousness: Alert Orientation: x4 Motor Activity: Normal gait Speech: Unremarkable Language: Adequate Attention and Concentration: Adequate Memory: Unremarkable Mood: Appropriate, Irritable Affect: Appropriate Thought Process & Associations: Intact Thought Content: Appropriate Hallucination Type: None Delusion Type: None Suicidal Ideation: No Suicidal Plan: No Suicidal Intention: No Homicidal Ideation: No Homicidal Plan: No Homicidal Intention: No Insight: Adequate Judgment: Adequate Results Labs Date/Time Source Procedure Growth Status 01/21/18 12:20 Blood Peripheral Aerobic Blood Culture - Final NO GROWTH IN 5 DAYS Complete 01/21/18 12:20 Blood Peripheral Anaerobic Blood Culture - Final NO GROWTH IN 5 DAYS Complete 01/18/18 13:17 Cerebral Spinal Fluid Lumbar Puncture Gram Stain - Final Complete 01/18/18 13:17 Cerebral Spinal Fluid Lumbar Puncture CSF Culture - Final NO GROWTH IN 72 HOURS Complete 01/13/18 17:40 Nasal Aspirate Influenza Types A,B Antigen (DIMITRIS) - Final NEGATIVE FOR FLU A AND B ANTIGEN.... Complete 01/20/18 18:00 Urine Clean Catch Urine Culture - Final NO GROWTH IN 48 HOURS. Complete Vitals/IOs Vital Signs Date Time Temp Pulse Resp B/P (MAP) Pulse Ox O2 Delivery O2 Flow Rate FiO2 01/30/18 12:00 98.9 67 18 101/57 (72) 96 Assessment & Plan Problem List: (1) Delirium due to another medical condition ICD Codes: F05 - Delirium due to known physiological condition Assessment & Plan: Psychiatric evaluation today the patient presents much improved since my last evaluation. The patient is completely oriented 3, calm , cooperative, logical, coherent and relevant. He does not present any neuropsychiatric symptoms that require an immediate psychiatric intervention. At this point the Haldol 1 mg twice daily can be discontinued. (2) Toxic metabolic encephalopathy ICD Codes: G92 - Toxic encephalopathy Status: Acute (3) Acute renal failure superimposed on stage 2 chronic kidney disease ICD Codes: N17.9 - Acute kidney failure, unspecified; N18.2 - Chronic kidney disease, stage 2 (mild) Status: Acute Assessment & Plan Estimated LOS: days Justification for Cont. Inpt. No indication for psychiatric admission at this moment Adonay Yu MD Jan 30, 2018 13:31
--- NOTE | 2018-01-30 16:42 | HHI.FF ---
Face to Face Verification Diagnosis: (1) Encephalopathy, metabolic (2) Toxic metabolic encephalopathy (3) Hypernatremia (4) Acute renal failure superimposed on stage 2 chronic kidney disease (5) Macrocytic anemia (6) Hyperglycemia (7) Hypothyroidism (8) Leukocytosis (9) Altered mental status (10) Thrombocytopenia Physical Therapy Order: Evaluate and Treat Home Health Nursing Order: Medical education Signs/symptoms of disease process Medication education-adverse effect Nursing assessment with vital signs I have seen patient Shubham Quijano on 01/30/18. My clinical findings support the need for the requested home health care services because: Ltd mobility - disease progression Deconditioned w/ increased weakness Limited ability to care for self I certify that my clinical findings support that this patient is homebound because: Post-op weakness Impaired cognitive ability/safety Unsteady gait/balance June Mazariegos MD Jan 30, 2018 16:42
[2018-01-31] VITALS: BP 105/76; PULSE 70; RESP 18; TEMP 97.5; O2SAT 100
[2018-01-31 05:00] VITALS: BP 145/69; PULSE 66; RESP 18; TEMP 98.8
[2018-01-31 05:52] LABS: CREATININE 1.57 MG/DL (0.60-1.30)
[2018-01-31] MEDS: INSULIN NovoLIN REGULAR SUPPLEMENTAL SCALE SQ SCH ×2 (06:00)
[2018-01-31] MEDS: NYSTATIN 100,000 UNIT/GM CREAM 15 GM TOPICAL SCH ×2 (06:00)
[2018-01-31] MEDS: hydrALAZINE HCL 50 MG TAB PO SCH (06:46)
[2018-01-31] MEDS: LACTOBACILLUS ACIDOPHILUS TAB PO SCH (08:13)
[2018-01-31] MEDS: SODIUM CHLORIDE 0.9% FLUSH 10 ML FLUSH IV FLUSH SCH (08:13)
[2018-01-31] MEDS: HALOPERIDOL 1 MG TAB PO SCH (08:14)
[2018-01-31] MEDS: FAMOTIDINE 20 MG TAB PO SCH (08:15)
[2018-01-31] MEDS: QUEtiapine FUMARATE 25 MG TAB PO SCH (08:15)
[2018-01-31] MEDS: FOLIC ACID 1 MG TAB PO SCH (08:15)
[2018-01-31] MEDS: THIAMINE HCL 100 MG TAB PO SCH (08:15)
[2018-01-31] MEDS: MULTIVITAMIN TAB PO SCH (08:15)
[2018-01-31] MEDS: aMILoride HCL 5 MG TAB PO SCH (08:16)
[2018-01-31] MEDS: METOPROLOL TARTRATE 50 MG TAB PO SCH (08:17)
[2018-01-31] MEDS: HEPARIN SODIUM - SQ 10,000 UNITS/ML VIAL SQ SCH (08:17)
[2018-01-31 08:21] VITALS: BP 120/70; PULSE 65; RESP 20; TEMP 97.7; O2SAT 97
[2018-02-01 21:00] VITALS: BP 100/64; PULSE 76; RESP 18; TEMP 98.9; O2SAT 97
== END 2018-01-31 10:42 | disposition home health service (06) | DRG 643 ==
LOC: PHED 18:49 → PHEDA 01-12 01:15 → PH3B 01-12 02:28 → PHICU 01-12 14:56 → HIME 01-13 23:20 → OBSVTOIN 01-14 05:55 → N05A 01-26 04:33
PROVIDERS: ADMIT Hospitalist; ATTEND Hospitalist
PROC: 009U3ZX Drainage of Spinal Canal, Percutaneous Approach, Diagnostic (ICD-10-PCS; principal; 2018-01-18)
PROC: 0T9B70Z Drainage of Bladder with Drainage Device, Via Natural or Artificial Opening (ICD-10-PCS; 2018-01-18)
DX: E23.2 Diabetes insipidus (principal); N17.0 Acute kidney failure with tubular necrosis; G92 Toxic encephalopathy; E87.0 Hyperosmolality and hypernatremia; E87.2 Acidosis; D69.6 Thrombocytopenia, unspecified; F05 Delirium due to known physiological condition; E87.1 Hypo-osmolality and hyponatremia; E86.0 Dehydration; Z78.1 Physical restraint status; M19.90 Unspecified osteoarthritis, unspecified site; F41.9 Anxiety disorder, unspecified; F31.9 Bipolar disorder, unspecified; J44.9 Chronic obstructive pulmonary disease, unspecified; I12.9 Hypertensive chronic kidney disease with stage 1 through stage 4 chronic kidney disease, or unspecified chronic kidney disease; N18.2 Chronic kidney disease, stage 2 (mild); E78.5 Hyperlipidemia, unspecified; E03.9 Hypothyroidism, unspecified; F12.10 Cannabis abuse, uncomplicated; F17.200 Nicotine dependence, unspecified, uncomplicated; M48.00 Spinal stenosis, site unspecified; N40.0 Benign prostatic hyperplasia without lower urinary tract symptoms; Z80.1 Family history of malignant neoplasm of trachea, bronchus and lung; R00.1 Bradycardia, unspecified; D53.9 Nutritional anemia, unspecified; R73.9 Hyperglycemia, unspecified; E87.6 Hypokalemia; B19.20 Unspecified viral hepatitis C without hepatic coma; K74.60 Unspecified cirrhosis of liver; Z86.73 Personal history of transient ischemic attack (TIA), and cerebral infarction without residual deficits; R06.82 Tachypnea, not elsewhere classified; N20.0 Calculus of kidney; E80.7 Disorder of bilirubin metabolism, unspecified; R74.0 Nonspecific elevation of levels of transaminase and lactic acid dehydrogenase [LDH]
CPT/HCPCS: 36600; 62270; 70360; 70450; 70544; 70551; 71045; 74018; 74176; 76775; 76937; 77003; 80048; 80053; 80074; 80076; 80178; 80202; 80307; 81001; 82088; 82140; 82164; 82533; 82550; 82552; 82565; 82570; 82607; 82746; 82805; 82945; 82948; 83036; 83605; 83690; 83735; 83873; 83930; 83935; 84100; 84132; 84145; 84157; 84295; 84300; 84425; 84439; 84443; 84484; 84588; 85025; 85610; 85652; 86022; 86038; 86140; 86376; 86403; 86592; 86703; 86800; 87040; 87070; 87086; 87205; 87493; 87498; 87529; 87641; 87804; 88108; 89051; 93306; 93970; 94150; 94640; 94664; 95819; 96361; 96365; 96366; 96367; 96368; 96372; 96375; 96376; G0378; G8987-GP; G8988-GP; J0133; J0692; J0696; J1630; J1644; J1885; J2060; J2405; J2543; J2597; J3370; J3411; J3480; J3486; J7030; J7040; J7050; J7060; J7070

== ENCOUNTER 2018-02-08 19:36 | Emergency (ER) | payer MEDICARE, OTHER ==
[~2018-02-08 19:36] MED LIST changes: -ALBU6.7H INH; -ALBU8I INH; +BUSP15TA PO; -BUSP5TAB3 PO; +ESCI10TA PO; +FAMO20TA2 PO; +FLUT1INH INH; +FOLI1TAB6 PO; +GABA600T PO; +HALO1TAB PO; +HYDR-3800 PO; +HYDR50CA PO; +LACT10SO PO; +LEVO25TA4 PO; -LITH300 PO; +LITH300C2 PO; -LOMO PO; +METO-309 PO; +MIRT30TA PO; -NEUR300C PO; +POLY17S PO; -PRED20 PO; +SERO25TA PO; +TAMS0.4C4 PO; +THERTAB15 PO; +THIA100 PO; -VIST25CA PO; -ZITH250T PO; -ZOFR4TAB3 SL
[2018-02-08 19:55] VITALS: BP 125/65; PULSE 68; RESP 20; TEMP 100.3; O2SAT 98
--- NOTE | 2018-02-08 20:08 | PD ---
HPI Chief Complaint: Edema Time Seen by Provider: 20:05 Travel History International Travel<30 days: No Contact w/Intl Traveler<30days: No Traveled to known affect area: No History of Present Illness HPI Patient states that he has had a history of developing lower edema to his legs in particular over the past 3 days or so. Patient states that before this his legs were normal. Patient stated that he was admitted for approximately 3 weeks in the hospital, and during that time he had several studies performed, But he was not given any answers. The patient is here curiously wondering why his legs are swelling. Patient denies any shortness of breath, patient denies any redness to his skin, patient denies any chest pain, fever, rash, back pain. Patient states that he has allergies to chlorpheniramine and pseudoephedrine Past medical history significant for hypothyroidism, CVA, hypercholesterolemia, hypertension, COPD, pacemaker, appendectomy, GERD, spinal stenosis, bipolar history, claustrophobia. PFSH Past Medical History Arthritis: Yes Anxiety: Yes Depression: Yes Cancer: No Cardiovascular Problems: Yes High Cholesterol: Yes COPD: Yes (diagnosed (2004)) Cerebrovascular Accident: Yes Diminished Hearing: No Endocrine: No Gastrointestinal Disorders: Yes (ingunal hernia) Genitourinary: No Hypertension: Yes Immune Disorder: No Musculoskeletal: Yes (spinal stenosis) Neurologic: Yes (CALCIFIED BRAIN BLEED PER PT) Psychiatric: Yes (BIPOLAR) Respiratory: Yes (copd) Immunizations Current: No Thyroid Disease: Yes (hypothyroidism) PNEUMOCCOCAL Vaccine (Year): 2 Past Surgical History AICD: No Appendectomy: Yes Oral Surgery: Yes (lower teeth pulled) Other Surgery: Yes (left hand sx (1999) appendectomy ()) Social History Alcohol Use: No (QUIT JUN, 2011) Tobacco Use: Yes (3.5 PPD) Substance Use: Yes (marijuana current use) Allergies-Medications (Allergen,Severity, Reaction): Coded Allergies: chlorpheniramine (Unverified Allergy, Severe, ANTIHISTAMINE???, 02/08/18) pseudoephedrine (Unverified Allergy, Severe, DECONGESTANTS???, 02/08/18) Reported Meds & Prescriptions Reported Meds & Active Scripts Active Haloperidol 1 Mg Tab 1 Mg PO BID Seroquel (Quetiapine Fumarate) 25 Mg Tab 25 Mg PO BID@09,12 Hydralazine HCl 50 Mg Tablet 50 Mg PO Q8HR Famotidine 20 Mg Tab 10 Mg PO BID Polyethylene Glycol 3350 Powder (Polyethylene Glycol) 17 Gram Pow 17 Gm PO DAILY Thera Tablet (Multivitamin with Folic Acid) 400 Mcg Tablet 1 Tab PO DAILY Gnp Vitamin B-1 (Thiamine HCl) 100 Mg Tab 100 Mg PO DAILY Folic Acid 1 Mg Tablet 1 Mg PO DAILY Lopressor (Metoprolol Tartrate) 50 Mg Tab 50 Mg PO Q12HR Reported Lactulose Liq (Lactulose) 10 Gm/15 Ml Soln 30 Ml PO TID Levothyroxine (Levothyroxine Sodium) 25 Mcg Tab 25 Mcg PO DAILY Breo Ellipta Inh (Fluticasone/Vilanterol) 100-25 Mcg/Act Inh 1 Puff INH DAILY Use daily at the same time. Escitalopram (Escitalopram Oxalate) 10 Mg Tab 10 Mg PO HS Tamsulosin (Tamsulosin HCl) 0.4 Mg Cap 0.4 Mg PO HS Hydroxyzine Pamoate 50 Mg Cap 150 Mg PO HS Mirtazapine 30 Mg Tab 30 Mg PO HS Gabapentin 600 Mg Tab 4 Tab PO HS [place] Carbonate 300 Mg Cap 900 Mg PO HS Review of Systems General / Constitutional: No: Fever Eyes: No: Visual changes HENT: No: Headaches Cardiovascular: No: Chest Pain or Discomfort Respiratory: No: Shortness of Breath Gastrointestinal: No: Abdominal Pain Genitourinary: No: Dysuria Musculoskeletal: Positive: Edema Skin: No Rash Neurologic: No: Weakness Psychiatric: No: Depression Endocrine: No: Polydipsia Hematologic/Lymphatic: No: Easy Bruising Physical Exam Narrative GENERAL: SKIN: Warm and dry. HEAD: Atraumatic. Normocephalic. EYES: Pupils equal and round. No scleral icterus. No injection or drainage. ENT: No nasal bleeding or discharge. Mucous membranes pink and moist. NECK: Trachea midline. No JVD. CARDIOVASCULAR: Regular rate and rhythm. RESPIRATORY: No accessory muscle use. Clear to auscultation. Breath sounds equal bilaterally. GASTROINTESTINAL: Abdomen soft, non-tender, nondistended. Hepatic and splenic margins not palpable. MUSCULOSKELETAL: Extremities without clubbing, cyanosis, or edema. No obvious deformities. NEUROLOGICAL: Awake and alert. No obvious cranial nerve deficits. Motor grossly within normal limits. Five out of 5 muscle strength in the arms and legs. Normal speech. PSYCHIATRIC: Appropriate mood and affect; insight and judgment normal. Data Data Last Documented VS Vital Signs Date Time Temp Pulse Resp B/P (MAP) Pulse Ox O2 Delivery O2 Flow Rate FiO2 02/08/18 20:06 Room Air 02/08/18 19:55 100.3 68 20 125/65 (85) 98 Orders Orders Complete Blood Count With Diff (02/08/18 20:08) Comprehensive Metabolic Panel (02/08/18 20:08) B-Type Natriuretic Peptide (02/08/18 20:08) Prothrombin Time / Inr (Pt) (02/08/18 20:08) Act Partial Throm Time (Ptt) (02/08/18 20:08) Thyroid Stimulating Hormone (02/08/18 20:08) Chest, Single Ap (02/08/18 20:08) Iv Access Insert/Monitor (02/08/18 20:08) Ecg Monitoring (02/08/18 20:08) Oximetry (02/08/18 20:08) Furosemide Inj (Lasix Inj) (02/08/18 21:15) Labs Laboratory Tests Test 02/08/18 20:20 White Blood Count 6.0 TH/MM3 Red Blood Count 2.40 MIL/MM3 Hemoglobin 8.3 GM/DL Hematocrit 25.2 % Mean Corpuscular Volume 105.1 FL Mean Corpuscular Hemoglobin 34.5 PG Mean Corpuscular Hemoglobin Concent 32.8 % Red Cell Distribution Width 15.7 % Platelet Count 101 TH/MM3 Mean Platelet Volume 8.2 FL Neutrophils (%) (Auto) 62.0 % Lymphocytes (%) (Auto) 20.8 % Monocytes (%) (Auto) 8.6 % Eosinophils (%) (Auto) 7.2 % Basophils (%) (Auto) 1.4 % Neutrophils # (Auto) 3.7 TH/MM3 Lymphocytes # (Auto) 1.3 TH/MM3 Monocytes # (Auto) 0.5 TH/MM3 Eosinophils # (Auto) 0.4 TH/MM3 Basophils # (Auto) 0.1 TH/MM3 CBC Comment DIFF FINAL Differential Comment Prothrombin Time 10.3 SEC Prothromb Time International Ratio 1.0 RATIO Activated Partial Thromboplast Time 26.7 SEC Blood Urea Nitrogen 23 MG/DL Creatinine 2.30 MG/DL Random Glucose 105 MG/DL Total Protein 6.6 GM/DL Albumin 2.6 GM/DL Calcium Level 8.6 MG/DL Alkaline Phosphatase 210 U/L Aspartate Amino Transf (AST/SGOT) 43 U/L Alanine Aminotransferase (ALT/SGPT) 53 U/L Total Bilirubin 0.4 MG/DL Sodium Level 135 MEQ/L Potassium Level 4.6 MEQ/L Chloride Level 105 MEQ/L Carbon Dioxide Level 25.8 MEQ/L Anion Gap 4 MEQ/L Estimat Glomerular Filtration Rate 29 ML/MIN B-Type Natriuretic Peptide 1051 PG/ML Thyroid Stimulating Hormone 3rd Gen 2.470 uIU/ML [facility] Medical Decision Making Medical Screen Exam Complete: Yes Emergency Medical Condition: Yes Medical Record Reviewed: Yes Differential Diagnosis Kidney failure versus liver failure versus DVT versus CHF versus peripheral edema Narrative Course Patient had bilateral ultrasound lower extremities on January 22 in which time negative DVT bilaterally per chart review CT abdomen pelvis primarily showed a markedly cirrhotic liver back on January 14, 2018. CBC shows no leukocytosis, does show some anemia with megaloblastic characteristics, anemia of 8.3/25.2, also mild low platelet count of 101,000, however no left shift. Coagulation profile is within normal limits Chemistry shows normal electrolytes however there is renal insufficiency with a BUN of 23 creatinine of 2.3 and a GFR of 29, patient's AST and ALT were 43 and 53, alk phos 210, beta natruretic peptide was 1051. TSH was within normal limits albumin was low at 2.6 I advised to this patient per his edema to his lower extremities is most likely secondary to cirrhosis and third spacing. In addition the patient was also made aware that the lower extremity edema is secondary to renal failure which he has had a previous history of stage II chronic kidney disease, however today he has evidence of stage IV chronic kidney disease. He also has in the past has evidence of transaminitis though there not as elevated as they have been in the past. His liver enzymes are only 43 and 53 now which is almost within the normal range. This process was fully explained in layman terms to both significant other and patient. Patient was offered to be admitted for further evaluation and care, but the patient stated I have already been in the hospital for too long and I do not feel like going back in this soon. Diagnosis Primary Impression: Acute on chronic renal insufficiency Additional Impression: Cirrhosis Patient Instructions: Chronic Kidney Disease (ED), Cirrhosis (ED), General Instructions Disposition: 07 AGAINST MEDICAL ADVICE Condition: Stable Guido Askew MD Feb 08, 2018 20:08
[2018-02-08 20:32] LABS: AUTOMATED NEUTROPHIL # 3.7 TH/MM3 (1.8-7.7); BASOPHIL # 0.1 TH/MM3 (0-0.2); BASOPHIL % 1.4 % (0.0-2.0); EOSINOPHIL # 0.4 TH/MM3 (0-0.4); EOSINOPHIL % 7.2 % (0.0-4.0); HEMATOCRIT 25.2 % (39.0-51.0); HEMOGLOBIN 8.3 GM/DL (13.0-17.0); LYMPH % 20.8 % (9.0-44.0); LYMPHOCYTE # 1.3 TH/MM3 (1.0-4.8); MEAN CELL VOLUME 105.1 FL (80.0-100.0); MEAN CORPUSCULAR HEMOGLOBIN 34.5 PG (27.0-34.0); MEAN CORPUSCULAR HGB CONC 32.8 % (32.0-36.0); MEAN PLATELET VOLUME 8.2 FL (7.0-11.0); MONO % 8.6 % (0.0-8.0); MONOCYTE # 0.5 TH/MM3 (0-0.9); PLATELET COUNT 101 TH/MM3 (150-450); RED CELL DISTRIBUTION WIDTH 15.7 % (11.6-17.2)
[2018-02-08 20:38] LABS: CHLORIDE 105 MEQ/L (98-107); SODIUM (NA) 135 MEQ/L (136-145)
[2018-02-08 20:42] LABS: ALBUMIN 2.6 GM/DL (3.4-5.0); BICARBONATE 25.8 MEQ/L (21.0-32.0); BLOOD UREA NITROGEN 23 MG/DL (7-18); CALCIUM 8.6 MG/DL (8.5-10.1); GLUCOSE,RANDOM 105 MG/DL (74-106)
[2018-02-08 20:44] LABS: PROTHROMBIN TIME - PATIENT 10.3 SEC (9.8-11.6)
[2018-02-08 20:45] LABS: ALT (GPT) 53 U/L (12-78); AST (GOT) 43 U/L (15-37); GLOMERULAR FILTRATION RATE 29 ML/MIN (>89)
[2018-02-08 20:47] LABS: TOTAL BILIRUBIN ADULT 0.4 MG/DL (0.2-1.0); TOTAL PROTEIN 6.6 GM/DL (6.4-8.2)
[2018-02-08 20:48] LABS: ALKALINE PHOSPHATASE 210 U/L (45-117)
[2018-02-08] MEDS ORDERED: FUROSEMIDE 40 MG/4 ML VIAL IV PUSH ONE (21:15)
--- NOTE | 2018-02-08 21:31 | RADRPT ---
EXAM DATE/TIME: 02/08/2018 20:47 [facility] COMPARISON: CHEST SINGLE AP, January 21, 2018, 8:52. INDICATIONS : Cough. MEDICAL HISTORY : Hypothyroidism. Hypercholesterolemia. Emphysema. Calcified brain bleed, CVA. Confusion. HTN. COPD. In guinal hernia. Arthritis. Spinal stenosis. Tobacco use,Depression. Bipolar disorder. Anxiety SURGICAL HISTORY : Appendectomy. Pacemaker. ORIF left arm, Left hand surgery, Left knee surgery ENCOUNTER: Initial ACUITY: 1 day PAIN SCORE: 0/10 LOCATION: Bilateral chest FINDINGS: A single view of the chest demonstrates the lungs to be symmetrically aerated without evidence of mas s, infiltrate or effusion. Linear atelectasis or scarring at the lung bases. The cardiomediastinal co ntours are unremarkable. Osseous structures are intact. CONCLUSION: 1. Linear atelectasis or scarring at the lung bases. No effusion. No pneumothorax. Jonny Arciniega MD on February 08, 2018 at 21:28 Board Certified Radiologist. This report was verified electronically.
[2018-02-08 22:06] VITALS: BP 120/62; PULSE 70; RESP 18; O2SAT 98
== END 2018-02-08 22:09 | disposition home or self-care (01) ==
LOC: PHED 19:36
DX: N18.9 Chronic kidney disease, unspecified (principal); K74.60 Unspecified cirrhosis of liver; Z53.29 Procedure and treatment not carried out because of patient's decision for other reasons; I12.9 Hypertensive chronic kidney disease with stage 1 through stage 4 chronic kidney disease, or unspecified chronic kidney disease; J44.9 Chronic obstructive pulmonary disease, unspecified; E78.00 Pure hypercholesterolemia, unspecified; E03.9 Hypothyroidism, unspecified; F31.9 Bipolar disorder, unspecified; F17.210 Nicotine dependence, cigarettes, uncomplicated; Z86.73 Personal history of transient ischemic attack (TIA), and cerebral infarction without residual deficits; Z88.8 Allergy status to other drugs, medicaments and biological substances; Z79.899 Other long term (current) drug therapy
CPT/HCPCS: 71045; 80053; 83880; 84443; 85025; 85610; 85730; 96374; 99284; J1940

== ENCOUNTER 2018-02-10 18:28 | Emergency (ER) | payer OTHER ==
[~2018-02-10] VITALS: Ht 170.2 cm; Wt 87.0 kg
[~2018-02-10 18:28] MED LIST changes: -BUSP15TA PO
[2018-02-10 18:39] VITALS: BP 108/59; PULSE 83; RESP 16; TEMP 100.3; O2SAT 97
[2018-02-10 20:48] VITALS: BP 141/68; PULSE 69; RESP 18; O2SAT 97
[2018-02-10] MEDS ORDERED: FUROSEMIDE 40 MG/4 ML VIAL IVP ONE (21:00)
[2018-02-10] MEDS ORDERED: SODIUM CHLORIDE 0.9% FLUSH 10 ML FLUSH IVF PRN (21:00)
--- NOTE | 2018-02-10 22:20 | PD ---
HPI Chief Complaint: Edema Time Seen by Provider: 20:59 Travel History International Travel<30 days: No Contact w/Intl Traveler<30days: No Traveled to known affect area: No History of Present Illness HPI 57-year-old male reports bilateral pedal edema for the past 3 days. Harsh constant. No improvement in the morning or evening. Associated symptoms include dyspnea on exertion. Patient has had a cough. He reports he feels as though he is walking on footballs. He also describes some tenderness in the thighs. He was seen here 3 days ago workup including lower extremity Doppler revealed no DVT. BNP from that time was approximately 1000. He has no fever. He has no chest pain. Patient received Lasix at the prior ED [facility] Past Medical History Hx Anticoagulant Therapy: No Arthritis: Yes Bipolar Disorder: Yes Anxiety: Yes Depression: Yes Cancer: No Cardiovascular Problems: Yes High Cholesterol: Yes Cirrhosis: Yes (LIVER) COPD: Yes (diagnosed (2004)) Cerebrovascular Accident: Yes (TIA) Dialysis: No (was recently diagnosed stage 4 kidney disease and might need soon ) Diminished Hearing: No Endocrine: No Gastrointestinal Disorders: Yes GERD: Yes Genitourinary: No Hypertension: Yes Immune Disorder: No Inguinal Hernia: Yes Implanted Vascular Access Dvce: Yes Musculoskeletal: Yes (spinal stenosis, PLATE TO LEFT ARM) Neurologic: Yes (CALCIFIED BRAIN BLEED PER PT) Psychiatric: Yes (BIPOLAR) Respiratory: Yes (copd) Immunizations Current: No Thyroid Disease: Yes (hypothyroidism) Tetanus Vaccination: Unknown Influenza Vaccination: Yes PNEUMOCCOCAL Vaccine (Year): 2 Past Surgical History AICD: No Appendectomy: Yes Oral Surgery: Yes (lower teeth pulled) Other Surgery: Yes (left hand sx (1999) appendectomy ()) Social History Alcohol Use: No (QUIT JUN, 2011) Tobacco Use: Yes (3.5 PPD) Substance Use: Yes (marijuana current use) Allergies-Medications (Allergen,Severity, Reaction): Coded Allergies: chlorpheniramine (Verified Allergy, Severe, ANTIHISTAMINE???, 02/10/18) pseudoephedrine (Verified Allergy, Severe, DECONGESTANTS???, 02/10/18) Reported Meds & Prescriptions Reported Meds & Active Scripts Active Haloperidol 1 Mg Tab 1 Mg PO BID Seroquel (Quetiapine Fumarate) 25 Mg Tab 25 Mg PO BID@09,12 Hydralazine HCl 50 Mg Tablet 50 Mg PO Q8HR Famotidine 20 Mg Tab 10 Mg PO BID Polyethylene Glycol 3350 Powder (Polyethylene Glycol) 17 Gram Pow 17 Gm PO DAILY Thera Tablet (Multivitamin with Folic Acid) 400 Mcg Tablet 1 Tab PO DAILY Gnp Vitamin B-1 (Thiamine HCl) 100 Mg Tab 100 Mg PO DAILY Folic Acid 1 Mg Tablet 1 Mg PO DAILY Lopressor (Metoprolol Tartrate) 50 Mg Tab 50 Mg PO Q12HR Reported Lactulose Liq (Lactulose) 10 Gm/15 Ml Soln 30 Ml PO TID Levothyroxine (Levothyroxine Sodium) 25 Mcg Tab 25 Mcg PO DAILY Breo Ellipta Inh (Fluticasone/Vilanterol) 100-25 Mcg/Act Inh 1 Puff INH DAILY Use daily at the same time. Escitalopram (Escitalopram Oxalate) 10 Mg Tab 10 Mg PO HS Tamsulosin (Tamsulosin HCl) 0.4 Mg Cap 0.4 Mg PO HS Hydroxyzine Pamoate 50 Mg Cap 150 Mg PO HS Mirtazapine 30 Mg Tab 30 Mg PO HS Gabapentin 600 Mg Tab 4 Tab PO HS Forbes Carbonate 300 Mg Cap 900 Mg PO HS Review of Systems Except as stated in HPI: all other systems reviewed are Neg General / Constitutional: No: Fever Physical Exam Narrative GENERAL: 57-year-old male well-nourished well-developed no acute distress Vital Signs Date Time Temp Pulse Resp B/P (MAP) Pulse Ox O2 Delivery O2 Flow Rate FiO2 02/10/18 20:48 69 18 141/68 (92) 97 Room Air 02/10/18 20:32 Room Air 02/10/18 18:39 100.3 83 16 108/59 (75) 97 SKIN: Warm and dry. HEAD: Atraumatic. Normocephalic. EYES: Pupils equal and round. No scleral icterus. No injection or drainage. ENT: No nasal bleeding or discharge. Mucous membranes pink and moist. NECK: Trachea midline. No JVD. CARDIOVASCULAR: Regular rate and rhythm. RESPIRATORY: Frequent cough. There is coarse wheezing bilaterally. GASTROINTESTINAL: Abdomen soft, non-tender, nondistended. Hepatic and splenic margins not palpable. MUSCULOSKELETAL: There is pitting edema to the knees bilaterally. No asymmetry erythema or induration. 2+ dorsalis pedis bilaterally. NEUROLOGICAL: Awake and alert. No obvious cranial nerve deficits. Motor grossly within normal limits. Five out of 5 muscle strength in the arms and legs. Normal speech. PSYCHIATRIC: Appropriate mood and affect; insight and judgment normal. Data Data Last Documented VS Vital Signs Date Time Temp Pulse Resp B/P (MAP) Pulse Ox O2 Delivery O2 Flow Rate FiO2 02/10/18 23:25 72 18 143/73 (96) 96 Room Air 02/10/18 18:39 100.3 Orders Orders Complete Blood Count With Diff (02/10/18 21:00) Comprehensive Metabolic Panel (02/10/18 21:00) B-Type Natriuretic Peptide (02/10/18 21:00) Iv Access Insert/Monitor (02/10/18 21:00) Ecg Monitoring (02/10/18 21:00) Oximetry (02/10/18 21:00) Oxygen Administration (02/10/18 21:00) Chest, Single Ap (02/10/18 21:00) Sodium Chloride 0.9% Flush (Ns Flush) (02/10/18 21:00) Furosemide Inj (Lasix Inj) (02/10/18 21:00) Labs Laboratory Tests Test 02/10/18 20:17 White Blood Count 5.6 TH/MM3 Red Blood Count 2.36 MIL/MM3 Hemoglobin 8.4 GM/DL Hematocrit 24.7 % Mean Corpuscular Volume 104.7 FL Mean Corpuscular Hemoglobin 35.7 PG Mean Corpuscular Hemoglobin Concent 34.1 % Red Cell Distribution Width 16.2 % Platelet Count 88 TH/MM3 Mean Platelet Volume 7.9 FL Neutrophils (%) (Auto) 65.9 % Lymphocytes (%) (Auto) 20.6 % Monocytes (%) (Auto) 6.3 % Eosinophils (%) (Auto) 6.9 % Basophils (%) (Auto) 0.3 % Neutrophils # (Auto) 3.6 TH/MM3 Lymphocytes # (Auto) 1.2 TH/MM3 Monocytes # (Auto) 0.4 TH/MM3 Eosinophils # (Auto) 0.4 TH/MM3 Basophils # (Auto) 0.0 TH/MM3 CBC Comment AUTO DIFF Differential Comment AUTO DIFF CONFIRMED Platelet Estimate LOW Platelet Morphology Comment NORMAL Ovalocytes 1+ Blood Urea Nitrogen 17 MG/DL Creatinine 2.00 MG/DL Random Glucose 85 MG/DL Total Protein 7.1 GM/DL Albumin 2.8 GM/DL Calcium Level 8.8 MG/DL Alkaline Phosphatase 259 U/L Aspartate Amino Transf (AST/SGOT) 51 U/L Alanine Aminotransferase (ALT/SGPT) 56 U/L Total Bilirubin 0.6 MG/DL Sodium Level 138 MEQ/L Potassium Level 3.7 MEQ/L Chloride Level 107 MEQ/L Carbon Dioxide Level 23.9 MEQ/L Anion Gap 7 MEQ/L Estimat Glomerular Filtration Rate 34 ML/MIN B-Type Natriuretic Peptide 187 PG/ML MDM Medical Decision Making Medical Screen Exam Complete: Yes Emergency Medical Condition: Yes Medical Record Reviewed: Yes Differential Diagnosis CHF, renal failure, pneumonia Narrative Course CBC & BMP Diagram 02/10/18 20:17 Total Protein 7.1, Albumin 2.8 L, Calcium Level 8.8, Alkaline Phosphatase 259 H , Aspartate Amino Transf (AST/SGOT) 51 H, Alanine Aminotransferase (ALT/SGPT) 56 , Total Bilirubin 0.6 BMP is 157 The chest x-ray reveals possible left base consolidation The patient is stable for discharge home with a prescription for Lasix and azithromycin. First doses provided here. Follow up with Dr Foley. Return precautions discussed. Diagnosis Primary Impression: Edema of both legs Additional Impressions: PNA (pneumonia) Qualified Codes: J18.9 - Pneumonia, unspecified organism Chronic renal disease Qualified Codes: N18.9 - Chronic kidney disease, unspecified Anemia Qualified Codes: D64.9 - Anemia, unspecified Referrals: Primary Care Physician call for appointment Med/Other Pt SpecificInfo: Prescription(s) given Scripts Azithromycin (Azithromycin) 250 Mg Tab 250 MG PO DAILY for Infection for 4 Days, #4 TAB 0 Refills Prov: Hang Shaikh MD 02/10/18 Furosemide (Lasix) 20 Mg Tab 20 MG PO DAILY for 5 Days, #5 TAB 0 Refills Prov: Hang Shaikh MD 02/10/18 Disposition: DISCHARGE HOME Condition: Stable Hang Shaikh MD Feb 10, 2018 22:20
--- NOTE | 2018-02-10 22:27 | RADRPT ---
EXAM DATE/TIME: 02/10/2018 21:17 [facility] COMPARISON: CHEST SINGLE AP, February 08, 2018, 20:47. INDICATIONS : Bilateral lower extremity swelling. MEDICAL HISTORY : Hypothyroidism. Hypercholesterolemia. Emphysema. Calcified brain bleed. SURGICAL HISTORY : Pacemaker.Appendectomy. Lower teeth pulled. Plate to left arm. Left knee surgery ENCOUNTER: Initial ACUITY: 2 days PAIN SCORE: 0/10 LOCATION: Bilateral upper chest FINDINGS: The heart size is normal. There is increased density seen at the left base. The right lung is grossly clear. CONCLUSION: Linear density at the left base likely related to atelectasis or consolidation. Edinson Mcdaniel MD on February 10, 2018 at 22:25 Board Certified Radiologist. This report was verified electronically.
[2018-02-10 22:29] LABS: AUTOMATED NEUTROPHIL # 3.6 TH/MM3 (1.8-7.7); BASOPHIL % 0.3 % (0.0-2.0); EOSINOPHIL # 0.4 TH/MM3 (0-0.4); EOSINOPHIL % 6.9 % (0.0-4.0); HEMATOCRIT 24.7 % (39.0-51.0); HEMOGLOBIN 8.4 GM/DL (13.0-17.0); LYMPH % 20.6 % (9.0-44.0); LYMPHOCYTE # 1.2 TH/MM3 (1.0-4.8); MEAN CELL VOLUME 104.7 FL (80.0-100.0); MEAN CORPUSCULAR HEMOGLOBIN 35.7 PG (27.0-34.0); MEAN CORPUSCULAR HGB CONC 34.1 % (32.0-36.0); MEAN PLATELET VOLUME 7.9 FL (7.0-11.0); MONO % 6.3 % (0.0-8.0); MONOCYTE # 0.4 TH/MM3 (0-0.9); NEUT % 65.9 % (16.0-70.0); PLATELET COUNT 88 TH/MM3 (150-450); RED BLOOD COUNT 2.36 MIL/MM3 (4.50-5.90); RED CELL DISTRIBUTION WIDTH 16.2 % (11.6-17.2); WHITE BLOOD COUNT 5.6 TH/MM3 (4.0-11.0)
[2018-02-10 23:10] LABS: OVALOCYTES 1+ (NORMAL)
[2018-02-10 23:13] LABS: ALBUMIN 2.8 GM/DL (3.4-5.0); ALKALINE PHOSPHATASE 259 U/L (45-117); ALT (GPT) 56 U/L (12-78); AST (GOT) 51 U/L (15-37); BICARBONATE 23.9 MEQ/L (21.0-32.0); BLOOD UREA NITROGEN 17 MG/DL (7-18); CALCIUM 8.8 MG/DL (8.5-10.1); CHLORIDE 107 MEQ/L (98-107); GLOMERULAR FILTRATION RATE 34 ML/MIN (>89); GLUCOSE,RANDOM 85 MG/DL (74-106); SODIUM (NA) 138 MEQ/L (136-145); TOTAL BILIRUBIN ADULT 0.6 MG/DL (0.2-1.0); TOTAL PROTEIN 7.1 GM/DL (6.4-8.2)
[2018-02-10 23:25] VITALS: BP 143/73; PULSE 72; RESP 18; O2SAT 96
[2018-02-10] MEDS ORDERED: FURO1TAB62 PO (23:34)
[2018-02-10] MEDS ORDERED: AZIT250T3 PO (23:34)
[2018-02-10] MEDS ORDERED: FUROSEMIDE 40 MG/4 ML VIAL IV PUSH ONE (23:45)
[2018-02-10] MEDS ORDERED: AZITHROMYCIN 250 MG TAB PO ONE (23:45)
[2018-02-10 23:49] VITALS: BP 121/68
== END 2018-02-11 00:01 | disposition home or self-care (01) ==
LOC: PHED 18:28
DX: R60.0 Localized edema (principal); J18.9 Pneumonia, unspecified organism; N18.9 Chronic kidney disease, unspecified; D64.9 Anemia, unspecified; M19.90 Unspecified osteoarthritis, unspecified site; F31.9 Bipolar disorder, unspecified; F41.9 Anxiety disorder, unspecified; I10 Essential (primary) hypertension; E03.9 Hypothyroidism, unspecified
CPT/HCPCS: 71045; 80053; 83880; 85025; 96374; 96376; 99284; J1940